=== PATIENT | female | born 1940 | race Caucasian/White ===

== ENCOUNTER 2017-04-16 17:30 | Inpatient (IN) | payer MEDICARE ==
--- NOTE | 2017-04-16 18:25 | ED Physician Chart ---
ED Chief Complaint/HPI - Patient Information Date Seen:: 04/16/17 Time Seen:: 17:40 Chief Complaint:: AMS History of Present Illness:: onset x 2 days of AMS, ALOC, depression with SIs; no report of trauma, H/As, S/T , neck pain, C/P, SOB, Abd. Pain, A/N/V/D/C, fever, chills, or urinary s/s Allergies:: Allergies Allergy/AdvReac Type Severity Reaction Status Date / Time No Known Allergies Allergy Verified 04/16/17 17:44 Vitals:: Vital Signs - 8 hr 04/16/17 17:44 Temp 98.3 F HR 95 RR 16 BP 159/52 O2 Sat % 98 Historian:: Patient, Family Member Review:: Nurse's Note Reviewed ED Review of Systems - Review of Systems General/Constitutional: No fever, No chills, No weight loss, No weakness, No diaphoresis, No edema, No loss of appetite Skin: No skin lesions, No rash, No bruising Head: No headache, No light-headedness Eyes: No loss of vision, No pain, No diplopia ENT: No earache, No nasal drainage, No sore throat, No tinnitus Neck: No neck pain, No swelling, No thyromegaly, No stiffness, No mass noted Cardio Vascular: No chest pain, No palpitations, No PND, No orthopnea, No edema Pulmonary: No SOB, No cough, No sputum, No wheezing GI: No nausea, No vomiting, No diarrhea, No pain, No melena, No hematochezia, No constipation, No hematemesis G/U: No dysuria, No frequency, No hematuria, No nacturia Test Clerk: No vaginal discharge, No abnormal vaginal bleed, No contraction Musculoskeletal: No bone or joint pain, No back pain, No muscle pain Endocrine: No polyuria, No polydipsia Psychiatric: Prior psych history, Depression, No anxiety, Suicidal ideation, No homicidal ideation, No auditory hallucination, No visual hallucination Hematopoietic: No bruising, No lymphadenopathy Allergic/Immuno: No urticaria, No angioedema Neurological: No syncope, No focal symptoms, No weakness, No paresthesia, No headache, No seizure, No dizziness, Confusion, No vertigo ED Past Medical History - Past Medical History Obtainable: Yes Past Medical History: HTN, Dyslipidemia, Dementia Family History: Diabetes Melitus, HTN Social History: Non Smoker, No Drug Use, Single, Care Facility Surgical History: None Psychiatricy History: Depression, Bipolar, Dementia Medication: Reviewed ED Physical Exam - Physical Examination General/Constitutional: Awake, Well-developed, well-nourished, Alert, No distress, GCS 15, Non-toxic appearing, Ambulatory Head: Atraumatic Eyes: Lids, conjuctiva normal, PERRL, EOMI Skin: Nl inspection, No rash, No skin lesions, No ecchymosis, Well hydrated, No lymphadenopathy ENMT: External ears, nose nl, TM canals nl, Nasal exam nl, Lips, teeth, gums nl , Oropharynx nl, Tonsils nl Neck: Nontender, Full ROM w/o pain, No JVD, No nuchal rigidity, No bruit, No mass, No stridor Respiratory: Nl effort/Exclusion, Clear to Auscultation, No Wheeze/Rhonchi/Rales Cardio Vascular: RRR, No murmur, gallop, rubs, NL S1 S2, Carotid/Femoral/Distal pulses equal bilaterally GI: No tenderness/rebounding/guarding, No organomegaly, No hernia, Normal BS's, Nondistended, No mass/bruits, No McBurney tenderness : No CVA tenderness Extremities: No tenderness or effusion, Full ROM, normal strength in all extremities, No edema, Normal digits & nails Neuro/Psych: DTR's symmetric, Normal sensory exam, Normal motor strength, Judgement/insight normal, Mood normal, Normal gait, No focal deficits Other Neuro/Psych comments:: Confused and Disoriented; + SIs Misc: Normal back, No paraspinal tenderness ED Labs/Radiology/EKG Results - Lab Results Comments:: H/H: + Anemia - EKG Interpretations EKG Time:: 18:31 Rate & Rhythm: 64; NSR Comments:: non-specific st-t changes ED Septic Shock - . Is Septic Shock (SBP<90, OR Lactate>4 mmol\L) present?: No - <6hrs of presentation: Vital Signs: Vital Signs - 8 hr 04/16/17 17:44 Temp 98.3 F HR 95 RR 16 BP 159/52 O2 Sat % 98 ED Reassessment (Disposition) - Reassessment Reassessment Condition:: Improved - Diagnosis Diagnosis:: Agitation; AMS; ALOC; Dementia; Anemia; Metabolic Encephalopathy - Aftercare/Follow up Instructions Aftercare/Follow-Up Instructions:: Counseled pt regarding lab results/diagnosis & need follow up, Counseled pt & family regarding lab results/diagnosis & need follow up - Patient Disposition Discharge/Transfer:: Acute Care w/in this hosp Accepting Physician:: Dr. Wen Time Called:: 1899 Time Responded:: 19:00 Admitted to:: Med/Surg Spoke to:: Dr. Wen Admitting Medical Physician:: Dr. Wen Condition at Disposition:: Stable, Improved
[2017-04-16 18:28] LABS: % EOSINOPHILS 2.4 % (0.0-5.0); % LYMPHOCYTES 15.6 % (20.0-50.0); EOSINOPHILE ABSOLUTE 0.3 Th/cmm (0.1-0.4); HEMATOCRIT 31.2 % (41.0-60); HEMOGLOBIN 10.3 gm/dL (12-16); LYMPHOCYTE ABSOLUTE 1.6 Th/cmm (1.5-3.0); MEAN CELL VOLUME 93.2 fl (81-100); MEAN CORPUSCULAR HEMOGLOBIN 30.9 pg (27.0-31.0); MEAN CORPUSCULAR HGB CONC 33.2 pg (28.0-36.0); MEAN PLATELET VOLUME 7.4 fl; MONOCYTE ABSOLUTE 0.7 Th/cmm (0.3-1.0); NEUTROPHILE ABSOLUTE 7.9 Th/cmm (1.8-8.0); PLATELET COUNT 529 Th/cmm (150-400); RED BLOOD COUNT 3.34 Mil/cmm (3.80-5.20); RED CELL DISTRIBUTION WIDTH 12.8 % (11.5-20.0); WHITE BLOOD COUNT 10.5 Th/cmm (4.8-10.8)
[2017-04-16 18:44] LABS: ACETAMINOPHEN < 10.0 ug/mL (10.0-30.0); ALB/GLOB RATIO 0.9 (1.0-1.8); ALBUMIN 3.4 gm/dL (3.7-5.3); ALKALINE PHOSPHATASE 106 U/L (34-104); ANION GAP 14.2 (7.0-16.0); BILIRUBIN,TOTAL 0.5 mg/dL (0.3-1.0); BUN - UREA NITROGEN 21 mg/dL (7-25); CALCIUM SERUM 10.3 mg/dL (8.6-10.3); CARBON DIOXIDE 23.3 mEq/L (21.0-31.0); CHLORIDE 102 mEq/L (98-107); CHOLESTEROL 150 mg/dL (<200); CREATININE - SERUM 1.1 mg/dL (0.6-1.2); GLUCOSE 129 mg/dL (70-105); HDL -HIGH DENSITY LIPOPROTEIN 40 mg/dL (23-92); POTASSIUM SERUM 3.5 mEq/L (3.5-5.1); SGOT 25 U/L (13-39); SGPT/ALT 32 U/L (7-52); SODIUM SERUM 136 mEq/L (136-145); TOTAL PROTEIN,SERUM 7.3 gm/dL (6.0-8.3); TRIGLYCERIDES 368 mg/dL (<150)
[2017-04-16 19:00] LABS: SALICYLATES (ASPIRIN) < 25.0 mg/L (30.0-100.0)
[2017-04-16] MEDS: Sodium Chloride 0.9% 1,000 ML IV SCH (22:59)
[2017-04-16 23:15] VITALS: BP 141/56
[2017-04-17 00:35] LABS: URINE MICROSCOPIC INDICATED? YES; URINE SOURCE CLEAN C
[2017-04-17 00:45] LABS: URINE BILIRUBIN NEGATIVE (NEGATIVE); URINE BLOOD NEGATIVE (NEGATIVE); URINE GLUCOSE (UA) >=1000 mg/dL (NEGATIVE); URINE KETONE NEGATIVE (NEGATIVE); URINE LEUKOCYTE ESTERASE SMALL (NEGATIVE); URINE NITRATE NEGATIVE (NEGATIVE); URINE PROTEIN NEGATIVE (NEGATIVE); URINE UROBILINOGEN 0.2 E.U./dL (0.2 - 1.0)
[2017-04-17 00:48] LABS: URINE CLARITY CLEAR (CLEAR); URINE COLOR YELLOW
[2017-04-17 00:49] LABS: URINE BACTERIA FEW /hpf (NONE SEEN); URINE EPITHELIAL CELLS FEW /lpf (FEW); URINE RBC 0-2 /hpf (0-5); URINE WBC 0-2 /hpf (0-5); URINE YEAST FEW /hpf (NONE SEEN)
[2017-04-17 01:04] LABS: AMPHETAMINE URINE NEGATIVE (NEGATIVE); BARBITURATES URINE NEGATIVE (NEGATIVE); BENZODIAZEPINES QUAL URINE NEGATIVE (NEGATIVE); CANNABINOID THC NEGATIVE (NEGATIVE); COCAINE METABOLITE QUAL URINE NEGATIVE (NEGATIVE); METHADONE URINE NEGATIVE (NEGATIVE); METHAMPHETAMINES QUAL URINE NEGATIVE (NEGATIVE); OPIATES (MORPHINE) QUAL. URINE NEGATIVE (NEGATIVE); PHENCYCLIDINE (PCP) URINE NEGATIVE (NEGATIVE); TRICYCLICS (TCA) QUAL. URINE NEGATIVE (NEGATIVE)
[2017-04-17] MEDS: cefTRIAXone 1 GM in Sodium Chloride 0.9% 50 ML IV SCH ×2 (01:43→23:17)
--- NOTE | 2017-04-17 12:14 | History & Physical ---
ADMIT DATE: 04/17/2017 CHIEF COMPLAINT: Altered level of consciousness. HISTORY OF PRESENT ILLNESS: A 76-year-old female who was brought into the emergency department by her daughter after experiencing metabolic encephalopathy. According to the patient's daughter, approximately 3 weeks ago, the patient was admitted to the local hospital after suffering a right lower extremity fracture. Since hospitalization, her mother has been very altered and not acting like herself. Her mother has significant psychiatric history and takes multiple psychiatric medications to control the symptoms; however, during last hospitalization, because her mother was having increased encephalopathy, they changed her medications at that time and since then she has remained very altered and will not follow any of her daughter's direction. Home medications were reviewed and reconciled. Vitals; temperature 98.4, pulse 101, respirations 22, blood pressure is 122/59. PAST MEDICAL HISTORY: Impulse control disorder, anxiety, depression, diabetes, hypertension, hyperlipidemia, coronary artery disease. PAST SURGICAL HISTORY: None. FAMILY HISTORY: Unremarkable. SOCIAL HISTORY: Denies tobacco, drugs, or alcohol. MEDICATIONS: Reviewed and reconciled. REVIEW OF SYSTEMS: Could not be obtained, because the patient is unable to understand to questioning at this time. PHYSICAL EXAMINATION: GENERAL: NAD. HEENT: PERRLA, EOMI. NECK: Supple. Trachea midline. CARDIOVASCULAR: Regular rate and rhythm. RESPIRATORY: CTA bilaterally. No wheezes, rales, or rhonchi. ABDOMEN: Soft, nontender, nondistended. Bowel sounds positive in all 4 quadrants. EXTREMITIES: Full range of motion. There is a blue cast on her right lower extremity that looks very worn and beaten up. SKIN: Warm and dry. NEUROPSYCHIATRY: A and O x 1 to self. Cranial nerves 2-12 are intact. ASSESSMENT AND PLAN: Metabolic encephalopathy, right lower extremity fracture, anxiety, depression, impulse control disorder, diabetes, hypertension. Admit to [facility]. The patient needs a sitter due to encephalopathy. Continue simvastatin, venlafaxine, Actos, Zyprexa, lisinopril, Lamictal, glyburide, and Plavix, and prophylactically ____ started. Urinary analysis was obtained at this time. Physical therapy evaluation, chest x-ray ordered due to cough. Dr. Santiago consultation has been placed at this time. JOB# [id number]
--- NOTE | 2017-04-17 12:23 | Diagnostic Imaging Report ---
CHEST X-RAY: AP view INDICATION: Cough COMPARISON: None FINDINGS: The patient is rotated. Slight increase left basal density is noted. Left basal atelectatic changes are noted. Borderline cardiomegaly is noted with atherosclerosis. Degenerative changes of the spine is noted. IMPRESSION: Limited exam due to positioning and rotation. A trace left effusion is suspected. Additional increased left basal lung markings favoring atelectatic changes. No focal consolidation is identified Borderline cardiomegaly with atherosclerosis.
[2017-04-17] MEDS: Sodium Chloride 0.9% 1,000 ML IV SCH (15:30)
--- NOTE | 2017-04-18 07:43 | Consultation ---
DATE OF CONSULTATION: 04/18/2017 AGE: 76. SEX: Female. PHYSICIAN: Dr. Wen. PRIMER CHARGING TOOL SETTER: Dr. Nunez. TYPE OF THE REPORT: Psychiatric consult. REASON FOR THE CONSULT: Agitation. HISTORY OF PRESENT ILLNESS: The patient is a 76-year-old female who was admitted to the hospital after she broke her right foot. The patient has been extremely agitated and in irritable mood and aggressive and was not able to follow any of staff directions and the patient did not sleep at night. Also, last night the patient kicked the staff with her cast, her right foot. She also did not sleep almost all night. She also has been easily agitated and easily irritable. PAST PSYCHIATRIC HISTORY: The patient seems to be having history of psychosis and might be bipolar versus schizoaffective disorder. She had altered level of consciousness when she was admitted to the hospital. SOCIAL HISTORY: The patient is a poor historian. I am not clear at this time if she is living with her daughter or by herself. No known alcohol or drug use. No known legal issues. ALLERGIES: No known allergies. MENTAL STATUS EXAM: The patient appears her stated age. Anxious. Irritable mood. Sad affect. Irritable and rambling. The patient did not answer questions regarding hallucinations, but she seems to be actively responding. The patient did not answer questions regarding suicide or homicide. The patient is alert and oriented to time, place, person and situation. Impaired immediate, recent and remote memories. Poor insight. Poor judgment. ASSESSMENT: Schizoaffective disorder, bipolar type, severe. MEDICAL DIAGNOSIS: Fracture of right foot. Altered level of consciousness. TREATMENT PLAN: We will start Zyprexa and we will start the patient on Seroquel and we will adjust the dose. Also, we will work on behavioral modification. Thanks, Dr. Wen and we will follow up with you. JOB# [id number]
[2017-04-18] MEDS ORDERED: VENLAFAXINE HCL 150 MG PO SCH (09:00)
[2017-04-18] MEDS ORDERED: Non-Formulary Item 1 EA (Lisinopril [Lisinopril] 40 MG) PO SCH (09:00)
[2017-04-18] MEDS ORDERED: PIOGLITAZONE HCL 45 MG PO SCH (09:00)
[2017-04-18] MEDS ORDERED: CHOLECALCIFEROL 1000 UNIT PO SCH (09:00)
[2017-04-18] MEDS: PIOGLITAZONE HCL PO SCH (09:13)
[2017-04-18 15:16] LABS: % BASOPHILS 0.2 % (0.0-2.0); % EOSINOPHILS 2.2 % (0.0-5.0); % LYMPHOCYTES 27.6 % (20.0-50.0); % MONOCYTES 9.3 % (2.0-10.0); % NEUTROPHILS 60.7 % (40.0-80.0); EOSINOPHILE ABSOLUTE 0.2 Th/cmm (0.1-0.4); HEMATOCRIT 30.8 % (41.0-60); HEMOGLOBIN 10.3 gm/dL (12-16); LYMPHOCYTE ABSOLUTE 2.6 Th/cmm (1.5-3.0); MEAN CELL VOLUME 92.6 fl (81-100); MEAN CORPUSCULAR HEMOGLOBIN 30.9 pg (27.0-31.0); MEAN CORPUSCULAR HGB CONC 33.4 pg (28.0-36.0); MONOCYTE ABSOLUTE 0.9 Th/cmm (0.3-1.0); NEUTROPHILE ABSOLUTE 5.6 Th/cmm (1.8-8.0); PLATELET COUNT 479 Th/cmm (150-400); RED BLOOD COUNT 3.32 Mil/cmm (3.80-5.20); RED CELL DISTRIBUTION WIDTH 12.4 % (11.5-20.0); WHITE BLOOD COUNT 9.3 Th/cmm (4.8-10.8)
[2017-04-18] MEDS: Sodium Chloride 0.9% 1,000 ML IV SCH (17:22)
[2017-04-18] MEDS: Fluconazole 100mg/50mL 100 MG/50 ML BOTTLE IV SCH (17:24)
--- NOTE | 2017-04-18 18:38 | Progress Notes ---
DATE: SUBJECTIVE: The patient is lying comfortably in bed, has no complaints at this time. She is still pending a psychiatric evaluation. The patient has required 1:1 sitter because she is restless and continues try to get out of bed. OBJECTIVE: VITAL SIGNS: Temperature 97.6, pulse 68, blood pressure 150/44 and respirations are 16. GENERAL: NAD. HEENT: PERRLA, EOMI. NECK: Supple. Trachea midline. CARDIOVASCULAR: Regular rate and rhythm. RESPIRATORY: Decreased breath sounds bilaterally. No rhonchi, rales or wheezing. ABDOMEN: Soft, nontender, nondistended. Bowel sounds positive in all 4 quadrants. SKIN: No breakdown or open wounds. EXTREMITIES: Full range of motion. ASSESSMENT AND PLAN: Metabolic encephalopathy secondary to urinary tract infection, right lower extremity fracture, anxiety, depression, impulse control disorder, diabetes, hypertension. The patient will be seen by Dr. Santiago due to the encephalopathy and history of multiple psych disorders. X-rays are pending. Due to the patient's history of the right lower extremity worn. Urinalysis revealed urinary tract infection as well as yeast. She was started on fluconazole as well as antibiotic, continue to monitor. JOB# [id number]
[2017-04-18 20:17] LABS: URINE MICROSCOPIC INDICATED? YES; URINE SOURCE CLEAN C
[2017-04-18 20:25] LABS: URINE BILIRUBIN NEGATIVE (NEGATIVE); URINE BLOOD NEGATIVE (NEGATIVE); URINE GLUCOSE (UA) 500 mg/dL (NEGATIVE); URINE KETONE NEGATIVE (NEGATIVE); URINE LEUKOCYTE ESTERASE SMALL (NEGATIVE); URINE NITRATE NEGATIVE (NEGATIVE); URINE PH 5.5 (4.6 - 8.0); URINE PROTEIN TRACE mg/dL (NEGATIVE); URINE UROBILINOGEN 0.2 E.U./dL (0.2 - 1.0)
[2017-04-18 20:26] LABS: URINE CLARITY HAZY (CLEAR); URINE COLOR YELLOW
[2017-04-18 20:46] LABS: URINE RBC 0-2 /hpf (0-5)
[2017-04-18 20:47] LABS: URINE BACTERIA FEW /hpf (NONE SEEN); URINE EPITHELIAL CELLS NONE SEEN /lpf (FEW); URINE WBC 25-50 /hpf (0-5)
[2017-04-18 20:48] LABS: URINE YEAST MANY /hpf (NONE SEEN)
[2017-04-18] MEDS: cefTRIAXone 1 GM in Sodium Chloride 0.9% 50 ML IV SCH (23:01)
[2017-04-19] MEDS: Sodium Chloride 0.9% 1,000 ML IV SCH ×2 (02:04→16:17)
[2017-04-19 07:00] LABS: BUN - UREA NITROGEN 13 mg/dL (7-25); CALCIUM SERUM 9.4 mg/dL (8.6-10.3); CARBON DIOXIDE 22.7 mEq/L (21.0-31.0); CREATININE - SERUM 0.9 mg/dL (0.6-1.2); GLUCOSE 147 mg/dL (70-105); POTASSIUM SERUM 3.6 mEq/L (3.5-5.1); SODIUM SERUM 136 mEq/L (136-145)
[2017-04-19 07:30] LABS: % EOSINOPHILS 2.9 % (0.0-5.0); % LYMPHOCYTES 30.9 % (20.0-50.0); % MONOCYTES 9.2 % (2.0-10.0); BASOPHILE ABSOLUTE 0.1 Th/cumm (0-0.2); EOSINOPHILE ABSOLUTE 0.3 Th/cmm (0.1-0.4); HEMATOCRIT 30.7 % (41.0-60); HEMOGLOBIN 10.7 gm/dL (12-16); LYMPHOCYTE ABSOLUTE 2.7 Th/cmm (1.5-3.0); MEAN CELL VOLUME 96.5 fl (81-100); MEAN CORPUSCULAR HEMOGLOBIN 33.6 pg (27.0-31.0); MEAN CORPUSCULAR HGB CONC 34.8 pg (28.0-36.0); MEAN PLATELET VOLUME 7.7 fl; MONOCYTE ABSOLUTE 0.8 Th/cmm (0.3-1.0); NEUTROPHILE ABSOLUTE 4.8 Th/cmm (1.8-8.0); PLATELET COUNT 523 Th/cmm (150-400); RED BLOOD COUNT 3.18 Mil/cmm (3.80-5.20); RED CELL DISTRIBUTION WIDTH 12.5 % (11.5-20.0); WHITE BLOOD COUNT 8.7 Th/cmm (4.8-10.8)
[2017-04-19] MEDS: PIOGLITAZONE HCL PO SCH (08:28)
[2017-04-19 09:55] LABS: ANION GAP 8.9 (7.0-16.0); CHLORIDE 108 mEq/L (98-107)
--- NOTE | 2017-04-19 10:48 | Diagnostic Imaging Report ---
Exam: Right tibia-fibula HISTORY: Right leg fracture. Findings: Portable examination right tibia-fibula at 0923 hours reviewed. No prior studies available comparison at The study demonstrates metallic plating of distal right fibula with 2 metallic screws transfix in the right medial malleolus. Plaster cast is noted. The anatomical alignment of the bony fragment is achieved. IMPRESSION: status post open reduction internal fixation of the right ankle Plaster cast in place, no evidence for acute fracture dislocation.
--- NOTE | 2017-04-19 10:54 | Diagnostic Imaging Report ---
Exam: Right foot HISTORY: Fracture. Portable examination right foot at 0923 hours reviewed. The study demonstrates degenerative osteophytic changes with superimposed osteopenia. There is evidence of spurring was calcaneus. Soft tissue swelling might be consistent with cellulitis. Extensive plaster cast appreciated status post open reduction internal fixation of the right ankle joint. IMPRESSION: Essentially unremarkable sedation right foot, cellulitis cannot be excluded. Spurring was calcaneus
[2017-04-19] MEDS: Fluconazole 100mg/50mL 100 MG/50 ML BOTTLE IV SCH (16:18)
[2017-04-19] MEDS: cefTRIAXone 1 GM in Sodium Chloride 0.9% 50 ML IV SCH (23:06)
[2017-04-20] MEDS: Sodium Chloride 0.9% 1,000 ML IV SCH ×2 (02:08→16:58)
[2017-04-20 06:30] LABS: % BASOPHILS 0.1 % (0.0-2.0); % EOSINOPHILS 2.9 % (0.0-5.0); % LYMPHOCYTES 27.3 % (20.0-50.0); % MONOCYTES 7.4 % (2.0-10.0); % NEUTROPHILS 62.3 % (40.0-80.0); EOSINOPHILE ABSOLUTE 0.3 Th/cmm (0.1-0.4); HEMATOCRIT 31.5 % (41.0-60); HEMOGLOBIN 10.9 gm/dL (12-16); LYMPHOCYTE ABSOLUTE 2.6 Th/cmm (1.5-3.0); MEAN CELL VOLUME 96.6 fl (81-100); MEAN CORPUSCULAR HEMOGLOBIN 33.5 pg (27.0-31.0); MEAN CORPUSCULAR HGB CONC 34.7 pg (28.0-36.0); MEAN PLATELET VOLUME 7.4 fl; MONOCYTE ABSOLUTE 0.7 Th/cmm (0.3-1.0); NEUTROPHILE ABSOLUTE 6.1 Th/cmm (1.8-8.0); PLATELET COUNT 535 Th/cmm (150-400); RED BLOOD COUNT 3.27 Mil/cmm (3.80-5.20); RED CELL DISTRIBUTION WIDTH 12.3 % (11.5-20.0); WHITE BLOOD COUNT 9.7 Th/cmm (4.8-10.8)
[2017-04-20 06:37] LABS: ANION GAP 12.5 (7.0-16.0); BUN - UREA NITROGEN 11 mg/dL (7-25); CALCIUM SERUM 9.6 mg/dL (8.6-10.3); CHLORIDE 108 mEq/L (98-107); CREATININE - SERUM 0.8 mg/dL (0.6-1.2); GLUCOSE 142 mg/dL (70-105); POTASSIUM SERUM 3.5 mEq/L (3.5-5.1); SODIUM SERUM 137 mEq/L (136-145)
[2017-04-20] MEDS: PIOGLITAZONE HCL PO SCH (09:08)
[2017-04-20] MEDS: Fluconazole 100mg/50mL 100 MG/50 ML BOTTLE IV SCH (17:03)
[2017-04-21 06:56] LABS: % BASOPHILS 1.9 % (0.0-2.0); % LYMPHOCYTES 25.2 % (20.0-50.0); % MONOCYTES 7.8 % (2.0-10.0); % NEUTROPHILS 63.1 % (40.0-80.0); BASOPHILE ABSOLUTE 0.2 Th/cumm (0-0.2); EOSINOPHILE ABSOLUTE 0.2 Th/cmm (0.1-0.4); HEMATOCRIT 31.1 % (41.0-60); HEMOGLOBIN 10.8 gm/dL (12-16); LYMPHOCYTE ABSOLUTE 2.4 Th/cmm (1.5-3.0); MEAN CELL VOLUME 95.6 fl (81-100); MEAN CORPUSCULAR HEMOGLOBIN 33.3 pg (27.0-31.0); MEAN CORPUSCULAR HGB CONC 34.8 pg (28.0-36.0); MEAN PLATELET VOLUME 7.2 fl; MONOCYTE ABSOLUTE 0.7 Th/cmm (0.3-1.0); NEUTROPHILE ABSOLUTE 5.9 Th/cmm (1.8-8.0); PLATELET COUNT 435 Th/cmm (150-400); RED BLOOD COUNT 3.25 Mil/cmm (3.80-5.20); WHITE BLOOD COUNT 9.4 Th/cmm (4.8-10.8)
[2017-04-21 07:13] LABS: ANION GAP 10.8 (7.0-16.0); BUN - UREA NITROGEN 9 mg/dL (7-25); CALCIUM SERUM 9.4 mg/dL (8.6-10.3); CARBON DIOXIDE 20.9 mEq/L (21.0-31.0); CHLORIDE 113 mEq/L (98-107); CREATININE - SERUM 0.8 mg/dL (0.6-1.2); GLUCOSE 148 mg/dL (70-105); POTASSIUM SERUM 3.7 mEq/L (3.5-5.1); SODIUM SERUM 141 mEq/L (136-145)
--- NOTE | 2017-04-21 08:10 | Progress Notes ---
DATE: 04/21/2017 PSYCHIATRIC PROGRESS NOTE SUBJECTIVE: Chart reviewed and the patient interviewed. Also discussed the patient's condition with the staff and reviewed records and labs. The patient is still agitated and restless. The patient also still has difficulty with her mood and she also has difficulty sleeping at night. She also is restless at times. Otherwise, the patient continued to comply with taking her medications with no side effects of medications. ASSESSMENT: The patient is still restless and is still agitated. TREATMENT PLAN: We will continue to monitor her behavior and her condition closely. Also, we will increase Seroquel to 75 mg 3 times a day. Also, continue adjusting psychotropic medications and work on behavioral modifications and we will continue to follow up. [facility]# [id number]
[2017-04-21] MEDS: PIOGLITAZONE HCL PO SCH (08:29)
--- NOTE | 2017-04-21 10:11 | Progress Notes ---
DATE: SUBJECTIVE: The patient is lying comfortably in bed, does not appear in any acute pain or distress at this time. The patient continues to remain altered and tries to get out of bed. There is a sitter in the room. Denies fevers and chills or nausea or vomiting. Dr. Nunez's psych consultation is currently pending at this time. The patient will likely require continued physical therapy for transfer training. She is currently nonweightbearing on the right lower extremity due to a fracture obtained approximately 6 weeks ago. OBJECTIVE: VITAL SIGNS: Temperature 97 degrees Fahrenheit, pulse 70, blood pressure is 168/62 and respirations are 19. GENERAL: NAD. HEENT: PERRLA, EOMI. NECK: Supple. Trachea midline. CARDIOVASCULAR: Regular rate and rhythm. RESPIRATORY: Decreased breath sounds bilaterally with rhonchi. No wheezing or rales. ABDOMEN: Soft, nontender, nondistended, bowel sounds positive, all 4 quadrants. SKIN: No breakdown. MUSCULOSKELETAL: Muscle strength testing, bilateral upper and lower extremities 4/5. LABORATORY DATA: Hemoglobin is 10.7 and creatinine of 0.9. ASSESSMENT: Metabolic encephalopathy secondary to urinary tract infection and candidiasis. Right lower extremity fracture, anxiety, depression, impulse control disorder, diabetes, hypertension. Dr. Nunez's consultation is currently pending. PLAN: Continue current home medications. Continue Rocephin and fluconazole. Discharge planning for possible SNF placement versus [facility]. JOB# [id number]
[2017-04-21] MEDS: Fluconazole 100mg/50mL 100 MG/50 ML BOTTLE IV SCH (15:52)
[2017-04-21] MEDS: Sodium Chloride 0.9% 1,000 ML IV SCH (17:45)
--- NOTE | 2017-04-21 23:55 | General Progress Note ---
Subjective - Review of Systems Service Date: 04/21/17 Events since last encounter: Needs continued psych treatment. Insurance will not allow for a prolonged stay in the [facility]. COntinue seroquel TID. right LE xrays were negative, needs ortho f/u for removal of the cast Subjective: The patient was seen, evaluated and responds to stimuli. No s.s of pain or distress. Denies fevers or chills Objective - Results Result Diagrams: 04/21/17 06:32 04/21/17 06:32 Recent Labs: Laboratory Last Values WBC 9.4 Th/cmm (4.8-10.8) 04/21/17 06:32 RBC 3.25 Mil/cmm (3.80-5.20) L 04/21/17 06:32 Hgb 10.8 gm/dL (12-16) L 04/21/17 06:32 Hct 31.1 % (41.0-60) L 04/21/17 06:32 MCV 95.6 fl (81-100) 04/21/17 06:32 MCH 33.3 pg (27.0-31.0) H 04/21/17 06:32 MCHC Differential 34.8 pg (28.0-36.0) 04/21/17 06:32 RDW 13.0 % (11.5-20.0) 04/21/17 06:32 Plt Count 435 Th/cmm (150-400) H 04/21/17 06:32 MPV 7.2 fl 04/21/17 06:32 Neutrophils % 63.1 % (40.0-80.0) 04/21/17 06:32 Lymphocytes % 25.2 % (20.0-50.0) 04/21/17 06:32 Monocytes % 7.8 % (2.0-10.0) 04/21/17 06:32 Eosinophils % 2.0 % (0.0-5.0) 04/21/17 06:32 Basophils % 1.9 % (0.0-2.0) 04/21/17 06:32 Sodium 141 mEq/L (136-145) 04/21/17 06:32 Potassium 3.7 mEq/L (3.5-5.1) 04/21/17 06:32 Chloride 113 mEq/L (98-107) H 04/21/17 06:32 Carbon Dioxide 20.9 mEq/L (21.0-31.0) L 04/21/17 06:32 Anion Gap 10.8 (7.0-16.0) 04/21/17 06:32 BUN 9 mg/dL (7-25) 04/21/17 06:32 Creatinine 0.8 mg/dL (0.6-1.2) 04/21/17 06:32 Est GFR ( Amer) TNP 04/21/17 06:32 Est GFR (Non-Af Amer) TNP 04/21/17 06:32 BUN/Creatinine Ratio 11.3 04/21/17 06:32 Glucose 148 mg/dL (70-105) H 04/21/17 06:32 Hemoglobin A1c % 8.0 % (4.0-6.0) H 04/16/17 18:20 Calcium 9.4 mg/dL (8.6-10.3) 04/21/17 06:32 Total Bilirubin 0.5 mg/dL (0.3-1.0) 04/16/17 18:20 AST 25 U/L (13-39) 04/16/17 18:20 ALT 32 U/L (7-52) 04/16/17 18:20 Alkaline Phosphatase 106 U/L (34-104) H 04/16/17 18:20 Total Protein 7.3 gm/dL (6.0-8.3) 04/16/17 18:20 Albumin 3.4 gm/dL (3.7-5.3) L 04/16/17 18:20 Globulin 3.9 gm/dL 04/16/17 18:20 Albumin/Globulin Ratio 0.9 (1.0-1.8) L 04/16/17 18:20 Triglycerides 368 mg/dL (<150) H 04/16/17 18:20 Cholesterol 150 mg/dL (<200) 04/16/17 18:20 LDL Cholesterol Direct 69 mg/dL (75-193) L 04/16/17 18:20 HDL Cholesterol 40 mg/dL (23-92) 04/16/17 18:20 TSH 4.00 uIU/ml (0.34-5.60) 04/16/17 18:20 Urine Source CLEAN C 04/18/17 19:20 Urine Color YELLOW 02/16/18 19:20 Urine Clarity HAZY (CLEAR) 04/18/17 19:20 Urine pH 5.5 (4.6 - 8.0) 04/18/17 19:20 Ur Specific Neche 1.025 (1.005-1.030) 04/18/17 19:20 Urine Protein TRACE mg/dL (NEGATIVE) 04/18/17 19:20 Urine Glucose (UA) 500 mg/dL (NEGATIVE) H 04/18/17 19:20 Urine Ketones NEGATIVE mg/dL (NEGATIVE) 04/18/17 19:20 Urine Blood NEGATIVE (NEGATIVE) 04/18/17 19:20 Urine Nitrate NEGATIVE (NEGATIVE) 04/18/17:20 Urine Bilirubin NEGATIVE (NEGATIVE) 04/18/17:20 Urine Urobilinogen 0.2 E.U./dL (0.2 - 1.0) 04/18/17 19:20 Ur Leukocyte Esterase SMALL (NEGATIVE) H 04/18/17 19:20 Urine RBC 0-2 /hpf (0-5) 04/18/17 19:20 Urine WBC 25-50 /hpf (0-5) H 04/18/17 19:20 Ur Epithelial Cells NONE SEEN /lpf (FEW) 04/18/17 19:20 Urine Bacteria FEW /hpf (NONE SEEN) 04/18/17 19:20 Urine Yeast MANY /hpf (NONE SEEN) H 04/18/17 19:20 Salicylates < 25.0 mg/L (30.0-100.0) L 04/16/17 18:20 Urine Opiates Screen NEGATIVE (NEGATIVE) 04/17/17 00:10 Urine Methadone Screen NEGATIVE (NEGATIVE) 04/17/17 00:10 Acetaminophen < 10.0 ug/mL (10.0-30.0) L 04/16/17 18:20 Ur Barbiturates Screen NEGATIVE (NEGATIVE) 04/17/17 00:10 Ur Tricyclics Screen NEGATIVE (NEGATIVE) 04/17/17 00:10 Ur Phencyclidine Scrn NEGATIVE (NEGATIVE) 04/17/17 00:10 Amphetamines Screen NEGATIVE (NEGATIVE) 04/17/17 00:10 U Methamphetamines Scrn NEGATIVE (NEGATIVE) 04/17/17 00:10 U Benzodiazepines Scrn NEGATIVE (NEGATIVE) 04/17/17 00:10 U Cocaine Metab Screen NEGATIVE (NEGATIVE) 04/17/17 00:10 U Cannabinoids Screen NEGATIVE (NEGATIVE) 04/17/17 00:10 Ethyl Alcohol < 10 mg/dL (0-10) 04/16/17 18:20 RPR NONREACTIVE (NONREACTIVE) 04/16/17 18:20 - Physical Exam Vitals and I&O: Vital Signs Temp 98.1 F 04/21/17 23:50 Pulse 88 04/21/17 23:50 Resp 18 04/21/17 23:50 BP 146/60 04/21/17 23:50 Pulse Ox 100 04/21/17 23:50 Intake & Output 04/21/17 04/21/17 04/22/17 06:59 18:59 06:59 Intake Total 1050 500 Balance 1050 500 Weight (lbs) 90.735 kg 90.718 kg Intake: Oral 1050 500 Other: # Voids 4 3 # Bowel Movements 0 Active Medications: Current Medications Acetaminophen (Tylenol) 650 mg PO Q6H PRN PRN Reason: HEADACHE/TEMP ABOVE 100F Stop: 06/16/17 09:43 Last Admin: 04/19/17 02:17 Dose: 650 mg Cholecalciferol (Vitamin D3) 1,000 iu PO DAILY [facility] Stop: 06/17/17 08:59 Last Admin: 04/21/17 08:27 Dose: 1,000 iu Clopidogrel Bisulfate (Plavix) 75 mg PO DAILY [facility] Stop: 06/17/17 08:59 Last Admin: 04/21/17 08:28 Dose: 75 mg Docusate Sodium (Colace) 100 mg PO BID PRN PRN Reason: Constipation Stop: 06/16/17 09:43 Last Admin: 04/17/17 15:24 Dose: 100 mg Glyburide (Diabeta) 5 mg PO BID [facility] Stop: 06/16/17 16:59 Last Admin: 04/21/17 18:54 Dose: 5 mg Hydralazine HCl (Apresoline 20 Mg/Ml) 10 mg IV Q6HR PRN PRN Reason: sbp>160 Stop: 06/18/17 08:50 Last Admin: 04/20/17 20:25 Dose: 10 mg Sodium Chloride (Nacl 0.9%) 1,000 mls @ 90 mls/hr IV .Q11H7M [facility] Stop: 06/15/17 22:20 Last Admin: 04/21/17 17:45 Dose: 90 mls/hr Fluconazole (Diflucan) 100 mg in 50 mls @ 50 mls/hr IV Q24HR [facility] Stop: 06/17/17 15:59 Last Admin: 04/21/17 15:52 Dose: 50 mls/hr Lamotrigine (Lamictal) 100 mg PO BID [facility] PRN Reason: Protocol Stop: 06/16/17 16:59 Last Admin: 04/21/17 18:54 Dose: 100 mg Lisinopril (Zestril) 40 mg PO DAILY [facility] Stop: 06/17/17 08:59 Last Admin: 04/21/17 08:28 Dose: 40 mg Lorazepam (Ativan) 1 mg IVP Q4HR PRN; Protocol PRN Reason: Agitation Stop: 06/15/17 21:54 Last Admin: 04/21/17 12:46 Dose: 1 mg Pioglitazone HCl 15 mg/ (Pioglitazone HCl 30 mg) 45 mg PO DAILY [facility] Stop: 06/17/17 08:59 Last Admin: 04/21/17 08:29 Dose: 45 mg Quetiapine Fumarate (Seroquel) 75 mg PO TID [facility] PRN Reason: Protocol Stop: 06/20/17 08:59 Last Admin: 04/21/17 20:59 Dose: Not Given Simvastatin (Zocor) 10 mg PO HS [facility] PRN Reason: Protocol Stop: 06/16/17 20:59 Last Admin: 04/21/17 20:59 Dose: Not Given Venlafaxine HCl (Effexor Xr) 150 mg PO DAILY [facility] Stop: 06/17/17 08:59 Last Admin: 04/21/17 08:28 Dose: 150 mg General: Alert, Cooperative, No acute distress HEENT: Atraumatic, PERRLA Neck: Supple Cardiovascular: Regular rate, Normal S1, Normal S2 Lungs: Clear to auscultation Abdomen: Bowel sounds, Soft Extremities: Other (right LE cast intact) Psych/Mental Status: Other (aao x 1 self) Assessment/Plan - Assessment Assessment: metabolic encephalopathy 2/2 uti and candidiasis right LE fracture UTI DEBBI MDD iimpulse control DO DM HTN - Plan Plan: Dr barry is following. Kishore ha. CM is working on placement for continued PT. one to one sitter Nutritional Asmnt/Malnutr-PDOC - Dietary Evaluation Malnutrition Findings (Please click <Entered> for more info): Nutritional Asmnt/Malnutrition Start: 04/17/17 07: 44 Text: Status: Complete Freq: Document 04/21/17 09:29 [email or web address] (Rec: 04/21/17 09:34 [email or web address] [id number]) Nutritional Asmnt/Malnutrition Patient General Information Nutritional Screening Moderate Risk Diagnosis metabolic encephalopathy Pertinent Medical Hx/Surgical Hx impulse control disorder, anxiety, depression, DM, HTN, HLD, CAD Subjective Information Pt A&A x 1, confused, with sitter, moving to [facility]. PO intake 50-100%, usually eats 100%. Current Diet Order/ Nutrition Support mechanical soft, chopped Patient / S.O Not Indicated Pertinent Medications vit d, plavix, colace, glyburide Pertinent Labs 04/21 glucose: 129-148, hgba1c: 8.0, T Nutritional Hx/Data Height 1.57 m Height (Calculated Centimeters) 157.5 Current Weight (lbs) 90.718 kg Weight (Calculated Kilograms) 90.7 Weight (Calculated Grams) 69342.5 [place] Body Weight 110 % [place] Body Weight 181 Body Mass Index (BMI) 36.6 Weight Status Obese GI Symptoms GI Symptoms None Last BM 04/19 Difficult in: Chewing Skin Integrity/Comment: intact, bruises, no edema noted Current %PO Good (75-100%) Estimated Nutritional Goals BEE in Kcals: Adj wt of IBW Calories/Kcals/Kg 25-30 Kcals Calculated 5768-5740 kcals Protein: Adj wt of IBW Protein g/k-1.2 Protein Calculated 60-72 Fluid: ml 1537-6894 mL (1 ml/kcal) Nutritional Problem 1. Problem Problem altered nutrition related lab values Etiology DM, lack of CCHO diet Signs/Symptoms: gluocse: 129-148, hgba1c: 8.0 Malnutrition Alert Is there a minimum of two criteria No selected? Query Text:Check all the applicable criteria. A minimum of two criteria are recommended for diagnosis of either severe or non-severe malnutrition. Malnutrition Related to Morbid Obesity Malnutrition related to morbid obesity No Intervention/Recommendation Comments 1. Change diet to mechanical soft, chopped, CCHO 60 gm to manage DM Expected Outcomes/Goals Expected Outcomes/Goals PO intake>50%, labs: WNL monitor wt, labs, skin, PO intake
[2017-04-22 06:32] LABS: % BASOPHILS 1.3 % (0.0-2.0); % EOSINOPHILS 2.2 % (0.0-5.0); % LYMPHOCYTES 18.7 % (20.0-50.0); % MONOCYTES 6.6 % (2.0-10.0); % NEUTROPHILS 71.2 % (40.0-80.0); BASOPHILE ABSOLUTE 0.1 Th/cumm (0-0.2); EOSINOPHILE ABSOLUTE 0.2 Th/cmm (0.1-0.4); HEMOGLOBIN 11.1 gm/dL (12-16); LYMPHOCYTE ABSOLUTE 2.1 Th/cmm (1.5-3.0); MEAN CELL VOLUME 94.9 fl (81-100); MEAN CORPUSCULAR HEMOGLOBIN 31.8 pg (27.0-31.0); MEAN CORPUSCULAR HGB CONC 33.6 pg (28.0-36.0); MEAN PLATELET VOLUME 7.3 fl; MONOCYTE ABSOLUTE 0.7 Th/cmm (0.3-1.0); NEUTROPHILE ABSOLUTE 7.9 Th/cmm (1.8-8.0); PLATELET COUNT 448 Th/cmm (150-400); RED BLOOD COUNT 3.48 Mil/cmm (3.80-5.20)
[2017-04-22] MEDS: Sodium Chloride 0.9% 1,000 ML IV SCH ×3 (06:35→16:11)
[2017-04-22 07:10] LABS: ANION GAP 11.1 (7.0-16.0); BUN - UREA NITROGEN 9 mg/dL (7-25); CALCIUM SERUM 9.5 mg/dL (8.6-10.3); CARBON DIOXIDE 22.5 mEq/L (21.0-31.0); CHLORIDE 112 mEq/L (98-107); CREATININE - SERUM 0.9 mg/dL (0.6-1.2); GLUCOSE 129 mg/dL (70-105); POTASSIUM SERUM 3.6 mEq/L (3.5-5.1); SODIUM SERUM 142 mEq/L (136-145)
[2017-04-22] MEDS: PIOGLITAZONE HCL PO SCH (08:13)
--- NOTE | 2017-04-22 09:04 | Progress Notes ---
DATE: 04/22/2017 SUBJECTIVE: Chart reviewed and the patient interviewed. Also discussed the patient's condition with the staff and reviewed records and labs. The patient is anxious and she still has episodes of irritability and confusion, but no major behavioral problems, easier to redirect her. The patient denies any intention to harm herself or others. She also complains taking her medications. RECOMMENDATIONS: Continue current psychotropic medications and to monitor her behavior and we will continue to follow up. [facility]# [id number]
--- NOTE | 2017-04-22 09:05 | General Progress Note ---
Subjective - Review of Systems Service Date: 04/22/17 Subjective: Pt is significantly more calm this am. Her Seroquel is now [address] Nunez. She's confused at baseline. No n,v,d or cp. PT seeing the pt. No n,v,d or cp. No sx. Objective - Results Result Diagrams: 04/22/17 06:00 04/22/17 06:00 Recent Labs: Laboratory Last Values WBC 11.0 Th/cmm (4.8-10.8) H 04/22/17 06:00 RBC 3.48 Mil/cmm (3.80-5.20) L 04/22/17 06:00 Hgb 11.1 gm/dL (12-16) L 04/22/17 06:00 Hct 33.0 % (41.0-60) L 04/22/17 06:00 MCV 94.9 fl (81-100) 04/22/17 06:00 MCH 31.8 pg (27.0-31.0) H 04/22/17 06:00 MCHC Differential 33.6 pg (28.0-36.0) 04/22/17 06:00 RDW 13.0 % (11.5-20.0) 04/22/17 06:00 Plt Count 448 Th/cmm (150-400) H 04/22/17 06:00 MPV 7.3 fl 04/22/17 06:00 Neutrophils % 71.2 % (40.0-80.0) 04/22/17 06:00 Lymphocytes % 18.7 % (20.0-50.0) L 04/22/17 06:00 Monocytes % 6.6 % (2.0-10.0) 04/22/17 06:00 Eosinophils % 2.2 % (0.0-5.0) 04/22/17 06:00 Basophils % 1.3 % (0.0-2.0) 04/22/17 06:00 Sodium 142 mEq/L (136-145) 04/22/17 06:00 Potassium 3.6 mEq/L (3.5-5.1) 04/22/17 06:00 Chloride 112 mEq/L (98-107) H 04/22/17 06:00 Carbon Dioxide 22.5 mEq/L (21.0-31.0) 04/22/17 06:00 Anion Gap 11.1 (7.0-16.0) 04/22/17 06:00 BUN 9 mg/dL (7-25) 04/22/17 06:00 Creatinine 0.9 mg/dL (0.6-1.2) 04/22/17 06:00 Est GFR ( Amer) TNP 04/22/17 06:00 Est GFR (Non-Af Amer) TNP 04/22/17 06:00 BUN/Creatinine Ratio 10.0 04/22/17 06:00 Glucose 129 mg/dL (70-105) H 04/22/17 06:00 Hemoglobin A1c % 8.0 % (4.0-6.0) H 04/16/17 18:20 Calcium 9.5 mg/dL (8.6-10.3) 04/22/17 06:00 Total Bilirubin 0.5 mg/dL (0.3-1.0) 04/16/17 18:20 AST 25 U/L (13-39) 04/16/17 18:20 ALT 32 U/L (7-52) 04/16/17 18:20 Alkaline Phosphatase 106 U/L (34-104) H 04/16/17 18:20 Total Protein 7.3 gm/dL (6.0-8.3) 04/16/17 18:20 Albumin 3.4 gm/dL (3.7-5.3) L 04/16/17 18:20 Globulin 3.9 gm/dL 04/16/17 18:20 Albumin/Globulin Ratio 0.9 (1.0-1.8) L 04/16/17 18:20 Triglycerides 368 mg/dL (<150) H 04/16/17 18:20 Cholesterol 150 mg/dL (<200) 04/16/17 18:20 LDL Cholesterol Direct 69 mg/dL (75-193) L 04/16/17 18:20 HDL Cholesterol 40 mg/dL (23-92) 04/16/17 18:20 TSH 4.00 uIU/ml (0.34-5.60) 04/16/17 18:20 Urine Source CLEAN C 04/18/17 19:20 Urine Color YELLOW 04/18/17 19:20 Urine Clarity HAZY (CLEAR) 04/18/17 19:20 Urine pH 5.5 (4.6 - 8.0) 04/18/17 19:20 Ur Specific [place] 1.025 (1.005-1.030) 04/18/17 19:20 Urine Protein TRACE mg/dL (NEGATIVE) 04/18/17 19:20 Urine Glucose (UA) 500 mg/dL (NEGATIVE) H 04/18/17 19:20 Urine Ketones NEGATIVE mg/dL (NEGATIVE) 04/18/17 19:20 Urine Blood NEGATIVE (NEGATIVE) 04/18/17 19:20 Urine Nitrate NEGATIVE (NEGATIVE) 04/18/17 19:20 Urine Bilirubin NEGATIVE (NEGATIVE) 04/18/17 19:20 Urine Urobilinogen 0.2 E.U./dL (0.2 - 1.0) 04/18/17 19:20 Ur Leukocyte Esterase SMALL (NEGATIVE) H 04/18/17 19:20 Urine RBC 0-2 /hpf (0-5) 04/18/17 19:20 Urine WBC 25-50 /hpf (0-5) H 04/18/17 19:20 Ur Epithelial Cells NONE SEEN /lpf (FEW) 04/18/17 19:20 Urine Bacteria FEW /hpf (NONE SEEN) 04/18/17 19:20 Urine Yeast MANY /hpf (NONE SEEN) H 04/18/17 19:20 Salicylates < 25.0 mg/L (30.0-100.0) L 04/16/17 18:20 Urine Opiates Screen NEGATIVE (NEGATIVE) 04/17/17 00:10 Urine Methadone Screen NEGATIVE (NEGATIVE) 04/17/17 00:10 Acetaminophen < 10.0 ug/mL (10.0-30.0) L 04/16/17 18:20 Ur Barbiturates Screen NEGATIVE (NEGATIVE) 04/17/17 00:10 Ur Tricyclics Screen NEGATIVE (NEGATIVE) 04/17/17 00:10 Ur Phencyclidine Scrn NEGATIVE (NEGATIVE) 04/17/17 00:10 Amphetamines Screen NEGATIVE (NEGATIVE) 04/17/17 00:10 U Methamphetamines Scrn NEGATIVE (NEGATIVE) 04/17/17 00:10 U Benzodiazepines Scrn NEGATIVE (NEGATIVE) 04/17/17 00:10 U Cocaine Metab Screen NEGATIVE (NEGATIVE) 04/17/17 00:10 U Cannabinoids Screen NEGATIVE (NEGATIVE) 04/17/17 00:10 Ethyl Alcohol < 10 mg/dL (0-10) 04/16/17 18:20 RPR NONREACTIVE (NONREACTIVE) 04/16/17 18:20 - Physical Exam Vitals and I&O: Vital Signs Temp 98.7 F 04/22/17 04:00 Pulse 69 04/22/17 08:13 Resp 17 04/22/17 04:00 BP 159/59 04/22/17 08:13 Pulse Ox 98 04/22/17 04:00 Intake & Output 04/21/17 04/22/17 04/22/17 18:59 06:59 18:59 Intake Total 500 1000 145.5 Output Total 0 Balance 500 1000 145.5 Weight (lbs) 90.718 kg 93.44 kg Intake: Intake, IV Amount 1000 145.5 Sodium Chloride 0.9% 1, 1000 145.5 000 ml @ 90 mls/hr IV . Q11H7M [facility] Rx#:[id number] Oral 500 Output: Stool 0 Other: # Voids 3 3 Active Medications: Current Medications Acetaminophen (Tylenol) 650 mg PO Q6H PRN PRN Reason: HEADACHE/TEMP ABOVE 100F Stop: 06/16/17 09:43 Last Admin: 04/19/17 02:17 Dose: 650 mg Cholecalciferol (Vitamin D3) 1,000 iu PO DAILY [facility] Stop: 06/17/17 08:59 Last Admin: 04/22/17 08:14 Dose: 1,000 iu Clopidogrel Bisulfate (Plavix) 75 mg PO DAILY [facility] Stop: 06/17/17 08:59 Last Admin: 04/22/17 08:14 Dose: 75 mg Docusate Sodium (Colace) 100 mg PO BID PRN PRN Reason: Constipation Stop: 06/16/17 09:43 Last Admin: 04/17/17 15:24 Dose: 100 mg Glyburide (Diabeta) 5 mg PO BID [facility] Stop: 06/16/17 16:59 Last Admin: 04/22/17 08:13 Dose: 5 mg Hydralazine HCl (Apresoline 20 Mg/Ml) 10 mg IV Q6HR PRN PRN Reason: sbp>160 Stop: 06/18/17 08:50 Last Admin: 04/22/17 04:06 Dose: 10 mg Sodium Chloride (Nacl 0.9%) 1,000 mls @ 90 mls/hr IV .Q11H7M [facility] Stop: 06/15/17 22:20 Last Admin: 04/22/17 08:12 Dose: 90 mls/hr Fluconazole (Diflucan) 100 mg in 50 mls @ 50 mls/hr IV Q24HR [facility] Stop: 06/17/17 15:59 Last Admin: 04/21/17 15:52 Dose: 50 mls/hr Lamotrigine (Lamictal) 100 mg PO BID [facility] PRN Reason: Protocol Stop: 06/16/17 16:59 Last Admin: 04/22/17 08:12 Dose: 100 mg Lisinopril (Zestril) 40 mg PO DAILY [facility] Stop: 06/17/17 08:59 Last Admin: 04/22/17 08:13 Dose: 40 mg Lorazepam (Ativan) 1 mg IVP Q4HR PRN; Protocol PRN Reason: Agitation Stop: 06/15/17 21:54 Last Admin: 04/21/17 12:46 Dose: 1 mg Quetiapine Fumarate (Seroquel) 75 mg PO TID [facility] PRN Reason: Protocol Stop: 06/20/17 08:59 Last Admin: 04/22/17 08:14 Dose: 75 mg Simvastatin (Zocor) 10 mg PO HS [facility] PRN Reason: Protocol Stop: 06/16/17 20:59 Last Admin: 04/21/17 20:59 Dose: Not Given Venlafaxine HCl (Effexor Xr) 150 mg PO DAILY [facility] Stop: 06/17/17 08:59 Last Admin: 04/22/17 08:14 Dose: 150 mg General: Cooperative, No acute distress HEENT: Atraumatic, PERRLA, EOMI Neck: Supple, no JVD, no Thyromegaly Cardiovascular: Regular rate, Normal S1, Normal S2 Lungs: Clear to auscultation Abdomen: Bowel sounds, Soft Extremities: Other (right LE cast intact) Psych/Mental Status: Other (aao x 1 self) Assessment/Plan - Assessment Assessment: R ankle fx, Status post ORIF Yeast UTI HTN DM Unsteady gait Psychosis - Plan Plan: Pt is seeing PT. Now walking with PT. On Seroquel 75 mg tid now per Dr. Nunez. She's calm and pleasant this am. On Diflucan for UTI. Nutritional Asmnt/Malnutr-PDOC - Dietary Evaluation Malnutrition Findings (Please click <Entered> for more info): Nutritional Asmnt/Malnutrition Start: 04/17/17 07: 44 Text: Status: Complete Freq: Document 04/21/17 09:29 [email or web address] (Rec: 04/21/17 09:34 [email or web address]) Nutritional Asmnt/Malnutrition Patient General Information Nutritional Screening Moderate Risk Diagnosis metabolic encephalopathy Pertinent Medical Hx/Surgical Hx impulse control disorder, anxiety, depression, DM, HTN, HLD, CAD Subjective Information Pt A&A x 1, confused, with sitter, moving to [facility]. PO intake 50-100%, usually eats 100%. Current Diet Order/ Nutrition Support mechanical soft, chopped Patient / S.O Not Indicated Pertinent Medications vit d, plavix, colace, glyburide Pertinent Labs 04/21 glucose: 129-148, hgba1c: 8.0, T Nutritional Hx/Data Height 1.57 m Height (Calculated Centimeters) 157.5 Current Weight (lbs) 90.718 kg Weight (Calculated Kilograms) 90.7 Weight (Calculated Grams) 88326.5 [place] Body Weight 110 % [place] Body Weight 181 Body Mass Index (BMI) 36.6 Weight Status Obese GI Symptoms GI Symptoms None Last BM 04/19 Difficult in: Chewing Skin Integrity/Comment: intact, bruises, no edema noted Current %PO Good (75-100%) Estimated Nutritional Goals BEE in Kcals: Adj wt of IBW Calories/Kcals/Kg 25-30 Kcals Calculated 3545-8378 kcals Protein: Adj wt of IBW Protein g/k-1.2 Protein Calculated 60-72 Fluid: ml 9989-8610 mL (1 ml/kcal) Nutritional Problem 1. Problem Problem altered nutrition related lab values Etiology DM, lack of CCHO diet Signs/Symptoms: gluocse: 129-148, hgba1c: 8.0 Malnutrition Alert Is there a minimum of two criteria No selected? Query Text:Check all the applicable criteria. A minimum of two criteria are recommended for diagnosis of either severe or non-severe malnutrition. Malnutrition Related to Morbid Obesity Malnutrition related to morbid obesity No Intervention/Recommendation Comments 1. Change diet to mechanical soft, chopped, CCHO 60 gm to manage DM Expected Outcomes/Goals Expected Outcomes/Goals PO intake>50%, labs: WNL monitor wt, labs, skin, PO intake
--- NOTE | 2017-04-22 09:09 | Progress Notes ---
DATE: 04/20/2017 SUBJECTIVE: The patient is lying comfortably in bed, has no complaints at this time. The patient was being evaluated by [facility] psych placement and case management is discussing it with insurance company about possible stay. Denies fevers and chills. OBJECTIVE: VITAL SIGNS: Temperature 98 degrees Fahrenheit, pulse 80, blood pressure is 150/90, respirations 19. GENERAL: NAD. HEENT: PERRLA, EOMI. NECK: Supple. Trachea midline. CARDIOVASCULAR: Regular rate and rhythm. RESPIRATORY: CTA bilaterally. No wheezing, rales or rhonchi. ABDOMEN: Soft, nontender, nondistended. Bowel sounds positive in all 4 quadrants. SKIN: No breakdown. MUSCULOSKELETAL: Right lower extremity cast is in place. It is partly emaciated from the patient walking on it. LABORATORY DATA: Hemoglobin 10.8, white blood cell count is 9.4. ASSESSMENT: Metabolic encephalopathy secondary to urinary tract infection and candidiasis, right lower extremity fracture, anxiety, depression, impulse control disorder, diabetes, hypertension. PLAN: Psych is following. We will follow up with case management about possible dural sac placement. She has been accepted per Psych at this time. Continue IV antibiotics, fluconazole and Rocephin. Pain control. JOB# [id number]
[2017-04-22] MEDS: Fluconazole 100mg/50mL 100 MG/50 ML BOTTLE IV SCH (16:05)
[2017-04-23 06:20] LABS: % BASOPHILS 0.4 % (0.0-2.0); % EOSINOPHILS 2.5 % (0.0-5.0); % LYMPHOCYTES 21.6 % (20.0-50.0); % MONOCYTES 6.5 % (2.0-10.0); EOSINOPHILE ABSOLUTE 0.2 Th/cmm (0.1-0.4); HEMOGLOBIN 9.9 gm/dL (12-16); LYMPHOCYTE ABSOLUTE 1.8 Th/cmm (1.5-3.0); MEAN CELL VOLUME 94.6 fl (81-100); MEAN CORPUSCULAR HEMOGLOBIN 32.3 pg (27.0-31.0); MEAN CORPUSCULAR HGB CONC 34.1 pg (28.0-36.0); MEAN PLATELET VOLUME 7.2 fl; MONOCYTE ABSOLUTE 0.6 Th/cmm (0.3-1.0); NEUTROPHILE ABSOLUTE 5.9 Th/cmm (1.8-8.0); PLATELET COUNT 389 Th/cmm (150-400); RED BLOOD COUNT 3.08 Mil/cmm (3.80-5.20); RED CELL DISTRIBUTION WIDTH 13.2 % (11.5-20.0)
[2017-04-23 06:22] LABS: HEMATOCRIT 29.1 % (41.0-60); WHITE BLOOD COUNT 8.5 Th/cmm (4.8-10.8)
[2017-04-23 07:03] LABS: ANION GAP 13.2 (7.0-16.0); BUN - UREA NITROGEN 10 mg/dL (7-25); CALCIUM SERUM 9.2 mg/dL (8.6-10.3); CARBON DIOXIDE 23.1 mEq/L (21.0-31.0); CHLORIDE 109 mEq/L (98-107); CREATININE - SERUM 0.9 mg/dL (0.6-1.2); GLUCOSE 127 mg/dL (70-105); POTASSIUM SERUM 3.3 mEq/L (3.5-5.1); SODIUM SERUM 142 mEq/L (136-145)
--- NOTE | 2017-04-23 07:36 | Progress Notes ---
DATE: 04/23/2017 SUBJECTIVE: Chart reviewed and the patient interviewed. Also, discussed the patient's condition with the staff and reviewed records and labs. The patient remains extremely agitated and in irritable mood. The patient pulled her IV yesterday and she was resisting care, but she did take her oral Seroquel yesterday. She also still has difficulty following any of staff directions. She also still seems to be confused and irritable. She also gets aggressive and agitated at times. ASSESSMENT: The patient is still aggressive and psychotic. TREATMENT PLAN: Continue monitoring her condition and her behavior and will use Ativan on a p.r.n. basis intramuscularly when she gets agitated and will try to continue to monitor her psychotropic medications and continue to follow up. [facility]# [id number]
--- NOTE | 2017-04-23 08:30 | General Progress Note ---
Subjective - Review of Systems Service Date: 04/23/17 Subjective: Pt is significantly more calm this am. Her Seroquel is now [address] Nunez. She's confused at baseline. Sitter has been dc'd. No n,v,d or cp. PT seeing the pt. No n,v,d or cp. No sx. Objective - Results Result Diagrams: 04/23/17 06:00 04/23/17 06:00 Recent Labs: Laboratory Last Values WBC 8.5 Th/cmm (4.8-10.8) D 04/23/17 06:00 RBC 3.08 Mil/cmm (3.80-5.20) L 04/23/17 06:00 Hgb 9.9 gm/dL (12-16) L 04/23/17 06:00 Hct 29.1 % (41.0-60) L D 04/23/17 06:00 MCV 94.6 fl (81-100) 04/23/17 06:00 MCH 32.3 pg (27.0-31.0) H 04/23/17 06:00 MCHC Differential 34.1 pg (28.0-36.0) 04/23/17 06:00 RDW 13.2 % (11.5-20.0) 04/23/17 06:00 Plt Count 389 Th/cmm (150-400) 04/23/17 06:00 MPV 7.2 fl 04/23/17 06:00 Neutrophils % 69.0 % (40.0-80.0) 04/23/17 06:00 Lymphocytes % 21.6 % (20.0-50.0) 04/23/17 06:00 Monocytes % 6.5 % (2.0-10.0) 04/23/17 06:00 Eosinophils % 2.5 % (0.0-5.0) 04/23/17 06:00 Basophils % 0.4 % (0.0-2.0) 04/23/17 06:00 Sodium 142 mEq/L (136-145) 04/23/17 06:00 Potassium 3.3 mEq/L (3.5-5.1) L 04/23/17 06:00 Chloride 109 mEq/L (98-107) H 04/23/17 06:00 Carbon Dioxide 23.1 mEq/L (21.0-31.0) 04/23/17 06:00 Anion Gap 13.2 (7.0-16.0) 04/23/17 06:00 BUN 10 mg/dL (7-25) 04/23/17 06:00 Creatinine 0.9 mg/dL (0.6-1.2) 04/23/17 06:00 Est GFR ( Amer) TNP 04/23/17 06:00 Est GFR (Non-Af Amer) TNP 04/23/17 06:00 BUN/Creatinine Ratio 11.1 04/23/17 06:00 Glucose 127 mg/dL (70-105) H 04/23/17 06:00 Hemoglobin A1c % 8.0 % (4.0-6.0) H 04/16/17 18:20 Calcium 9.2 mg/dL (8.6-10.3) 04/23/17 06:00 Total Bilirubin 0.5 mg/dL (0.3-1.0) 04/16/17 18:20 AST 25 U/L (13-39) 04/16/17 18:20 ALT 32 U/L (7-52) 04/16/17 18:20 Alkaline Phosphatase 106 U/L (34-104) H 04/16/17 18:20 Total Protein 7.3 gm/dL (6.0-8.3) 04/16/17 18:20 Albumin 3.4 gm/dL (3.7-5.3) L 04/16/17 18:20 Globulin 3.9 gm/dL 04/16/17 18:20 Albumin/Globulin Ratio 0.9 (1.0-1.8) L 04/16/17 18:20 Triglycerides 368 mg/dL (<150) H 04/16/17 18:20 Cholesterol 150 mg/dL (<200) 04/16/17 18:20 LDL Cholesterol Direct 69 mg/dL (75-193) L 04/16/17 18:20 HDL Cholesterol 40 mg/dL (23-92) 04/16/17 18:20 TSH 4.00 uIU/ml (0.34-5.60) 04/16/17 18:20 Urine Source CLEAN C 04/18/17 19:20 Urine Color YELLOW 04/18/17 19:20 Urine Clarity HAZY (CLEAR) 04/18/17 19:20 Urine pH 5.5 (4.6 - 8.0) 04/18/17 19:20 Ur Specific [place] 1.025 (1.005-1.030) 04/18/17 19:20 Urine Protein TRACE mg/dL (NEGATIVE) 04/18/17 19:20 Urine Glucose (UA) 500 mg/dL (NEGATIVE) H 04/18/17 19:20 Urine Ketones NEGATIVE mg/dL (NEGATIVE) 04/18/17 19:20 Urine Blood NEGATIVE (NEGATIVE) 04/18/17 19:20 Urine Nitrate NEGATIVE (NEGATIVE) 04/18/17 19:20 Urine Bilirubin NEGATIVE (NEGATIVE) 04/18/17 19:20 Urine Urobilinogen 0.2 E.U./dL (0.2 - 1.0) 04/18/17 19:20 Ur Leukocyte Esterase SMALL (NEGATIVE) H 04/18/17 19:20 Urine RBC 0-2 /hpf (0-5) 04/18/17 19:20 Urine WBC 25-50 /hpf (0-5) H 04/18/17 19:20 Ur Epithelial Cells NONE SEEN /lpf (FEW) 04/18/17 19:20 Urine Bacteria FEW /hpf (NONE SEEN) 04/18/17 19:20 Urine Yeast MANY /hpf (NONE SEEN) H 04/18/17 19:20 Salicylates < 25.0 mg/L (30.0-100.0) L 04/16/17 18:20 Urine Opiates Screen NEGATIVE (NEGATIVE) 04/17/17 00:10 Urine Methadone Screen NEGATIVE (NEGATIVE) 04/17/17 00:10 Acetaminophen < 10.0 ug/mL (10.0-30.0) L 04/16/17 18:20 Ur Barbiturates Screen NEGATIVE (NEGATIVE) 04/17/17 00:10 Ur Tricyclics Screen NEGATIVE (NEGATIVE) 04/17/17 00:10 Ur Phencyclidine Scrn NEGATIVE (NEGATIVE) 04/17/17 00:10 Amphetamines Screen NEGATIVE (NEGATIVE) 04/17/17 00:10 U Methamphetamines Scrn NEGATIVE (NEGATIVE) 04/17/17 00:10 U Benzodiazepines Scrn NEGATIVE (NEGATIVE) 04/17/17 00:10 U Cocaine Metab Screen NEGATIVE (NEGATIVE) 04/17/17 00:10 U Cannabinoids Screen NEGATIVE (NEGATIVE) 04/17/17 00:10 Ethyl Alcohol < 10 mg/dL (0-10) 04/16/17 18:20 RPR NONREACTIVE (NONREACTIVE) 04/16/17 18:20 - Physical Exam Vitals and I&O: Vital Signs Temp 97.7 F 04/23/17 04:00 Pulse 62 04/23/17 04:00 Resp 20 04/23/17 04:00 BP 156/62 04/23/17 04:00 Pulse Ox 97 04/23/17 04:00 Intake & Output 04/22/17 04/23/17 04/23/17 18:59 06:59 18:59 Intake Total 1364.0 500 Output Total 0 Balance 1364.0 500 Weight (lbs) 95.164 kg 92.397 kg Intake: Intake, IV Amount 864.0 Sodium Chloride 0.9% 1, 864.0 000 ml @ 90 mls/hr IV . Q11H7M [facility] Rx#:[id number] Oral 500 500 Tube Feeding 0 Output: Stool 0 Other: # Voids 3 4 # Bowel Movements 0 0 Active Medications: Current Medications Acetaminophen (Tylenol) 650 mg PO Q6H PRN PRN Reason: HEADACHE/TEMP ABOVE 100F Stop: 06/16/17 09:43 Last Admin: 04/19/17 02:17 Dose: 650 mg Cholecalciferol (Vitamin D3) 1,000 iu PO DAILY [facility] Stop: 06/17/17 08:59 Last Admin: 04/22/17 08:14 Dose: 1,000 iu Clopidogrel Bisulfate (Plavix) 75 mg PO DAILY [facility] Stop: 06/17/17 08:59 Last Admin: 04/22/17 08:14 Dose: 75 mg Docusate Sodium (Colace) 100 mg PO BID PRN PRN Reason: Constipation Stop: 06/16/17 09:43 Last Admin: 04/17/17 15:24 Dose: 100 mg Glyburide (Diabeta) 5 mg PO BID [facility] Stop: 06/16/17 16:59 Last Admin: 04/22/17 16:05 Dose: 5 mg Hydralazine HCl (Apresoline 20 Mg/Ml) 10 mg IV Q6HR PRN PRN Reason: sbp>160 Stop: 06/18/17 08:50 Last Admin: 04/22/17 04:06 Dose: 10 mg Sodium Chloride (Nacl 0.9%) 1,000 mls @ 90 mls/hr IV .Q11H7M [facility] Stop: 06/15/17 22:20 Last Admin: 04/22/17 16:11 Dose: 90 mls/hr Fluconazole (Diflucan) 100 mg in 50 mls @ 50 mls/hr IV Q24HR [facility] Stop: 06/17/17 15:59 Last Admin: 04/22/17 16:05 Dose: 50 mls/hr Lamotrigine (Lamictal) 100 mg PO BID [facility] PRN Reason: Protocol Stop: 06/16/17 16:59 Last Admin: 04/22/17 16:06 Dose: 100 mg Lisinopril (Zestril) 40 mg PO DAILY [facility] Stop: 06/17/17 08:59 Last Admin: 04/22/17 08:13 Dose: 40 mg Lorazepam (Ativan) 1 mg IVP Q4HR PRN; Protocol PRN Reason: Agitation Stop: 06/15/17 21:54 Last Admin: 04/21/17 12:46 Dose: 1 mg Quetiapine Fumarate (Seroquel) 100 mg PO TID [facility] PRN Reason: Protocol Stop: 06/22/17 08:59 Simvastatin (Zocor) 10 mg PO HS [facility] PRN Reason: Protocol Stop: 06/16/17 20:59 Last Admin: 04/22/17 20:07 Dose: 10 mg Venlafaxine HCl (Effexor Xr) 150 mg PO DAILY [facility] Stop: 06/17/17 08:59 Last Admin: 04/22/17 08:14 Dose: 150 mg General: Cooperative, No acute distress HEENT: Atraumatic, PERRLA, EOMI Neck: Supple, no JVD, no Thyromegaly Cardiovascular: Regular rate, Normal S1, Normal S2 Lungs: Clear to auscultation Abdomen: Bowel sounds, Soft Extremities: Other (right LE cast intact) Psych/Mental Status: Other (aao x 1 self) Assessment/Plan - Assessment Assessment: R ankle fx, Status post ORIF Yeast UTI HTN DM Unsteady gait Psychosis - Plan Plan: Pt is seeing PT. Now walking with PT. Pleasant. On Seroquel 75 mg tid now per Dr. Nunez. She's calm and pleasant this am. On Diflucan for UTI. Sitter has been DC'd as pt doesn't need one. Nutritional Asmnt/Malnutr-PDOC - Dietary Evaluation Malnutrition Findings (Please click <Entered> for more info): Nutritional Asmnt/Malnutrition Start: 04/17/17 07: 44 Text: Status: Complete Freq: Document 04/21/17 09:29 [email or web address] (Rec: 04/21/17 09:34 [email or web address] [email or web address]) Nutritional Asmnt/Malnutrition Patient General Information Nutritional Screening Moderate Risk Diagnosis metabolic encephalopathy Pertinent Medical Hx/Surgical Hx impulse control disorder, anxiety, depression, DM, HTN, HLD, CAD Subjective Information Pt A&A x 1, confused, with sitter, moving to [facility]. PO intake 50-100%, usually eats 100%. Current Diet Order/ Nutrition Support mechanical soft, chopped Patient / S.O Not Indicated Pertinent Medications vit d, plavix, colace, glyburide Pertinent Labs 04/21 glucose: 129-148, hgba1c: 8.0, T Nutritional Hx/Data Height 1.57 m Height (Calculated Centimeters) 157.5 Current Weight (lbs) 90.718 kg Weight (Calculated Kilograms) 90.7 Weight (Calculated Grams) 53556.5 [place] Body Weight 110 % [place] Body Weight 181 Body Mass Index (BMI) 36.6 Weight Status Obese GI Symptoms GI Symptoms None Last BM 04/19 Difficult in: Chewing Skin Integrity/Comment: intact, bruises, no edema noted Current %PO Good (75-100%) Estimated Nutritional Goals BEE in Kcals: Adj wt of IBW Calories/Kcals/Kg 25-30 Kcals Calculated 2166-3788 kcals Protein: Adj wt of IBW Protein g/k-1.2 Protein Calculated 60-72 Fluid: ml 3030-8205 mL (1 ml/kcal) Nutritional Problem 1. Problem Problem altered nutrition related lab values Etiology DM, lack of CCHO diet Signs/Symptoms: gluocse: 129-148, hgba1c: 8.0 Malnutrition Alert Is there a minimum of two criteria No selected? Query Text:Check all the applicable criteria. A minimum of two criteria are recommended for diagnosis of either severe or non-severe malnutrition. Malnutrition Related to Morbid Obesity Malnutrition related to morbid obesity No Intervention/Recommendation Comments 1. Change diet to mechanical soft, chopped, CCHO 60 gm to manage DM Expected Outcomes/Goals Expected Outcomes/Goals PO intake>50%, labs: WNL monitor wt, labs, skin, PO intake
--- NOTE | 2017-04-23 12:06 | Progress Notes ---
DATE: SUBJECTIVE: The patient was seen and evaluated. No acute distress. The patient is comfortable at this time. Pain is currently well controlled. Denies fevers and chills. The patient is not accepted to [facility] based on the O insurance is unwilling to pay for the stay. Case management is working on other options about nursing facility for continued psychiatric workup as well for antibiotics and physical therapy. OBJECTIVE: VITAL SIGNS: Temperature 98.2 degrees, pulse 77, blood pressure is 138/90, respirations 14. GENERAL: NAD. HEENT: PERRLA, EOMI. NECK: Supple. Trachea midline. CARDIOVASCULAR: Regular rate and rhythm. RESPIRATORY: Decreased breath sounds bilaterally with rhonchi. No wheezing or rales. ABDOMEN: Soft, nontender, nondistended. Bowel sounds positive in all 4 quadrants. SKIN: No breakdown. MUSCULOSKELETAL: Right lower extremity cast is partly emaciated from patient walking on it. LABORATORY DATA: White blood cell count 9.4, hemoglobin is 10.8. Potassium is 3.7. ASSESSMENT AND PLAN: Metabolic encephalopathy secondary to urinary tract infection and candidiasis, right lower extremity fracture, anxiety, depression, impulse control disorder, diabetes, hypertension. Dr. Santiago is currently following. Continue Rocephin, fluconazole. Case management is currently working on placement following her post-acute stay. The patient is unable to be admitted to [facility] secondary to insurance being unwilling to pay for it. Continue Seroquel 75 mg 3 times a day. JOB# [id number]
[2017-04-23] MEDS: Fluconazole 100mg/50mL 100 MG/50 ML BOTTLE IV SCH (17:30)
[2017-04-23] MEDS: Sodium Chloride 0.9% 1,000 ML IV SCH (23:25)
--- NOTE | 2017-04-24 06:17 | Progress Notes ---
DATE: 04/24/2017 SUBJECTIVE: Chart reviewed and the patient interviewed. Also discussed the patient's condition with the staff and reviewed records and labs. The patient seems to be calmer today and seems to be slightly less agitated. Also slightly easier to follow directions. The patient is still confused and is still paranoid, but not as agitated or as aggressive. She also has been compliant with taking her medications with no side effects. ASSESSMENT: The patient is slightly calmer than before. PLAN: Continue current medications. Also, continue to monitor her behavior and continue to follow up. JOB# [id number]
[2017-04-24] MEDS ORDERED: Potassium Chloride 20 mEq ER Tab PO ONE (08:01)
--- NOTE | 2017-04-24 09:20 | General Progress Note ---
Subjective - Review of Systems Service Date: 04/24/17 Subjective: Pt is significantly more calm this am. Her Seroquel is now [address] Nunez. She's confused at baseline. Sitter has been dc'd. No n,v,d or cp. PT seeing the pt. No n,v,d or cp. No sx. Objective - Results Result Diagrams: 04/23/17 06:00 04/23/17 06:00 Recent Labs: Laboratory Last Values WBC 8.5 Th/cmm (4.8-10.8) D 04/23/17 06:00 RBC 3.08 Mil/cmm (3.80-5.20) L 04/23/17 06:00 Hgb 9.9 gm/dL (12-16) L 04/23/17 06:00 Hct 29.1 % (41.0-60) L D 04/23/17 06:00 MCV 94.6 fl (81-100) 04/23/17 06:00 MCH 32.3 pg (27.0-31.0) H 04/23/17 06:00 MCHC Differential 34.1 pg (28.0-36.0) 04/23/17 06:00 RDW 13.2 % (11.5-20.0) 04/23/17 06:00 Plt Count 389 Th/cmm (150-400) 04/23/17 06:00 MPV 7.2 fl 04/23/17 06:00 Neutrophils % 69.0 % (40.0-80.0) 04/23/17 06:00 Lymphocytes % 21.6 % (20.0-50.0) 04/23/17 06:00 Monocytes % 6.5 % (2.0-10.0) 04/23/17 06:00 Eosinophils % 2.5 % (0.0-5.0) 04/23/17 06:00 Basophils % 0.4 % (0.0-2.0) 04/23/17 06:00 Sodium 142 mEq/L (136-145) 04/23/17 06:00 Potassium 3.3 mEq/L (3.5-5.1) L 04/23/17 06:00 Chloride 109 mEq/L (98-107) H 04/23/17 06:00 Carbon Dioxide 23.1 mEq/L (21.0-31.0) 04/23/17 06:00 Anion Gap 13.2 (7.0-16.0) 04/23/17 06:00 BUN 10 mg/dL (7-25) 04/23/17 06:00 Creatinine 0.9 mg/dL (0.6-1.2) 04/23/17 06:00 Est GFR ( Amer) TNP 04/23/17 06:00 Est GFR (Non-Af Amer) TNP 04/23/17 06:00 BUN/Creatinine Ratio 11.1 04/23/17 06:00 Glucose 127 mg/dL (70-105) H 04/23/17 06:00 Hemoglobin A1c % 8.0 % (4.0-6.0) H 04/16/17 18:20 Calcium 9.2 mg/dL (8.6-10.3) 04/23/17 06:00 Total Bilirubin 0.5 mg/dL (0.3-1.0) 04/16/17 18:20 AST 25 U/L (13-39) 04/16/17 18:20 ALT 32 U/L (7-52) 04/16/17 18:20 Alkaline Phosphatase 106 U/L (34-104) H 04/16/17 18:20 Total Protein 7.3 gm/dL (6.0-8.3) 04/16/17 18:20 Albumin 3.4 gm/dL (3.7-5.3) L 04/16/17 18:20 Globulin 3.9 gm/dL 04/16/17 18:20 Albumin/Globulin Ratio 0.9 (1.0-1.8) L 04/16/17 18:20 Triglycerides 368 mg/dL (<150) H 04/16/17 18:20 Cholesterol 150 mg/dL (<200) 04/16/17 18:20 LDL Cholesterol Direct 69 mg/dL (75-193) L 04/16/17 18:20 HDL Cholesterol 40 mg/dL (23-92) 04/16/17 18:20 TSH 4.00 uIU/ml (0.34-5.60) 04/16/17 18:20 Urine Source CLEAN C 04/18/17 19:20 Urine Color YELLOW 04/18/17 19:20 Urine Clarity HAZY (CLEAR) 04/18/17 19:20 Urine pH 5.5 (4.6 - 8.0) 04/18/17 19:20 Ur Specific [place] 1.025 (1.005-1.030) 04/18/17 19:20 Urine Protein TRACE mg/dL (NEGATIVE) 04/18/17 19:20 Urine Glucose (UA) 500 mg/dL (NEGATIVE) H 04/18/17 19:20 Urine Ketones NEGATIVE mg/dL (NEGATIVE) 04/18/17 19:20 Urine Blood NEGATIVE (NEGATIVE) 04/18/17 19:20 Urine Nitrate NEGATIVE (NEGATIVE) 04/18/17 19:20 Urine Bilirubin NEGATIVE (NEGATIVE) 04/18/17 19:20 Urine Urobilinogen 0.2 E.U./dL (0.2 - 1.0) 04/18/17 19:20 Ur Leukocyte Esterase SMALL (NEGATIVE) H 04/18/17 19:20 Urine RBC 0-2 /hpf (0-5) 04/18/17 19:20 Urine WBC 25-50 /hpf (0-5) H 04/18/17 19:20 Ur Epithelial Cells NONE SEEN /lpf (FEW) 04/18/17 19:20 Urine Bacteria FEW /hpf (NONE SEEN) 04/18/17 19:20 Urine Yeast MANY /hpf (NONE SEEN) H 04/18/17 19:20 Salicylates < 25.0 mg/L (30.0-100.0) L 04/16/17 18:20 Urine Opiates Screen NEGATIVE (NEGATIVE) 04/17/17 00:10 Urine Methadone Screen NEGATIVE (NEGATIVE) 04/17/17 00:10 Acetaminophen < 10.0 ug/mL (10.0-30.0) L 04/16/17 18:20 Ur Barbiturates Screen NEGATIVE (NEGATIVE) 04/17/17 00:10 Ur Tricyclics Screen NEGATIVE (NEGATIVE) 04/17/17 00:10 Ur Phencyclidine Scrn NEGATIVE (NEGATIVE) 04/17/17 00:10 Amphetamines Screen NEGATIVE (NEGATIVE) 04/17/17 00:10 U Methamphetamines Scrn NEGATIVE (NEGATIVE) 04/17/17 00:10 U Benzodiazepines Scrn NEGATIVE (NEGATIVE) 04/17/17 00:10 U Cocaine Metab Screen NEGATIVE (NEGATIVE) 04/17/17 00:10 U Cannabinoids Screen NEGATIVE (NEGATIVE) 04/17/17 00:10 Ethyl Alcohol < 10 mg/dL (0-10) 04/16/17 18:20 RPR NONREACTIVE (NONREACTIVE) 04/16/17 18:20 - Physical Exam Vitals and I&O: Vital Signs Temp 98.4 F 04/24/17 04:00 Pulse 72 04/24/17 08:42 Resp 19 04/24/17 04:00 BP 176/73 04/24/17 08:42 Pulse Ox 97 04/24/17 04:00 Intake & Output 04/23/17 04/24/17 04/24/17 18:59 06:59 18:59 Intake Total 825 150 Balance 825 150 Weight (lbs) 94.302 kg 93.894 kg Intake: Intake, IV Amount 50 Fluconazole 100mg/50mL 50 100 mg In 50 ml @ 50 mls/ hr IV Q24HR [facility] Rx#: [id number] Oral 775 150 Tube Feeding 0 Other: # Voids 3 4 # Bowel Movements 0 0 Active Medications: Current Medications Acetaminophen (Tylenol) 650 mg PO Q6H PRN PRN Reason: HEADACHE/TEMP ABOVE 100F Stop: 06/16/17 09:43 Last Admin: 04/19/17 02:17 Dose: 650 mg Cholecalciferol (Vitamin D3) 1,000 iu PO DAILY [facility] Stop: 06/17/17 08:59 Last Admin: 04/24/17 08:42 Dose: 1,000 iu Clopidogrel Bisulfate (Plavix) 75 mg PO DAILY [facility] Stop: 06/17/17 08:59 Last Admin: 04/24/17 08:43 Dose: 75 mg Docusate Sodium (Colace) 100 mg PO BID PRN PRN Reason: Constipation Stop: 06/16/17 09:43 Last Admin: 04/17/17 15:24 Dose: 100 mg Glyburide (Diabeta) 5 mg PO BID [facility] Stop: 06/16/17 16:59 Last Admin: 04/24/17 08:43 Dose: 5 mg Hydralazine HCl (Apresoline 20 Mg/Ml) 10 mg IV Q6HR PRN PRN Reason: sbp>160 Stop: 06/18/17 08:50 Last Admin: 04/22/17 04:06 Dose: 10 mg Sodium Chloride (Nacl 0.9%) 1,000 mls @ 90 mls/hr IV .Q11H7M [facility] Stop: 06/15/17 22:20 Last Admin: 04/23/17 23:25 Dose: 90 mls/hr Fluconazole (Diflucan) 100 mg in 50 mls @ 50 mls/hr IV Q24HR [facility] Stop: 06/17/17 15:59 Last Infusion: 04/23/17 18:00 Dose: Infused Lamotrigine (Lamictal) 100 mg PO BID [facility] PRN Reason: Protocol Stop: 06/16/17 16:59 Last Admin: 04/24/17 08:43 Dose: 100 mg Lisinopril (Zestril) 40 mg PO DAILY [facility] Stop: 06/17/17 08:59 Last Admin: 04/24/17 08:42 Dose: 40 mg Lorazepam (Ativan) 1 mg IVP Q4HR PRN; Protocol PRN Reason: Agitation Stop: 06/15/17 21:54 Last Admin: 04/23/17 23:25 Dose: 1 mg Quetiapine Fumarate (Seroquel) 100 mg PO TID [facility] PRN Reason: Protocol Stop: 06/22/17 08:59 Last Admin: 04/24/17 08:43 Dose: 100 mg Simvastatin (Zocor) 10 mg PO HS [facility] PRN Reason: Protocol Stop: 06/16/17 20:59 Last Admin: 04/23/17 21:15 Dose: 10 mg Venlafaxine HCl (Effexor Xr) 150 mg PO DAILY [facility] Stop: 06/17/17 08:59 Last Admin: 04/24/17 08:43 Dose: 150 mg General: Cooperative, No acute distress HEENT: Atraumatic, PERRLA, EOMI Neck: Supple, no JVD, no Thyromegaly Cardiovascular: Regular rate, Normal S1, Normal S2 Lungs: Clear to auscultation Abdomen: Bowel sounds, Soft Extremities: Other (right LE cast intact) Psych/Mental Status: Other (aao x 1 self) Assessment/Plan - Assessment Assessment: R ankle fx, Status post ORIF Yeast UTI HTN DM Unsteady gait Psychosis-stable - Plan Plan: Pt is seeing PT. Now walking with PT. Pleasant. On Seroquel 75 mg tid now per Dr. Nunez. She's calm and pleasant this am. On Diflucan for UTI. Sitter has been DC'd as pt doesn't need one. Will Dc diflucan. Nutritional Asmnt/Malnutr-PDOC - Dietary Evaluation Malnutrition Findings (Please click <Entered> for more info): Nutritional Asmnt/Malnutrition Start: 04/17/17 07: 44 Text: Status: Complete Freq: Document 04/21/17 09:29 [email or web address] (Rec: 04/21/17 09:34 [email or web address] [id number]) Nutritional Asmnt/Malnutrition Patient General Information Nutritional Screening Moderate Risk Diagnosis metabolic encephalopathy Pertinent Medical Hx/Surgical Hx impulse control disorder, anxiety, depression, DM, HTN, HLD, CAD Subjective Information Pt A&A x 1, confused, with sitter, moving to [place] [facility]. PO intake 50-100%, usually eats 100%. Current Diet Order/ Nutrition Support mechanical soft, chopped Patient / S.O Not Indicated Pertinent Medications vit d, plavix, colace, glyburide Pertinent Labs 04/21 glucose: 129-148, hgba1c: 8.0, T Nutritional Hx/Data Height 1.57 m Height (Calculated Centimeters) 157.5 Current Weight (lbs) 90.718 kg Weight (Calculated Kilograms) 90.7 Weight (Calculated Grams) 41660.5 [place] Body Weight 110 % [place] Body Weight 181 Body Mass Index (BMI) 36.6 Weight Status Obese GI Symptoms GI Symptoms None Last BM 04/19 Difficult in: Chewing Skin Integrity/Comment: intact, bruises, no edema noted Current %PO Good (75-100%) Estimated Nutritional Goals BEE in Kcals: Adj wt of IBW Calories/Kcals/Kg 25-30 Kcals Calculated 0996-6640 kcals Protein: Adj wt of IBW Protein g/k-1.2 Protein Calculated 60-72 Fluid: ml 3133-4493 mL (1 ml/kcal) Nutritional Problem 1. Problem Problem altered nutrition related lab values Etiology DM, lack of CCHO diet Signs/Symptoms: gluocse: 129-148, hgba1c: 8.0 Malnutrition Alert Is there a minimum of two criteria No selected? Query Text:Check all the applicable criteria. A minimum of two criteria are recommended for diagnosis of either severe or non-severe malnutrition. Malnutrition Related to Morbid Obesity Malnutrition related to morbid obesity No Intervention/Recommendation Comments 1. Change diet to mechanical soft, chopped, CCHO 60 gm to manage DM Expected Outcomes/Goals Expected Outcomes/Goals PO intake>50%, labs: WNL monitor wt, labs, skin, PO intake
[2017-04-24] MEDS ORDERED: Mag Sulfate 2gm/50mL Premix 2 GM/50 ML BAG IV PRN (09:21)
[2017-04-24] MEDS ORDERED: Potassium Chloride 20 mEq ER Tab PO PRN (09:21)
[2017-04-24] MEDS: Sodium Chloride 0.9% 1,000 ML IV SCH (15:53)
[2017-04-25 07:18] LABS: ANION GAP 10.9 (7.0-16.0); BUN - UREA NITROGEN 9 mg/dL (7-25); CALCIUM SERUM 9.4 mg/dL (8.6-10.3); CARBON DIOXIDE 19.9 mEq/L (21.0-31.0); CHLORIDE 113 mEq/L (98-107); CREATININE - SERUM 0.9 mg/dL (0.6-1.2); GLUCOSE 105 mg/dL (70-105); POTASSIUM SERUM 3.8 mEq/L (3.5-5.1); SODIUM SERUM 140 mEq/L (136-145)
--- NOTE | 2017-04-25 08:55 | General Progress Note ---
Subjective - Review of Systems Subjective: Pt is significantly more calm this am. Her Seroquel is now [address] Nunez. She's confused at baseline. Has labile mood. Sitter has been dc'd. No n,v,d or cp. PT seeing the pt. No n,v,d or cp. No sx. Objective - Results Result Diagrams: 04/23/17 06:00 02 06:38 Recent Labs: Laboratory Last Values WBC 8.5 Th/cmm (4.8-10.8) D 04/23/17 06:00 RBC 3.08 Mil/cmm (3.80-5.20) L 04/23/17 06:00 Hgb 9.9 gm/dL (12-16) L 04/23/17 06:00 Hct 29.1 % (41.0-60) L D 04/23/17 06:00 MCV 94.6 fl (81-100) 04/23/17 06:00 MCH 32.3 pg (27.0-31.0) H 04/23/17 06:00 MCHC Differential 34.1 pg (28.0-36.0) 04/23/17 06:00 RDW 13.2 % (11.5-20.0) 04/23/17 06:00 Plt Count 389 Th/cmm (150-400) 04/23/17 06:00 MPV 7.2 fl 04/23/17 06:00 Neutrophils % 69.0 % (40.0-80.0) 04/23/17 06:00 Lymphocytes % 21.6 % (20.0-50.0) 04/23/17 06:00 Monocytes % 6.5 % (2.0-10.0) 04/23/17 06:00 Eosinophils % 2.5 % (0.0-5.0) 04/23/17 06:00 Basophils % 0.4 % (0.0-2.0) 04/23/17 06:00 Sodium 140 mEq/L (136-145) 04/25/17 06:38 Potassium 3.8 mEq/L (3.5-5.1) 04/25/17 06:38 Chloride 113 mEq/L (98-107) H 04/25/17 06:38 Carbon Dioxide 19.9 mEq/L (21.0-31.0) L 04/25/17 06:38 Anion Gap 10.9 (7.0-16.0) 04/25/17 06:38 BUN 9 mg/dL (7-25) 04/25/17 06:38 Creatinine 0.9 mg/dL (0.6-1.2) 04/25/17 06:38 Est GFR ( Amer) TNP 04/25/17 06:38 Est GFR (Non-Af Amer) TNP 04/25/17 06:38 BUN/Creatinine Ratio 10.0 04/25/17 06:38 Glucose 105 mg/dL (70-105) 04/25/17 06:38 Hemoglobin A1c % 8.0 % (4.0-6.0) H 04/16/17 18:20 Calcium 9.4 mg/dL (8.6-10.3) 04/25/17 06:38 Total Bilirubin 0.5 mg/dL (0.3-1.0) 04/16/17 18:20 AST 25 U/L (13-39) 04/16/17 18:20 ALT 32 U/L (7-52) 04/16/17 18:20 Alkaline Phosphatase 106 U/L (34-104) H 04/16/17 18:20 Total Protein 7.3 gm/dL (6.0-8.3) 04/16/17 18:20 Albumin 3.4 gm/dL (3.7-5.3) L 04/16/17 18:20 Globulin 3.9 gm/dL 04/16/17 18:20 Albumin/Globulin Ratio 0.9 (1.0-1.8) L 04/16/17 18:20 Triglycerides 368 mg/dL (<150) H 04/16/17 18:20 Cholesterol 150 mg/dL (<200) 04/16/17 18:20 LDL Cholesterol Direct 69 mg/dL (75-193) L 04/16/17 18:20 HDL Cholesterol 40 mg/dL (23-92) 04/16/17 18:20 TSH 4.00 uIU/ml (0.34-5.60) 04/16/17 18:20 Urine Source CLEAN C 04/18/17 19:20 Urine Color YELLOW 04/18/17 19:20 Urine Clarity HAZY (CLEAR) 04/18/17 19:20 Urine pH 5.5 (4.6 - 8.0) 04/18/17 19:20 Ur Specific [place] 1.025 (1.005-1.030) 04/18/17 19:20 Urine Protein TRACE mg/dL (NEGATIVE) 04/18/17 19:20 Urine Glucose (UA) 500 mg/dL (NEGATIVE) H 04/18/17 19:20 Urine Ketones NEGATIVE mg/dL (NEGATIVE) 04/18/17 19:20 Urine Blood NEGATIVE (NEGATIVE) 04/18/17 19:20 Urine Nitrate NEGATIVE (NEGATIVE) 04/18/17 19:20 Urine Bilirubin NEGATIVE (NEGATIVE) 04/18/17 19:20 Urine Urobilinogen 0.2 E.U./dL (0.2 - 1.0) 04/18/17 19:20 Ur Leukocyte Esterase SMALL (NEGATIVE) H 04/18/17 19:20 Urine RBC 0-2 /hpf (0-5) 04/18/17 19:20 Urine WBC 25-50 /hpf (0-5) H 04/18/17 19:20 Ur Epithelial Cells NONE SEEN /lpf (FEW) 04/18/17 19:20 Urine Bacteria FEW /hpf (NONE SEEN) 04/18/17 19:20 Urine Yeast MANY /hpf (NONE SEEN) H 04/18/17 19:20 Salicylates < 25.0 mg/L (30.0-100.0) L 04/16/17 18:20 Urine Opiates Screen NEGATIVE (NEGATIVE) 04/17/17 00:10 Urine Methadone Screen NEGATIVE (NEGATIVE) 04/17/17 00:10 Acetaminophen < 10.0 ug/mL (10.0-30.0) L 04/16/17 18:20 Ur Barbiturates Screen NEGATIVE (NEGATIVE) 04/17/17 00:10 Ur Tricyclics Screen NEGATIVE (NEGATIVE) 04/17/17 00:10 Ur Phencyclidine Scrn NEGATIVE (NEGATIVE) 04/17/17 00:10 Amphetamines Screen NEGATIVE (NEGATIVE) 04/17/17 00:10 U Methamphetamines Scrn NEGATIVE (NEGATIVE) 04/17/17 00:10 U Benzodiazepines Scrn NEGATIVE (NEGATIVE) 04/17/17 00:10 U Cocaine Metab Screen NEGATIVE (NEGATIVE) 04/17/17 00:10 U Cannabinoids Screen NEGATIVE (NEGATIVE) 04/17/17 00:10 Ethyl Alcohol < 10 mg/dL (0-10) 04/16/17 18:20 RPR NONREACTIVE (NONREACTIVE) 04/16/17 18:20 - Physical Exam Vitals and I&O: Vital Signs Temp 96.4 F 04/25/17 07:49 Pulse 72 04/25/17 07:49 Resp 16 04/25/17 07:49 BP 186/62 04/25/17 07:49 Pulse Ox 98 04/25/17 07:49 Intake & Output 04/24/17 04/25/17 04/25/17 18:59 06:59 18:59 Intake Total 1150 Balance 1150 Weight (lbs) 93.894 kg 90.265 kg Intake: Intake, IV Amount 1000 Sodium Chloride 0.9% 1, 1000 000 ml @ 90 mls/hr IV . Q11H7M [facility] Rx#:[id number] Oral 150 Other: # Voids 2 # Bowel Movements 0 Active Medications: Current Medications Acetaminophen (Tylenol) 650 mg PO Q6H PRN PRN Reason: HEADACHE/TEMP ABOVE 100F Stop: 06/23/17 09:20 Cholecalciferol (Vitamin D3) 1,000 iu PO DAILY [facility] Stop: 06/17/17 08:59 Last Admin: 04/24/17 08:42 Dose: 1,000 iu Clopidogrel Bisulfate (Plavix) 75 mg PO DAILY [facility] Stop: 06/17/17 08:59 Last Admin: 04/24/17 08:43 Dose: 75 mg Docusate Sodium (Colace) 100 mg PO BID PRN PRN Reason: Constipation Stop: 06/16/17 09:43 Last Admin: 04/24/17 13:41 Dose: 100 mg Glyburide (Diabeta) 5 mg PO BID [facility] Stop: 06/16/17 16:59 Last Admin: 04/24/17 17:10 Dose: 5 mg Hydralazine HCl (Apresoline 20 Mg/Ml) 10 mg IV Q6HR PRN PRN Reason: sbp>160 Stop: 06/18/17 08:50 Last Admin: 04/25/17 00:35 Dose: 10 mg Sodium Chloride (Nacl 0.9%) 1,000 mls @ 90 mls/hr IV .Q11H7M [facility] Stop: 06/15/17 22:20 Last Admin: 04/24/17 15:53 Dose: 90 mls/hr Magnesium Sulfate (Magnesium Sulfate Premix) 2 gm in 50 mls @ 25 mls/hr IV DAILY PRN PRN Reason: Magnesium level below 1.6 Stop: 06/23/17 09:20 Lamotrigine (Lamictal) 100 mg PO BID [facility] PRN Reason: Protocol Stop: 06/16/17 16:59 Last Admin: 04/24/17 17:10 Dose: 100 mg Lisinopril (Zestril) 40 mg PO DAILY [facility] Stop: 06/17/17 08:59 Last Admin: 04/24/17 08:42 Dose: 40 mg Lorazepam (Ativan) 1 mg IVP Q4HR PRN; Protocol PRN Reason: Agitation Stop: 06/24/17 07:40 Potassium Chloride (Klor-Con) 40 meq PO DAILY PRN PRN Reason: k level below 3.5 Stop: 06/23/17 09:20 Quetiapine Fumarate (Seroquel) 100 mg PO TID [facility] PRN Reason: Protocol Stop: 06/22/17 08:59 Last Admin: 04/24/17 20:49 Dose: 100 mg Simvastatin (Zocor) 10 mg PO HS [facility] PRN Reason: Protocol Stop: 06/16/17 20:59 Last Admin: 04/24/17 20:49 Dose: 10 mg Venlafaxine HCl (Effexor Xr) 150 mg PO DAILY [facility] Stop: 06/17/17 08:59 Last Admin: 04/24/17 08:43 Dose: 150 mg General: Cooperative, No acute distress HEENT: Atraumatic, PERRLA, EOMI Neck: Supple, no JVD, no Thyromegaly Cardiovascular: Regular rate, Normal S1, Normal S2 Lungs: Clear to auscultation Abdomen: Bowel sounds, Soft Extremities: Other (right LE cast intact) Psych/Mental Status: Other (aao x 1 self) Assessment/Plan - Assessment Assessment: R ankle fx, Status post ORIF Yeast UTI HTN DM Unsteady gait Psychosis-stable - Plan Plan: Pt is seeing PT. Now walking with PT. Pleasant. On Seroquel 75 mg tid now per Dr. Nunez. She's calm and pleasant this am. On Diflucan for UTI. Sitter has been DC'd as pt doesn't need one. DC'd diflucan as pt is asymptomatic. Pt has labile mood. Nutritional Asmnt/Malnutr-PDOC - Dietary Evaluation Malnutrition Findings (Please click <Entered> for more info): Nutritional Asmnt/Malnutrition Start: 04/17/17 07: 44 Text: Status: Complete Freq: Document 04/21/17 09:29 [email or web address] (Rec: 04/21/17 09:34 [email or web address] [email or web address]) Nutritional Asmnt/Malnutrition Patient General Information Nutritional Screening Moderate Risk Diagnosis metabolic encephalopathy Pertinent Medical Hx/Surgical Hx impulse control disorder, anxiety, depression, DM, HTN, HLD, CAD Subjective Information Pt A&A x 1, confused, with sitter, moving to [facility]. PO intake 50-100%, usually eats 100%. Current Diet Order/ Nutrition Support mechanical soft, chopped Patient / S.O Not Indicated Pertinent Medications vit d, plavix, colace, glyburide Pertinent Labs 04/21 glucose: 129-148, hgba1c: 8.0, T Nutritional Hx/Data Height 1.57 m Height (Calculated Centimeters) 157.5 Current Weight (lbs) 90.718 kg Weight (Calculated Kilograms) 90.7 Weight (Calculated Grams) 69514.5 [place] Body Weight 110 % [place] Body Weight 181 Body Mass Index (BMI) 36.6 Weight Status Obese GI Symptoms GI Symptoms None Last BM 04/19 Difficult in: Chewing Skin Integrity/Comment: intact, bruises, no edema noted Current %PO Good (75-100%) Estimated Nutritional Goals BEE in Kcals: Adj wt of IBW Calories/Kcals/Kg 25-30 Kcals Calculated 0989-1330 kcals Protein: Adj wt of IBW Protein g/k-1.2 Protein Calculated 60-72 Fluid: ml 6332-4210 mL (1 ml/kcal) Nutritional Problem 1. Problem Problem altered nutrition related lab values Etiology DM, lack of CCHO diet Signs/Symptoms: gluocse: 129-148, hgba1c: 8.0 Malnutrition Alert Is there a minimum of two criteria No selected? Query Text:Check all the applicable criteria. A minimum of two criteria are recommended for diagnosis of either severe or non-severe malnutrition. Malnutrition Related to Morbid Obesity Malnutrition related to morbid obesity No Intervention/Recommendation Comments 1. Change diet to mechanical soft, chopped, CCHO 60 gm to manage DM Expected Outcomes/Goals Expected Outcomes/Goals PO intake>50%, labs: WNL monitor wt, labs, skin, PO intake
[2017-04-25] MEDS: Sodium Chloride 0.9% 1,000 ML IV SCH (21:21)
[2017-04-26 07:11] LABS: ANION GAP 11.1 (7.0-16.0); BUN - UREA NITROGEN 8 mg/dL (7-25); CALCIUM SERUM 9.9 mg/dL (8.6-10.3); CARBON DIOXIDE 23.3 mEq/L (21.0-31.0); CHLORIDE 109 mEq/L (98-107); GLUCOSE 115 mg/dL (70-105); POTASSIUM SERUM 3.4 mEq/L (3.5-5.1); SODIUM SERUM 140 mEq/L (136-145)
--- NOTE | 2017-04-26 08:39 | General Progress Note ---
Subjective - Review of Systems Service Date: 04/26/17 Subjective: Pt is significantly more calm this am. Her Seroquel is now [address] Nunez. She's confused at baseline. Has labile mood. Sitter has been dc'd. No n,v,d or cp. PT seeing the pt. No n,v,d or cp. No sx. Objective - Results Result Diagrams: 04/23/17 06:00 04/26/17 06:27 Recent Labs: Laboratory Last Values WBC 8.5 Th/cmm (4.8-10.8) D 04/23/17 06:00 RBC 3.08 Mil/cmm (3.80-5.20) L 04/23/17 06:00 Hgb 9.9 gm/dL (12-16) L 04/23/17 06:00 Hct 29.1 % (41.0-60) L D 04/23/17 06:00 MCV 94.6 fl (81-100) 04/23/17 06:00 MCH 32.3 pg (27.0-31.0) H 04/23/17 06:00 MCHC Differential 34.1 pg (28.0-36.0) 04/23/17 06:00 RDW 13.2 % (11.5-20.0) 04/23/17 06:00 Plt Count 389 Th/cmm (150-400) 04/23/17 06:00 MPV 7.2 fl 04/23/17 06:00 Neutrophils % 69.0 % (40.0-80.0) 04/23/17 06:00 Lymphocytes % 21.6 % (20.0-50.0) 04/23/17 06:00 Monocytes % 6.5 % (2.0-10.0) 04/23/17 06:00 Eosinophils % 2.5 % (0.0-5.0) 04/23/17 06:00 Basophils % 0.4 % (0.0-2.0) 04/23/17 06:00 Sodium 140 mEq/L (136-145) 04/26/17 06:27 Potassium 3.4 mEq/L (3.5-5.1) L 04/26/17 06:27 Chloride 109 mEq/L (98-107) H 04/26/17 06:27 Carbon Dioxide 23.3 mEq/L (21.0-31.0) 04/26/17 06:27 Anion Gap 11.1 (7.0-16.0) 04/26/17 06:27 BUN 8 mg/dL (7-25) 04/26/17 06:27 Creatinine 1.0 mg/dL (0.6-1.2) 04/26/17 06:27 Est GFR ( Amer) TNP 04/26/17 06:27 Est GFR (Non-Af Amer) TNP 04/26/17 06:27 BUN/Creatinine Ratio 8.0 04/26/17 06:27 Glucose 115 mg/dL (70-105) H 04/26/17 06:27 Hemoglobin A1c % 8.0 % (4.0-6.0) H 04/16/17 18:20 Calcium 9.9 mg/dL (8.6-10.3) 04/26/17 06:27 Total Bilirubin 0.5 mg/dL (0.3-1.0) 04/16/17 18:20 AST 25 U/L (13-39) 04/16/17 18:20 ALT 32 U/L (7-52) 04/16/17 18:20 Alkaline Phosphatase 106 U/L (34-104) H 04/16/17 18:20 Total Protein 7.3 gm/dL (6.0-8.3) 04/16/17 18:20 Albumin 3.4 gm/dL (3.7-5.3) L 04/16/17 18:20 Globulin 3.9 gm/dL 04/16/17 18:20 Albumin/Globulin Ratio 0.9 (1.0-1.8) L 04/16/17 18:20 Triglycerides 368 mg/dL (<150) H 04/16/17 18:20 Cholesterol 150 mg/dL (<200) 04/16/17 18:20 LDL Cholesterol Direct 69 mg/dL (75-193) L 04/16/17 18:20 HDL Cholesterol 40 mg/dL (23-92) 04/16/17 18:20 TSH 4.00 uIU/ml (0.34-5.60) 04/16/17 18:20 Urine Source CLEAN C 04/18/17 19:20 Urine Color YELLOW 04/18/17 19:20 Urine Clarity HAZY (CLEAR) 04/18/17 19:20 Urine pH 5.5 (4.6 - 8.0) 04/18/17 19:20 Ur Specific [place] 1.025 (1.005-1.030) 04/18/17 19:20 Urine Protein TRACE mg/dL (NEGATIVE) 04/18/17 19:20 Urine Glucose (UA) 500 mg/dL (NEGATIVE) H 04/18/17 19:20 Urine Ketones NEGATIVE mg/dL (NEGATIVE) 04/18/17 19:20 Urine Blood NEGATIVE (NEGATIVE) 04/18/17 19:20 Urine Nitrate NEGATIVE (NEGATIVE) 04/18/17:20 Urine Bilirubin NEGATIVE (NEGATIVE) 04/18/17:20 Urine Urobilinogen 0.2 E.U./dL (0.2 - 1.0) 04/18/17 19:20 Ur Leukocyte Esterase SMALL (NEGATIVE) H 04/18/17 19:20 Urine RBC 0-2 /hpf (0-5) 04/18/17:20 Urine WBC 25-50 /hpf (0-5) H 04/18/17 19:20 Ur Epithelial Cells NONE SEEN /lpf (FEW) 04/18/17 19:20 Urine Bacteria FEW /hpf (NONE SEEN) 04/18/17 19:20 Urine Yeast MANY /hpf (NONE SEEN) H 04/18/17 19:20 Salicylates < 25.0 mg/L (30.0-100.0) L 04/16/17 18:20 Urine Opiates Screen NEGATIVE (NEGATIVE) 04/17/17 00:10 Urine Methadone Screen NEGATIVE (NEGATIVE) 04/17/17 00:10 Acetaminophen < 10.0 ug/mL (10.0-30.0) L 04/16/17 18:20 Ur Barbiturates Screen NEGATIVE (NEGATIVE) 04/17/17 00:10 Ur Tricyclics Screen NEGATIVE (NEGATIVE) 04/17/17 00:10 Ur Phencyclidine Scrn NEGATIVE (NEGATIVE) 04/17/17 00:10 Amphetamines Screen NEGATIVE (NEGATIVE) 04/17/17 00:10 U Methamphetamines Scrn NEGATIVE (NEGATIVE) 04/17/17 00:10 U Benzodiazepines Scrn NEGATIVE (NEGATIVE) 04/17/17 00:10 U Cocaine Metab Screen NEGATIVE (NEGATIVE) 04/17/17 00:10 U Cannabinoids Screen NEGATIVE (NEGATIVE) 04/17/17 00:10 Ethyl Alcohol < 10 mg/dL (0-10) 04/16/17 18:20 RPR NONREACTIVE (NONREACTIVE) 04/16/17 18:20 - Physical Exam Vitals and I&O: Vital Signs Temp 98.2 F 04/26/17 04:00 Pulse 68 04/26/17 08:37 Resp 18 04/26/17 04:00 BP 180/72 04/26/17 08:37 Pulse Ox 99 04/26/17 04:00 Intake & Output 04/25/17 04/26/17 04/26/17 18:59 06:59 18:59 Intake Total 250 Balance 250 Weight (lbs) 90.265 kg 89.584 kg Intake: Oral 250 Other: # Voids 4 # Bowel Movements 0 Active Medications: Current Medications Acetaminophen (Tylenol) 650 mg PO Q6H PRN PRN Reason: HEADACHE/TEMP ABOVE 100F Stop: 06/23/17 09:20 Cholecalciferol (Vitamin D3) 1,000 iu PO DAILY [facility] Stop: 06/17/17 08:59 Last Admin: 04/26/17 08:37 Dose: 1,000 iu Clopidogrel Bisulfate (Plavix) 75 mg PO DAILY [facility] Stop: 06/17/17 08:59 Last Admin: 04/26/17 08:37 Dose: 75 mg Docusate Sodium (Colace) 100 mg PO BID PRN PRN Reason: Constipation Stop: 06/16/17 09:43 Last Admin: 04/25/17 08:59 Dose: 100 mg Glyburide (Diabeta) 5 mg PO BID [facility] Stop: 06/16/17 16:59 Last Admin: 04/26/17 08:37 Dose: 5 mg Hydralazine HCl (Apresoline 20 Mg/Ml) 10 mg IV Q6HR PRN PRN Reason: sbp>160 Stop: 06/18/17 08:50 Last Admin: 04/26/17 08:37 Dose: 10 mg Sodium Chloride (Nacl 0.9%) 1,000 mls @ 90 mls/hr IV .Q11H7M [facility] Stop: 06/15/17 22:20 Last Admin: 04/25/17 21:21 Dose: 90 mls/hr Magnesium Sulfate (Magnesium Sulfate Premix) 2 gm in 50 mls @ 25 mls/hr IV DAILY PRN PRN Reason: Magnesium level below 1.6 Stop: 06/23/17 09:20 Lamotrigine (Lamictal) 100 mg PO BID [facility] PRN Reason: Protocol Stop: 06/16/17 16:59 Last Admin: 04/26/17 08:37 Dose: 100 mg Lisinopril (Zestril) 40 mg PO DAILY [facility] Stop: 06/17/17 08:59 Last Admin: 04/26/17 08:37 Dose: 40 mg Lorazepam (Ativan) 1 mg IVP Q4HR PRN; Protocol PRN Reason: Agitation Stop: 06/24/17 07:40 Last Admin: 04/25/17 18:20 Dose: 1 mg Potassium Chloride (Klor-Con) 40 meq PO DAILY PRN PRN Reason: k level below 3.5 Stop: 06/23/17 09:20 Last Admin: 04/26/17 08:37 Dose: 40 meq Quetiapine Fumarate (Seroquel) 100 mg PO TID [facility] PRN Reason: Protocol Stop: 06/22/17 08:59 Last Admin: 04/26/17 08:36 Dose: 100 mg Simvastatin (Zocor) 10 mg PO HS [facility] PRN Reason: Protocol Stop: 06/16/17 20:59 Last Admin: 04/25/17 21:24 Dose: Not Given Venlafaxine HCl (Effexor Xr) 150 mg PO DAILY [facility] Stop: 06/17/17 08:59 Last Admin: 04/26/17 08:37 Dose: 150 mg General: Cooperative, No acute distress HEENT: Atraumatic, PERRLA, EOMI Neck: Supple, no JVD, no Thyromegaly Cardiovascular: Regular rate, Normal S1, Normal S2 Lungs: Clear to auscultation Abdomen: Bowel sounds, Soft Extremities: Other (right LE cast intact) Psych/Mental Status: Other (aao x 1 self) Assessment/Plan - Assessment Assessment: R ankle fx, Status post ORIF Yeast UTI HTN DM Unsteady gait Psychosis-stable - Plan Plan: Pt is seeing PT. Now walking with PT. Pleasant. On Seroquel 75 mg tid now per Dr. Nunez. She's calm and pleasant this am. On Diflucan for UTI. Sitter has been DC'd as pt doesn't need one. DC'd diflucan as pt is asymptomatic. Pt has labile mood. Nutritional Asmnt/Malnutr-PDOC - Dietary Evaluation Malnutrition Findings (Please click <Entered> for more info): Nutritional Asmnt/Malnutrition Start: 04/17/17 07: 44 Text: Status: Complete Freq: Document 04/21/17 09:29 [email or web address] (Rec: 04/21/17 09:34 [email or web address] [id number]) Nutritional Asmnt/Malnutrition Patient General Information Nutritional Screening Moderate Risk Diagnosis metabolic encephalopathy Pertinent Medical Hx/Surgical Hx impulse control disorder, anxiety, depression, DM, HTN, HLD, CAD Subjective Information Pt A&A x 1, confused, with sitter, moving to [facility]. PO intake 50-100%, usually eats 100%. Current Diet Order/ Nutrition Support mechanical soft, chopped Patient / S.O Not Indicated Pertinent Medications vit d, plavix, colace, glyburide Pertinent Labs 04/21 glucose: 129-148, hgba1c: 8.0, T Nutritional Hx/Data Height 1.57 m Height (Calculated Centimeters) 157.5 Current Weight (lbs) 90.718 kg Weight (Calculated Kilograms) 90.7 Weight (Calculated Grams) 08881.5 [place] Body Weight 110 % [place] Body Weight 181 Body Mass Index (BMI) 36.6 Weight Status Obese GI Symptoms GI Symptoms None Last BM 04/19 Difficult in: Chewing Skin Integrity/Comment: intact, bruises, no edema noted Current %PO Good (75-100%) Estimated Nutritional Goals BEE in Kcals: Adj wt of IBW Calories/Kcals/Kg 25-30 Kcals Calculated 5706-1863 kcals Protein: Adj wt of IBW Protein g/k-1.2 Protein Calculated 60-72 Fluid: ml 8263-2743 mL (1 ml/kcal) Nutritional Problem 1. Problem Problem altered nutrition related lab values Etiology DM, lack of CCHO diet Signs/Symptoms: gluocse: 129-148, hgba1c: 8.0 Malnutrition Alert Is there a minimum of two criteria No selected? Query Text:Check all the applicable criteria. A minimum of two criteria are recommended for diagnosis of either severe or non-severe malnutrition. Malnutrition Related to Morbid Obesity Malnutrition related to morbid obesity No Intervention/Recommendation Comments 1. Change diet to mechanical soft, chopped, CCHO 60 gm to manage DM Expected Outcomes/Goals Expected Outcomes/Goals PO intake>50%, labs: WNL monitor wt, labs, skin, PO intake
[2017-04-26] MEDS: Sodium Chloride 0.9% 1,000 ML IV SCH (17:35)
[2017-04-27 07:19] LABS: ANION GAP 11.9 (7.0-16.0); BUN - UREA NITROGEN 8 mg/dL (7-25); CALCIUM SERUM 9.8 mg/dL (8.6-10.3); CARBON DIOXIDE 22.8 mEq/L (21.0-31.0); CHLORIDE 110 mEq/L (98-107); GLUCOSE 116 mg/dL (70-105); POTASSIUM SERUM 3.7 mEq/L (3.5-5.1); SODIUM SERUM 141 mEq/L (136-145)
--- NOTE | 2017-04-27 09:34 | General Progress Note ---
Subjective - Review of Systems Subjective: Pt is significantly more calm this am. Her Seroquel is now [address] Nunez. She's confused at baseline. Has labile mood. Sitter has been dc'd. No n,v,d or cp. PT seeing the pt. No n,v,d or cp. No sx. Objective - Results Result Diagrams: 04/23/17 06:00 04/27/17 06:15 Recent Labs: Laboratory Last Values WBC 8.5 Th/cmm (4.8-10.8) D 04/23/17 06:00 RBC 3.08 Mil/cmm (3.80-5.20) L 04/23/17 06:00 Hgb 9.9 gm/dL (12-16) L 04/23/17 06:00 Hct 29.1 % (41.0-60) L D 04/23/17 06:00 MCV 94.6 fl (81-100) 04/23/17 06:00 MCH 32.3 pg (27.0-31.0) H 04/23/17 06:00 MCHC Differential 34.1 pg (28.0-36.0) 04/23/17 06:00 RDW 13.2 % (11.5-20.0) 04/23/17 06:00 Plt Count 389 Th/cmm (150-400) 04/23/17 06:00 MPV 7.2 fl 04/23/17 06:00 Neutrophils % 69.0 % (40.0-80.0) 04/23/17 06:00 Lymphocytes % 21.6 % (20.0-50.0) 04/23/17 06:00 Monocytes % 6.5 % (2.0-10.0) 04/23/17 06:00 Eosinophils % 2.5 % (0.0-5.0) 04/23/17 06:00 Basophils % 0.4 % (0.0-2.0) 04/23/17 06:00 Sodium 141 mEq/L (136-145) 04/27/17 06:15 Potassium 3.7 mEq/L (3.5-5.1) 04/27/17 06:15 Chloride 110 mEq/L (98-107) H 04/27/17 06:15 Carbon Dioxide 22.8 mEq/L (21.0-31.0) 04/27/17 06:15 Anion Gap 11.9 (7.0-16.0) 04/27/17 06:15 BUN 8 mg/dL (7-25) 04/27/17 06:15 Creatinine 1.0 mg/dL (0.6-1.2) 04/27/17 06:15 Est GFR ( Amer) TNP 04/27/17 06:15 Est GFR (Non-Af Amer) TNP 04/27/17 06:15 BUN/Creatinine Ratio 8.0 04/27/17 06:15 Glucose 116 mg/dL (70-105) H 04/27/17 06:15 Hemoglobin A1c % 8.0 % (4.0-6.0) H 04/16/17 18:20 Calcium 9.8 mg/dL (8.6-10.3) 04/27/17 06:15 Total Bilirubin 0.5 mg/dL (0.3-1.0) 04/16/17 18:20 AST 25 U/L (13-39) 04/16/17 18:20 ALT 32 U/L (7-52) 04/16/17 18:20 Alkaline Phosphatase 106 U/L (34-104) H 04/16/17 18:20 Total Protein 7.3 gm/dL (6.0-8.3) 04/16/17 18:20 Albumin 3.4 gm/dL (3.7-5.3) L 04/16/17 18:20 Globulin 3.9 gm/dL 04/16/17 18:20 Albumin/Globulin Ratio 0.9 (1.0-1.8) L 04/16/17 18:20 Triglycerides 368 mg/dL (<150) H 04/16/17 18:20 Cholesterol 150 mg/dL (<200) 04/16/17 18:20 LDL Cholesterol Direct 69 mg/dL (75-193) L 04/16/17 18:20 HDL Cholesterol 40 mg/dL (23-92) 04/16/17 18:20 TSH 4.00 uIU/ml (0.34-5.60) 04/16/17 18:20 Urine Source CLEAN C 04/18/17 19:20 Urine Color YELLOW 04/18/17 19:20 Urine Clarity HAZY (CLEAR) 04/18/17 19:20 Urine pH 5.5 (4.6 - 8.0) 04/18/17 19:20 Ur Specific [place] 1.025 (1.005-1.030) 04/18/17 19:20 Urine Protein TRACE mg/dL (NEGATIVE) 04/18/17 19:20 Urine Glucose (UA) 500 mg/dL (NEGATIVE) H 04/18/17 19:20 Urine Ketones NEGATIVE mg/dL (NEGATIVE) 04/18/17 19:20 Urine Blood NEGATIVE (NEGATIVE) 04/18/17 19:20 Urine Nitrate NEGATIVE (NEGATIVE) 04/18/17 19:20 Urine Bilirubin NEGATIVE (NEGATIVE) 04/18/17 19:20 Urine Urobilinogen 0.2 E.U./dL (0.2 - 1.0) 04/18/17 19:20 Ur Leukocyte Esterase SMALL (NEGATIVE) H 04/18/17 19:20 Urine RBC 0-2 /hpf (0-5) 04/18/17 19:20 Urine WBC 25-50 /hpf (0-5) H 04/18/17 19:20 Ur Epithelial Cells NONE SEEN /lpf (FEW) 04/18/17 19:20 Urine Bacteria FEW /hpf (NONE SEEN) 04/18/17 19:20 Urine Yeast MANY /hpf (NONE SEEN) H 04/18/17 19:20 Salicylates < 25.0 mg/L (30.0-100.0) L 04/16/17 18:20 Urine Opiates Screen NEGATIVE (NEGATIVE) 04/17/17 00:10 Urine Methadone Screen NEGATIVE (NEGATIVE) 04/17/17 00:10 Acetaminophen < 10.0 ug/mL (10.0-30.0) L 04/16/17 18:20 Ur Barbiturates Screen NEGATIVE (NEGATIVE) 04/17/17 00:10 Ur Tricyclics Screen NEGATIVE (NEGATIVE) 04/17/17 00:10 Ur Phencyclidine Scrn NEGATIVE (NEGATIVE) 04/17/17 00:10 Amphetamines Screen NEGATIVE (NEGATIVE) 04/17/17 00:10 U Methamphetamines Scrn NEGATIVE (NEGATIVE) 04/17/17 00:10 U Benzodiazepines Scrn NEGATIVE (NEGATIVE) 04/17/17 00:10 U Cocaine Metab Screen NEGATIVE (NEGATIVE) 04/17/17 00:10 U Cannabinoids Screen NEGATIVE (NEGATIVE) 04/17/17 00:10 Ethyl Alcohol < 10 mg/dL (0-10) 04/16/17 18:20 RPR NONREACTIVE (NONREACTIVE) 04/16/17 18:20 - Physical Exam Vitals and I&O: Vital Signs Temp 97.7 F 04/27/17 04:00 Pulse 72 04/27/17 08:38 Resp 18 04/27/17 04:00 BP 144/81 04/27/17 08:38 Pulse Ox 96 04/27/17 04:00 Intake & Output 04/26/17 04/27/17 04/27/17 18:59 06:59 18:59 Intake Total 1845 240 Balance 1845 240 Weight (lbs) 89.584 kg 89.811 kg Intake: Intake, IV Amount 1045 Sodium Chloride 0.9% 1, 1045 000 ml @ 90 mls/hr IV . Q11H7M [facility] Rx#:[id number] Oral 800 240 Other: # Voids 7 4 # Bowel Movements 1 Active Medications: Current Medications Acetaminophen (Tylenol) 650 mg PO Q6H PRN PRN Reason: HEADACHE/TEMP ABOVE 100F Stop: 06/23/17 09:20 Cholecalciferol (Vitamin D3) 1,000 iu PO DAILY [facility] Stop: 06/17/17 08:59 Last Admin: 04/27/17 08:38 Dose: 1,000 iu Clopidogrel Bisulfate (Plavix) 75 mg PO DAILY [facility] Stop: 06/17/17 08:59 Last Admin: 04/27/17 08:38 Dose: 75 mg Docusate Sodium (Colace) 100 mg PO BID PRN PRN Reason: Constipation Stop: 06/16/17 09:43 Last Admin: 04/25/17 08:59 Dose: 100 mg Glyburide (Diabeta) 5 mg PO BID [facility] Stop: 06/16/17 16:59 Last Admin: 04/27/17 08:38 Dose: 5 mg Hydralazine HCl (Apresoline 20 Mg/Ml) 10 mg IV Q6HR PRN PRN Reason: sbp>160 Stop: 06/18/17 08:50 Last Admin: 04/27/17 05:32 Dose: 10 mg Sodium Chloride (Nacl 0.9%) 1,000 mls @ 90 mls/hr IV .Q11H7M [facility] Stop: 06/15/17 22:20 Last Infusion: 04/26/17 18:05 Dose: 90 mls/hr Magnesium Sulfate (Magnesium Sulfate Premix) 2 gm in 50 mls @ 25 mls/hr IV DAILY PRN PRN Reason: Magnesium level below 1.6 Stop: 06/23/17 09:20 Lamotrigine (Lamictal) 100 mg PO BID [facility] PRN Reason: Protocol Stop: 06/16/17 16:59 Last Admin: 04/27/17 08:38 Dose: 100 mg Lisinopril (Zestril) 40 mg PO DAILY [facility] Stop: 06/17/17 08:59 Last Admin: 04/27/17 08:38 Dose: 40 mg Lorazepam (Ativan) 1 mg IVP Q4HR PRN; Protocol PRN Reason: Agitation Stop: 06/24/17 07:40 Last Admin: 04/27/17 06:09 Dose: 1 mg Potassium Chloride (Klor-Con) 40 meq PO DAILY PRN PRN Reason: k level below 3.5 Stop: 06/23/17 09:20 Last Admin: 04/26/17 08:37 Dose: 40 meq Quetiapine Fumarate (Seroquel) 100 mg PO TID [facility] PRN Reason: Protocol Stop: 06/22/17 08:59 Last Admin: 04/27/17 08:38 Dose: 100 mg Simvastatin (Zocor) 10 mg PO HS [facility] PRN Reason: Protocol Stop: 06/16/17 20:59 Last Admin: 04/26/17 21:00 Dose: 10 mg Venlafaxine HCl (Effexor Xr) 150 mg PO DAILY [facility] Stop: 06/17/17 08:59 Last Admin: 04/27/17 08:38 Dose: 150 mg General: Cooperative, No acute distress HEENT: Atraumatic, PERRLA, EOMI Neck: Supple, no JVD, no Thyromegaly Cardiovascular: Regular rate, Normal S1, Normal S2 Lungs: Clear to auscultation Abdomen: Bowel sounds, Soft Extremities: Other (right LE cast intact) Psych/Mental Status: Other (aao x 1 self) Assessment/Plan - Assessment Assessment: R ankle fx, Status post ORIF Yeast UTI HTN DM Unsteady gait Psychosis-stable - Plan Plan: Pt is seeing PT. Now walking with PT. Pleasant. On Seroquel 75 mg tid now per Dr. Nunez. She's calm and pleasant this am. On Diflucan for UTI. Sitter has been DC'd as pt doesn't need one. DC'd diflucan as pt is asymptomatic. Pt has labile mood. Nutritional Asmnt/Malnutr-PDOC - Dietary Evaluation Malnutrition Findings (Please click <Entered> for more info): Nutritional Asmnt/Malnutrition Start: 04/17/17 07: 44 Text: Status: Complete Freq: Document 04/21/17 09:29 [email or web address] (Rec: 04/21/17 09:34 [email or web address] [email or web address]) Nutritional Asmnt/Malnutrition Patient General Information Nutritional Screening Moderate Risk Diagnosis metabolic encephalopathy Pertinent Medical Hx/Surgical Hx impulse control disorder, anxiety, depression, DM, HTN, HLD, CAD Subjective Information Pt A&A x 1, confused, with sitter, moving to [facility]. PO intake 50-100%, usually eats 100%. Current Diet Order/ Nutrition Support mechanical soft, chopped Patient / S.O Not Indicated Pertinent Medications vit d, plavix, colace, glyburide Pertinent Labs 04/21 glucose: 129-148, hgba1c: 8.0, T Nutritional Hx/Data Height 1.57 m Height (Calculated Centimeters) 157.5 Current Weight (lbs) 90.718 kg Weight (Calculated Kilograms) 90.7 Weight (Calculated Grams) 20957.5 [place] Body Weight 110 % [place] Body Weight 181 Body Mass Index (BMI) 36.6 Weight Status Obese GI Symptoms GI Symptoms None Last BM 04/19 Difficult in: Chewing Skin Integrity/Comment: intact, bruises, no edema noted Current %PO Good (75-100%) Estimated Nutritional Goals BEE in Kcals: Adj wt of IBW Calories/Kcals/Kg 25-30 Kcals Calculated 8626-2487 kcals Protein: Adj wt of IBW Protein g/k-1.2 Protein Calculated 60-72 Fluid: ml [id number] mL (1 ml/kcal) Nutritional Problem 1. Problem Problem altered nutrition related lab values Etiology DM, lack of CCHO diet Signs/Symptoms: gluocse: 129-148, hgba1c: 8.0 Malnutrition Alert Is there a minimum of two criteria No selected? Query Text:Check all the applicable criteria. A minimum of two criteria are recommended for diagnosis of either severe or non-severe malnutrition. Malnutrition Related to Morbid Obesity Malnutrition related to morbid obesity No Intervention/Recommendation Comments 1. Change diet to mechanical soft, chopped, CCHO 60 gm to manage DM Expected Outcomes/Goals Expected Outcomes/Goals PO intake>50%, labs: WNL monitor wt, labs, skin, PO intake
[2017-04-27] MEDS: Sodium Chloride 0.9% 1,000 ML IV SCH (13:31)
[2017-04-28 06:47] LABS: ANION GAP 11.8 (7.0-16.0); BUN - UREA NITROGEN 10 mg/dL (7-25); CALCIUM SERUM 9.7 mg/dL (8.6-10.3); CARBON DIOXIDE 22.8 mEq/L (21.0-31.0); CHLORIDE 110 mEq/L (98-107); GLUCOSE 106 mg/dL (70-105); POTASSIUM SERUM 3.6 mEq/L (3.5-5.1); SODIUM SERUM 141 mEq/L (136-145)
--- NOTE | 2017-04-28 09:12 | General Progress Note ---
Subjective - Review of Systems Service Date: 04/28/17 Subjective: Pt apparently fell yesterday. she was found lying on the floor. She denies hitting her head. No headache. She's lethargic. BP has been elevated. No n,v,d or cp. No sz. Calm and cooperative this am. Objective - Results Result Diagrams: 04/23/17 06:00 04/28/17 06:00 Recent Labs: Laboratory Last Values WBC 8.5 Th/cmm (4.8-10.8) D 04/23/17 06:00 RBC 3.08 Mil/cmm (3.80-5.20) L 04/23/17 06:00 Hgb 9.9 gm/dL (12-16) L 04/23/17 06:00 Hct 29.1 % (41.0-60) L D 04/23/17 06:00 MCV 94.6 fl (81-100) 04/23/17 06:00 MCH 32.3 pg (27.0-31.0) H 04/23/17 06:00 MCHC Differential 34.1 pg (28.0-36.0) 04/23/17 06:00 RDW 13.2 % (11.5-20.0) 04/23/17 06:00 Plt Count 389 Th/cmm (150-400) 04/23/17 06:00 MPV 7.2 fl 04/23/17 06:00 Neutrophils % 69.0 % (40.0-80.0) 04/23/17 06:00 Lymphocytes % 21.6 % (20.0-50.0) 04/23/17 06:00 Monocytes % 6.5 % (2.0-10.0) 04/23/17 06:00 Eosinophils % 2.5 % (0.0-5.0) 04/23/17 06:00 Basophils % 0.4 % (0.0-2.0) 04/23/17 06:00 Sodium 141 mEq/L (136-145) 04/28/17 06:00 Potassium 3.6 mEq/L (3.5-5.1) 04/28/17 06:00 Chloride 110 mEq/L (98-107) H 04/28/17 06:00 Carbon Dioxide 22.8 mEq/L (21.0-31.0) 04/28/17 06:00 Anion Gap 11.8 (7.0-16.0) 04/28/17 06:00 BUN 10 mg/dL (7-25) 04/28/17 06:00 Creatinine 1.0 mg/dL (0.6-1.2) 04/28/17 06:00 Est GFR ( Amer) TNP 04/28/17 06:00 Est GFR (Non-Af Amer) TNP 04/28/17 06:00 BUN/Creatinine Ratio 10.0 04/28/17 06:00 Glucose 106 mg/dL (70-105) H 04/28/17 06:00 Hemoglobin A1c % 8.0 % (4.0-6.0) H 04/16/17 18:20 Calcium 9.7 mg/dL (8.6-10.3) 04/28/17 06:00 Total Bilirubin 0.5 mg/dL (0.3-1.0) 04/16/17 18:20 AST 25 U/L (13-39) 04/16/17 18:20 ALT 32 U/L (7-52) 04/16/17 18:20 Alkaline Phosphatase 106 U/L (34-104) H 04/16/17 18:20 Total Protein 7.3 gm/dL (6.0-8.3) 04/16/17 18:20 Albumin 3.4 gm/dL (3.7-5.3) L 04/16/17 18:20 Globulin 3.9 gm/dL 04/16/17 18:20 Albumin/Globulin Ratio 0.9 (1.0-1.8) L 04/16/17 18:20 Triglycerides 368 mg/dL (<150) H 04/16/17 18:20 Cholesterol 150 mg/dL (<200) 04/16/17 18:20 LDL Cholesterol Direct 69 mg/dL (75-193) L 04/16/17 18:20 HDL Cholesterol 40 mg/dL (23-92) 04/16/17 18:20 TSH 4.00 uIU/ml (0.34-5.60) 04/16/17 18:20 Urine Source CLEAN C 04/18/17 19:20 Urine Color YELLOW 04/18/17 19:20 Urine Clarity HAZY (CLEAR) 04/18/17 19:20 Urine pH 5.5 (4.6 - 8.0) 04/18/17 19:20 Ur Specific [place] 1.025 (1.005-1.030) 04/18/17 19:20 Urine Protein TRACE mg/dL (NEGATIVE) 04/18/17 19:20 Urine Glucose (UA) 500 mg/dL (NEGATIVE) H 04/18/17 19:20 Urine Ketones NEGATIVE mg/dL (NEGATIVE) 04/18/17 19:20 Urine Blood NEGATIVE (NEGATIVE) 04/18/17 19:20 Urine Nitrate NEGATIVE (NEGATIVE) 04/18/17 19:20 Urine Bilirubin NEGATIVE (NEGATIVE) 04/18/17 19:20 Urine Urobilinogen 0.2 E.U./dL (0.2 - 1.0) 04/18/17 19:20 Ur Leukocyte Esterase SMALL (NEGATIVE) H 04/18/17 19:20 Urine RBC 0-2 /hpf (0-5) 04/18/17 19:20 Urine WBC 25-50 /hpf (0-5) H 04/18/17 19:20 Ur Epithelial Cells NONE SEEN /lpf (FEW) 04/18/17 19:20 Urine Bacteria FEW /hpf (NONE SEEN) 04/18/17 19:20 Urine Yeast MANY /hpf (NONE SEEN) H 04/18/17 19:20 Salicylates < 25.0 mg/L (30.0-100.0) L 04/16/17 18:20 Urine Opiates Screen NEGATIVE (NEGATIVE) 04/17/17 00:10 Urine Methadone Screen NEGATIVE (NEGATIVE) 04/17/17 00:10 Acetaminophen < 10.0 ug/mL (10.0-30.0) L 04/16/17 18:20 Ur Barbiturates Screen NEGATIVE (NEGATIVE) 04/17/17 00:10 Ur Tricyclics Screen NEGATIVE (NEGATIVE) 04/17/17 00:10 Ur Phencyclidine Scrn NEGATIVE (NEGATIVE) 04/17/17 00:10 Amphetamines Screen NEGATIVE (NEGATIVE) 04/17/17 00:10 U Methamphetamines Scrn NEGATIVE (NEGATIVE) 04/17/17 00:10 U Benzodiazepines Scrn NEGATIVE (NEGATIVE) 04/17/17 00:10 U Cocaine Metab Screen NEGATIVE (NEGATIVE) 04/17/17 00:10 U Cannabinoids Screen NEGATIVE (NEGATIVE) 04/17/17 00:10 Ethyl Alcohol < 10 mg/dL (0-10) 04/16/17 18:20 RPR NONREACTIVE (NONREACTIVE) 04/16/17 18:20 - Physical Exam Vitals and I&O: Vital Signs Temp 97.6 F 04/28/17 04:00 Pulse 86 04/28/17 06:07 Resp 20 04/28/17 04:00 BP 174/67 04/28/17 04:00 Pulse Ox 96 04/28/17 04:00 Intake & Output 04/27/17 04/28/17 04/28/17 18:59 06:59 18:59 Intake Total 500 240 Balance 500 240 Weight (lbs) 89.811 kg 86.183 kg Intake: Oral 500 240 Other: # Voids 3 2 # Bowel Movements 0 0 Active Medications: Current Medications Acetaminophen (Tylenol) 650 mg PO Q6H PRN PRN Reason: HEADACHE/TEMP ABOVE 100F Stop: 06/23/17 09:20 Last Admin: 04/28/17 00:41 Dose: 650 mg Cholecalciferol (Vitamin D3) 1,000 iu PO DAILY [facility] Stop: 06/17/17 08:59 Last Admin: 04/27/17 08:38 Dose: 1,000 iu Clopidogrel Bisulfate (Plavix) 75 mg PO DAILY [facility] Stop: 06/17/17 08:59 Last Admin: 04/27/17 08:38 Dose: 75 mg Docusate Sodium (Colace) 100 mg PO BID PRN PRN Reason: Constipation Stop: 06/16/17 09:43 Last Admin: 04/25/17 08:59 Dose: 100 mg Glyburide (Diabeta) 5 mg PO BID [facility] Stop: 06/16/17 16:59 Last Admin: 04/27/17 17:01 Dose: 5 mg Hydralazine HCl (Apresoline 20 Mg/Ml) 10 mg IV Q6HR PRN PRN Reason: sbp>160 Stop: 06/18/17 08:50 Last Admin: 04/27/17 14:34 Dose: 10 mg Sodium Chloride (Nacl 0.9%) 1,000 mls @ 90 mls/hr IV .Q11H7M [facility] Stop: 06/15/17 22:20 Last Admin: 04/27/17 13:31 Dose: 90 mls/hr Magnesium Sulfate (Magnesium Sulfate Premix) 2 gm in 50 mls @ 25 mls/hr IV DAILY PRN PRN Reason: Magnesium level below 1.6 Stop: 06/23/17 09:20 Lamotrigine (Lamictal) 100 mg PO BID [facility] PRN Reason: Protocol Stop: 06/16/17 16:59 Last Admin: 04/27/17 17:00 Dose: 100 mg Lisinopril (Zestril) 40 mg PO DAILY [facility] Stop: 06/17/17 08:59 Last Admin: 04/27/17 08:38 Dose: 40 mg Lorazepam (Ativan) 1 mg IVP Q4HR PRN; Protocol PRN Reason: Agitation Stop: 06/24/17 07:40 Last Admin: 04/27/17 06:09 Dose: 1 mg Potassium Chloride (Klor-Con) 40 meq PO DAILY PRN PRN Reason: k level below 3.5 Stop: 06/23/17 09:20 Last Admin: 04/26/17 08:37 Dose: 40 meq Quetiapine Fumarate (Seroquel) 100 mg PO TID [facility] PRN Reason: Protocol Stop: 06/22/17 08:59 Last Admin: 04/27/17 20:10 Dose: 100 mg Simvastatin (Zocor) 10 mg PO HS [facility] PRN Reason: Protocol Stop: 06/16/17 20:59 Last Admin: 04/27/17 20:10 Dose: 10 mg Venlafaxine HCl (Effexor Xr) 150 mg PO DAILY [facility] Stop: 06/17/17 08:59 Last Admin: 04/27/17 08:38 Dose: 150 mg General: Cooperative, No acute distress HEENT: Atraumatic, PERRLA, EOMI Neck: Supple, no JVD, no Thyromegaly Cardiovascular: Regular rate, Normal S1, Normal S2 Lungs: Clear to auscultation Abdomen: Bowel sounds, Soft Extremities: Other (right LE cast intact) Psych/Mental Status: Other (aao x 1 self) Assessment/Plan - Assessment Assessment: R ankle fx, Status post ORIF Yeast UTI HTN-ooc DM Unsteady gait Psychosis-stable Status post fall - Plan Plan: Pt is seeing PT. Now walking with PT. Pleasant. On Seroquel 75 mg tid now per Dr. Nunez. She's calm and pleasant this am. On Diflucan for UTI. FU on ct head. Start Lopressor 25 mg. Nutritional Asmnt/Malnutr-PDOC - Dietary Evaluation Malnutrition Findings (Please click <Entered> for more info): Nutritional Asmnt/Malnutrition Start: 04/17/17 07: 44 Text: Status: Complete Freq: Document 04/21/17 09:29 [email or web address] (Rec: 04/21/17 09:34 [email or web address] [id number]) Nutritional Asmnt/Malnutrition Patient General Information Nutritional Screening Moderate Risk Diagnosis metabolic encephalopathy Pertinent Medical Hx/Surgical Hx impulse control disorder, anxiety, depression, DM, HTN, HLD, CAD Subjective Information Pt A&A x 1, confused, with sitter, moving to [facility]. PO intake 50-100%, usually eats 100%. Current Diet Order/ Nutrition Support mechanical soft, chopped Patient / S.O Not Indicated Pertinent Medications vit d, plavix, colace, glyburide Pertinent Labs 04/21 glucose: 129-148, hgba1c: 8.0, T Nutritional Hx/Data Height 1.57 m Height (Calculated Centimeters) 157.5 Current Weight (lbs) 90.718 kg Weight (Calculated Kilograms) 90.7 Weight (Calculated Grams) 80130.5 [place] Body Weight 110 % [place] Body Weight 181 Body Mass Index (BMI) 36.6 Weight Status Obese GI Symptoms GI Symptoms None Last BM 04/19 Difficult in: Chewing Skin Integrity/Comment: intact, bruises, no edema noted Current %PO Good (75-100%) Estimated Nutritional Goals BEE in Kcals: Adj wt of IBW Calories/Kcals/Kg 25-30 Kcals Calculated 0770-1412 kcals Protein: Adj wt of IBW Protein g/k-1.2 Protein Calculated 60-72 Fluid: ml 4979-4670 mL (1 ml/kcal) Nutritional Problem 1. Problem Problem altered nutrition related lab values Etiology DM, lack of CCHO diet Signs/Symptoms: gluocse: 129-148, hgba1c: 8.0 Malnutrition Alert Is there a minimum of two criteria No selected? Query Text:Check all the applicable criteria. A minimum of two criteria are recommended for diagnosis of either severe or non-severe malnutrition. Malnutrition Related to Morbid Obesity Malnutrition related to morbid obesity No Intervention/Recommendation Comments 1. Change diet to mechanical soft, chopped, CCHO 60 gm to manage DM Expected Outcomes/Goals Expected Outcomes/Goals PO intake>50%, labs: WNL monitor wt, labs, skin, PO intake
--- NOTE | 2017-04-29 00:05 | Progress Notes ---
DATE: 04/28/[address] Nunez. SUBJECTIVE: Case was discussed with staff of the patient, reviewed records. This is a 76-year-old female who was admitted on 04/16/2017. The patient is on the medical floor. She apparently broke her right foot. She was very agitated, irritable and aggressive, was not able to follow staff direction. The patient with a history of psychosis on multiple admissions because of schizoaffective disorder. The patient when I tried to talk she was naked. The staff reports she did not eat her breakfast. She continues to be easily agitated, irritable. She has been on Effexor 150 mg daily and Seroquel 100 mg 3 times a day with no side effects, no sedation, no nausea, no extrapyramidal symptoms. The patient may need to be transferred to [facility] when medically cleared if she still agitated. Thank you very much for allowing me to participate in the care of this most interesting lady. [facility]# [id number]
[2017-04-29 06:04] LABS: ANION GAP 10.8 (7.0-16.0); BUN - UREA NITROGEN 13 mg/dL (7-25); CALCIUM SERUM 9.6 mg/dL (8.6-10.3); CARBON DIOXIDE 20.8 mEq/L (21.0-31.0); CHLORIDE 111 mEq/L (98-107); GLUCOSE 110 mg/dL (70-105); POTASSIUM SERUM 3.6 mEq/L (3.5-5.1); SODIUM SERUM 139 mEq/L (136-145)
[2017-04-29] MEDS: Sodium Chloride 0.9% 1,000 ML IV SCH ×2 (06:06→23:17)
--- NOTE | 2017-04-29 09:15 | General Progress Note ---
Subjective - Review of Systems Service Date: 04/29/17 Subjective: Pt apparently fell on 04/27/17. she was found lying on the floor. She denies hitting her head. No headache. She's pleasant, and has been feeling well. BP has been elevated. No n,v,d or cp. No sz. Calm and cooperative this am. Objective - Results Result Diagrams: 04/23/17 06:00 04/29/17 05:12 Recent Labs: Laboratory Last Values WBC 8.5 Th/cmm (4.8-10.8) D 04/23/17 06:00 RBC 3.08 Mil/cmm (3.80-5.20) L 04/23/17 06:00 Hgb 9.9 gm/dL (12-16) L 04/23/17 06:00 Hct 29.1 % (41.0-60) L D 04/23/17 06:00 MCV 94.6 fl (81-100) 04/23/17 06:00 MCH 32.3 pg (27.0-31.0) H 04/23/17 06:00 MCHC Differential 34.1 pg (28.0-36.0) 04/23/17 06:00 RDW 13.2 % (11.5-20.0) 04/23/17 06:00 Plt Count 389 Th/cmm (150-400) 04/23/17 06:00 MPV 7.2 fl 04/23/17 06:00 Neutrophils % 69.0 % (40.0-80.0) 04/23/17 06:00 Lymphocytes % 21.6 % (20.0-50.0) 04/23/17 06:00 Monocytes % 6.5 % (2.0-10.0) 04/23/17 06:00 Eosinophils % 2.5 % (0.0-5.0) 04/23/17 06:00 Basophils % 0.4 % (0.0-2.0) 04/23/17 06:00 Sodium 139 mEq/L (136-145) 04/29/17 05:12 Potassium 3.6 mEq/L (3.5-5.1) 04/29/17 05:12 Chloride 111 mEq/L (98-107) H 04/29/17 05:12 Carbon Dioxide 20.8 mEq/L (21.0-31.0) L 04/29/17 05:12 Anion Gap 10.8 (7.0-16.0) 04/29/17 05:12 BUN 13 mg/dL (7-25) 04/29/17 05:12 Creatinine 1.0 mg/dL (0.6-1.2) 04/29/17 05:12 Est GFR ( Amer) TNP 04/29/17 05:12 Est GFR (Non-Af Amer) TNP 04/29/17 05:12 BUN/Creatinine Ratio 13.0 04/29/17 05:12 Glucose 110 mg/dL (70-105) H 04/29/17 05:12 Hemoglobin A1c % 8.0 % (4.0-6.0) H 04/16/17 18:20 Calcium 9.6 mg/dL (8.6-10.3) 04/29/17 05:12 Total Bilirubin 0.5 mg/dL (0.3-1.0) 04/16/17 18:20 AST 25 U/L (13-39) 04/16/17 18:20 ALT 32 U/L (7-52) 04/16/17 18:20 Alkaline Phosphatase 106 U/L (34-104) H 04/16/17 18:20 Total Protein 7.3 gm/dL (6.0-8.3) 04/16/17 18:20 Albumin 3.4 gm/dL (3.7-5.3) L 04/16/17 18:20 Globulin 3.9 gm/dL 04/16/17 18:20 Albumin/Globulin Ratio 0.9 (1.0-1.8) L 04/16/17 18:20 Triglycerides 368 mg/dL (<150) H 04/16/17 18:20 Cholesterol 150 mg/dL (<200) 04/16/17 18:20 LDL Cholesterol Direct 69 mg/dL (75-193) L 04/16/17 18:20 HDL Cholesterol 40 mg/dL (23-92) 04/16/17 18:20 TSH 4.00 uIU/ml (0.34-5.60) 04/16/17 18:20 Urine Source CLEAN C 04/18/17 19:20 Urine Color YELLOW 04/18/17 19:20 Urine Clarity HAZY (CLEAR) 04/18/17 19:20 Urine pH 5.5 (4.6 - 8.0) 04/18/17 19:20 Ur Specific [place] 1.025 (1.005-1.030) 04/18/17 19:20 Urine Protein TRACE mg/dL (NEGATIVE) 04/18/17 19:20 Urine Glucose (UA) 500 mg/dL (NEGATIVE) H 04/18/17 19:20 Urine Ketones NEGATIVE mg/dL (NEGATIVE) 04/18/17 19:20 Urine Blood NEGATIVE (NEGATIVE) 04/18/17 19:20 Urine Nitrate NEGATIVE (NEGATIVE) 04/18/17 19:20 Urine Bilirubin NEGATIVE (NEGATIVE) 04/18/17 19:20 Urine Urobilinogen 0.2 E.U./dL (0.2 - 1.0) 04/18/17 19:20 Ur Leukocyte Esterase SMALL (NEGATIVE) H 04/18/17 19:20 Urine RBC 0-2 /hpf (0-5) 04/18/17 19:20 Urine WBC 25-50 /hpf (0-5) H 04/18/17 19:20 Ur Epithelial Cells NONE SEEN /lpf (FEW) 04/18/17 19:20 Urine Bacteria FEW /hpf (NONE SEEN) 04/18/17 19:20 Urine Yeast MANY /hpf (NONE SEEN) H 04/18/17 19:20 Salicylates < 25.0 mg/L (30.0-100.0) L 04/16/17 18:20 Urine Opiates Screen NEGATIVE (NEGATIVE) 04/17/17 00:10 Urine Methadone Screen NEGATIVE (NEGATIVE) 04/17/17 00:10 Acetaminophen < 10.0 ug/mL (10.0-30.0) L 04/16/17 18:20 Ur Barbiturates Screen NEGATIVE (NEGATIVE) 04/17/17 00:10 Ur Tricyclics Screen NEGATIVE (NEGATIVE) 04/17/17 00:10 Ur Phencyclidine Scrn NEGATIVE (NEGATIVE) 04/17/17 00:10 Amphetamines Screen NEGATIVE (NEGATIVE) 04/17/17 00:10 U Methamphetamines Scrn NEGATIVE (NEGATIVE) 04/17/17 00:10 U Benzodiazepines Scrn NEGATIVE (NEGATIVE) 04/17/17 00:10 U Cocaine Metab Screen NEGATIVE (NEGATIVE) 04/17/17 00:10 U Cannabinoids Screen NEGATIVE (NEGATIVE) 04/17/17 00:10 Ethyl Alcohol < 10 mg/dL (0-10) 04/16/17 18:20 RPR NONREACTIVE (NONREACTIVE) 04/16/17 18:20 - Physical Exam Vitals and I&O: Vital Signs Temp 98.2 F 04/29/17 04:00 Pulse 71 04/29/17 04:00 Resp 18 04/29/17 04:00 BP 157/70 04/29/17 04:00 Pulse Ox 96 04/29/17 04:00 Intake & Output 04/28/17 04/29/17 04/29/17 18:59 06:59 18:59 Intake Total 250 50 Balance 250 50 Weight (lbs) 86.183 kg 86.183 kg Intake: Oral 250 50 Other: # Voids 3 3 # Bowel Movements 0 0 Active Medications: Current Medications Acetaminophen (Tylenol) 650 mg PO Q6H PRN PRN Reason: HEADACHE/TEMP ABOVE 100F Stop: 06/23/17 09:20 Last Admin: 04/28/17 00:41 Dose: 650 mg Cholecalciferol (Vitamin D3) 1,000 iu PO DAILY [facility] Stop: 06/17/17 08:59 Last Admin: 04/29/17 09:13 Dose: 1,000 iu Clopidogrel Bisulfate (Plavix) 75 mg PO DAILY [facility] Stop: 06/17/17 08:59 Last Admin: 04/29/17 09:13 Dose: 75 mg Docusate Sodium (Colace) 100 mg PO BID PRN PRN Reason: Constipation Stop: 06/16/17 09:43 Last Admin: 04/25/17 08:59 Dose: 100 mg Glyburide (Diabeta) 5 mg PO BID [facility] Stop: 06/16/17 16:59 Last Admin: 04/29/17 09:12 Dose: 5 mg Hydralazine HCl (Apresoline 20 Mg/Ml) 10 mg IV Q6HR PRN PRN Reason: [id number]>160 Stop: 06/18/17 08:50 Last Admin: 04/27/17 14:34 Dose: 10 mg Sodium Chloride (Nacl 0.9%) 1,000 mls @ 90 mls/hr IV .Q11H7M [facility] Stop: 06/15/17 22:20 Last Admin: 04/29/17 06:06 Dose: 90 mls/hr Magnesium Sulfate (Magnesium Sulfate Premix) 2 gm in 50 mls @ 25 mls/hr IV DAILY PRN PRN Reason: Magnesium level below 1.6 Stop: 06/23/17 09:20 Lamotrigine (Lamictal) 100 mg PO BID [facility] PRN Reason: Protocol Stop: 06/16/17 16:59 Last Admin: 04/29/17 09:13 Dose: 100 mg Lisinopril (Zestril) 40 mg PO DAILY [facility] Stop: 06/17/17 08:59 Last Admin: 04/29/17 09:12 Dose: 40 mg Lorazepam (Ativan) 1 mg IVP Q4HR PRN; Protocol PRN Reason: Agitation Stop: 06/24/17 07:40 Last Admin: 04/29/17 09:09 Dose: 1 mg Metoprolol Tartrate (Lopressor) 25 mg PO BID [facility] Stop: 06/27/17 09:14 Last Admin: 04/29/17 09:13 Dose: 25 mg Potassium Chloride (Klor-Con) 40 meq PO DAILY PRN PRN Reason: k level below 3.5 Stop: 06/23/17 09:20 Last Admin: 04/26/17 08:37 Dose: 40 meq Quetiapine Fumarate (Seroquel) 100 mg PO TID [facility] PRN Reason: Protocol Stop: 06/22/17 08:59 Last Admin: 04/29/17 09:13 Dose: 100 mg Simvastatin (Zocor) 10 mg PO HS [facility] PRN Reason: Protocol Stop: 06/16/17 20:59 Last Admin: 04/28/17 21:15 Dose: 10 mg Venlafaxine HCl (Effexor Xr) 150 mg PO DAILY [facility] Stop: 06/17/17 08:59 Last Admin: 04/29/17 09:12 Dose: 150 mg General: Cooperative, No acute distress HEENT: Atraumatic, PERRLA, EOMI Neck: Supple, no JVD, no Thyromegaly Cardiovascular: Regular rate, Normal S1, Normal S2 Lungs: Clear to auscultation Abdomen: Bowel sounds, Soft Extremities: Other (right LE cast intact) Psych/Mental Status: Other (aao x 1 self) Assessment/Plan - Assessment Assessment: R ankle fx, Status post ORIF Yeast UTI HTN-ooc DM Unsteady gait Psychosis-stable Status post fall - Plan Plan: Pt is seeing PT. Now walking with PT. Pleasant. On Seroquel 75 mg tid now per Dr. Nunez. She's calm and pleasant this am. On Diflucan for UTI. Ct head was cancelled after her fall as was completely asymptomatic and denied any head trauma. She's been pleasant, headache free, and without any vision changes. No neurological changes at all. Start Lopressor 25 mg. Nutritional Asmnt/Malnutr-PDOC - Dietary Evaluation Malnutrition Findings (Please click <Entered> for more info): Nutritional Asmnt/Malnutrition Start: 04/17/17 07: 44 Text: Status: Complete Freq: Document 04/21/17 09:29 [email or web address] (Rec: 04/21/17 09:34 [email or web address] [email or web address]) Nutritional Asmnt/Malnutrition Patient General Information Nutritional Screening Moderate Risk Diagnosis metabolic encephalopathy Pertinent Medical Hx/Surgical Hx impulse control disorder, anxiety, depression, DM, HTN, HLD, CAD Subjective Information Pt A&A x 1, confused, with sitter, moving to [facility]. PO intake 50-100%, usually eats 100%. Current Diet Order/ Nutrition Support mechanical soft, chopped Patient / S.O Not Indicated Pertinent Medications vit d, plavix, colace, glyburide Pertinent Labs 04/21 glucose: 129-148, hgba1c: 8.0, T Nutritional Hx/Data Height 1.57 m Height (Calculated Centimeters) 157.5 Current Weight (lbs) 90.718 kg Weight (Calculated Kilograms) 90.7 Weight (Calculated Grams) 86844.5 [place] Body Weight 110 % [place] Body Weight 181 Body Mass Index (BMI) 36.6 Weight Status Obese GI Symptoms GI Symptoms None Last BM 04/19 Difficult in: Chewing Skin Integrity/Comment: intact, bruises, no edema noted Current %PO Good (75-100%) Estimated Nutritional Goals BEE in Kcals: Adj wt of IBW Calories/Kcals/Kg 25-30 Kcals Calculated 0662-8934 kcals Protein: Adj wt of IBW Protein g/k-1.2 Protein Calculated 60-72 Fluid: ml 3933-9241 mL (1 ml/kcal) Nutritional Problem 1. Problem Problem altered nutrition related lab values Etiology DM, lack of CCHO diet Signs/Symptoms: gluocse: 129-148, hgba1c: 8.0 Malnutrition Alert Is there a minimum of two criteria No selected? Query Text:Check all the applicable criteria. A minimum of two criteria are recommended for diagnosis of either severe or non-severe malnutrition. Malnutrition Related to Morbid Obesity Malnutrition related to morbid obesity No Intervention/Recommendation Comments 1. Change diet to mechanical soft, chopped, CCHO 60 gm to manage DM Expected Outcomes/Goals Expected Outcomes/Goals PO intake>50%, labs: WNL monitor wt, labs, skin, PO intake
--- NOTE | 2017-04-29 21:35 | Progress Notes ---
DATE: 04/29/2017 SUBJECTIVE: Case was discussed with staff of the patient and reviewed records. The patient has been still very agitated. Ativan alone is not working. She continues to be unpredictable, impulsive, unable to participate in a meaningful conversation. She is on Seroquel 100 mg 3 times a day, so I will increase it to 125 mg twice a day and keep on 100 mg daily and so far she is still unable to participate in meaningful conversation, confused, demented. Thank you very much for allowing me to participate in the care of this most interesting lady. JOB# [id number]
--- NOTE | 2017-04-30 08:46 | General Progress Note ---
Subjective - Review of Systems Service Date: 04/30/17 Subjective: Pt apparently fell on 04/27/17. she was found lying on the floor. She denies hitting her head. No headache. She's pleasant, and has been feeling well. BP has been elevated. No n,v,d or cp. No sz. Calm and cooperative this am. Objective - Results Result Diagrams: 04/23/17 06:00 04/29/17 05:12 Recent Labs: Laboratory Last Values WBC 8.5 Th/cmm (4.8-10.8) D 04/23/17 06:00 RBC 3.08 Mil/cmm (3.80-5.20) L 04/23/17 06:00 Hgb 9.9 gm/dL (12-16) L 04/23/17 06:00 Hct 29.1 % (41.0-60) L D 04/23/17 06:00 MCV 94.6 fl (81-100) 04/23/17 06:00 MCH 32.3 pg (27.0-31.0) H 04/23/17 06:00 MCHC Differential 34.1 pg (28.0-36.0) 04/23/17 06:00 RDW 13.2 % (11.5-20.0) 04/23/17 06:00 Plt Count 389 Th/cmm (150-400) 04/23/17 06:00 MPV 7.2 fl 04/23/17 06:00 Neutrophils % 69.0 % (40.0-80.0) 04/23/17 06:00 Lymphocytes % 21.6 % (20.0-50.0) 04/23/17 06:00 Monocytes % 6.5 % (2.0-10.0) 04/23/17 06:00 Eosinophils % 2.5 % (0.0-5.0) 04/23/17 06:00 Basophils % 0.4 % (0.0-2.0) 04/23/17 06:00 Sodium 139 mEq/L (136-145) 04/29/17 05:12 Potassium 3.6 mEq/L (3.5-5.1) 04/29/17 05:12 Chloride 111 mEq/L (98-107) H 04/29/17 05:12 Carbon Dioxide 20.8 mEq/L (21.0-31.0) L 04/29/17 05:12 Anion Gap 10.8 (7.0-16.0) 04/29/17 05:12 BUN 13 mg/dL (7-25) 04/29/17 05:12 Creatinine 1.0 mg/dL (0.6-1.2) 04/29/17 05:12 Est GFR ( Amer) TNP 04/29/17 05:12 Est GFR (Non-Af Amer) TNP 04/29/17 05:12 BUN/Creatinine Ratio 13.0 04/29/17 05:12 Glucose 110 mg/dL (70-105) H 04/29/17 05:12 Hemoglobin A1c % 8.0 % (4.0-6.0) H 04/16/17 18:20 Calcium 9.6 mg/dL (8.6-10.3) 04/29/17 05:12 Total Bilirubin 0.5 mg/dL (0.3-1.0) 04/16/17 18:20 AST 25 U/L (13-39) 04/16/17 18:20 ALT 32 U/L (7-52) 04/16/17 18:20 Alkaline Phosphatase 106 U/L (34-104) H 04/16/17 18:20 Total Protein 7.3 gm/dL (6.0-8.3) 04/16/17 18:20 Albumin 3.4 gm/dL (3.7-5.3) L 04/16/17 18:20 Globulin 3.9 gm/dL 04/16/17 18:20 Albumin/Globulin Ratio 0.9 (1.0-1.8) L 04/16/17 18:20 Triglycerides 368 mg/dL (<150) H 04/16/17 18:20 Cholesterol 150 mg/dL (<200) 04/16/17 18:20 LDL Cholesterol Direct 69 mg/dL (75-193) L 04/16/17 18:20 HDL Cholesterol 40 mg/dL (23-92) 04/16/17 18:20 TSH 4.00 uIU/ml (0.34-5.60) 04/16/17 18:20 Urine Source CLEAN C 04/18/17 19:20 Urine Color YELLOW 04/18/17 19:20 Urine Clarity HAZY (CLEAR) 04/18/17 19:20 Urine pH 5.5 (4.6 - 8.0) 04/18/17 19:20 Ur Specific [place] 1.025 (1.005-1.030) 04/18/17 19:20 Urine Protein TRACE mg/dL (NEGATIVE) 04/18/17 19:20 Urine Glucose (UA) 500 mg/dL (NEGATIVE) H 04/18/17 19:20 Urine Ketones NEGATIVE mg/dL (NEGATIVE) 04/18/17 19:20 Urine Blood NEGATIVE (NEGATIVE) 04/18/17 19:20 Urine Nitrate NEGATIVE (NEGATIVE) 04/18/17 19:20 Urine Bilirubin NEGATIVE (NEGATIVE) 04/18/17 19:20 Urine Urobilinogen 0.2 E.U./dL (0.2 - 1.0) 04/18/17 19:20 Ur Leukocyte Esterase SMALL (NEGATIVE) H 04/18/17 19:20 Urine RBC 0-2 /hpf (0-5) 04/18/17 19:20 Urine WBC 25-50 /hpf (0-5) H 04/18/17 19:20 Ur Epithelial Cells NONE SEEN /lpf (FEW) 04/18/17 19:20 Urine Bacteria FEW /hpf (NONE SEEN) 04/18/17 19:20 Urine Yeast MANY /hpf (NONE SEEN) H 04/18/17 19:20 Salicylates < 25.0 mg/L (30.0-100.0) L 04/16/17 18:20 Urine Opiates Screen NEGATIVE (NEGATIVE) 04/17/17 00:10 Urine Methadone Screen NEGATIVE (NEGATIVE) 04/17/17 00:10 Acetaminophen < 10.0 ug/mL (10.0-30.0) L 04/16/17 18:20 Ur Barbiturates Screen NEGATIVE (NEGATIVE) 04/17/17 00:10 Ur Tricyclics Screen NEGATIVE (NEGATIVE) 04/17/17 00:10 Ur Phencyclidine Scrn NEGATIVE (NEGATIVE) 04/17/17 00:10 Amphetamines Screen NEGATIVE (NEGATIVE) 04/17/17 00:10 U Methamphetamines Scrn NEGATIVE (NEGATIVE) 04/17/17 00:10 U Benzodiazepines Scrn NEGATIVE (NEGATIVE) 04/17/17 00:10 U Cocaine Metab Screen NEGATIVE (NEGATIVE) 04/17/17 00:10 U Cannabinoids Screen NEGATIVE (NEGATIVE) 04/17/17 00:10 Ethyl Alcohol < 10 mg/dL (0-10) 04/16/17 18:20 RPR NONREACTIVE (NONREACTIVE) 04/16/17 18:20 - Physical Exam Vitals and I&O: Vital Signs Temp 98.1 F 04/30/17 04:00 Pulse 91 04/30/17 04:00 Resp 21 04/30/17 04:00 BP 159/100 04/30/17 04:00 Pulse Ox 100 04/30/17 04:00 Intake & Output 04/29/17 04/30/17 04/30/17 18:59 06:59 18:59 Intake Total 1500 834 Balance 1500 834 Weight (lbs) 86.183 kg 84.051 kg Intake: Intake, IV Amount 1000 684 Sodium Chloride 0.9% 1, 1000 684 000 ml @ 90 mls/hr IV . Q11H7M [facility] Rx#:[id number] Oral 500 150 Other: # Voids 2 2 # Bowel Movements 1 0 Active Medications: Current Medications Acetaminophen (Tylenol) 650 mg PO Q6H PRN PRN Reason: HEADACHE/TEMP ABOVE 100F Stop: 06/23/17 09:20 Last Admin: 04/28/17 00:41 Dose: 650 mg Cholecalciferol (Vitamin D3) 1,000 iu PO DAILY [facility] Stop: 06/17/17 08:59 Last Admin: 04/29/17 09:13 Dose: 1,000 iu Clopidogrel Bisulfate (Plavix) 75 mg PO DAILY [facility] Stop: 06/17/17 08:59 Last Admin: 04/29/17 09:13 Dose: 75 mg Docusate Sodium (Colace) 100 mg PO BID PRN PRN Reason: Constipation Stop: 06/16/17 09:43 Last Admin: 04/25/17 08:59 Dose: 100 mg Glyburide (Diabeta) 5 mg PO BID [facility] Stop: 06/16/17 16:59 Last Admin: 04/29/17 16:04 Dose: 5 mg Hydralazine HCl (Apresoline 20 Mg/Ml) 10 mg IV Q6HR PRN PRN Reason: sbp>160 Stop: 06/18/17 08:50 Last Admin: 04/27/17 14:34 Dose: 10 mg Sodium Chloride (Nacl 0.9%) 1,000 mls @ 90 mls/hr IV .Q11H7M [facility] Stop: 06/15/17 22:20 Last Infusion: 04/30/17 06:53 Dose: 90 mls/hr Magnesium Sulfate (Magnesium Sulfate Premix) 2 gm in 50 mls @ 25 mls/hr IV DAILY PRN PRN Reason: Magnesium level below 1.6 Stop: 06/23/17 09:20 Lamotrigine (Lamictal) 100 mg PO BID [place] PRN Reason: Protocol Stop: 06/16/17 16:59 Last Admin: 04/29/17 16:04 Dose: 100 mg Lisinopril (Zestril) 40 mg PO DAILY [facility] Stop: 06/17/17 08:59 Last Admin: 04/29/17 09:12 Dose: 40 mg Lorazepam (Ativan) 1 mg IVP Q4HR PRN; Protocol PRN Reason: Agitation Stop: 06/24/17 07:40 Last Admin: 04/30/17 04:40 Dose: 1 mg Metoprolol Tartrate (Lopressor) 25 mg PO BID [facility] Stop: 06/27/17 09:14 Last Admin: 04/29/17 16:04 Dose: 25 mg Potassium Chloride (Klor-Con) 40 meq PO DAILY PRN PRN Reason: k level below 3.5 Stop: 06/23/17 09:20 Last Admin: 04/26/17 08:37 Dose: 40 meq Quetiapine Fumarate (Seroquel) 100 mg PO HS [facility] PRN Reason: Protocol Stop: 06/28/17 20:59 Last Admin: 04/29/17 21:34 Dose: 100 mg Quetiapine Fumarate 100 mg/ (Quetiapine Fumarate 25 mg) 125 mg PO BID [facility] Stop: 06/28/17 16:59 Last Admin: 04/29/17 16:04 Dose: 125 mg Simvastatin (Zocor) 10 mg PO HS [facility] PRN Reason: Protocol Stop: 06/16/17 20:59 Last Admin: 04/29/17 21:35 Dose: 10 mg Venlafaxine HCl (Effexor Xr) 150 mg PO DAILY [facility] Stop: 06/17/17 08:59 Last Admin: 04/29/17 09:12 Dose: 150 mg General: Cooperative, No acute distress HEENT: Atraumatic, PERRLA, EOMI Neck: Supple, no JVD, no Thyromegaly Cardiovascular: Regular rate, Normal S1, Normal S2 Lungs: Clear to auscultation Abdomen: Bowel sounds, Soft Extremities: Other (right LE cast intact) Psych/Mental Status: Other (aao x 1 self) Assessment/Plan - Assessment Assessment: R ankle fx, Status post ORIF Yeast UTI HTN-ooc DM Unsteady gait Psychosis-stable Status post fall - Plan Plan: Pt is seeing PT. Now walking with PT. Pleasant. On Seroquel 75 mg tid now per Dr. Nunez. She's calm and pleasant this am. On Diflucan for UTI. Ct head was cancelled after her fall as was completely asymptomatic and denied any head trauma. She's been pleasant, headache free, and without any vision changes. No neurological changes at all. Start Lopressor 25 mg. Nutritional Asmnt/Malnutr-PDOC - Dietary Evaluation Malnutrition Findings (Please click <Entered> for more info): Nutritional Asmnt/Malnutrition Start: 04/17/17 07: 44 Text: Status: Complete Freq: Document 04/21/17 09:29 [email or web address] (Rec: 04/21/17 09:34 [email or web address] [id number]) Nutritional Asmnt/Malnutrition Patient General Information Nutritional Screening Moderate Risk Diagnosis metabolic encephalopathy Pertinent Medical Hx/Surgical Hx impulse control disorder, anxiety, depression, DM, HTN, HLD, CAD Subjective Information Pt A&A x 1, confused, with sitter, moving to [facility]. PO intake 50-100%, usually eats 100%. Current Diet Order/ Nutrition Support mechanical soft, chopped Patient / S.O Not Indicated Pertinent Medications vit d, plavix, colace, glyburide Pertinent Labs 04/21 glucose: 129-148, hgba1c: 8.0, T Nutritional Hx/Data Height 1.57 m Height (Calculated Centimeters) 157.5 Current Weight (lbs) 90.718 kg Weight (Calculated Kilograms) 90.7 Weight (Calculated Grams) 34985.5 [place] Body Weight 110 % [place] Body Weight 181 Body Mass Index (BMI) 36.6 Weight Status Obese GI Symptoms GI Symptoms None Last BM 04/19 Difficult in: Chewing Skin Integrity/Comment: intact, bruises, no edema noted Current %PO Good (75-100%) Estimated Nutritional Goals BEE in Kcals: Adj wt of IBW Calories/Kcals/Kg 25-30 Kcals Calculated 8724-7387 kcals Protein: Adj wt of IBW Protein g/k-1.2 Protein Calculated 60-72 Fluid: ml 7682-4833 mL (1 ml/kcal) Nutritional Problem 1. Problem Problem altered nutrition related lab values Etiology DM, lack of CCHO diet Signs/Symptoms: gluocse: 129-148, hgba1c: 8.0 Malnutrition Alert Is there a minimum of two criteria No selected? Query Text:Check all the applicable criteria. A minimum of two criteria are recommended for diagnosis of either severe or non-severe malnutrition. Malnutrition Related to Morbid Obesity Malnutrition related to morbid obesity No Intervention/Recommendation Comments 1. Change diet to mechanical soft, chopped, CCHO 60 gm to manage DM Expected Outcomes/Goals Expected Outcomes/Goals PO intake>50%, labs: WNL monitor wt, labs, skin, PO intake
[2017-04-30] MEDS: Sodium Chloride 0.9% 1,000 ML IV SCH (13:45)
--- NOTE | 2017-04-30 19:19 | Progress Notes ---
DATE: 04/30/2017 SUBJECTIVE: Chart reviewed and the patient interviewed. Also discussed the patient's condition with the staff and reviewed records and labs. The patient is abnormal, and she is less agitated. She also is still confused and she still does not answer much of the questions. She also still needs redirections. On the other hand, no side effects of medications and the patient continued to comply with taking Lamictal and Effexor with no side effects. Also, she continued to take Seroquel with no side effects. ASSESSMENT: The patient is less agitated. TREATMENT PLAN: Continue current medications and continue to monitor her behavior closely. JOB# [id number]
[2017-05-01] MEDS: Sodium Chloride 0.9% 1,000 ML IV SCH ×2 (01:08→12:48)
--- NOTE | 2017-05-01 08:55 | General Progress Note ---
Subjective - Review of Systems Service Date: 05/01/17 Subjective: Pt apparently fell on 04/27/17. she was found lying on the floor. She denies hitting her head. No headache. She's been pleasant, and has been feeling well until this am. This am, she's more confused than usual. Very agitated and restless. BP has been fluctuating. No n,v,d or cp. No sz. Delirious today. Objective - Results Result Diagrams: 04/23/17 06:00 04/29/17 05:12 Recent Labs: Laboratory Last Values WBC 8.5 Th/cmm (4.8-10.8) D 04/23/17 06:00 RBC 3.08 Mil/cmm (3.80-5.20) L 04/23/17 06:00 Hgb 9.9 gm/dL (12-16) L 04/23/17 06:00 Hct 29.1 % (41.0-60) L D 04/23/17 06:00 MCV 94.6 fl (81-100) 04/23/17 06:00 MCH 32.3 pg (27.0-31.0) H 04/23/17 06:00 MCHC Differential 34.1 pg (28.0-36.0) 04/23/17 06:00 RDW 13.2 % (11.5-20.0) 04/23/17 06:00 Plt Count 389 Th/cmm (150-400) 04/23/17 06:00 MPV 7.2 fl 04/23/17 06:00 Neutrophils % 69.0 % (40.0-80.0) 04/23/17 06:00 Lymphocytes % 21.6 % (20.0-50.0) 04/23/17 06:00 Monocytes % 6.5 % (2.0-10.0) 04/23/17 06:00 Eosinophils % 2.5 % (0.0-5.0) 04/23/17 06:00 Basophils % 0.4 % (0.0-2.0) 04/23/17 06:00 Sodium 139 mEq/L (136-145) 04/29/17 05:12 Potassium 3.6 mEq/L (3.5-5.1) 04/29/17 05:12 Chloride 111 mEq/L (98-107) H 04/29/17 05:12 Carbon Dioxide 20.8 mEq/L (21.0-31.0) L 04/29/17 05:12 Anion Gap 10.8 (7.0-16.0) 04/29/17 05:12 BUN 13 mg/dL (7-25) 04/29/17 05:12 Creatinine 1.0 mg/dL (0.6-1.2) 04/29/17 05:12 Est GFR ( Amer) TNP 04/29/17 05:12 Est GFR (Non-Af Amer) TNP 04/29/17 05:12 BUN/Creatinine Ratio 13.0 04/29/17 05:12 Glucose 110 mg/dL (70-105) H 04/29/17 05:12 Hemoglobin A1c % 8.0 % (4.0-6.0) H 04/16/17 18:20 Calcium 9.6 mg/dL (8.6-10.3) 04/29/17 05:12 Total Bilirubin 0.5 mg/dL (0.3-1.0) 04/16/17 18:20 AST 25 U/L (13-39) 04/16/17 18:20 ALT 32 U/L (7-52) 04/16/17 18:20 Alkaline Phosphatase 106 U/L (34-104) H 04/16/17 18:20 Total Protein 7.3 gm/dL (6.0-8.3) 04/16/17 18:20 Albumin 3.4 gm/dL (3.7-5.3) L 04/16/17 18:20 Globulin 3.9 gm/dL 04/16/17 18:20 Albumin/Globulin Ratio 0.9 (1.0-1.8) L 04/16/17 18:20 Triglycerides 368 mg/dL (<150) H 04/16/17 18:20 Cholesterol 150 mg/dL (<200) 04/16/17 18:20 LDL Cholesterol Direct 69 mg/dL (75-193) L 04/16/17 18:20 HDL Cholesterol 40 mg/dL (23-92) 04/16/17 18:20 TSH 4.00 uIU/ml (0.34-5.60) 04/16/17 18:20 Urine Source CLEAN C 04/18/17 19:20 Urine Color YELLOW 04/18/17 19:20 Urine Clarity HAZY (CLEAR) 04/18/17 19:20 Urine pH 5.5 (4.6 - 8.0) 04/18/17 19:20 Ur Specific [place] 1.025 (1.005-1.030) 04/18/17 19:20 Urine Protein TRACE mg/dL (NEGATIVE) 04/18/17 19:20 Urine Glucose (UA) 500 mg/dL (NEGATIVE) H 04/18/17 19:20 Urine Ketones NEGATIVE mg/dL (NEGATIVE) 04/18/17 19:20 Urine Blood NEGATIVE (NEGATIVE) 04/18/17 19:20 Urine Nitrate NEGATIVE (NEGATIVE) 04/18/17:20 Urine Bilirubin NEGATIVE (NEGATIVE) 04/18/17:20 Urine Urobilinogen 0.2 E.U./dL (0.2 - 1.0) 04/18/17 19:20 Ur Leukocyte Esterase SMALL (NEGATIVE) H 04/18/17 19:20 Urine RBC 0-2 /hpf (0-5) 04/18/17 19:20 Urine WBC 25-50 /hpf (0-5) H 04/18/17 19:20 Ur Epithelial Cells NONE SEEN /lpf (FEW) 04/18/17 19:20 Urine Bacteria FEW /hpf (NONE SEEN) 04/18/17 19:20 Urine Yeast MANY /hpf (NONE SEEN) H 04/18/17 19:20 Salicylates < 25.0 mg/L (30.0-100.0) L 04/16/17 18:20 Urine Opiates Screen NEGATIVE (NEGATIVE) 04/17/17 00:10 Urine Methadone Screen NEGATIVE (NEGATIVE) 04/17/17 00:10 Acetaminophen < 10.0 ug/mL (10.0-30.0) L 04/16/17 18:20 Ur Barbiturates Screen NEGATIVE (NEGATIVE) 04/17/17 00:10 Ur Tricyclics Screen NEGATIVE (NEGATIVE) 04/17/17 00:10 Ur Phencyclidine Scrn NEGATIVE (NEGATIVE) 04/17/17 00:10 Amphetamines Screen NEGATIVE (NEGATIVE) 04/17/17 00:10 U Methamphetamines Scrn NEGATIVE (NEGATIVE) 04/17/17 00:10 U Benzodiazepines Scrn NEGATIVE (NEGATIVE) 04/17/17 00:10 U Cocaine Metab Screen NEGATIVE (NEGATIVE) 04/17/17 00:10 U Cannabinoids Screen NEGATIVE (NEGATIVE) 04/17/17 00:10 Ethyl Alcohol < 10 mg/dL (0-10) 04/16/17 18:20 RPR NONREACTIVE (NONREACTIVE) 04/16/17 18:20 - Physical Exam Vitals and I&O: Vital Signs Temp 97.6 F 05/01/17 04:00 Pulse 96 05/01/17 04:00 Resp 19 05/01/17 04:00 BP 155/76 05/01/17 04:00 Pulse Ox 99 05/01/17 04:00 Intake & Output 04/30/17 05/01/17 05/01/17 18:59 06:59 18:59 Intake Total 1116 1595.5 Balance 1116 1595.5 Weight (lbs) 83.915 kg 84.459 kg Intake: Intake, IV Amount 316 1445.5 Sodium Chloride 0.9% 1, 316 1445.5 000 ml @ 90 mls/hr IV . Q11H7M [facility] Rx#:[id number] Oral 800 150 Other: # Voids 4 2 # Bowel Movements 0 Active Medications: Current Medications Acetaminophen (Tylenol) 650 mg PO Q6H PRN PRN Reason: HEADACHE/TEMP ABOVE 100F Stop: 06/23/17 09:20 Last Admin: 04/28/17 00:41 Dose: 650 mg Cholecalciferol (Vitamin D3) 1,000 iu PO DAILY [facility] Stop: 06/17/17 08:59 Last Admin: 04/30/17 09:51 Dose: 1,000 iu Clopidogrel Bisulfate (Plavix) 75 mg PO DAILY [facility] Stop: 06/17/17 08:59 Last Admin: 04/30/17 09:50 Dose: 75 mg Docusate Sodium (Colace) 100 mg PO BID PRN PRN Reason: Constipation Stop: 06/16/17 09:43 Last Admin: 04/25/17 08:59 Dose: 100 mg Glyburide (Diabeta) 5 mg PO BID [facility] Stop: 06/16/17 16:59 Last Admin: 04/30/17 17:53 Dose: 5 mg Hydralazine HCl (Apresoline 20 Mg/Ml) 10 mg IV Q6HR PRN PRN Reason: sbp>160 Stop: 04/18/18 08:50 Last Admin: 04/27/17 14:34 Dose: 10 mg Sodium Chloride (Nacl 0.9%) 1,000 mls @ 90 mls/hr IV .Q11H7M [facility] Stop: 06/15/17 22:20 Last Infusion: 05/01/17 06:05 Dose: 90 mls/hr Magnesium Sulfate (Magnesium Sulfate Premix) 2 gm in 50 mls @ 25 mls/hr IV DAILY PRN PRN Reason: Magnesium level below 1.6 Stop: 06/23/17 09:20 Lamotrigine (Lamictal) 100 mg PO BID [facility] PRN Reason: Protocol Stop: 06/16/17 16:59 Last Admin: 04/30/17 17:54 Dose: 100 mg Lisinopril (Zestril) 40 mg PO DAILY [facility] Stop: 06/17/17 08:59 Last Admin: 04/30/17 09:49 Dose: 40 mg Lorazepam (Ativan) 1 mg IVP Q4HR PRN; Protocol PRN Reason: Agitation Stop: 06/24/17 07:40 Last Admin: 05/01/17 05:54 Dose: 1 mg Metoprolol Tartrate (Lopressor) 25 mg PO BID [facility] Stop: 06/27/17 09:14 Last Admin: 04/30/17 17:53 Dose: 25 mg Potassium Chloride (Klor-Con) 40 meq PO DAILY PRN PRN Reason: k level below 3.5 Stop: 06/23/17 09:20 Last Admin: 04/26/17 08:37 Dose: 40 meq Quetiapine Fumarate (Seroquel) 150 mg PO HS [facility] PRN Reason: Protocol Stop: 06/30/17 06:48 Quetiapine Fumarate (Seroquel) 150 mg PO BID [facility] Stop: 06/30/17 06:49 Simvastatin (Zocor) 10 mg PO HS [facility] PRN Reason: Protocol Stop: 06/16/17 20:59 Last Admin: 04/30/17 21:31 Dose: 10 mg Venlafaxine HCl (Effexor Xr) 150 mg PO DAILY [facility] Stop: 06/17/17 08:59 Last Admin: 04/30/17 09:50 Dose: 150 mg General: Mild distress, Other (agitated, restless) HEENT: Atraumatic, PERRLA, EOMI Neck: Supple, no JVD, no Thyromegaly Cardiovascular: Regular rate, Normal S1, Normal S2 Lungs: Clear to auscultation Abdomen: Bowel sounds, Soft Extremities: Other (right LE cast intact) Psych/Mental Status: Other (aao x 1 self) Assessment/Plan - Assessment Assessment: R ankle fx, Status post ORIF Yeast UTI HTN-ooc DM Unsteady gait Psychosis-stable Status post fall - Plan Plan: Pt is seeing PT. Ortho has been consulted as she may need her RLE cast removed. On Seroquel 75 mg tid now per Dr. Nunez. Completed Diflucan for UTI. Ct head was cancelled after her fall as was completely asymptomatic and denied any head trauma. She's been pleasant, headache free, and without any vision changes. there were no neurological changes at all. However, today she's more altered and delerious. No overnight events per staff. I'll order a CT. She's been on Lopressor 25 mg bid. Nutritional Asmnt/Malnutr-PDOC - Dietary Evaluation Malnutrition Findings (Please click <Entered> for more info): Nutritional Asmnt/Malnutrition Start: 04/17/17 07: 44 Text: Status: Complete Freq: Document 04/21/17 09:29 [email or web address] (Rec: 04/21/17 09:34 [email or web address] [email or web address]) Nutritional Asmnt/Malnutrition Patient General Information Nutritional Screening Moderate Risk Diagnosis metabolic encephalopathy Pertinent Medical Hx/Surgical Hx impulse control disorder, anxiety, depression, DM, HTN, HLD, CAD Subjective Information Pt A&A x 1, confused, with sitter, moving to [facility]. PO intake 50-100%, usually eats 100%. Current Diet Order/ Nutrition Support mechanical soft, chopped Patient / S.O Not Indicated Pertinent Medications vit d, plavix, colace, glyburide Pertinent Labs 04/21 glucose: 129-148, hgba1c: 8.0, T Nutritional Hx/Data Height 1.57 m Height (Calculated Centimeters) 157.5 Current Weight (lbs) 90.718 kg Weight (Calculated Kilograms) 90.7 Weight (Calculated Grams) 35253.5 [place] Body Weight 110 % [place] Body Weight 181 Body Mass Index (BMI) 36.6 Weight Status Obese GI Symptoms GI Symptoms None Last BM 04/19 Difficult in: Chewing Skin Integrity/Comment: intact, bruises, no edema noted Current %PO Good (75-100%) Estimated Nutritional Goals BEE in Kcals: Adj wt of IBW Calories/Kcals/Kg 25-30 Kcals Calculated 6433-2879 kcals Protein: Adj wt of IBW Protein g/k-1.2 Protein Calculated 60-72 Fluid: ml 5444-2106 mL (1 ml/kcal) Nutritional Problem 1. Problem Problem altered nutrition related lab values Etiology DM, lack of CCHO diet Signs/Symptoms: gluocse: 129-148, hgba1c: 8.0 Malnutrition Alert Is there a minimum of two criteria No selected? Query Text:Check all the applicable criteria. A minimum of two criteria are recommended for diagnosis of either severe or non-severe malnutrition. Malnutrition Related to Morbid Obesity Malnutrition related to morbid obesity No Intervention/Recommendation Comments 1. Change diet to mechanical soft, chopped, CCHO 60 gm to manage DM Expected Outcomes/Goals Expected Outcomes/Goals PO intake>50%, labs: WNL monitor wt, labs, skin, PO intake
[2017-05-01] MEDS: OLANZapine 5 mg Oral Disintegrating Tab PO SCH ×2 (12:16→16:00)
[2017-05-01 13:51] LABS: pH 7.34 (7.35-7.45)
[2017-05-01 14:09] LABS: % BASOPHILS 2.1 % (0.0-2.0); % EOSINOPHILS 1.1 % (0.0-5.0); % LYMPHOCYTES 9.7 % (20.0-50.0); % MONOCYTES 4.1 % (2.0-10.0); BASOPHILE ABSOLUTE 0.4 Th/cumm (0-0.2); EOSINOPHILE ABSOLUTE 0.2 Th/cmm (0.1-0.4); HEMOGLOBIN 11.1 gm/dL (12-16); LYMPHOCYTE ABSOLUTE 1.7 Th/cmm (1.5-3.0); MEAN CELL VOLUME 96.3 fl (81-100); MEAN CORPUSCULAR HEMOGLOBIN 32.8 pg (27.0-31.0); MEAN PLATELET VOLUME 8.1 fl; MONOCYTE ABSOLUTE 0.7 Th/cmm (0.3-1.0); RED BLOOD COUNT 3.37 Mil/cmm (3.80-5.20); RED CELL DISTRIBUTION WIDTH 13.1 % (11.5-20.0)
[2017-05-01 14:13] LABS: HEMATOCRIT 32.5 % (41.0-60); PLATELET COUNT 547 Th/cmm (150-400)
[2017-05-01 14:20] LABS: ALB/GLOB RATIO 1.2 (1.0-1.8); ALBUMIN 3.8 gm/dL (3.7-5.3); ALKALINE PHOSPHATASE 81 U/L (34-104); ANION GAP 16.2 (7.0-16.0); BILIRUBIN,TOTAL 0.5 mg/dL (0.3-1.0); BUN - UREA NITROGEN 13 mg/dL (7-25); CALCIUM SERUM 9.8 mg/dL (8.6-10.3); CARBON DIOXIDE 18.9 mEq/L (21.0-31.0); CHLORIDE 108 mEq/L (98-107); GLUCOSE 179 mg/dL (70-105); POTASSIUM SERUM 4.1 mEq/L (3.5-5.1); SGOT 31 U/L (13-39); SGPT/ALT 21 U/L (7-52); SODIUM SERUM 139 mEq/L (136-145)
--- NOTE | 2017-05-01 15:01 | Diagnostic Imaging Report ---
CHEST X-RAY: AP view INDICATION: Shortness of breath COMPARISON: 04/17/2017 FINDINGS: Exam is limited as patient is rotated. Congestive changes are noted with increased interstitial lung markings. Left basal atelectasis is noted. Cardiomegaly is noted. Degenerative changes of the spine are noted. IMPRESSION: Congestive changes. Developing infiltrate of the perihilar regions cannot be excluded. Cardiomegaly.
[2017-05-01] MEDS ORDERED: Haloperidol Lactate 5 mg/mL 1mL Vial IM ONE (17:20)
[2017-05-01] MEDS ORDERED: Metoprolol tartrate 1 mg/ml 5mL Amp IV ONE (17:30)
--- NOTE | 2017-05-01 17:44 | Consultation ---
Consult Note - Consult Note Service Date: 05/01/17 Referring Physician: Jim Harden Consult Note: PHYSICIAN Consultation Note: Date of Admission: 04/16/17 Purpose of Consultation: sepsis. Chief Complaint: Patient MARGARET MARS was admitted to location Intensive Care Unit with METABOLIC ENCEPHANLOPATHY. History of Present Illness: The patient is a 76-year-old female with a past medical history of hypertension, dyslipidemia, dementia, psychosis, depression, and bipolar disorder was brought to the ER for altered mental status. The patient is unable to give any history. On initial evaluation, the patient's temperature was 98.3 degrees Fahrenheit and WBC count was 10,500. The patient was evaluated with a psych risk assessment consultant. Ultimately, the patient was cleared [facility] back [facility]. Unfortunately, she developed tonic-clonic seizures, so she was kept in the hospital and discharge was cancelled. Further workup revealed WBC count is 18,000. ID consult was called for further antibiotic management. Meanwhile, it was noted that the patient had candiduria in the past. Past Medical History: As mentioned above, hypertension, hyperlipidemia, bipolar disorder, depression, and dementia. Diagnoses ANEMIA, UNSPECIFIED (04/16/17) TYPE 2 DIABETES MELLITUS WITHOUT COMPLICATIONS (04/16/17) UNSPECIFIED DEMENTIA WITHOUT BEHAVIORAL DISTURBANCE (04/16/17) SCHIZOAFFECTIVE DISORDER, BIPOLAR TYPE (04/16/17) MAJOR DEPRESSIVE DISORDER, SINGLE EPISODE, UNSPECIFIED (04/16/17) ANXIETY DISORDER, UNSPECIFIED (04/16/17) IMPULSE DISORDER, UNSPECIFIED (04/16/17) METABOLIC ENCEPHALOPATHY (04/16/17) ESSENTIAL (PRIMARY) HYPERTENSION (04/16/17) ATHSCL HEART DISEASE OF [place] CORONARY ARTERY W/O ANG PCTRS (04/16/17) URINARY TRACT INFECTION, SITE NOT SPECIFIED (04/16/17) UNSP FRACTURE OF RIGHT LOWER LEG, INIT FOR CLOS FX (04/16/17) DO NOT RESUSCITATE (04/16/17) Allergies Allergy/AdvReac Type Severity Reaction Status Date / Time No Known Allergies Allergy Verified 04/16/17 17:44 Vital Signs Temp 97.6 F 05/01/17 04:00 Pulse 87 05/01/17 09:57 Resp 19 05/01/17 04:00 BP 159/84 05/01/17 09:57 Pulse Ox 99 05/01/17 04:00 Intake & Output 04/30/17 05/01/17 05/01/17 18:59 06:59 18:59 Intake Total 1116 1595.5 664.5 Balance 1116 1595.5 664.5 Weight (lbs) 83.915 kg 84.459 kg Intake: Intake, IV Amount 316 1445.5 664.5 Levetiracetam 1,000 mg In 110 Sodium Chloride 0.9% 100 ml @ 400 mls/hr IV Q12H [facility] Rx#:[id number] Sodium Chloride 0.9% 1, 316 1445.5 554.5 000 ml @ 90 mls/hr IV . Q11H7M [facility] Rx#:[id number] Oral 800 150 Other: # Voids 4 2 # Bowel Movements 0 Laboratory Results - last 24 hr 05/01/17 05/01/17 05/01/17 13:37 13:45 13:45 WBC 18.0 H D RBC 3.37 L Hgb 11.1 L Hct 32.5 L D MCV 96.3 MCH 32.8 H MCHC Differential 34.0 RDW 13.1 Plt Count 547 H D MPV 8.1 Neutrophils % 83.0 H Lymphocytes % 9.7 L Monocytes % 4.1 Eosinophils % 1.1 Basophils % 2.1 H Specimen Source Arterial Sample Site RB pH 7.34 L pCO2 36.0 pO2 90.0 HCO3 20.5 Base Excess -5.7 L O2 Saturation 96.0 Jet Test NA Vent Rate NA Inspired O2 40 Tidal Volume NA PEEP NA Pressure (ins/psv/peep) NA Critical Value LZHANG Sodium 139 Potassium 4.1 Chloride 108 H Carbon Dioxide 18.9 L Anion Gap 16.2 H BUN 13 Creatinine 1.0 Est GFR ( Amer) TNP Est GFR (Non-Af Amer) TNP BUN/Creatinine Ratio 13.0 Glucose 179 H Calcium 9.8 Total Bilirubin 0.5 AST 31 ALT 21 Alkaline Phosphatase 81 Total Protein 7.0 Albumin 3.8 Globulin 3.2 Albumin/Globulin Ratio 1.2 Home Medication Medication Instructions Recorded Type Cholecalciferol (Vitamin D3) 1,000 units PO DAILY 04/16/17 History [Vitamin D3] Clopidogrel Bisulfate [Plavix] 75 mg PO DAILY 04/16/17 History Lisinopril 40 mg PO DAILY 04/16/17 History OLANZapine [ZyPREXA] 20 mg PO DAILY 04/16/17 History Pioglitazone HCl [Actos] 45 mg PO DAILY 04/16/17 History Simvastatin [Zocor] 10 mg PO HS 04/16/17 History Venlafaxine HCl [Effexor Xr] 150 mg PO DAILY 04/16/17 History glyBURIDE [Diabeta] 5 mg PO BID 04/16/17 History lamoTRIgine [laMICtal] 100 mg PO BID 04/16/17 History Current Medications Generic Name Dose Route Start Last Admin Trade Name Freq PRN Reason Stop Dose Admin Acetaminophen 650 mg 04/24/17 09:21 04/28/17 00:41 Tylenol PO 06/23/17 09:20 650 mg Q6H PRN Administration HEADACHE/TEMP ABOVE 100F Cholecalciferol 1,000 iu 04/18/17 09:00 05/01/17 10:02 Vitamin D3 PO 06/17/17 08:59 Not Given DAILY [facility] Clopidogrel Bisulfate 75 mg 04/18/17 09:00 05/01/17 09:55 Plavix PO 06/17/17 08:59 75 mg DAILY [facility] Administration Docusate Sodium 100 mg 04/17/17 09:44 04/25/17 08:59 Colace PO 06/16/17 09:43 100 mg BID PRN Administration Constipation Glyburide 5 mg 04/17/17 17:00 05/01/17 10:15 Diabeta PO 06/16/17 16:59 Not Given BID [facility] Sodium Chloride 1,000 mls @ 90 mls/hr 04/16/17 22:21 05/01/17 12:48 Nacl 0.9% IV 06/15/17 22:20 90 mls/hr .Q11H7M [facility] Administration Magnesium Sulfate 2 gm in 50 mls @ 25 mls/hr 04/24/17 09:21 Magnesium Sulfate Premix IV 06/23/17 09:20 DAILY PRN Magnesium level below 1.6 Levetiracetam 1,000 mg/ Sodium 110 mls @ 400 mls/hr 05/01/17 12:30 05/01/17 13:28 Chloride IV 06/30/17 12:29 Infused Q12H [facility] Infusion Piperacillin Sod/Tazobactam 100 mls @ 100 mls/hr 05/01/17 15:45 Sod 4.5 gm/ Sodium Chloride IV 06/30/17 15:44 Q8H [facility] Lamotrigine 100 mg 04/17/17 17:00 05/01/17 09:55 Lamictal PO 06/16/17 16:59 100 mg BID [facility] Administration Protocol Lisinopril 20 mg 05/01/17 09:00 05/01/17 09:57 Zestril PO 06/30/17 08:59 20 mg BID [facility] Administration Metoprolol Tartrate 25 mg 04/28/17 09:15 05/01/17 09:55 Lopressor PO 06/27/17 09:14 25 mg BID [facility] Administration Olanzapine 5 mg 05/01/17 10:45 05/01/17 16:00 Zyprexa Zydis PO 06/30/17 10:44 5 mg BID [facility] Administration Protocol Potassium Chloride 40 meq 04/24/17 09:21 04/26/17 08:37 Klor-Con PO 06/23/17 09:20 40 meq DAILY PRN Administration k level below 3.5 Simvastatin 10 mg 04/17/17 21:00 04/30/17 21:31 Zocor PO 06/16/17 20:59 10 mg HS [facility] Administration Protocol Venlafaxine HCl 150 mg 04/18/17 09:00 05/01/17 10:02 Effexor Xr PO 06/17/17 08:59 Not Given DAILY [facility] Review of Systems: A 12 point ROS was reviewed with the pertinent positive and negatives noted in the HPI. The patient is a poor historian. No fever, no chills. The patient is having seizure episodes today. Social History Smoking Status Never smoker Drug Use No Alcohol Use No Family Medical History Family Medical History Start: 04/16/17 22: 20 Freq: ONCE Status: Active Document 04/16/17 22:20 [facility] (Rec: 04/17/17 06:02 [id number]) Family Medical History Mother History Unknown Yes Ethnicity Non- Living Status Unknown Hx Family Cancer No Hx Family Coronary Artery Disease No Hx Family Congestive Heart Failure No Hx Family Hypertension Yes Hx Family Stroke No Hx Family Diabetes Yes Hx Family Seizures No Hx Family Dementia No Hx Family AIDS No Hx Family HIV No Hx Family COPD No Hx Family Hepatitis No Hx Family Psychiatric Problems No Hx Family Tuberculosis No PHYSICAL EXAMINATION: VITAL SIGNS: Current vital signs shows temperature is 97.6, pulse 87, respirations 19, blood pressure 159/84. GENERAL: The patient is comfortable, lying in the bed, not in acute distress. HEENT: Head is normocephalic, atraumatic. Oral cavity moist, pink tongue. Eyes, no pallor, no icterus. Pupils PERRLA, EOMI. NECK: Supple, no JVD, no carotid bruit. Trachea in midline. CHEST: Bilateral breath sounds. No crackles, no wheezing. HEART: S1, S2 within normal limits. Regular rhythm. No murmur, no gallop. ABDOMEN: Soft, nontender, nondistended. Bowel sounds present. EXTREMITIES: No cyanosis, no clubbing, no edema. The patient had involuntary movement all over the body, mainly on the right side. CENTRAL NERVOUS SYSTEM: Very confused, not opening her eyes, not answering to the questions. The patient had involuntary movement of whole body, particularly on the right side. DIAGNOSTIC DATA: Chest x-ray showed development of faint infiltrate. LABORATORY DATA: WBC count 81064, hemoglobin 11.1, hematocrit 32.5, platelets are 147,000, neutrophils 83%. Sodium is 139, potassium 4.1, chloride 108, bicarbonate is 19, BUN is 13, creatinine 1, and glucose is 179. Urinalysis shows small leukoesterase, WBC 25-50, many yeast, and few bacteria. IMPRESSION: 1. Leukocytosis, likely reactive versus aspiration pneumonia. 2. Pneumonia. 3. Urinary tract infection, candiduria. 4. Hypertension. 5. Seizure disorder. 6. Altered mental status. 7. Diabetes mellitus. 8. Psychosis. 9. Hypertension. 10. Hyperlipidemia. RECOMMENDATION: Start Zosyn. Sepsis workup was performed. Repeat urinalysis, urine culture. Thank you, Dr. Harden, for involving me in taking care of this patient. Signed, Galo Mathis M.D. [id number]
--- NOTE | 2017-05-01 20:24 | Progress Notes ---
DATE: 05/01/2017 SUBJECTIVE: Chart reviewed and the patient interviewed. Also, discussed the patient's condition with the staff and reviewed records and labs. The patient is still agitated and is still restless. The patient also have difficulty following any of staff directions. The patient almost did not sleep at all last night according to the staff. She also is still confused and is agitated. Tried to interview the patient. The patient is confused and restless and was not able to answer any of my questions coherently. ASSESSMENT: The patient is still agitated and psychotic and also considered to be gravely disabled with her inability to care for self. TREATMENT PLAN: We will continue to monitor her behavior and her condition closely. Also, it seems that current psychotropic medication is not helping her enough. We will increase Seroquel to 150 mg at bedtime and 150 mg twice a day and we will continue to monitor her behavior and her condition closely. Also, working on discharge plans and possible placement issue. JOB# [id number]
--- NOTE | 2017-05-01 21:33 | Consultation ---
DATE OF CONSULTATION: 05/01/2017 INFECTIOUS DISEASE CONSULTATION REFERRING PHYSICIAN: Dr. Jim Harden. REASON FOR CONSULTATION: Leukocytosis. HISTORY OF PRESENT ILLNESS: The patient is a 76-year-old female with a past medical history of hypertension, dyslipidemia, dementia, psychosis, depression, and bipolar disorder was brought to the ER for altered mental status. The patient is unable to give any history. On initial evaluation, the patient's temperature was 98.3 degrees Fahrenheit and WBC count was 10,500. The patient was evaluated with a psych risk assessment consultant. Ultimately, [facility] Unfortunately, she developed tonic-clonic seizures, so she was kept in the hospital and discharge was cancelled. Further workup revealed WBC count is 18,000. ID consult was called for further antibiotic management. Meanwhile, it was noted that the patient had candiduria in the past. PAST MEDICAL HISTORY: As mentioned above, hypertension, hyperlipidemia, bipolar disorder, depression, and dementia. FAMILY HISTORY: Diabetes mellitus and hypertension. SOCIAL HISTORY: The patient lives at a care facility. No history of smoking, alcohol or drug use. The patient is single. PSYCHIATRIC HISTORY: As mentioned above, depression, bipolar disorder, and dementia. PAST SURGICAL HISTORY: Not available. ALLERGIES: NKDA. MEDICATIONS: Per medication reconciliation sheet. REVIEW OF SYSTEMS: The patient is a poor historian. No fever, no chills. The patient is having seizure episodes today. PHYSICAL EXAMINATION: VITAL SIGNS: Current vital signs shows temperature is 97.6, pulse 87, respirations 19, blood pressure 159/84. GENERAL: The patient is comfortable, lying in the bed, not in acute distress. HEENT: Head is normocephalic, atraumatic. Oral cavity moist, pink tongue. Eyes, no pallor, no icterus. Pupils PERRLA, EOMI. NECK: Supple, no JVD, no carotid bruit. Trachea in midline. CHEST: Bilateral breath sounds. No crackles, no wheezing. HEART: S1, S2 within normal limits. Regular rhythm. No murmur, no gallop. ABDOMEN: Soft, nontender, nondistended. Bowel sounds present. EXTREMITIES: No cyanosis, no clubbing, no edema. The patient had involuntary movement all over the body, mainly on the right side. CENTRAL NERVOUS SYSTEM: Very confused, not opening her eyes, not answering to the questions. The patient had involuntary movement of whole body, particularly on the right side. DIAGNOSTIC DATA: Chest x-ray showed development of faint infiltrate. LABORATORY DATA: WBC count 48909, hemoglobin 11.1, hematocrit 32.5, platelets are 147,000, neutrophils 83%. Sodium is 139, potassium 4.1, chloride 108, bicarbonate is 19, BUN is 13, creatinine 1, and glucose is 179. Urinalysis shows small leukoesterase, WBC 25-50, many yeast, and few bacteria. IMPRESSION: 1. Leukocytosis, likely reactive versus aspiration pneumonia. 2. Pneumonia. 3. Urinary tract infection, candiduria. 4. Hypertension. 5. Seizure disorder. 6. Altered mental status. 7. Diabetes mellitus. 8. Psychosis. 9. Hypertension. 10. Hyperlipidemia. RECOMMENDATION: We will start Zosyn. Sepsis workup was performed. Repeat urinalysis, urine culture. Thank you, Dr. Harden, for involving me in taking care of this patient. [facility]# [id number]
[2017-05-01] MEDS: D5-0.9%NS 1,000 ML IV SCH (22:00)
[2017-05-01] MEDS: Morphine Sulfate 2 mg/mL 1mL Syr IVP PRN (22:00)
--- NOTE | 2017-05-01 23:25 | Consultation ---
DATE OF CONSULTATION: 05/01/2017 REFERRING PHYSICIAN: Dr. Harden. Thank you for this consultation. HISTORY OF PRESENT ILLNESS: This is a 76-year-old female who apparently was admitted for possible UTI, altered level of consciousness, history of dementia, and metabolic encephalopathy. The patient apparently was getting agitated, received Ativan, get altered, and has some hypoxemia, placed on oxygen, improved now, still thrashing around and able to do CT of the head secondary to the above. We were called on consultation to evaluate her lung status. The patient appears to be breathing okay, but thrashing around. No other history is available. The patient had a history of recent fall status post fracture. She also has history of psychiatric problems and multiple psychiatric medications in the past. REVIEW OF SYSTEMS: Unable to obtain because of the patient's condition. PHYSICAL EXAMINATION: GENERAL: The patient is agitated, thrashing around, and moving all extremities. Does not open eyes. I see some see some nystagmus. VITAL SIGNS: Temperature is 97.6, pulse 90, respiration is 18, blood pressure 115/84, and saturation 99%. HEENT: Atraumatic and normocephalic. Pupils react to light and accommodation. Ears, nose, and throat normal. NECK: Supple. No JVD. CHEST: There are good breath sounds, few rhonchi. HEART: Regular rate and rhythm. ABDOMEN: Soft. EXTREMITIES: No edema. LABORATORY DATA: WBC is 8.5, hemoglobin 9.9, hematocrit 29.1, and platelets is 389. ABG shows pH 7.34, pCO2 of 36, pO2 of 90, bicarbonate 20, and saturation is 96%. Sodium is 139, potassium 3.6, BUN 13, and creatinine 1.0. IMPRESSION: 1. Respiratory failure and some hypoxemia, possibly secondary to hypoventilation. 2. Altered level of consciousness causing the above, possible CVA or seizures or other abnormalities. PLAN: The patient will need to be observed in ICU closely for any closer monitoring. Continue oxygen supplementation and Neurology close followup. Avoid Ativan. At this point, the patient might be having some reaction to it. We will follow the patient with you. JOB# [id number]
--- NOTE | 2017-05-02 02:41 | Consultation ---
DATE OF CONSULTATION: 05/01/2017 NEUROLOGY CONSULTATION HISTORY OF PRESENT ILLNESS: The patient is 76 years old. The patient admitted on 04/16/2017. Apparently, she had been altered for few weeks prior to that, more confused. Here, the patient continued to be agitated, confused. The patient had been seen by Psychiatry also. She was very agitated and aggressive. Would not follow any instructions. The patient then apparently had question of seizure. She was given Ativan and they felt she may have had a seizure after that. The patient at the moment continues to be agitated. Eyes closed. She does not respond much to verbal at all. Occasionally open her eyes. The patient, when I stimulate her, will open eyes. She will move both upper extremities and lower extremities and withdraw them, but no verbal interaction. PAST MEDICAL HISTORY: 1. The patient with diabetes. 2. Schizoaffective disorder. 3. Dementia. 4. Anxiety disorder. 5. The patient with hypertension. 6. Coronary artery disease. 7. Urinary tract infection. 8. Fracture, right leg. MEDICATIONS: Here, the patient is currently on Keppra 1000 q. 12 hours, olanzapine 5 mg. The patient is also on antibiotics. Simvastatin. The patient also had been given Effexor 150 mg daily. She had been on Seroquel which has been discontinued for the time being. REVIEW OF SYSTEMS: Not obtainable. PHYSICAL EXAMINATION: VITAL SIGNS: Temperature 97.6, blood pressure 150/70, pulse is 90. NECK: Supple. No bruits. HEART: Sounds S1, S2. LUNGS: Clear. NEUROLOGIC: The patient is lying in bed. She is agitated. Moves upper and lower extremities and head. To stimulation, opens eyes. Will withdraw upper and lower extremities. Pupils react to light, about 3 mm. Corneal reflex present. Reflexes about 1+. No increased tone, no spasticity, no rigidity. INVESTIGATIONS: CT scan not done yet. LABORATORY DATA: WBC 18.1, hemoglobin 11.1, platelets 547. Sodium, potassium okay. Glucose okay. UA on admission showed WBCs 25-50. ASSESSMENT: 1. Encephalopathy. Multifactorial. 2. Underlying history of psychosis with schizoaffective disorder. 3. Sepsis with urinary tract infection. 4. The patient with diabetes. 5. Urinary tract infection. 6. Right leg fracture. PLAN: At this time, we will go ahead and give low-dose sedation. She is on Haldol p.r.n. Try to hold that out. The patient is off Seroquel. We will go ahead and get a CT scan. The patient had a fall. Rule out head injury. The patient, if continues to persists in this, we will need LP. Continue cover of seizures with Keppra for the time being. Lab studies. JOB# [id number]
[2017-05-02 05:00] LABS: % BASOPHILS 0.1 % (0.0-2.0); EOSINOPHILE ABSOLUTE 0.1 Th/cmm (0.1-0.4); LYMPHOCYTE ABSOLUTE 1.7 Th/cmm (1.5-3.0); MONOCYTE ABSOLUTE 1.1 Th/cmm (0.3-1.0)
[2017-05-02 05:04] LABS: % EOSINOPHILS 1.4 % (0.0-5.0); % LYMPHOCYTES 16.4 % (20.0-50.0); % NEUTROPHILS 71.1 % (40.0-80.0); HEMATOCRIT 29.8 % (41.0-60); HEMOGLOBIN 10.3 gm/dL (12-16); MEAN CORPUSCULAR HGB CONC 34.4 pg (28.0-36.0); MEAN PLATELET VOLUME 8.5 fl; NEUTROPHILE ABSOLUTE 7.3 Th/cmm (1.8-8.0); PLATELET COUNT 471 Th/cmm (150-400); RED BLOOD COUNT 3.11 Mil/cmm (3.80-5.20); RED CELL DISTRIBUTION WIDTH 13.1 % (11.5-20.0)
[2017-05-02 05:07] LABS: WHITE BLOOD COUNT 10.2 Th/cmm (4.8-10.8)
[2017-05-02 05:21] LABS: ALB/GLOB RATIO 1.2 (1.0-1.8); ALBUMIN 3.5 gm/dL (3.7-5.3); ALKALINE PHOSPHATASE 70 U/L (34-104); BILIRUBIN,TOTAL 0.6 mg/dL (0.3-1.0); BUN - UREA NITROGEN 15 mg/dL (7-25); CALCIUM SERUM 9.7 mg/dL (8.6-10.3); CARBON DIOXIDE 16.8 mEq/L (21.0-31.0); CHLORIDE 113 mEq/L (98-107); CREATININE - SERUM 0.9 mg/dL (0.6-1.2); GLUCOSE 182 mg/dL (70-105); POTASSIUM SERUM 3.8 mEq/L (3.5-5.1); SGOT 38 U/L (13-39); SGPT/ALT 22 U/L (7-52); SODIUM SERUM 142 mEq/L (136-145); TOTAL PROTEIN,SERUM 6.5 gm/dL (6.0-8.3)
[2017-05-02 05:24] LABS: URINE MICROSCOPIC INDICATED? YES; URINE SOURCE FOLEY PORT
[2017-05-02 05:55] LABS: URINE BILIRUBIN SMALL (NEGATIVE); URINE BLOOD LARGE (NEGATIVE); URINE GLUCOSE (UA) NEGATIVE (NEGATIVE); URINE KETONE >=80 mg/dL (NEGATIVE); URINE LEUKOCYTE ESTERASE NEGATIVE (NEGATIVE); URINE NITRATE NEGATIVE (NEGATIVE); URINE PH 5.5 (4.6 - 8.0); URINE PROTEIN 100 mg/dL (NEGATIVE); URINE UROBILINOGEN 0.2 E.U./dL (0.2 - 1.0)
[2017-05-02] MEDS: Morphine Sulfate 2 mg/mL 1mL Syr IVP PRN (05:55)
[2017-05-02 06:05] LABS: URINE CLARITY HAZY (CLEAR); URINE COLOR YELLOW
[2017-05-02 06:14] LABS: URINE BACTERIA 2+ /hpf (NONE SEEN); URINE EPITHELIAL CELLS MODERATE /lpf (FEW)
[2017-05-02 06:16] LABS: ESR SEDIMENTATION SED RATE 59 mm/hr (0-30)
--- NOTE | 2017-05-02 08:36 | Diagnostic Imaging Report ---
Portable chest x-ray HISTORY: Shortness of breath. The heart is enlarged. No focal pulmonary processes. No hilar or mediastinal abnormalities. IMPRESSION: 1. Cardiomegaly 2. No focal pulmonary processes
[2017-05-02] MEDS: OLANZapine 5 mg Oral Disintegrating Tab PO SCH ×2 (10:32→16:35)
--- NOTE | 2017-05-02 11:02 | General Progress Note ---
Subjective - Review of Systems Service Date: 05/02/17 Events since last encounter: The patient became more altered and suffered a sezisure. She was transferred to the ICU for further evaluation. Neuro and critical care were consulted. Subjective: The patient was seen, evaluated and responds to stimuli. No s.s of pain or distress. Denies fevers or chills Objective - Results Result Diagrams: 05/02/17 04:15 05/02/17 04:15 Recent Labs: Laboratory Last Values WBC 10.2 Th/cmm (4.8-10.8) D 05/02/17 04:15 RBC 3.11 Mil/cmm (3.80-5.20) L 05/02/17 04:15 Hgb 10.3 gm/dL (12-16) L 05/02/17 04:15 Hct 29.8 % (41.0-60) L 05/02/17 04:15 MCV 96.0 fl (81-100) 05/02/17 04:15 MCH 33.0 pg (27.0-31.0) H 05/02/17 04:15 MCHC Differential 34.4 pg (28.0-36.0) 05/02/17 04:15 RDW 13.1 % (11.5-20.0) 05/02/17 04:15 Plt Count 471 Th/cmm (150-400) H 05/02/17 04:15 MPV 8.5 fl 05/02/17 04:15 Neutrophils % 71.1 % (40.0-80.0) 05/02/17 04:15 Lymphocytes % 16.4 % (20.0-50.0) L 05/02/17 04:15 Monocytes % 11.0 % (2.0-10.0) H 05/02/17 04:15 Eosinophils % 1.4 % (0.0-5.0) 05/02/17 04:15 Basophils % 0.1 % (0.0-2.0) 05/02/17 04:15 ESR 59 mm/hr (0-30) H 05/02/17 04:15 Specimen Source Arterial 05/01/17 13:37 Sample Site RB 05/01/17 13:37 pH 7.34 (7.35-7.45) L 05/01/17 13:37 pCO2 36.0 mmHg (35.0-45.0) 05/01/17 13:37 pO2 90.0 mmHg (80.0-100.0) 05/01/17 13:37 HCO3 20.5 mEq/L (20.0-26.0) 05/01/17 13:37 Base Excess -5.7 mEq/L (-3.0-3.0) L 05/01/17 13:37 O2 Saturation 96.0 % (92.0-100.0) 05/01/17 13:37 Jet Test NA 05/01/17 13:37 Vent Rate NA 05/01/17 13:37 Inspired O2 40 05/01/17 13:37 Tidal Volume NA 05/01/17 13:37 PEEP NA 05/01/17 13:37 Pressure (ins/psv/peep) NA 05/01/17 13:37 Critical Value LZHANG 05/01/17 13:37 Sodium 142 mEq/L (136-145) 05/02/17 04:15 Potassium 3.8 mEq/L (3.5-5.1) 05/02/17 04:15 Chloride 113 mEq/L (98-107) H 05/02/17 04:15 Carbon Dioxide 16.8 mEq/L (21.0-31.0) L 05/02/17 04:15 Anion Gap 16.0 (7.0-16.0) 05/02/17 04:15 BUN 15 mg/dL (7-25) 05/02/17 04:15 Creatinine 0.9 mg/dL (0.6-1.2) 05/02/17 04:15 Est GFR ( Amer) TNP 05/02/17 04:15 Est GFR (Non-Af Amer) TNP 05/02/17 04:15 BUN/Creatinine Ratio 16.7 05/02/17 04:15 Glucose 182 mg/dL (70-105) H 05/02/17 04:15 POC Glucose 170 MG/DL (70 - 105) H 05/02/17 06:06 Hemoglobin A1c % 8.0 % (4.0-6.0) H 04/16/17 18:20 Calcium 9.7 mg/dL (8.6-10.3) 05/02/17 04:15 Total Bilirubin 0.6 mg/dL (0.3-1.0) 05/02/17 04:15 AST 38 U/L (13-39) 05/02/17 04:15 ALT 22 U/L (7-52) 05/02/17 04:15 Alkaline Phosphatase 70 U/L (34-104) 05/02/17 04:15 Ammonia 19 umol/L (16-53) 05/01/17 20:25 Total Protein 6.5 gm/dL (6.0-8.3) 05/02/17 04:15 Albumin 3.5 gm/dL (3.7-5.3) L 05/02/17 04:15 Globulin 3.0 gm/dL 05/02/17 04:15 Albumin/Globulin Ratio 1.2 (1.0-1.8) 05/02/17 04:15 Triglycerides 368 mg/dL (<150) H 04/16/17 18:20 Cholesterol 150 mg/dL (<200) 04/16/17 18:20 LDL Cholesterol Direct 69 mg/dL (75-193) L 04/16/17 18:20 HDL Cholesterol 40 mg/dL (23-92) 04/16/17 18:20 TSH 3.72 uIU/ml (0.34-5.60) 05/02/17 04:15 Urine Source [place] 05/02/17 04:30 Urine Color YELLOW 05/02/17 04:30 Urine Clarity HAZY (CLEAR) 05/02/17 04:30 Urine pH 5.5 (4.6 - 8.0) 05/02/17 04:30 Ur Specific [place] >= 1.030 (1.005-1.030) 05/02/17 04:30 Urine Protein 100 mg/dL (NEGATIVE) H 05/02/17 04:30 Urine Glucose (UA) NEGATIVE mg/dL (NEGATIVE) 05/02/17 04:30 Urine Ketones >=80 mg/dL (NEGATIVE) H 05/02/17 04:30 Urine Blood LARGE (NEGATIVE) H 05/02/17 04:30 Urine Nitrate NEGATIVE (NEGATIVE) 05/02/17 04:30 Urine Bilirubin SMALL (NEGATIVE) H 05/02/17 04:30 Urine Urobilinogen 0.2 E.U./dL (0.2 - 1.0) 05/02/17 04:30 Ur Leukocyte Esterase NEGATIVE (NEGATIVE) 05/02/17 04:30 Urine RBC 5-10 /hpf (0-5) H 05/02/17 04:30 Urine WBC 6-10 /hpf (0-5) H 05/02/17 04:30 Ur Epithelial Cells MODERATE /lpf (FEW) 05/02/17 04:30 Urine Bacteria 2+ /hpf (NONE SEEN) H 05/02/17 04:30 Urine Yeast MANY /hpf (NONE SEEN) H 04/18/17 19:20 Salicylates < 25.0 mg/L (30.0-100.0) L 04/16/17 18:20 Urine Opiates Screen NEGATIVE (NEGATIVE) 04/17/17 00:10 Urine Methadone Screen NEGATIVE (NEGATIVE) 04/17/17 00:10 Acetaminophen < 10.0 ug/mL (10.0-30.0) L 04/16/17 18:20 Ur Barbiturates Screen NEGATIVE (NEGATIVE) 04/17/17 00:10 Ur Tricyclics Screen NEGATIVE (NEGATIVE) 04/17/17 00:10 Ur Phencyclidine Scrn NEGATIVE (NEGATIVE) 04/17/17 00:10 Amphetamines Screen NEGATIVE (NEGATIVE) 04/17/17 00:10 U Methamphetamines Scrn NEGATIVE (NEGATIVE) 04/17/17 00:10 U Benzodiazepines Scrn NEGATIVE (NEGATIVE) 04/17/17 00:10 U Cocaine Metab Screen NEGATIVE (NEGATIVE) 04/17/17 00:10 U Cannabinoids Screen NEGATIVE (NEGATIVE) 04/17/17 00:10 Ethyl Alcohol < 10 mg/dL (0-10) 04/16/17 18:20 RPR NONREACTIVE (NONREACTIVE) 04/16/17 18:20 - Physical Exam Vitals and I&O: Vital Signs Temp 98.2 F 05/02/17 06:00 Pulse 105 05/02/17 10:29 Resp 24 05/02/17 07:00 BP 228/93 05/02/17 10:29 Pulse Ox 99 05/02/17 08:00 Intake & Output 05/01/17 05/02/17 05/02/17 18:59 06:59 18:59 Intake Total 664.5 210 549 Output Total 500 Balance 664.5 210 49 Weight (lbs) 87.997 kg 87.997 kg Intake: Intake, IV Amount 664.5 210 549 D5-0.9%Ns 1,000 ml @ 60 549 mls/hr IV .[id number] [facility] Rx #:[id number] Levetiracetam 1,000 mg In 110 110 Sodium Chloride 0.9% 100 ml @ 400 mls/hr IV Q12H [facility] Rx#:[id number] Piperacillin Sodium/ 100 Tazobact 4.5 gm In Sodium Chloride 0.9% 100 ml @ 100 mls/hr IV Q8H [facility] Rx# :[id number] Sodium Chloride 0.9% 1, 554.5 000 ml @ 90 mls/hr IV . Q11H7M [facility] Rx#:[id number] Oral 0 Output: Urine 500 Other: # Voids 1 Stool Characteristics Soft Brown Active Medications: Current Medications Acetaminophen (Tylenol) 650 mg PO Q6H PRN PRN Reason: HEADACHE/TEMP ABOVE 100F Stop: 06/23/17 09:20 Last Admin: 04/28/17 00:41 Dose: 650 mg Cholecalciferol (Vitamin D3) 1,000 iu PO DAILY [facility] Stop: 06/17/17 08:59 Last Admin: 05/02/17 10:30 Dose: Not Given Clopidogrel Bisulfate (Plavix) 75 mg PO DAILY [facility] Stop: 06/17/17 08:59 Last Admin: 05/02/17 10:31 Dose: Not Given Docusate Sodium (Colace) 100 mg PO BID PRN PRN Reason: Constipation Stop: 06/16/17 09:43 Last Admin: 04/25/17 08:59 Dose: 100 mg Enalaprilat (Vasotec) 1.25 mg IVP Q6HR PRN PRN Reason: [id number] Stop: 07/01/17 00:00 Last Admin: 05/02/17 01:23 Dose: 1.25 mg Glyburide (Diabeta) 5 mg PO BID [facility] Stop: 06/16/17 16:59 Last Admin: 05/02/17 10:28 Dose: Not Given Haloperidol Lactate (Haldol) 5 mg IM Q6HR PRN PRN Reason: Agitation Stop: 06/30/17 21:25 Magnesium Sulfate (Magnesium Sulfate Premix) 2 gm in 50 mls @ 25 mls/hr IV DAILY PRN PRN Reason: Magnesium level below 1.6 Stop: 06/23/17 09:20 Levetiracetam 1,000 mg/ Sodium (Chloride) 110 mls @ 400 mls/hr IV Q12H [facility] Stop: 06/30/17 12:29 Last Infusion: 05/02/17 01:25 Dose: Infused Piperacillin Sod/Tazobactam (Sod 4.5 gm/ Sodium Chloride) 100 mls @ 100 mls/hr IV Q8H [facility] Stop: 06/30/17 15:44 Last Infusion: 05/02/17 01:24 Dose: Infused Dextrose/Sodium Chloride (D5-0.9%Ns) 1,000 mls @ 60 mls/hr IV .[id number] [facility] Stop: 06/30/17 21:44 Last Infusion: 05/02/17 07:09 Dose: 60 mls/hr Lamotrigine (Lamictal) 100 mg PO BID [facility] PRN Reason: Protocol Stop: 06/16/17 16:59 Last Admin: 05/02/17 10:28 Dose: Not Given Lisinopril (Zestril) 20 mg PO BID [facility] Stop: 06/30/17 08:59 Last Admin: 05/02/17 10:29 Dose: Not Given Metoprolol Tartrate (Lopressor) 25 mg PO BID [facility] Stop: 06/27/17 09:14 Last Admin: 05/02/17 10:29 Dose: Not Given Morphine Sulfate (Morphine) 1 mg IVP Q4HR PRN PRN Reason: Pain (Moderate) Stop: 06/30/17 21:23 Last Admin: 05/02/17 05:55 Dose: 1 mg Olanzapine (Zyprexa Zydis) 5 mg PO BID [facility] PRN Reason: Protocol Stop: 06/30/17 10:44 Last Admin: 05/02/17 10:32 Dose: Not Given Potassium Chloride (Klor-Con) 40 meq PO DAILY PRN PRN Reason: k level below 3.5 Stop: 06/23/17 09:20 Last Admin: 04/26/17 08:37 Dose: 40 meq Simvastatin (Zocor) 10 mg PO HS [facility] PRN Reason: Protocol Stop: 06/16/17 20:59 Last Admin: 05/01/17 23:59 Dose: Not Given Venlafaxine HCl (Effexor Xr) 150 mg PO DAILY [facility] Stop: 06/17/17 08:59 Last Admin: 05/02/17 10:32 Dose: Not Given General: Mild distress, Other (agitated, restless) HEENT: Atraumatic, PERRLA, EOMI Neck: Supple, no JVD, no Thyromegaly Cardiovascular: Regular rate, Normal S1, Normal S2 Lungs: Clear to auscultation Abdomen: Bowel sounds, Soft Extremities: Other (right LE cast intact) Psych/Mental Status: Other (aao x 1 self) Assessment/Plan - Assessment Assessment: metabolic encephalopathy 2/2 uti and candidiasis right LE fracture s/p orif UTI DEBBI MDD iimpulse control DO DM HTN Unsteady gait Psychosis-stable Status post fall - Plan Plan: Psych is following. She became acutely altered and very lethargic. Suffered a seizure and was transferred to the ICU. critical care and neurology have been consulted.Pt is seeing PT. Ortho has been consulted as she may need her RLE cast removed. On Seroquel 75 mg tid now per Dr[address] Nunez. Completed Diflucan for UTI. Ct head was cancelled after her fall as was completely asymptomatic and denied any head trauma. She's been pleasant, headache free, and without any vision changes. there were no neurological changes at all. However, today she's more altered and delerious. She's been on Lopressor 25 mg bid. Nutritional Asmnt/Malnutr-PDOC - Dietary Evaluation Malnutrition Findings (Please click <Entered> for more info): Nutritional Asmnt/Malnutrition Start: 04/17/17 07: 44 Text: Status: Complete Freq: Document 04/21/17 09:29 [email or web address] (Rec: 04/21/17 09:34 [email or web address] Nutritional Asmnt/Malnutrition Patient General Information Nutritional Screening Moderate Risk Diagnosis metabolic encephalopathy Pertinent Medical Hx/Surgical Hx impulse control disorder, anxiety, depression, DM, HTN, HLD, CAD Subjective Information Pt A&A x 1, confused, with sitter, moving to geropsych. PO intake 50-100%, usually eats 100%. Current Diet Order/ Nutrition Support mechanical soft, chopped Patient / S.O Not Indicated Pertinent Medications vit d, plavix, colace, glyburide Pertinent Labs 04/21 glucose: 129-148, hgba1c: 8.0, T Nutritional Hx/Data Height 1.57 m Height (Calculated Centimeters) 157.5 Current Weight (lbs) 90.718 kg Weight (Calculated Kilograms) 90.7 Weight (Calculated Grams) 75166.5 [place] Body Weight 110 % [place] Body Weight 181 Body Mass Index (BMI) 36.6 Weight Status Obese GI Symptoms GI Symptoms None Last BM 04/19 Difficult in: Chewing Skin Integrity/Comment: intact, bruises, no edema noted Current %PO Good (75-100%) Estimated Nutritional Goals BEE in Kcals: Adj wt of IBW Calories/Kcals/Kg 25-30 Kcals Calculated 8430-9814 kcals Protein: Adj wt of IBW Protein g/k-1.2 Protein Calculated 60-72 Fluid: ml 0101-5848 mL (1 ml/kcal) Nutritional Problem 1. Problem Problem altered nutrition related lab values Etiology DM, lack of CCHO diet Signs/Symptoms: gluocse: 129-148, hgba1c: 8.0 Malnutrition Alert Is there a minimum of two criteria No selected? Query Text:Check all the applicable criteria. A minimum of two criteria are recommended for diagnosis of either severe or non-severe malnutrition. Malnutrition Related to Morbid Obesity Malnutrition related to morbid obesity No Intervention/Recommendation Comments 1. Change diet to mechanical soft, chopped, CCHO 60 gm to manage DM Expected Outcomes/Goals Expected Outcomes/Goals PO intake>50%, labs: WNL monitor wt, labs, skin, PO intake
[2017-05-02] MEDS: Haloperidol Lactate 5 mg/mL 1mL Vial IM PRN (13:43)
[2017-05-02] MEDS: D5-0.9%NS 1,000 ML IV SCH (13:59)
[2017-05-02] MEDS: Albuterol/Ipratropium Neb 3 ML AERS HHN SCH ×3 (15:59→22:52)
[2017-05-02 16:16] LABS: pH 7.29 (7.35-7.45)
[2017-05-02] MEDS ORDERED: Sodium Bicarbonate 8.4% 50mEq PFS IVP ONE ×2 (16:26→16:30)
[2017-05-02] MEDS ORDERED: Probiotic Screen MC PRN (17:03)
--- NOTE | 2017-05-02 22:38 | Progress Notes ---
DATE: 05/02/2017 She is currently in ICU. The patient apparently became unresponsive, they believe is because of the Ativan. Continues to be very restless, agitated. The patient however is not able to participate in a meaningful conversation. They say that she got the Ativan and this happened. However, I am not sure if she had a CVA. I do recommend that patient get a consult with neurologist to clear this. She is on Seroquel 150 mg 3 times a day and I was asked by the staff to recommend anything besides Ativan. She is seen by Dr. Valentin currently and I recommended they check with him what she would like to be ordered just to make sure that he is aware of her neurological condition, can order something that is more appropriate than I would do at this point since she is already on too many psychotropic medication. Thank you very much for allowing me to participate in care of this most interesting lady. JOB# [id number]
[2017-05-03] MEDS: Albuterol/Ipratropium Neb 3 ML AERS HHN SCH ×6 (03:35→23:11)
[2017-05-03 05:21] LABS: HEMATOCRIT 30.5 % (41.0-60); HEMOGLOBIN 10.6 gm/dL (12-16); MEAN CORPUSCULAR HEMOGLOBIN 33.4 pg (27.0-31.0); MEAN CORPUSCULAR HGB CONC 34.8 pg (28.0-36.0); MEAN PLATELET VOLUME 8.6 fl; PLATELET COUNT 483 Th/cmm (150-400); RED BLOOD COUNT 3.18 Mil/cmm (3.80-5.20); RED CELL DISTRIBUTION WIDTH 13.5 % (11.5-20.0)
[2017-05-03 05:28] LABS: ANION GAP 12.8 (7.0-16.0); BUN - UREA NITROGEN 14 mg/dL (7-25); CALCIUM SERUM 9.7 mg/dL (8.6-10.3); CARBON DIOXIDE 20.8 mEq/L (21.0-31.0); CHLORIDE 114 mEq/L (98-107); CREATININE - SERUM 1.1 mg/dL (0.6-1.2); GLUCOSE 281 mg/dL (70-105); POTASSIUM SERUM 4.6 mEq/L (3.5-5.1); SODIUM SERUM 143 mEq/L (136-145)
[2017-05-03 05:56] LABS: WHITE BLOOD COUNT 18.8 Th/cmm (4.8-10.8)
[2017-05-03 06:55] LABS: BAND NEUTROPHILE 8 % (0-10); LYMPHOCYTE 9 % (20-50); MANUAL DIFF REQUIRED? YES; MONOCYTE 2 % (2-10); NEUTROPHILS 81 % (40-80); TOTAL CELLS COUNTED 100
[2017-05-03 06:56] LABS: PLATELET ESTIMATE INCREASED PLATELETS (NORMAL)
--- NOTE | 2017-05-03 07:43 | Progress Notes ---
DATE: 05/02/2017 SUBJECTIVE: The patient in ICU, BiPAP. The patient quite, not agitated. To stimulation will open her eyes. She will withdraw upper extremity, but does not talk to me. MEDICATIONS: 1. Plavix. 2. Vasotec. 3. Haldol 5 mg IM q. 6 hours p.r.n. 4. Lamictal p.o. I do not know whether she is taking. 5. Keppra 1000 q. 12 hours IV. 6. Morphine p.r.n. 7. Olanzapine. 8. Simvastatin. 9. Venlafaxine. OBJECTIVE: VITAL SIGNS: Temperature 98.2, blood pressure 130/70, pulse is 90. NECK: Supple. No bruits. HEART: Heart sounds S1, S2. LUNGS: Clear. NEUROLOGIC: The patient is lying in bed. BiPAP. She is not responding much to name, but she will open her eyes to mild stimulation. HEENT: Pupils react to light. EXTREMITIES: The patient will withdraw upper and lower extremity. ASSESSMENT: 1. Encephalopathy. 2. Question of seizure. 3. Psychosis. 4. Sepsis. 5. Urinary tract infection. 6. Diabetes. 7. Hypertension. 8. Hyperlipidemia. PLAN: CT scan of the head. Try to hold off sedation. JOB# [id number]
--- NOTE | 2017-05-03 08:27 | Diagnostic Imaging Report ---
Portable chest x-ray HISTORY: Shortness of breath The heart is enlarged. Atherosclerotic outstation seen in the aortic arch. There is generalized increased density over the chest that may be related to overlying soft tissues. There is blunting of the left costophrenic angle. A small effusion cannot be excluded. IMPRESSION: 1. Cardiomegaly with catheter is carotid vascular changes 2. Slight blunting of the left costophrenic angle. A small effusion cannot be excluded.
--- NOTE | 2017-05-03 08:38 | Diagnostic Imaging Report ---
Right tibia/fibula (2 views, seen through cast) HISTORY: Fracture The exam demonstrates surgical hardware traversing the distal fibula and medial malleolus. Fracture line associated with a nondisplaced fracture of the medial malleolus visible. No focal abnormality seen within the shafts of the tibia or fibula. IMPRESSION: 1. Orthopedic fixation associated with fractures as noted above.
[2017-05-03] MEDS: Haloperidol Lactate 5 mg/mL 1mL Vial IM PRN ×2 (10:04→20:40)
--- NOTE | 2017-05-03 10:10 | General Progress Note ---
Subjective - Review of Systems Service Date: 05/03/17 Events since last encounter: A repeat UA was performed and revealed a UTI. Zosyn was started for the underlying UTI. Cultures are pending. The patients daughter believes the ativan is causing the encephalopathy and she does not want any benzos to be given at this time. Daughter also requested an acute transfer to [facility] Subjective: The patient was seen, evaluated and responds to stimuli. No s.s of pain or distress. Denies fevers or chills Objective - Results Result Diagrams: 05/03/17 04:32 05/03/17 04:32 Recent Labs: Laboratory Last Values WBC 18.8 Th/cmm (4.8-10.8) H D 05/03/17 04:32 RBC 3.18 Mil/cmm (3.80-5.20) L 05/03/17 04:32 Hgb 10.6 gm/dL (12-16) L 05/03/17 04:32 Hct 30.5 % (41.0-60) L 05/03/17 04:32 MCV 96.0 fl (81-100) 05/03/17 04:32 MCH 33.4 pg (27.0-31.0) H 05/03/17 04:32 MCHC Differential 34.8 pg (28.0-36.0) 05/03/17 04:32 RDW 13.5 % (11.5-20.0) 05/03/17 04:32 Plt Count 483 Th/cmm (150-400) H 05/03/17 04:32 MPV 8.6 fl 05/03/17 04:32 Neutrophils % [employer] 05/03/17 04:32 Band Neutrophils % 8 % (0-10) 05/03/17 04:32 Lymphocytes % [employer] 05/03/17 04:32 Monocytes % [employer] 05/03/17 04:32 Eosinophils % [employer] 05/03/17 04:32 Basophils % [employer] 05/03/17 04:32 Neutrophils (Manual) 81 % (40-80) H 05/03/17 04:32 Lymphocytes 9 % (20-50) L 05/03/17 04:32 Monocytes 2 % (2-10) 05/03/17 04:32 Platelet Estimate INCREASED PLATELETS (NORMAL) 05/03/17 04:32 ESR 59 mm/hr (0-30) H 05/02/17 04:15 Specimen Source Arterial 05/02/17 16:08 Sample Site RB 05/02/17 16:08 pH 7.29 (7.35-7.45) L 05/02/17 16:08 pCO2 39.0 mmHg (35.0-45.0) 05/02/17 16:08 pO2 85.0 mmHg (80.0-100.0) 05/02/17 16:08 HCO3 19.2 mEq/L (20.0-26.0) L 05/02/17 16:08 Base Excess -7.3 mEq/L (-3.0-3.0) L 05/02/17 16:08 O2 Saturation 95.0 % (92.0-100.0) 05/02/17 16:08 Jet Test NA 05/02/17 16:08 Vent Rate NA 05/02/17 16:08 Inspired O2 50 05/02/17 16:08 Tidal Volume NA 05/02/17 16:08 PEEP NA 05/02/17 16:08 Pressure (ins/psv/peep) NA 05/02/17 16:08 Critical Value E.GIBSON 05/02/17 16:08 Sodium 143 mEq/L (136-145) 05/03/17 04:32 Potassium 4.6 mEq/L (3.5-5.1) 05/03/17 04:32 Chloride 114 mEq/L (98-107) H 05/03/17 04:32 Carbon Dioxide 20.8 mEq/L (21.0-31.0) L 05/03/17 04:32 Anion Gap 12.8 (7.0-16.0) 05/03/17 04:32 BUN 14 mg/dL (7-25) 05/03/17 04:32 Creatinine 1.1 mg/dL (0.6-1.2) 05/03/17 04:32 Est GFR ( Amer) TNP 05/03/17 04:32 Est GFR (Non-Af Amer) TNP 05/03/17 04:32 BUN/Creatinine Ratio 12.7 05/03/17 04:32 Glucose 281 mg/dL (70-105) H 05/03/17 04:32 POC Glucose 284 MG/DL (70 - 105) H 05/02/17 21:06 Hemoglobin A1c % 8.0 % (4.0-6.0) H 04/16/17 18:20 Calcium 9.7 mg/dL (8.6-10.3) 05/03/17 04:32 Total Bilirubin 0.6 mg/dL (0.3-1.0) 05/02/17 04:15 AST 38 U/L (13-39) 05/02/17 04:15 ALT 22 U/L (7-52) 05/02/17 04:15 Alkaline Phosphatase 70 U/L (34-104) 05/02/17 04:15 Ammonia 19 umol/L (16-53) 05/01/17 20:25 Total Protein 6.5 gm/dL (6.0-8.3) 05/02/17 04:15 Albumin 3.5 gm/dL (3.7-5.3) L 05/02/17 04:15 Globulin 3.0 gm/dL 05/02/17 04:15 Albumin/Globulin Ratio 1.2 (1.0-1.8) 05/02/17 04:15 Triglycerides 368 mg/dL (<150) H 04/16/17 18:20 Cholesterol 150 mg/dL (<200) 04/16/17 18:20 LDL Cholesterol Direct 69 mg/dL (75-193) L 04/16/17 18:20 HDL Cholesterol 40 mg/dL (23-92) 04/16/17 18:20 Free T4 1.04 ng/dL (0.82-1.77) 05/02/17 04:15 TSH 3.72 uIU/ml (0.34-5.60) 05/02/17 04:15 Urine Source [place] 05/02/17 04:30 Urine Color YELLOW 05/02/17 04:30 Urine Clarity HAZY (CLEAR) 05/02/17 04:30 Urine pH 5.5 (4.6 - 8.0) 05/02/17 04:30 Ur Specific [place] >= 1.030 (1.005-1.030) 05/02/17 04:30 Urine Protein 100 mg/dL (NEGATIVE) H 05/02/17 04:30 Urine Glucose (UA) NEGATIVE mg/dL (NEGATIVE) 05/02/17 04:30 Urine Ketones >=80 mg/dL (NEGATIVE) H 05/02/17 04:30 Urine Blood LARGE (NEGATIVE) H 05/02/17 04:30 Urine Nitrate NEGATIVE (NEGATIVE) 05/02/17 04:30 Urine Bilirubin SMALL (NEGATIVE) H 05/02/17 04:30 Urine Urobilinogen 0.2 E.U./dL (0.2 - 1.0) 05/02/17 04:30 Ur Leukocyte Esterase NEGATIVE (NEGATIVE) 05/02/17 04:30 Urine RBC 5-10 /hpf (0-5) H 05/02/17 04:30 Urine WBC 6-10 /hpf (0-5) H 05/02/17 04:30 Ur Epithelial Cells MODERATE /lpf (FEW) 05/02/17 04:30 Urine Bacteria 2+ /hpf (NONE SEEN) H 05/02/17 04:30 Urine Yeast MANY /hpf (NONE SEEN) H 04/18/17 19:20 Salicylates < 25.0 mg/L (30.0-100.0) L 04/16/17 18:20 Urine Opiates Screen NEGATIVE (NEGATIVE) 04/17/17 00:10 Urine Methadone Screen NEGATIVE (NEGATIVE) 04/17/17 00:10 Acetaminophen < 10.0 ug/mL (10.0-30.0) L 04/16/17 18:20 Ur Barbiturates Screen NEGATIVE (NEGATIVE) 04/17/17 00:10 Ur Tricyclics Screen NEGATIVE (NEGATIVE) 04/17/17 00:10 Ur Phencyclidine Scrn NEGATIVE (NEGATIVE) 04/17/17 00:10 Amphetamines Screen NEGATIVE (NEGATIVE) 04/17/17 00:10 U Methamphetamines Scrn NEGATIVE (NEGATIVE) 04/17/17 00:10 U Benzodiazepines Scrn NEGATIVE (NEGATIVE) 04/17/17 00:10 U Cocaine Metab Screen NEGATIVE (NEGATIVE) 04/17/17 00:10 U Cannabinoids Screen NEGATIVE (NEGATIVE) 04/17/17 00:10 Ethyl Alcohol < 10 mg/dL (0-10) 04/16/17 18:20 RPR NONREACTIVE (NONREACTIVE) 04/16/17 18:20 - Physical Exam Vitals and I&O: Vital Signs Temp 99.6 F 05/03/17 04:00 Pulse 91 05/03/17 06:00 Resp 17 05/03/17 07:46 BP 128/41 05/03/17 06:00 Pulse Ox 100 05/03/17 07:46 Intake & Output 05/02/17 05/03/17 05/03/17 18:59 06:59 18:59 Intake Total 3173.031 2329 Output Total 500 1500 Balance 687.333 -308 Weight (lbs) 87.997 kg 86.664 kg Intake: Intake, IV Amount 2400.907 5305 D5-0.9%Ns 1,000 ml @ 60 959 982 mls/hr IV .[id number] COUNT INCLUDES THE [facility] Rx #:[id number] Levetiracetam 1,000 mg In 110 110 Sodium Chloride 0.9% 100 ml @ 400 mls/hr IV Q12H COUNT INCLUDES THE [facility] Rx#:[id number] Piperacillin Sodium/ 118.333 100 Tazobact 4.5 gm In Sodium Chloride 0.9% 100 ml @ 100 mls/hr IV Q8H COUNT INCLUDES THE [facility] Rx# :[id number] Output: Urine 500 1500 Stool 0 Other: # Bowel Movements 1 Stool Characteristics Soft Brown Active Medications: Current Medications Acetaminophen (Tylenol) 650 mg PO Q6H PRN PRN Reason: HEADACHE/TEMP ABOVE 100F Stop: 06/23/17 09:20 Last Admin: 04/28/17 00:41 Dose: 650 mg Acetaminophen (Tylenol 650mg Supp) 650 mg RC Q4H PRN PRN Reason: fever >100.4 Stop: 07/01/17 20:50 Last Admin: 05/02/17 21:30 Dose: 650 mg Albuterol/Ipratropium (Duoneb Neb) 3 ml HHN Q4HRT COUNT INCLUDES THE [facility] Stop: 07/01/17 14:59 Last Admin: 05/03/17 07:46 Dose: 3 ml Cholecalciferol (Vitamin D3) 1,000 iu PO DAILY COUNT INCLUDES THE [facility] Stop: 06/17/17 08:59 Last Admin: 05/02/17 10:30 Dose: Not Given Clopidogrel Bisulfate (Plavix) 75 mg PO DAILY COUNT INCLUDES THE [facility] Stop: 06/17/17 08:59 Last Admin: 05/02/17 10:31 Dose: Not Given Docusate Sodium (Colace) 100 mg PO BID PRN PRN Reason: Constipation Stop: 06/16/17 09:43 Last Admin: 04/25/17 08:59 Dose: 100 mg Enalaprilat (Vasotec) 1.25 mg IVP Q6HR PRN PRN Reason: sbp>160 Stop: 07/01/17 00:00 Last Admin: 05/02/17 01:23 Dose: 1.25 mg Glyburide (Diabeta) 5 mg PO BID COUNT INCLUDES THE [facility] Stop: 06/16/17 16:59 Last Admin: 05/02/17 16:33 Dose: Not Given Haloperidol Lactate (Haldol) 5 mg IM Q6HR PRN PRN Reason: Agitation Stop: 06/30/17 21:25 Last Admin: 05/02/17 13:43 Dose: 5 mg Magnesium Sulfate (Magnesium Sulfate Premix) 2 gm in 50 mls @ 25 mls/hr IV DAILY PRN PRN Reason: Magnesium level below 1.6 Stop: 06/23/17 09:20 Levetiracetam 1,000 mg/ Sodium (Chloride) 110 mls @ 400 mls/hr IV Q12H COUNT INCLUDES THE [facility] Stop: 06/30/17 12:29 Last Infusion: 05/03/17 03:11 Dose: Infused Piperacillin Sod/Tazobactam (Sod 4.5 gm/ Sodium Chloride) 100 mls @ 100 mls/hr IV Q8H COUNT INCLUDES THE [facility] Stop: 06/30/17 15:44 Last Infusion: 05/03/17 03:10 Dose: Infused Dextrose/Sodium Chloride (D5-0.9%Ns) 1,000 mls @ 60 mls/hr IV .[id number] COUNT INCLUDES THE [facility] Stop: 06/30/17 21:44 Last Infusion: 05/03/17 06:21 Dose: 60 mls/hr Lactobacillus Rhamnosus (Culturelle 15b) 1 each PO DAILY COUNT INCLUDES THE [facility] Stop: 07/02/17 08:59 Lamotrigine (Lamictal) 100 mg PO BID RANCHO PRN Reason: Protocol Stop: 06/16/17 16:59 Last Admin: 05/02/17 16:33 Dose: Not Given Lisinopril (Zestril) 20 mg PO BID COUNT INCLUDES THE [facility] Stop: 06/30/17 08:59 Last Admin: 05/02/17 16:33 Dose: Not Given Metoprolol Tartrate (Lopressor) 25 mg PO BID COUNT INCLUDES THE [facility] Stop: 06/27/17 09:14 Last Admin: 05/02/17 16:34 Dose: Not Given Miscellaneous (Probiotic Screen) 1 ea MC PRN PRN PRN Reason: PROTOCOL Stop: 07/01/17 17:02 Morphine Sulfate (Morphine) 1 mg IVP Q4HR PRN PRN Reason: Pain (Moderate) Stop: 06/30/17 21:23 Last Admin: 05/02/17 05:55 Dose: 1 mg Olanzapine (Zyprexa Zydis) 5 mg PO BID RANCHO PRN Reason: Protocol Stop: 06/30/17 10:44 Last Admin: 05/02/17 16:35 Dose: Not Given Potassium Chloride (Klor-Con) 40 meq PO DAILY PRN PRN Reason: k level below 3.5 Stop: 06/23/17 09:20 Last Admin: 04/26/17 08:37 Dose: 40 meq Simvastatin (Zocor) 10 mg PO HS RANCHO PRN Reason: Protocol Stop: 06/16/17 20:59 Last Admin: 05/03/17 00:13 Dose: Not Given Venlafaxine HCl (Effexor Xr) 150 mg PO DAILY RANCHO Stop: 06/17/17 08:59 Last Admin: 05/02/17 10:32 Dose: Not Given General: Moderate distress, Other (agitated, restless) HEENT: Atraumatic, PERRLA, EOMI Neck: Supple, no JVD, no Thyromegaly Cardiovascular: Regular rate, Normal S1, Normal S2 Lungs: Clear to auscultation Abdomen: Bowel sounds, Soft Extremities: Other (right LE cast intact) Psych/Mental Status: Other (psychosis) Assessment/Plan - Assessment Assessment: metabolic encephalopathy 2/2 uti and candidiasis right LE fracture s/p orif UTI DEBBI MDD iimpulse control DO DM HTN Unsteady gait Psychosis-stable Status post fall - Plan Plan: Psych is following. She became acutely altered and very lethargic. Suffered a possible seizure and was transferred to the ICU. critical care and neurology have been consulted. Ortho will eval the patient today. On Seroquel 75 mg tid now per Dr[address] Nunez. Completed Diflucan for UTI. Ct head was cancelled after her fall as was completely asymptomatic and denied any head trauma. Patient remains very altered and is unable to communicate with the medical staff. A CT head cannot be performed because she remains restless at this time. A UA was repeated and it revealed a UTI. Zosyn was started. She's been on Lopressor 25 mg bid. Nutritional Asmnt/Malnutr-PDOC - Dietary Evaluation Malnutrition Findings (Please click <Entered> for more info): Nutritional Asmnt/Malnutrition Start: 04/17/17 07: 44 Text: Status: Complete Freq: Document 04/21/17 09:29 [email or web address] (Rec: 04/21/17 09:34 [email or web address] [id number]) Nutritional Asmnt/Malnutrition Patient General Information Nutritional Screening Moderate Risk Diagnosis metabolic encephalopathy Pertinent Medical Hx/Surgical Hx impulse control disorder, anxiety, depression, DM, HTN, HLD, CAD Subjective Information Pt A&A x 1, confused, with sitter, moving [facility]. PO intake 50-100%, usually eats 100%. Current Diet Order/ Nutrition Support mechanical soft, chopped Patient / S.O Not Indicated Pertinent Medications vit d, plavix, colace, glyburide Pertinent Labs 04/21 glucose: 129-148, hgba1c: 8.0, T Nutritional Hx/Data Height 1.57 m Height (Calculated Centimeters) 157.5 Current Weight (lbs) 90.718 kg Weight (Calculated Kilograms) 90.7 Weight (Calculated Grams) 04057.5 [place] Body Weight 110 % [place] Body Weight 181 Body Mass Index (BMI) 36.6 Weight Status Obese GI Symptoms GI Symptoms None Last BM 04/19 Difficult in: Chewing Skin Integrity/Comment: intact, bruises, no edema noted Current %PO Good (75-100%) Estimated Nutritional Goals BEE in Kcals: Adj wt of IBW Calories/Kcals/Kg 25-30 Kcals Calculated 9676-3111 kcals Protein: Adj wt of IBW Protein g/k-1.2 Protein Calculated 60-72 Fluid: ml 8961-3639 mL (1 ml/kcal) Nutritional Problem 1. Problem Problem altered nutrition related lab values Etiology DM, lack of CCHO diet Signs/Symptoms: gluocse: 129-148, hgba1c: 8.0 Malnutrition Alert Is there a minimum of two criteria No selected? Query Text:Check all the applicable criteria. A minimum of two criteria are recommended for diagnosis of either severe or non-severe malnutrition. Malnutrition Related to Morbid Obesity Malnutrition related to morbid obesity No Intervention/Recommendation Comments 1. Change diet to mechanical soft, chopped, CCHO 60 gm to manage DM Expected Outcomes/Goals Expected Outcomes/Goals PO intake>50%, labs: WNL monitor wt, labs, skin, PO intake
[2017-05-03] MEDS: Lactobacillus Rhamnosus GG 15 Billion CFU CAP.SPRINK PO SCH (10:13)
[2017-05-03] MEDS: OLANZapine 5 mg Oral Disintegrating Tab PO SCH ×2 (10:13→19:01)
--- NOTE | 2017-05-03 17:10 | Progress Notes ---
DATE: 05/03/[address] Nunez. Case was discussed with staff of patient, reviewed records. The patient continues to be on ____. She is nonresponsive the staff, refused to talk before; however, Dr. Valentin is taking care of her and they said that when she took the Ativan, she became that way; however, I thought that and I asked the staff that Dr. Valentin would be the one to examine her receiving focal signs and symptoms and decide whether she has CVA and she would not be able to take her to do the MRI because of his inability to stay still. So at this point, I will leave it up to Dr. Valentin the neurologist to make decision, will be an appropriate medication for her. The patient does have seizure disorder and she is on Keppra. I am not sure if she is having many seizures. She is also on Zyprexa 5 mg twice a day and so at this point, we will see what was the outcome of the medical evaluation. Thank you very much for allowing me to participate in the care of this most interesting lady. JOB# [id number]
[2017-05-03] MEDS: cloNIDine 0.2 mg/24 hr Tdm TD SCH (19:03)
--- NOTE | 2017-05-03 23:59 | Infectious Disease Prog Note ---
Infectious Disease Subjective - Review of Systems Service Date: 05/03/17 Subjective: Leukocytosis again. No fever. Infectious Disease Objective - Results Result Diagrams: 05/04/17 04:15 05/04/17 04:15 Recent Labs: Laboratory Last Values WBC 18.8 Th/cmm (4.8-10.8) H D 05/03/17 04:32 RBC 3.18 Mil/cmm (3.80-5.20) L 05/03/17 04:32 Hgb 10.6 gm/dL (12-16) L 05/03/17 04:32 Hct 30.5 % (41.0-60) L 05/03/17 04:32 MCV 96.0 fl (81-100) 05/03/17 04:32 MCH 33.4 pg (27.0-31.0) H 05/03/17 04:32 MCHC Differential 34.8 pg (28.0-36.0) 05/03/17 04:32 RDW 13.5 % (11.5-20.0) 05/03/17 04:32 Plt Count 483 Th/cmm (150-400) H 05/03/17 04:32 MPV 8.6 fl 05/03/17 04:32 Neutrophils % HOUSING DEVELOPMENT SPECIALIST 05/03/17 04:32 Band Neutrophils % 8 % (0-10) 05/03/17 04:32 Lymphocytes % HOUSING DEVELOPMENT SPECIALIST 05/03/17 04:32 Monocytes % HOUSING DEVELOPMENT SPECIALIST 05/03/17 04:32 Eosinophils % HOUSING DEVELOPMENT SPECIALIST 05/03/17 04:32 Basophils % HOUSING DEVELOPMENT SPECIALIST 05/03/17 04:32 Neutrophils (Manual) 81 % (40-80) H 05/03/17 04:32 Lymphocytes 9 % (20-50) L 05/03/17 04:32 Monocytes 2 % (2-10) 05/03/17 04:32 Platelet Estimate INCREASED PLATELETS (NORMAL) 05/03/17 04:32 ESR 59 mm/hr (0-30) H 05/02/17 04:15 Specimen Source Arterial 05/02/17 16:08 Sample Site RB 05/02/17 16:08 pH 7.29 (7.35-7.45) L 05/02/17 16:08 pCO2 39.0 mmHg (35.0-45.0) 05/02/17 16:08 pO2 85.0 mmHg (80.0-100.0) 05/02/17 16:08 HCO3 19.2 mEq/L (20.0-26.0) L 05/02/17 16:08 Base Excess -7.3 mEq/L (-3.0-3.0) L 05/02/17 16:08 O2 Saturation 95.0 % (92.0-100.0) 05/02/17 16:08 Jet Test NA 05/02/17 16:08 Vent Rate NA 05/02/17 16:08 Inspired O2 50 05/02/17 16:08 Tidal Volume NA 05/02/17 16:08 PEEP NA 05/02/17 16:08 Pressure (ins/psv/peep) NA 05/02/17 16:08 Critical Value E.GIBSON 05/02/17 16:08 Sodium 143 mEq/L (136-145) 05/03/17 04:32 Potassium 4.6 mEq/L (3.5-5.1) 05/03/17 04:32 Chloride 114 mEq/L (98-107) H 05/03/17 04:32 Carbon Dioxide 20.8 mEq/L (21.0-31.0) L 05/03/17 04:32 Anion Gap 12.8 (7.0-16.0) 05/03/17 04:32 BUN 14 mg/dL (7-25) 05/03/17 04:32 Creatinine 1.1 mg/dL (0.6-1.2) 05/03/17 04:32 Est GFR ( Amer) TNP 05/03/17 04:32 Est GFR (Non-Af Amer) TNP 05/03/17 04:32 BUN/Creatinine Ratio 12.7 05/03/17 04:32 Glucose 281 mg/dL (70-105) H 05/03/17 04:32 POC Glucose 298 MG/DL (70 - 105) H 05/03/17 13:06 Hemoglobin A1c % 8.0 % (4.0-6.0) H 04/16/17 18:20 Calcium 9.7 mg/dL (8.6-10.3) 05/03/17 04:32 Total Bilirubin 0.6 mg/dL (0.3-1.0) 05/02/17 04:15 AST 38 U/L (13-39) 05/02/17 04:15 ALT 22 U/L (7-52) 05/02/17 04:15 Alkaline Phosphatase 70 U/L (34-104) 05/02/17 04:15 Ammonia 19 umol/L (16-53) 05/01/17 20:25 Total Protein 6.5 gm/dL (6.0-8.3) 05/02/17 04:15 Albumin 3.5 gm/dL (3.7-5.3) L 05/02/17 04:15 Globulin 3.0 gm/dL 05/02/17 04:15 Albumin/Globulin Ratio 1.2 (1.0-1.8) 05/02/17 04:15 Triglycerides 368 mg/dL (<150) H 04/16/17 18:20 Cholesterol 150 mg/dL (<200) 04/16/17 18:20 LDL Cholesterol Direct 69 mg/dL (75-193) L 04/16/17 18:20 HDL Cholesterol 40 mg/dL (23-92) 04/16/17 18:20 Free T4 1.04 ng/dL (0.82-1.77) 05/02/17 04:15 TSH 3.72 uIU/ml (0.34-5.60) 05/02/17 04:15 Urine Source [place] 05/02/17 04:30 Urine Color YELLOW 05/02/17 04:30 Urine Clarity HAZY (CLEAR) 05/02/17 04:30 Urine pH 5.5 (4.6 - 8.0) 05/02/17 04:30 Ur Specific [place] >= 1.030 (1.005-1.030) 05/02/17 04:30 Urine Protein 100 mg/dL (NEGATIVE) H 05/02/17 04:30 Urine Glucose (UA) NEGATIVE mg/dL (NEGATIVE) 05/02/17 04:30 Urine Ketones >=80 mg/dL (NEGATIVE) H 05/02/17 04:30 Urine Blood LARGE (NEGATIVE) H 05/02/17 04:30 Urine Nitrate NEGATIVE (NEGATIVE) 05/02/17 04:30 Urine Bilirubin SMALL (NEGATIVE) H 05/02/17 04:30 Urine Urobilinogen 0.2 E.U./dL (0.2 - 1.0) 05/02/17 04:30 Ur Leukocyte Esterase NEGATIVE (NEGATIVE) 05/02/17 04:30 Urine RBC 5-10 /hpf (0-5) H 05/02/17 04:30 Urine WBC 6-10 /hpf (0-5) H 05/02/17 04:30 Ur Epithelial Cells MODERATE /lpf (FEW) 05/02/17 04:30 Urine Bacteria 2+ /hpf (NONE SEEN) H 05/02/17 04:30 Urine Yeast MANY /hpf (NONE SEEN) H 04/18/17 19:20 Salicylates < 25.0 mg/L (30.0-100.0) L 04/16/17 18:20 Urine Opiates Screen NEGATIVE (NEGATIVE) 04/17/17 00:10 Urine Methadone Screen NEGATIVE (NEGATIVE) 04/17/17 00:10 Acetaminophen < 10.0 ug/mL (10.0-30.0) L 04/16/17 18:20 Ur Barbiturates Screen NEGATIVE (NEGATIVE) 04/17/17 00:10 Ur Tricyclics Screen NEGATIVE (NEGATIVE) 04/17/17 00:10 Ur Phencyclidine Scrn NEGATIVE (NEGATIVE) 04/17/17 00:10 Amphetamines Screen NEGATIVE (NEGATIVE) 04/17/17 00:10 U Methamphetamines Scrn NEGATIVE (NEGATIVE) 04/17/17 00:10 U Benzodiazepines Scrn NEGATIVE (NEGATIVE) 04/17/17 00:10 U Cocaine Metab Screen NEGATIVE (NEGATIVE) 04/17/17 00:10 U Cannabinoids Screen NEGATIVE (NEGATIVE) 04/17/17 00:10 Ethyl Alcohol < 10 mg/dL (0-10) 04/16/17 18:20 RPR NONREACTIVE (NONREACTIVE) 04/16/17 18:20 - Physical Exam Vitals and I&O: Vital Signs Temp 100.0 F 05/03/17 20:00 Pulse 116 05/03/17 23:33 Resp 22 05/03/17 22:00 BP 205/97 05/03/17 23:33 Pulse Ox 96 05/03/17 22:00 Intake & Output 05/03/17 05/03/17 05/04/17 06:59 18:59 06:59 Intake Total 1192 210 Output Total 1500 470 Balance -308 -260 Weight (lbs) 86.664 kg 86.636 kg Intake: Intake, IV Amount 1192 210 D5-0.9%Ns 1,000 ml @ 60 982 mls/hr IV .[id number] [facility] Rx #:[id number] Levetiracetam 1,000 mg In 110 110 Sodium Chloride 0.9% 100 ml @ 400 mls/hr IV Q12H [facility] Rx#:[id number] Piperacillin Sodium/ 100 Tazobact 3.375 gm In Sodium Chloride 0.9% 50 ml @ 100 mls/hr IV Q6HR [facility] Rx#:[id number] Piperacillin Sodium/ 100 Tazobact 4.5 gm In Sodium Chloride 0.9% 100 ml @ 100 mls/hr IV Q8H [facility] Rx# :[id number] Output: Urine 1500 470 Stool 0 Other: # Bowel Movements 1 Active Medications: Current Medications Acetaminophen (Tylenol) 650 mg PO Q6H PRN PRN Reason: HEADACHE/TEMP ABOVE 100F Stop: 06/23/17 09:20 Last Admin: 04/28/17 00:41 Dose: 650 mg Acetaminophen (Tylenol 650mg Supp) 650 mg RC Q4H PRN PRN Reason: fever >100.4 Stop: 07/01/17 20:50 Last Admin: 05/02/17 21:30 Dose: 650 mg Albuterol/Ipratropium (Duoneb Neb) 3 ml HHN Q4HRT [facility] Stop: 07/01/17 14:59 Last Admin: 05/03/17 18:36 Dose: 3 ml Cholecalciferol (Vitamin D3) 1,000 iu PO DAILY [facility] Stop: 06/17/17 08:59 Last Admin: 05/03/17 10:12 Dose: Not Given Clonidine HCl (Booqxexn-Jet-7) 1 patch TD Sa [facility] Stop: 07/02/17 12:14 Last Admin: 05/03/17 19:03 Dose: 1 patch Clopidogrel Bisulfate (Plavix) 75 mg PO DAILY [facility] Stop: 06/17/17 08:59 Last Admin: 05/03/17 10:13 Dose: Not Given Docusate Sodium (Colace) 100 mg PO BID PRN PRN Reason: Constipation Stop: 06/16/17 09:43 Last Admin: 04/25/17 08:59 Dose: 100 mg Enalaprilat (Vasotec) 2.25 mg IVP Q4HR PRN PRN Reason: [id number]>160 Stop: 06/30/17 22:00 Last Admin: 05/03/17 23:33 Dose: 2.25 mg Glyburide (Diabeta) 5 mg PO BID [facility] Stop: 06/16/17 16:59 Last Admin: 05/03/17 18:52 Dose: Not Given Haloperidol Lactate (Haldol) 5 mg IM Q6HR PRN PRN Reason: Agitation Stop: 06/30/17 21:25 Last Admin: 05/03/17 20:40 Dose: 5 mg Magnesium Sulfate (Magnesium Sulfate Premix) 2 gm in 50 mls @ 25 mls/hr IV DAILY PRN PRN Reason: Magnesium level below 1.6 Stop: 06/23/17 09:20 Levetiracetam 1,000 mg/ Sodium (Chloride) 110 mls @ 400 mls/hr IV Q12H [facility] Stop: 06/30/17 12:29 Last Infusion: 05/03/17 20:31 Dose: Infused Dextrose/Sodium Chloride (D5-0.9%Ns) 1,000 mls @ 60 mls/hr IV .[id number] [facility] Stop: 06/30/17 21:44 Last Infusion: 05/03/17 06:21 Dose: 60 mls/hr Piperacillin Sod/Tazobactam (Sod 3.375 gm/ Sodium Chloride) 50 mls @ 100 mls/ hr IV Q6HR [facility] Stop: 07/02/17 11:59 Last Infusion: 05/03/17 21:07 Dose: Infused Lactobacillus Rhamnosus (Culturelle 15b) 1 each PO DAILY [facility] Stop: 07/02/17 08:59 Last Admin: 05/03/17 10:13 Dose: Not Given Lamotrigine (Lamictal) 100 mg PO BID [facility] PRN Reason: Protocol Stop: 06/16/17 16:59 Last Admin: 05/03/17 18:52 Dose: Not Given Lisinopril (Zestril) 20 mg PO BID [facility] Stop: 06/30/17 08:59 Last Admin: 05/03/17 18:52 Dose: Not Given Metoprolol Tartrate (Lopressor) 25 mg PO BID [facility] Stop: 06/27/17 09:14 Last Admin: 05/03/17 18:53 Dose: Not Given Miscellaneous (Probiotic Screen) 1 ea MC PRN PRN PRN Reason: PROTOCOL Stop: 07/01/17 17:02 Miscellaneous (Tpn Per Pharmacy) 1 ea PRN PRN PRN Reason: PROTOCOL Stop: 07/02/17 16:12 Morphine Sulfate (Morphine) 1 mg IVP Q4HR PRN PRN Reason: Pain (Moderate) Stop: 06/30/17 21:23 Last Admin: 05/02/17 05:55 Dose: 1 mg Olanzapine (Zyprexa Zydis) 5 mg PO BID [facility] PRN Reason: Protocol Stop: 06/30/17 10:44 Last Admin: 05/03/17 19:01 Dose: Not Given Potassium Chloride (Klor-Con) 40 meq PO DAILY PRN PRN Reason: k level below 3.5 Stop: 06/23/17 09:20 Last Admin: 04/26/17 08:37 Dose: 40 meq Simvastatin (Zocor) 10 mg PO HS [facility] PRN Reason: Protocol Stop: 06/16/17 20:59 Last Admin: 05/03/17 20:40 Dose: Not Given Venlafaxine HCl (Effexor Xr) 150 mg PO DAILY [facility] Stop: 06/17/17 08:59 Last Admin: 05/03/17 10:14 Dose: Not Given General: no acute distress, well developed, well nourished HEENT: atraumatic, normocephalic, PERRLA Neck: supple, tracheostomy, no thyromegaly Cardiovascular: S1S2, regular Lungs: clear to auscultation bilaterally, clear to percussion Abdomen: soft, no tender, no distended, no mass Extremities: no cyanosis, no clubbing Neurological: alert Skin: intact Infectious Disease Assmt/Plan - Assessment Assessment: Impression: 1. Leukocytosis, likely reactive or aspiration pneumonia. 2. Aspiration pneumonia. 3. Siezure disorder. - Plan Plan: Continue the same plan. check CBC in am. Nutritional Asmnt/Malnutr-PDOC - Dietary Evaluation Malnutrition Findings (Please click <Entered> for more info): Nutritional Asmnt/Malnutrition Start: 04/17/17 07: 44 Text: Status: Complete Freq: Document 04/21/17 09:29 [email or web address] (Rec: 04/21/17 09:34 [email or web address] [id number]) Nutritional Asmnt/Malnutrition Patient General Information Nutritional Screening Moderate Risk Diagnosis metabolic encephalopathy Pertinent Medical Hx/Surgical Hx impulse control disorder, anxiety, depression, DM, HTN, HLD, CAD Subjective Information Pt A&A x 1, confused, with sitter, moving to [facility]. PO intake 50-100%, usually eats 100%. Current Diet Order/ Nutrition Support mechanical soft, chopped Patient / S.O Not Indicated Pertinent Medications vit d, plavix, colace, glyburide Pertinent Labs 04/21 glucose: 129-148, hgba1c: 8.0, T Nutritional Hx/Data Height 1.57 m Height (Calculated Centimeters) 157.5 Current Weight (lbs) 90.718 kg Weight (Calculated Kilograms) 90.7 Weight (Calculated Grams) 89152.5 [place] Body Weight 110 % [place] Body Weight 181 Body Mass Index (BMI) 36.6 Weight Status Obese GI Symptoms GI Symptoms None Last BM 04/19 Difficult in: Chewing Skin Integrity/Comment: intact, bruises, no edema noted Current %PO Good (75-100%) Estimated Nutritional Goals BEE in Kcals: Adj wt of IBW Calories/Kcals/Kg 25-30 Kcals Calculated 0429-9716 kcals Protein: Adj wt of IBW Protein g/k-1.2 Protein Calculated 60-72 Fluid: ml 7771-2201 mL (1 ml/kcal) Nutritional Problem 1. Problem Problem altered nutrition related lab values Etiology DM, lack of CCHO diet Signs/Symptoms: gluocse: 129-148, hgba1c: 8.0 Malnutrition Alert Is there a minimum of two criteria No selected? Query Text:Check all the applicable criteria. A minimum of two criteria are recommended for diagnosis of either severe or non-severe malnutrition. Malnutrition Related to Morbid Obesity Malnutrition related to morbid obesity No Intervention/Recommendation Comments 1. Change diet to mechanical soft, chopped, CCHO 60 gm to manage DM Expected Outcomes/Goals Expected Outcomes/Goals PO intake>50%, labs: WNL monitor wt, labs, skin, PO intake
--- NOTE | 2017-05-04 00:36 | Consultation ---
DATE OF CONSULTATION: 05/03/2017 ORTHOPEDIC SURGERY CONSULTATION HISTORY OF PRESENT ILLNESS: The patient is a 76-year-old lady admitted to [facility] on 04/16/2017 via the Emergency Room where she was brought by her daughter because of altered mental status. She was noted to have a cast on her right leg and the daughter said she had surgery. I was called in orthopedic consultation regarding her right leg situation. A note on the chart, presumably from the patient's daughter, indicated that she had surgery in [facility] by Dr. Barnes on 03/10/2017 -- fixation of her right ankle fractures. She apparently had fallen the previous day. PAST HISTORY: I am not able to get any information from the patient. Her daughter, and no other relatives are present to provide details. Review of the chart indicates multiple diagnoses including diabetes, dementia, schizoaffective disorder, hypertension, coronary artery disease, urinary tract infection, possible seizures, "metabolic encephalopathy" and anxiety disorder. ADDITIONAL PAST HISTORY: Not available. FAMILY HISTORY: Not available. REVIEW OF SYSTEMS: Not able. PHYSICAL EXAMINATION: The patient was examined in her hospital bed in the ICU. She keeps her eyes closed most of the time and is thrashing about on the bed, moving all extremities well and rocking her head from side to side. She does respond to stimuli; that is, when I examined her legs she withdraws and moves more. I am not able to make any further determination about her sensory perception. There is a tattered short-leg fiberglass cast in place on the right, which has been on for quite some time -- her calf muscles are atrophied and the cast is quite loose. IMAGING STUDIES: I reviewed images of her right ankle in the PACS dated 05/02/2017. There is hardware in place for the fixation of a bimalleolar fracture with a plate and screws on the lateral malleolus and cannulated screws medially; all remains with good position. ORTHOPEDIC DIAGNOSIS: S/P ORIF bimalleolar fracture, right ankle. PLAN AND RECOMMENDATIONS: I removed the cast and inspected her ankle. The wounds are well healed. There is no sign of infection. There is no breakdown of the skin. Skin color and temperature are normal. I asked the nurse to order a Cam walker, removable type cast. Meanwhile, I made a posterior splint from the back half of her fiberglass cast and she can wear that until the Cam walker is available. She should have protected weightbearing on her right side-- not over 20 pounds, for another 6 weeks. By that time, the fracture should be better healed and she can increase her weightbearing to 50 pounds and use a cane or walker for another 3 months until the fracture fully healed. Periodic X-rays should be taken each month. Thank you for this interesting referral. Adal Carrillo M.D. JOB# [id number] MTDD
[2017-05-04] MEDS: Haloperidol Lactate 5 mg/mL 1mL Vial IM PRN (02:50)
[2017-05-04] MEDS: Albuterol/Ipratropium Neb 3 ML AERS HHN SCH ×6 (03:11→23:00)
[2017-05-04 05:05] LABS: % LYMPHOCYTES 8.9 % (20.0-50.0); NEUTROPHILE ABSOLUTE 11.5 Th/cmm (1.8-8.0); RED CELL DISTRIBUTION WIDTH 13.6 % (11.5-20.0)
[2017-05-04 05:12] LABS: % BASOPHILS 1.6 % (0.0-2.0); % MONOCYTES 6.7 % (2.0-10.0); % NEUTROPHILS 82.8 % (40.0-80.0); BASOPHILE ABSOLUTE 0.2 Th/cumm (0-0.2); HEMATOCRIT 32.6 % (41.0-60); HEMOGLOBIN 11.1 gm/dL (12-16); LYMPHOCYTE ABSOLUTE 1.2 Th/cmm (1.5-3.0); MEAN PLATELET VOLUME 8.9 fl; MONOCYTE ABSOLUTE 0.9 Th/cmm (0.3-1.0); PLATELET COUNT 472 Th/cmm (150-400); RED BLOOD COUNT 3.36 Mil/cmm (3.80-5.20)
[2017-05-04 05:42] LABS: ALB/GLOB RATIO 0.9 (1.0-1.8); ALBUMIN 3.3 gm/dL (3.7-5.3); ALKALINE PHOSPHATASE 70 U/L (34-104); ANION GAP 10.5 (7.0-16.0); BILIRUBIN,TOTAL 0.6 mg/dL (0.3-1.0); BUN - UREA NITROGEN 22 mg/dL (7-25); CALCIUM SERUM 9.9 mg/dL (8.6-10.3); CARBON DIOXIDE 20.4 mEq/L (21.0-31.0); CHLORIDE 120 mEq/L (98-107); CREATININE - SERUM 1.2 mg/dL (0.6-1.2); GLUCOSE 323 mg/dL (70-105); MAGNESIUM 1.9 mg/dL (1.9-2.7); PHOSPHOROUS 1.3 mg/dL (2.5-5.0); SGOT 41 U/L (13-39); SGPT/ALT 28 U/L (7-52); SODIUM SERUM 148 mEq/L (136-145); TOTAL PROTEIN,SERUM 7.1 gm/dL (6.0-8.3)
[2017-05-04 06:40] LABS: WHITE BLOOD COUNT 13.8 Th/cmm (4.8-10.8)
[2017-05-04 08:01] LABS: POTASSIUM SERUM 2.9 mEq/L (3.5-5.1)
[2017-05-04] MEDS: OLANZapine 5 mg Oral Disintegrating Tab PO SCH ×2 (09:00→18:50)
[2017-05-04] MEDS: Lactobacillus Rhamnosus GG 15 Billion CFU CAP.SPRINK PO SCH (09:00)
[2017-05-04] MEDS: KCL 20mEq/100mL Premix 20 MEQ/100 ML PIGGYBACK IV SCH ×2 (10:05→12:31)
[2017-05-04] MEDS ORDERED: Potassium Phosphate 20 MMOLE in Dextrose 5% 250 ML IV ONE (11:00)
--- NOTE | 2017-05-04 11:13 | Diagnostic Imaging Report ---
CT scan of the brain without intravenous contrast HISTORY: Encephalopathy Total DLP equals 624 CTDI equals 37.9 Axial sections were obtained from the base of the skull to the vertex. Craniotomy defects noted within the right frontal parietal region of the skull. There is prominence/enlargement of the ventricular system size. Associated enlargement of cerebral sulci and subarachnoid cisterns. Findings are consistent with changes of generalized cerebral atrophy. No acute parenchymal abnormalities. No acute cerebral hemorrhage. Hypodensity is seen within the supratentorial white matter regions without mass effect. The findings may be associated with chronic small vessel ischemic disease. No extra-axial masses or abnormal fluid collections. IMPRESSION: 1. No acute abnormalities 2. Cerebral atrophy 3. Supratentorial white matter changes that may reflect chronic small vessel ischemic disease 4. Surgical changes
--- NOTE | 2017-05-04 16:12 | General Progress Note ---
Subjective - Review of Systems Service Date: 05/04/17 Events since last encounter: UA was positive and the patient started on zosyn. CT head revealed no masses or hemorrhages. Patient is not as agitated, continue restraints so she does not pull her lines out. Subjective: The patient was seen, evaluated and responds to stimuli. She is agitated but it has improved since yesterday. No s/s of seizure since being moved to the ICU. Objective - Results Result Diagrams: 05/04/17 04:15 05/04/17 04:15 Recent Labs: Laboratory Last Values WBC 13.8 Th/cmm (4.8-10.8) H D 05/04/17 04:15 RBC 3.36 Mil/cmm (3.80-5.20) L 05/04/17 04:15 Hgb 11.1 gm/dL (12-16) L 05/04/17 04:15 Hct 32.6 % (41.0-60) L 05/04/17 04:15 MCV 97.0 fl (81-100) 05/04/17 04:15 MCH 33.0 pg (27.0-31.0) H 05/04/17 04:15 MCHC Differential 34.0 pg (28.0-36.0) 05/04/17 04:15 RDW 13.6 % (11.5-20.0) 05/04/17 04:15 Plt Count 472 Th/cmm (150-400) H 05/04/17 04:15 MPV 8.9 fl 05/04/17 04:15 Neutrophils % 82.8 % (40.0-80.0) H 05/04/17 04:15 Band Neutrophils % 8 % (0-10) 05/03/17 04:32 Lymphocytes % 8.9 % (20.0-50.0) L 05/04/17 04:15 Monocytes % 6.7 % (2.0-10.0) 05/04/17 04:15 Eosinophils % 0.0 % (0.0-5.0) 05/04/17 04:15 Basophils % 1.6 % (0.0-2.0) 05/04/17 04:15 Neutrophils (Manual) 81 % (40-80) H 05/03/17 04:32 Lymphocytes 9 % (20-50) L 05/03/17 04:32 Monocytes 2 % (2-10) 05/03/17 04:32 Platelet Estimate INCREASED PLATELETS (NORMAL) 05/03/17 04:32 ESR 59 mm/hr (0-30) H 05/02/17 04:15 Specimen Source Arterial 05/02/17 16:08 Sample Site RB 05/02/17 16:08 pH 7.29 (7.35-7.45) L 05/02/17 16:08 pCO2 39.0 mmHg (35.0-45.0) 05/02/17 16:08 pO2 85.0 mmHg (80.0-100.0) 05/02/17 16:08 HCO3 19.2 mEq/L (20.0-26.0) L 05/02/17 16:08 Base Excess -7.3 mEq/L (-3.0-3.0) L 05/02/17 16:08 O2 Saturation 95.0 % (92.0-100.0) 05/02/17 16:08 Jet Test NA 05/02/17 16:08 Vent Rate NA 05/02/17 16:08 Inspired O2 50 05/02/17 16:08 Tidal Volume NA 05/02/17 16:08 PEEP NA 05/02/17 16:08 Pressure (ins/psv/peep) NA 05/02/17 16:08 Critical Value E.GIBSON 05/02/17 16:08 Sodium 148 mEq/L (136-145) H 05/04/17 04:15 Potassium 2.9 mEq/L (3.5-5.1) L* D 05/04/17 04:15 Chloride 120 mEq/L (98-107) H 05/04/17 04:15 Carbon Dioxide 20.4 mEq/L (21.0-31.0) L 05/04/17 04:15 Anion Gap 10.5 (7.0-16.0) 05/04/17 04:15 BUN 22 mg/dL (7-25) 05/04/17 04:15 Creatinine 1.2 mg/dL (0.6-1.2) 05/04/17 04:15 Est GFR ( Amer) TNP 05/04/17 04:15 Est GFR (Non-Af Amer) TNP 05/04/17 04:15 BUN/Creatinine Ratio 18.3 05/04/17 04:15 Glucose 323 mg/dL (70-105) H 05/04/17 04:15 POC Glucose 298 MG/DL (70 - 105) H 05/03/17 13:06 Hemoglobin A1c % 8.0 % (4.0-6.0) H 04/16/17 18:20 Calcium 9.9 mg/dL (8.6-10.3) 05/04/17 04:15 Phosphorus 1.3 mg/dL (2.5-5.0) L 05/04/17 04:15 Magnesium 1.9 mg/dL (1.9-2.7) 05/04/17 04:15 Total Bilirubin 0.6 mg/dL (0.3-1.0) 05/04/17 04:15 AST 41 U/L (13-39) H 05/04/17 04:15 ALT 28 U/L (7-52) 05/04/17 04:15 Alkaline Phosphatase 70 U/L (34-104) 05/04/17 04:15 Ammonia 19 umol/L (16-53) 05/01/17 20:25 Total Protein 7.1 gm/dL (6.0-8.3) 05/04/17 04:15 Albumin 3.3 gm/dL (3.7-5.3) L 05/04/17 04:15 Globulin 3.8 gm/dL 05/04/17 04:15 Albumin/Globulin Ratio 0.9 (1.0-1.8) L 05/04/17 04:15 Triglycerides 368 mg/dL (<150) H 04/16/17 18:20 Cholesterol 150 mg/dL (<200) 04/16/17 18:20 LDL Cholesterol Direct 69 mg/dL (75-193) L 04/16/17 18:20 HDL Cholesterol 40 mg/dL (23-92) 04/16/17 18:20 Free T4 1.04 ng/dL (0.82-1.77) 05/02/17 04:15 TSH 3.72 uIU/ml (0.34-5.60) 05/02/17 04:15 Urine Source [place] 05/02/17 04:30 Urine Color YELLOW 05/02/17 04:30 Urine Clarity HAZY (CLEAR) 05/02/17 04:30 Urine pH 5.5 (4.6 - 8.0) 05/02/17 04:30 Ur Specific [place] >= 1.030 (1.005-1.030) 05/02/17 04:30 Urine Protein 100 mg/dL (NEGATIVE) H 05/02/17 04:30 Urine Glucose (UA) NEGATIVE mg/dL (NEGATIVE) 05/02/17 04:30 Urine Ketones >=80 mg/dL (NEGATIVE) H 05/02/17 04:30 Urine Blood LARGE (NEGATIVE) H 05/02/17 04:30 Urine Nitrate NEGATIVE (NEGATIVE) 05/02/17 04:30 Urine Bilirubin SMALL (NEGATIVE) H 05/02/17 04:30 Urine Urobilinogen 0.2 E.U./dL (0.2 - 1.0) 05/02/17 04:30 Ur Leukocyte Esterase NEGATIVE (NEGATIVE) 05/02/17 04:30 Urine RBC 5-10 /hpf (0-5) H 05/02/17 04:30 Urine WBC 6-10 /hpf (0-5) H 05/02/17 04:30 Ur Epithelial Cells MODERATE /lpf (FEW) 05/02/17 04:30 Urine Bacteria 2+ /hpf (NONE SEEN) H 05/02/17 04:30 Urine Yeast MANY /hpf (NONE SEEN) H 04/18/17 19:20 Salicylates < 25.0 mg/L (30.0-100.0) L 04/16/17 18:20 Urine Opiates Screen NEGATIVE (NEGATIVE) 04/17/17 00:10 Urine Methadone Screen NEGATIVE (NEGATIVE) 04/17/17 00:10 Acetaminophen < 10.0 ug/mL (10.0-30.0) L 04/16/17 18:20 Ur Barbiturates Screen NEGATIVE (NEGATIVE) 04/17/17 00:10 Ur Tricyclics Screen NEGATIVE (NEGATIVE) 04/17/17 00:10 Ur Phencyclidine Scrn NEGATIVE (NEGATIVE) 04/17/17 00:10 Amphetamines Screen NEGATIVE (NEGATIVE) 04/17/17 00:10 U Methamphetamines Scrn NEGATIVE (NEGATIVE) 04/17/17 00:10 U Benzodiazepines Scrn NEGATIVE (NEGATIVE) 04/17/17 00:10 U Cocaine Metab Screen NEGATIVE (NEGATIVE) 04/17/17 00:10 U Cannabinoids Screen NEGATIVE (NEGATIVE) 04/17/17 00:10 Ethyl Alcohol < 10 mg/dL (0-10) 04/16/17 18:20 RPR NONREACTIVE (NONREACTIVE) 04/16/17 18:20 - Physical Exam Vitals and I&O: Vital Signs Temp 100.1 F 05/04/17 08:00 Pulse 120 05/04/17 14:30 Resp 30 05/04/17 14:30 BP 192/81 05/04/17 13:30 Pulse Ox 97 05/04/17 14:30 Intake & Output 05/03/17 05/04/17 05/04/17 18:59 06:59 18:59 Intake Total 420 100 Output Total 470 400 Balance -50 -300 Weight (lbs) 86.636 kg 86.636 kg Intake: Intake, IV Amount 420 100 KCL 20mEq/100mL Premix 20 100 meq In 100 ml @ 50 mls/ hr IV Q2H [facility] Rx#: [id number] Levetiracetam 1,000 mg In 220 Sodium Chloride 0.9% 100 ml @ 400 mls/hr IV Q12H [facility] Rx#:[id number] Piperacillin Sodium/ 200 Tazobact 3.375 gm In Sodium Chloride 0.9% 50 ml @ 100 mls/hr IV Q6HR [facility] Rx#:[id number] Output: Urine 470 400 Other: # Voids 1 Active Medications: Current Medications Acetaminophen (Tylenol) 650 mg PO Q6H PRN PRN Reason: HEADACHE/TEMP ABOVE 100F Stop: 06/23/17 09:20 Last Admin: 04/28/17 00:41 Dose: 650 mg Acetaminophen (Tylenol 650mg Supp) 650 mg RC Q4H PRN PRN Reason: fever >100.4 Stop: 07/01/17 20:50 Last Admin: 05/02/17 21:30 Dose: 650 mg Albuterol/Ipratropium (Duoneb Neb) 3 ml HHN Q4HRT [facility] Stop: 07/01/17 14:59 Last Admin: 05/04/17 14:29 Dose: 3 ml Cholecalciferol (Vitamin D3) 1,000 iu PO DAILY [facility] Stop: 06/17/17 08:59 Last Admin: 05/03/17 10:12 Dose: Not Given Clonidine HCl (Jidnwgub-Ubz-9) 1 patch TD Sa [facility] Stop: 07/02/17 12:14 Last Admin: 05/03/17 19:03 Dose: 1 patch Clopidogrel Bisulfate (Plavix) 75 mg PO DAILY [facility] Stop: 06/17/17 08:59 Last Admin: 05/03/17 10:13 Dose: Not Given Docusate Sodium (Colace) 100 mg PO BID PRN PRN Reason: Constipation Stop: 06/16/17 09:43 Last Admin: 04/25/17 08:59 Dose: 100 mg Enalaprilat (Vasotec) 2.25 mg IVP Q4HR PRN PRN Reason: [id number]>160 Stop: 06/30/17 22:00 Last Admin: 05/04/17 13:30 Dose: 2.25 mg Glyburide (Diabeta) 5 mg PO BID [facility] Stop: 06/16/17 16:59 Last Admin: 05/04/17 09:35 Dose: Not Given Haloperidol Lactate (Haldol) 5 mg IM Q6HR PRN PRN Reason: Agitation Stop: 06/30/17 21:25 Last Admin: 05/04/17 02:50 Dose: 5 mg Magnesium Sulfate (Magnesium Sulfate Premix) 2 gm in 50 mls @ 25 mls/hr IV DAILY PRN PRN Reason: Magnesium level below 1.6 Stop: 06/23/17 09:20 Levetiracetam 1,000 mg/ Sodium (Chloride) 110 mls @ 400 mls/hr IV Q12H [facility] Stop: 06/30/17 12:29 Last Infusion: 05/04/17 01:35 Dose: Infused Dextrose/Sodium Chloride (D5-0.9%Ns) 1,000 mls @ 60 mls/hr IV .[id number] [facility] Stop: 06/30/17 21:44 Last Infusion: 05/03/17 06:21 Dose: 60 mls/hr Piperacillin Sod/Tazobactam (Sod 3.375 gm/ Sodium Chloride) 50 mls @ 100 mls/ hr IV Q6HR [facility] Stop: 07/02/17 11:59 Last Infusion: 05/04/17 06:30 Dose: Infused Parenteral Electrolytes 20 ml/Multivitamins/Minerals 5 ml/Potassium Phosphate 9 mmole/Dextrose/ Amino Acids/Electrolytes 1,028 mls @ 40 mls/hr IV .Q24H [facility] Stop: 06/02/17 17:59 Lactobacillus Rhamnosus (Culturelle 15b) 1 each PO DAILY [facility] Stop: 07/02/17 08:59 Last Admin: 05/03/17 10:13 Dose: Not Given Lamotrigine (Lamictal) 100 mg PO BID [facility] PRN Reason: Protocol Stop: 06/16/17 16:59 Last Admin: 05/04/17 09:35 Dose: Not Given Lisinopril (Zestril) 20 mg PO BID [facility] Stop: 06/30/17 08:59 Last Admin: 05/04/17 09:35 Dose: Not Given Metoprolol Tartrate (Lopressor) 25 mg PO BID [facility] Stop: 06/27/17 09:14 Last Admin: 05/03/17 18:53 Dose: Not Given Miscellaneous (Probiotic Screen) 1 [facility] PRN PRN PRN Reason: PROTOCOL Stop: 07/01/17 17:02 Miscellaneous (Tpn Per Pharmacy) 1 [facility] PRN PRN PRN Reason: PROTOCOL Stop: 07/02/17 16:12 Morphine Sulfate (Morphine) 1 mg IVP Q4HR PRN PRN Reason: Pain (Moderate) Stop: 06/30/17 21:23 Last Admin: 05/02/17 05:55 Dose: 1 mg Olanzapine (Zyprexa Zydis) 5 mg PO BID [facility] PRN Reason: Protocol Stop: 06/30/17 10:44 Last Admin: 05/03/17 19:01 Dose: Not Given Potassium Chloride (Klor-Con) 40 meq PO DAILY PRN PRN Reason: k level below 3.5 Stop: 06/23/17 09:20 Last Admin: 04/26/17 08:37 Dose: 40 meq Simvastatin (Zocor) 10 mg PO [facility] PRN Reason: Protocol Stop: 06/16/17 20:59 Last Admin: 05/03/17 20:40 Dose: Not Given Venlafaxine HCl (Effexor Xr) 150 mg PO DAILY [facility] Stop: 06/17/17 08:59 Last Admin: 05/03/17 10:14 Dose: Not Given General: Moderate distress, Other (agitated, restless) HEENT: Atraumatic, PERRLA, EOMI Neck: Supple, no JVD, no Thyromegaly Cardiovascular: Regular rate, Normal S1, Normal S2 Lungs: Clear to auscultation Abdomen: Bowel sounds, Soft Extremities: Other Psych/Mental Status: Other (psychosis and agitated) Assessment/Plan - Assessment Assessment: metabolic encephalopathy 2/2 uti and candidiasis right LE fracture s/p orif DEBBI MDD iimpulse control DO DM HTN Unsteady gait Psychosis Status post fall - Plan Plan: Psych is following. She became acutely altered and very lethargic. Suffered a possible seizure and was transferred to the ICU. critical care and neurology are following. Ortho removed the anterior portion of the cast, but would like the posterior part remain intact and to wrap it into place with an paco bandage. On Seroquel 75 mg tid now per Dr[address] Nunez. Completed Diflucan for UTI. Ct head revealed no masses or hemorrhages. UA was repeated and it revealed a UTI. Zosyn was started. She's been on Lopressor 25 mg bid. Nutritional Asmnt/Malnutr-PDOC - Dietary Evaluation Malnutrition Findings (Please click <Entered> for more info): Nutritional Asmnt/Malnutrition Start: 04/17/17 07: 44 Text: Status: Complete Freq: Document 04/21/17 09:29 [email or web address] (Rec: 04/21/17 09:34 [email or web address] Nutritional Asmnt/Malnutrition Patient General Information Nutritional Screening Moderate Risk Diagnosis metabolic encephalopathy Pertinent Medical Hx/Surgical Hx impulse control disorder, anxiety, depression, DM, HTN, HLD, CAD Subjective Information Pt A&A x 1, confused, with sitter, moving to [facility]. PO intake 50-100%, usually eats 100%. Current Diet Order/ Nutrition Support mechanical soft, chopped Patient / S.O Not Indicated Pertinent Medications vit d, plavix, colace, glyburide Pertinent Labs 04/21 glucose: 129-148, hgba1c: 8.0, T Nutritional Hx/Data Height 1.57 m Height (Calculated Centimeters) 157.5 Current Weight (lbs) 90.718 kg Weight (Calculated Kilograms) 90.7 Weight (Calculated Grams) 46661.5 [place] Body Weight 110 % [place] Body Weight 181 Body Mass Index (BMI) 36.6 Weight Status Obese GI Symptoms GI Symptoms None Last BM 04/19 Difficult in: Chewing Skin Integrity/Comment: intact, bruises, no edema noted Current %PO Good (75-100%) Estimated Nutritional Goals BEE in Kcals: Adj wt of IBW Calories/Kcals/Kg 25-30 Kcals Calculated 3938-0512 kcals Protein: Adj wt of IBW Protein g/k-1.2 Protein Calculated 60-72 Fluid: ml 4169-9212 mL (1 ml/kcal) Nutritional Problem 1. Problem Problem altered nutrition related lab values Etiology DM, lack of CCHO diet Signs/Symptoms: gluocse: 129-148, hgba1c: 8.0 Malnutrition Alert Is there a minimum of two criteria No selected? Query Text:Check all the applicable criteria. A minimum of two criteria are recommended for diagnosis of either severe or non-severe malnutrition. Malnutrition Related to Morbid Obesity Malnutrition related to morbid obesity No Intervention/Recommendation Comments 1. Change diet to mechanical soft, chopped, CCHO 60 gm to manage DM Expected Outcomes/Goals Expected Outcomes/Goals PO intake>50%, labs: WNL monitor wt, labs, skin, PO intake
[2017-05-04] MEDS: D5-0.9%NS 1,000 ML IV SCH (16:15)
--- NOTE | 2017-05-04 17:14 | Infectious Disease Prog Note ---
Infectious Disease Subjective - Review of Systems Service Date: 05/04/17 Subjective: Leukocytosis improved. No fever. T max 100.1 degree F. Infectious Disease Objective - Results Result Diagrams: 05/04/17 04:15 05/04/17 04:15 Recent Labs: Laboratory Last Values WBC 13.8 Th/cmm (4.8-10.8) H D 05/04/17 04:15 RBC 3.36 Mil/cmm (3.80-5.20) L 05/04/17 04:15 Hgb 11.1 gm/dL (12-16) L 05/04/17 04:15 Hct 32.6 % (41.0-60) L 05/04/17 04:15 MCV 97.0 fl (81-100) 05/04/17 04:15 MCH 33.0 pg (27.0-31.0) H 05/04/17 04:15 MCHC Differential 34.0 pg (28.0-36.0) 05/04/17 04:15 RDW 13.6 % (11.5-20.0) 05/04/17 04:15 Plt Count 472 Th/cmm (150-400) H 05/04/17 04:15 MPV 8.9 fl 05/04/17 04:15 Neutrophils % 82.8 % (40.0-80.0) H 05/04/17 04:15 Band Neutrophils % 8 % (0-10) 05/03/17 04:32 Lymphocytes % 8.9 % (20.0-50.0) L 05/04/17 04:15 Monocytes % 6.7 % (2.0-10.0) 05/04/17 04:15 Eosinophils % 0.0 % (0.0-5.0) 05/04/17 04:15 Basophils % 1.6 % (0.0-2.0) 05/04/17 04:15 Neutrophils (Manual) 81 % (40-80) H 05/03/17 04:32 Lymphocytes 9 % (20-50) L 05/03/17 04:32 Monocytes 2 % (2-10) 05/03/17 04:32 Platelet Estimate INCREASED PLATELETS (NORMAL) 05/03/17 04:32 ESR 59 mm/hr (0-30) H 05/02/17 04:15 Specimen Source Arterial 05/02/17 16:08 Sample Site RB 05/02/17 16:08 pH 7.29 (7.35-7.45) L 05/02/17 16:08 pCO2 39.0 mmHg (35.0-45.0) 05/02/17 16:08 pO2 85.0 mmHg (80.0-100.0) 05/02/17 16:08 HCO3 19.2 mEq/L (20.0-26.0) L 05/02/17 16:08 Base Excess -7.3 mEq/L (-3.0-3.0) L 05/02/17 16:08 O2 Saturation 95.0 % (92.0-100.0) 05/02/17 16:08 Jet Test NA 05/02/17 16:08 Vent Rate NA 05/02/17 16:08 Inspired O2 50 05/02/17 16:08 Tidal Volume NA 05/02/17 16:08 PEEP NA 05/02/17 16:08 Pressure (ins/psv/peep) NA 05/02/17 16:08 Critical Value E.GIBSON 05/02/17 16:08 Sodium 148 mEq/L (136-145) H 05/04/17 04:15 Potassium 2.9 mEq/L (3.5-5.1) L* D 05/04/17 04:15 Chloride 120 mEq/L (98-107) H 05/04/17 04:15 Carbon Dioxide 20.4 mEq/L (21.0-31.0) L 05/04/17 04:15 Anion Gap 10.5 (7.0-16.0) 05/04/17 04:15 BUN 22 mg/dL (7-25) 05/04/17 04:15 Creatinine 1.2 mg/dL (0.6-1.2) 05/04/17 04:15 Est GFR ( Amer) TNP 05/04/17 04:15 Est GFR (Non-Af Amer) TNP 05/04/17 04:15 BUN/Creatinine Ratio 18.3 05/04/17 04:15 Glucose 323 mg/dL (70-105) H 05/04/17 04:15 POC Glucose 298 MG/DL (70 - 105) H 05/03/17 13:06 Hemoglobin A1c % 8.0 % (4.0-6.0) H 04/16/17 18:20 Calcium 9.9 mg/dL (8.6-10.3) 05/04/17 04:15 Phosphorus 1.3 mg/dL (2.5-5.0) L 05/04/17 04:15 Magnesium 1.9 mg/dL (1.9-2.7) 05/04/17 04:15 Total Bilirubin 0.6 mg/dL (0.3-1.0) 05/04/17 04:15 AST 41 U/L (13-39) H 05/04/17 04:15 ALT 28 U/L (7-52) 05/04/17 04:15 Alkaline Phosphatase 70 U/L (34-104) 05/04/17 04:15 Ammonia 19 umol/L (16-53) 05/01/17 20:25 Total Protein 7.1 gm/dL (6.0-8.3) 05/04/17 04:15 Albumin 3.3 gm/dL (3.7-5.3) L 05/04/17 04:15 Globulin 3.8 gm/dL 05/04/17 04:15 Albumin/Globulin Ratio 0.9 (1.0-1.8) L 05/04/17 04:15 Triglycerides 368 mg/dL (<150) H 04/16/17 18:20 Cholesterol 150 mg/dL (<200) 04/16/17 18:20 LDL Cholesterol Direct 69 mg/dL (75-193) L 04/16/17 18:20 HDL Cholesterol 40 mg/dL (23-92) 04/16/17 18:20 Free T4 1.04 ng/dL (0.82-1.77) 05/02/17 04:15 TSH 3.72 uIU/ml (0.34-5.60) 05/02/17 04:15 Urine Source [place] 05/02/17 04:30 Urine Color YELLOW 05/02/17 04:30 Urine Clarity HAZY (CLEAR) 05/02/17 04:30 Urine pH 5.5 (4.6 - 8.0) 05/02/17 04:30 Ur Specific [place] >= 1.030 (1.005-1.030) 05/02/17 04:30 Urine Protein 100 mg/dL (NEGATIVE) H 05/02/17 04:30 Urine Glucose (UA) NEGATIVE mg/dL (NEGATIVE) 05/02/17 04:30 Urine Ketones >=80 mg/dL (NEGATIVE) H 05/02/17 04:30 Urine Blood LARGE (NEGATIVE) H 05/02/17 04:30 Urine Nitrate NEGATIVE (NEGATIVE) 05/02/17 04:30 Urine Bilirubin SMALL (NEGATIVE) H 05/02/17 04:30 Urine Urobilinogen 0.2 E.U./dL (0.2 - 1.0) 05/02/17 04:30 Ur Leukocyte Esterase NEGATIVE (NEGATIVE) 05/02/17 04:30 Urine RBC 5-10 /hpf (0-5) H 05/02/17 04:30 Urine WBC 6-10 /hpf (0-5) H 05/02/17 04:30 Ur Epithelial Cells MODERATE /lpf (FEW) 05/02/17 04:30 Urine Bacteria 2+ /hpf (NONE SEEN) H 05/02/17 04:30 Urine Yeast MANY /hpf (NONE SEEN) H 04/18/17 19:20 Salicylates < 25.0 mg/L (30.0-100.0) L 04/16/17 18:20 Urine Opiates Screen NEGATIVE (NEGATIVE) 04/17/17 00:10 Urine Methadone Screen NEGATIVE (NEGATIVE) 04/17/17 00:10 Acetaminophen < 10.0 ug/mL (10.0-30.0) L 04/16/17 18:20 Ur Barbiturates Screen NEGATIVE (NEGATIVE) 04/17/17 00:10 Ur Tricyclics Screen NEGATIVE (NEGATIVE) 04/17/17 00:10 Ur Phencyclidine Scrn NEGATIVE (NEGATIVE) 04/17/17 00:10 Amphetamines Screen NEGATIVE (NEGATIVE) 04/17/17 00:10 U Methamphetamines Scrn NEGATIVE (NEGATIVE) 04/17/17 00:10 U Benzodiazepines Scrn NEGATIVE (NEGATIVE) 04/17/17 00:10 U Cocaine Metab Screen NEGATIVE (NEGATIVE) 04/17/17 00:10 U Cannabinoids Screen NEGATIVE (NEGATIVE) 04/17/17 00:10 Ethyl Alcohol < 10 mg/dL (0-10) 04/16/17 18:20 RPR NONREACTIVE (NONREACTIVE) 04/16/17 18:20 - Physical Exam Vitals and I&O: Vital Signs Temp 99.8 F 05/04/17 16:00 Pulse 116 05/04/17 17:00 Resp 29 05/04/17 17:00 BP 171/77 05/04/17 17:00 Pulse Ox 94 05/04/17 17:00 Intake & Output 05/03/17 05/04/17 05/04/17 18:59 06:59 18:59 Intake Total 420 100 Output Total 470 400 Balance -50 -300 Weight (lbs) 86.636 kg 86.636 kg Intake: Intake, IV Amount 420 100 KCL 20mEq/100mL Premix 20 100 meq In 100 ml @ 50 mls/ hr IV Q2H [facility] Rx#: [id number] Levetiracetam 1,000 mg In 220 Sodium Chloride 0.9% 100 ml @ 400 mls/hr IV Q12H [facility] Rx#:[id number] Piperacillin Sodium/ 200 Tazobact 3.375 gm In Sodium Chloride 0.9% 50 ml @ 100 mls/hr IV Q6HR [facility] Rx#:[id number] Output: Urine 470 400 Other: # Voids 1 Active Medications: Current Medications Acetaminophen (Tylenol) 650 mg PO Q6H PRN PRN Reason: HEADACHE/TEMP ABOVE 100F Stop: 06/23/17 09:20 Last Admin: 04/28/17 00:41 Dose: 650 mg Acetaminophen (Tylenol 650mg Supp) 650 mg RC Q4H PRN PRN Reason: fever >100.4 Stop: 07/01/17 20:50 Last Admin: 05/02/17 21:30 Dose: 650 mg Albuterol/Ipratropium (Duoneb Neb) 3 ml HHN Q4HRT [facility] Stop: 07/01/17 14:59 Last Admin: 05/04/17 14:29 Dose: 3 ml Cholecalciferol (Vitamin D3) 1,000 iu PO DAILY [facility] Stop: 06/17/17 08:59 Last Admin: 05/03/17 10:12 Dose: Not Given Clonidine HCl ([id number]) 1 patch TD Sa [facility] Stop: 07/02/17 12:14 Last Admin: 05/03/17 19:03 Dose: 1 patch Clopidogrel Bisulfate (Plavix) 75 mg PO DAILY [facility] Stop: 06/17/17 08:59 Last Admin: 05/03/17 10:13 Dose: Not Given Docusate Sodium (Colace) 100 mg PO BID PRN PRN Reason: Constipation Stop: 06/16/17 09:43 Last Admin: 04/25/17 08:59 Dose: 100 mg Enalaprilat (Vasotec) 2.25 mg IVP Q4HR PRN PRN Reason: sbp>160 Stop: 06/30/17 22:00 Last Admin: 05/04/17 13:30 Dose: 2.25 mg Glyburide (Diabeta) 5 mg PO BID [facility] Stop: 06/16/17 16:59 Last Admin: 05/04/17 09:35 Dose: Not Given Haloperidol Lactate (Haldol) 5 mg IM Q6HR PRN PRN Reason: Agitation Stop: 06/30/17 21:25 Last Admin: 05/04/17 02:50 Dose: 5 mg Magnesium Sulfate (Magnesium Sulfate Premix) 2 gm in 50 mls @ 25 mls/hr IV DAILY PRN PRN Reason: Magnesium level below 1.6 Stop: 06/23/17 09:20 Levetiracetam 1,000 mg/ Sodium (Chloride) 110 mls @ 400 mls/hr IV Q12H [facility] Stop: 06/30/17 12:29 Last Infusion: 05/04/17 01:35 Dose: Infused Dextrose/Sodium Chloride (D5-0.9%Ns) 1,000 mls @ 60 mls/hr IV .[id number] [facility] Stop: 06/30/17 21:44 Last Admin: 05/04/17 16:15 Dose: 60 mls/hr Piperacillin Sod/Tazobactam (Sod 3.375 gm/ Sodium Chloride) 50 mls @ 100 mls/ hr IV Q6HR [facility] Stop: 07/02/17 11:59 Last Infusion: 05/04/17 06:30 Dose: Infused Parenteral Electrolytes 20 ml/Multivitamins/Minerals 5 ml/Potassium Phosphate 9 mmole/Dextrose/ Amino Acids/Electrolytes 1,028 mls @ 40 mls/hr IV .Q24H [facility] Stop: 06/02/17 17:59 Lactobacillus Rhamnosus (Culturelle 15b) 1 each PO DAILY [facility] Stop: 07/02/17 08:59 Last Admin: 05/03/17 10:13 Dose: Not Given Lamotrigine (Lamictal) 100 mg PO BID [place] PRN Reason: Protocol Stop: 06/16/17 16:59 Last Admin: 05/04/17 09:35 Dose: Not Given Lisinopril (Zestril) 20 mg PO BID [facility] Stop: 06/30/17 08:59 Last Admin: 05/04/17 09:35 Dose: Not Given Metoprolol Tartrate (Lopressor) 25 mg PO BID [facility] Stop: 06/27/17 09:14 Last Admin: 05/03/17 18:53 Dose: Not Given Miscellaneous (Probiotic Screen) 1 ea PRN PRN PRN Reason: PROTOCOL Stop: 07/01/17 17:02 Miscellaneous (Tpn Per Pharmacy) 1 [facility] PRN PRN PRN Reason: PROTOCOL Stop: 07/02/17 16:12 Morphine Sulfate (Morphine) 1 mg IVP Q4HR PRN PRN Reason: Pain (Moderate) Stop: 06/30/17 21:23 Last Admin: 05/02/17 05:55 Dose: 1 mg Olanzapine (Zyprexa Zydis) 5 mg PO BID [place] PRN Reason: Protocol Stop: 06/30/17 10:44 Last Admin: 05/03/17 19:01 Dose: Not Given Potassium Chloride (Klor-Con) 40 meq PO DAILY PRN PRN Reason: k level below 3.5 Stop: 06/23/17 09:20 Last Admin: 04/26/17 08:37 Dose: 40 meq Simvastatin (Zocor) 10 mg PO HS [facility] PRN Reason: Protocol Stop: 06/16/17 20:59 Last Admin: 05/03/17 20:40 Dose: Not Given Venlafaxine HCl (Effexor Xr) 150 mg PO DAILY [facility] Stop: 06/17/17 08:59 Last Admin: 05/03/17 10:14 Dose: Not Given General: no acute distress, well developed, well nourished HEENT: atraumatic, normocephalic, PERRLA Neck: supple, no thyromegaly, no lymphadenopathy Cardiovascular: S1S2, regular Lungs: clear to auscultation bilaterally, clear to percussion Abdomen: soft, bowel sounds, no tender, no distended, no mass, no rebound, no hepatomegaly Extremities: no cyanosis, no clubbing, no edema Neurological: other (confused.) Skin: intact Infectious Disease Assmt/Plan - Assessment Assessment: Impression: 1. Leukocytosis, likely reactive or aspiration pneumonia. 2. Aspiration pneumonia. 3. Siezure disorder. - Plan Plan: Continue the same plan. check CBC in am. Nutritional Asmnt/Malnutr-PDOC - Dietary Evaluation Malnutrition Findings (Please click <Entered> for more info): Nutritional Asmnt/Malnutrition Start: 04/17/17 07: 44 Text: Status: Complete Freq: Document 04/21/17 09:29 [email or web address] (Rec: 04/21/17 09:34 [email or web address] [id number]) Nutritional Asmnt/Malnutrition Patient General Information Nutritional Screening Moderate Risk Diagnosis metabolic encephalopathy Pertinent Medical Hx/Surgical Hx impulse control disorder, anxiety, depression, DM, HTN, HLD, CAD Subjective Information Pt A&A x 1, confused, with sitter, moving to [facility]. PO intake 50-100%, usually eats 100%. Current Diet Order/ Nutrition Support mechanical soft, chopped Patient / S.O Not Indicated Pertinent Medications vit d, plavix, colace, glyburide Pertinent Labs 04/21 glucose: 129-148, hgba1c: 8.0, T Nutritional Hx/Data Height 1.57 m Height (Calculated Centimeters) 157.5 Current Weight (lbs) 90.718 kg Weight (Calculated Kilograms) 90.7 Weight (Calculated Grams) 88037.5 [place] Body Weight 110 % [place] Body Weight 181 Body Mass Index (BMI) 36.6 Weight Status Obese GI Symptoms GI Symptoms None Last BM 04/19 Difficult in: Chewing Skin Integrity/Comment: intact, bruises, no edema noted Current %PO Good (75-100%) Estimated Nutritional Goals BEE in Kcals: Adj wt of IBW Calories/Kcals/Kg 25-30 Kcals Calculated 4333-4681 kcals Protein: Adj wt of IBW Protein g/k-1.2 Protein Calculated 60-72 Fluid: ml 1793-8886 mL (1 ml/kcal) Nutritional Problem 1. Problem Problem altered nutrition related lab values Etiology DM, lack of CCHO diet Signs/Symptoms: gluocse: 129-148, hgba1c: 8.0 Malnutrition Alert Is there a minimum of two criteria No selected? Query Text:Check all the applicable criteria. A minimum of two criteria are recommended for diagnosis of either severe or non-severe malnutrition. Malnutrition Related to Morbid Obesity Malnutrition related to morbid obesity No Intervention/Recommendation Comments 1. Change diet to mechanical soft, chopped, CCHO 60 gm to manage DM Expected Outcomes/Goals Expected Outcomes/Goals PO intake>50%, labs: WNL monitor wt, labs, skin, PO intake
[2017-05-04] MEDS ORDERED: TPN 8.5%-70% CUSTOM IV SCH (18:00)
--- NOTE | 2017-05-04 22:40 | Progress Notes ---
DATE: 05/04/2017 Case discussed with staff of the patient. She is consistently not be able to be responsive, but yet she is being worked up to rule out CVA. She is in the ICU now, unable to participate in meaningful conversation or make safe plan for self-care. I would not recommend Ativan for her, because there is a concern about having side effects and Dr. Nunez will follow up with her. Dr. Valentin is taking care of her neurological condition, as I think her condition is more neurological. Thank you very much for allowing me to participate in the care of this most interesting lady. JOB# [id number]
[2017-05-04] MEDS: INSULIN ASPART SLIDING SCALE 100 UNITS/ML UNIT SUBQ SCH (23:50)
[2017-05-05] MEDS: INSULIN ASPART SLIDING SCALE 100 UNITS/ML UNIT SUBQ SCH ×5 (00:14→23:16)
[2017-05-05] MEDS: Albuterol/Ipratropium Neb 3 ML AERS HHN SCH ×6 (02:10→23:47)
[2017-05-05 05:16] LABS: HEMATOCRIT 32.8 % (41.0-60); HEMOGLOBIN 11.1 gm/dL (12-16); MEAN CELL VOLUME 96.2 fl (81-100); MEAN CORPUSCULAR HEMOGLOBIN 32.5 pg (27.0-31.0); MEAN CORPUSCULAR HGB CONC 33.8 pg (28.0-36.0); MEAN PLATELET VOLUME 9.2 fl; PLATELET COUNT 475 Th/cmm (150-400); RED BLOOD COUNT 3.41 Mil/cmm (3.80-5.20); RED CELL DISTRIBUTION WIDTH 14.1 % (11.5-20.0)
[2017-05-05 05:21] LABS: WHITE BLOOD COUNT 15.5 Th/cmm (4.8-10.8)
[2017-05-05 05:22] LABS: MANUAL DIFF REQUIRED? YES
[2017-05-05 05:24] LABS: ALB/GLOB RATIO 0.9 (1.0-1.8); ALBUMIN 3.3 gm/dL (3.7-5.3); ALKALINE PHOSPHATASE 65 U/L (34-104); ANION GAP 11.1 (7.0-16.0); BILIRUBIN,TOTAL 0.5 mg/dL (0.3-1.0); CALCIUM SERUM 9.8 mg/dL (8.6-10.3); CARBON DIOXIDE 23.5 mEq/L (21.0-31.0); CHLORIDE 121 mEq/L (98-107); CREATININE - SERUM 1.3 mg/dL (0.6-1.2); GLUCOSE 307 mg/dL (70-105); MAGNESIUM 1.8 mg/dL (1.9-2.7); PHOSPHOROUS 1.6 mg/dL (2.5-5.0); SGOT 24 U/L (13-39); SGPT/ALT 23 U/L (7-52); SODIUM SERUM 153 mEq/L (136-145); TOTAL PROTEIN,SERUM 6.9 gm/dL (6.0-8.3)
[2017-05-05 05:52] LABS: BUN - UREA NITROGEN 22 mg/dL (7-25)
[2017-05-05 05:54] LABS: POTASSIUM SERUM 2.6 mEq/L (3.5-5.1)
[2017-05-05] MEDS ORDERED: Potassium Chloride 40 MEQ, Lidocaine 1% 20mL Vial 25 MG in Sodium Chloride 0.9% 250 ML IV ONE (08:00)
--- NOTE | 2017-05-05 08:20 | Diagnostic Imaging Report ---
CHEST X-RAY: AP view INDICATION: PICC line placement COMPARISON: 05/02/2017 FINDINGS: Right upper extremity PICC line is seen curled abnormally positioned along the right axillary region. Recommend readjustment. Diffuse bilateral infiltrates and CHF are seen increased since prior exam. There may be small effusions. Cardiomegaly is noted. IMPRESSION: Malpositioned right upper extremity PICC line curled abnormally along the right axillary region. Removal or readjustment is recommended. Worsening bilateral infiltrates and CHF Cardiomegaly.
[2017-05-05 08:39] LABS: BAND NEUTROPHILE 2 % (0-10); LYMPHOCYTE 9 % (20-50); MONOCYTE 9 % (2-10); NEUTROPHILS 80 % (40-80); PLATELET ESTIMATE INCREASED PLATELETS (NORMAL); TOTAL CELLS COUNTED 100
--- NOTE | 2017-05-05 09:12 | Diagnostic Imaging Report ---
CHEST X-RAY: AP view INDICATION: Shortness of breath COMPARISON: Chest x-ray 05/04/2017 FINDINGS: Right PICC line has been readjusted with tip now along the right axillary region. Mild improvement in CHF and bilateral infiltrates are noted. There may be trace effusions. Cardiomegaly is noted. IMPRESSION: Improving CHF and bilateral pulmonary infiltrates. Repositioned right PICC line with tip now along the right axillary region.
[2017-05-05] MEDS: Haloperidol Lactate 5 mg/mL 1mL Vial IM PRN (09:42)
[2017-05-05] MEDS: OLANZapine 5 mg Oral Disintegrating Tab PO SCH ×2 (09:59→18:34)
[2017-05-05] MEDS: Lactobacillus Rhamnosus GG 15 Billion CFU CAP.SPRINK PO SCH (09:59)
--- NOTE | 2017-05-05 13:28 | Infectious Disease Prog Note ---
Infectious Disease Subjective - Review of Systems Service Date: 05/05/17 Subjective: Leukocytosis waxing and waning.. No fever. Infectious Disease Objective - Results Result Diagrams: 05/05/17 04:40 05/05/17 04:40 Recent Labs: Laboratory Last Values WBC 15.5 Th/cmm (4.8-10.8) H 05/05/17 04:40 RBC 3.41 Mil/cmm (3.80-5.20) L 05/05/17 04:40 Hgb 11.1 gm/dL (12-16) L 05/05/17 04:40 Hct 32.8 % (41.0-60) L 05/05/17 04:40 MCV 96.2 fl (81-100) 05/05/17 04:40 MCH 32.5 pg (27.0-31.0) H 05/05/17 04:40 MCHC Differential 33.8 pg (28.0-36.0) 05/05/17 04:40 RDW 14.1 % (11.5-20.0) 05/05/17 04:40 Plt Count 475 Th/cmm (150-400) H 05/05/17 04:40 MPV 9.2 fl 05/05/17 04:40 Neutrophils % 82.8 % (40.0-80.0) H 05/04/17 04:15 Band Neutrophils % 2 % (0-10) 05/05/17 04:40 Lymphocytes % 8.9 % (20.0-50.0) L 05/04/17 04:15 Monocytes % 6.7 % (2.0-10.0) 05/04/17 04:15 Eosinophils % 0.0 % (0.0-5.0) 05/04/17 04:15 Basophils % 1.6 % (0.0-2.0) 05/04/17 04:15 Neutrophils (Manual) 80 % (40-80) 05/05/17 04:40 Lymphocytes 9 % (20-50) L 05/05/17 04:40 Monocytes 9 % (2-10) 05/05/17 04:40 Platelet Estimate INCREASED PLATELETS (NORMAL) 05/05/17 04:40 ESR 59 mm/hr (0-30) H 05/02/17 04:15 Specimen Source Arterial 05/02/17 16:08 Sample Site RB 05/02/17 16:08 pH 7.29 (7.35-7.45) L 05/02/17 16:08 pCO2 39.0 mmHg (35.0-45.0) 05/02/17 16:08 pO2 85.0 mmHg (80.0-100.0) 05/02/17 16:08 HCO3 19.2 mEq/L (20.0-26.0) L 05/02/17 16:08 Base Excess -7.3 mEq/L (-3.0-3.0) L 05/02/17 16:08 O2 Saturation 95.0 % (92.0-100.0) 05/02/17 16:08 Jet Test NA 05/02/17 16:08 Vent Rate NA 05/02/17 16:08 Inspired O2 50 05/02/17 16:08 Tidal Volume NA 05/02/17 16:08 PEEP NA 05/02/17 16:08 Pressure (ins/psv/peep) NA 05/02/17 16:08 Critical Value E.GIBSON 05/02/17 16:08 Sodium 153 mEq/L (136-145) H 05/05/17 04:40 Potassium 2.6 mEq/L (3.5-5.1) L* 05/05/17 04:40 Chloride 121 mEq/L (98-107) H 05/05/17 04:40 Carbon Dioxide 23.5 mEq/L (21.0-31.0) 05/05/17 04:40 Anion Gap 11.1 (7.0-16.0) 05/05/17 04:40 BUN 22 mg/dL (7-25) 05/05/17 04:40 Creatinine 1.3 mg/dL (0.6-1.2) H 05/05/17 04:40 Est GFR ( Amer) TNP 05/05/17 04:40 Est GFR (Non-Af Amer) TNP 05/05/17 04:40 BUN/Creatinine Ratio 16.9 05/05/17 04:40 Glucose 307 mg/dL (70-105) H 05/05/17 04:40 POC Glucose 302 MG/DL (70 - 105) H 05/05/17 05:29 Hemoglobin A1c % 8.0 % (4.0-6.0) H 04/16/17 18:20 Calcium 9.8 mg/dL (8.6-10.3) 05/05/17 04:40 Phosphorus 1.6 mg/dL (2.5-5.0) L 05/05/17 04:40 Magnesium 1.8 mg/dL (1.9-2.7) L 05/05/17 04:40 Total Bilirubin 0.5 mg/dL (0.3-1.0) 05/05/17 04:40 AST 24 U/L (13-39) 05/05/17 04:40 ALT 23 U/L (7-52) 05/05/17 04:40 Alkaline Phosphatase 65 U/L (34-104) 05/05/17 04:40 Ammonia 19 umol/L (16-53) 05/01/17 20:25 Total Protein 6.9 gm/dL (6.0-8.3) 05/05/17 04:40 Albumin 3.3 gm/dL (3.7-5.3) L 05/05/17 04:40 Globulin 3.6 gm/dL 05/05/17 04:40 Albumin/Globulin Ratio 0.9 (1.0-1.8) L 05/05/17 04:40 Triglycerides 213 mg/dL (<150) H 05/05/17 04:40 Cholesterol 140 mg/dL (<200) 05/05/17 04:40 LDL Cholesterol Direct 69 mg/dL (75-193) L 04/16/17 18:20 HDL Cholesterol 40 mg/dL (23-92) 04/16/17 18:20 Free T4 1.04 ng/dL (0.82-1.77) 05/02/17 04:15 TSH 3.72 uIU/ml (0.34-5.60) 05/02/17 04:15 Urine Source [place] 05/02/17 04:30 Urine Color YELLOW 05/02/17 04:30 Urine Clarity HAZY (CLEAR) 05/02/17 04:30 Urine pH 5.5 (4.6 - 8.0) 05/02/17 04:30 Ur Specific [place] >= 1.030 (1.005-1.030) 05/02/17 04:30 Urine Protein 100 mg/dL (NEGATIVE) H 05/02/17 04:30 Urine Glucose (UA) NEGATIVE mg/dL (NEGATIVE) 05/02/17 04:30 Urine Ketones >=80 mg/dL (NEGATIVE) H 05/02/17 04:30 Urine Blood LARGE (NEGATIVE) H 05/02/17 04:30 Urine Nitrate NEGATIVE (NEGATIVE) 05/02/17 04:30 Urine Bilirubin SMALL (NEGATIVE) H 05/02/17 04:30 Urine Urobilinogen 0.2 E.U./dL (0.2 - 1.0) 05/02/17 04:30 Ur Leukocyte Esterase NEGATIVE (NEGATIVE) 05/02/17 04:30 Urine RBC 5-10 /hpf (0-5) H 05/02/17 04:30 Urine WBC 6-10 /hpf (0-5) H 05/02/17 04:30 Ur Epithelial Cells MODERATE /lpf (FEW) 05/02/17 04:30 Urine Bacteria 2+ /hpf (NONE SEEN) H 05/02/17 04:30 Urine Yeast MANY /hpf (NONE SEEN) H 04/18/17 19:20 Salicylates < 25.0 mg/L (30.0-100.0) L 04/16/17 18:20 Urine Opiates Screen NEGATIVE (NEGATIVE) 04/17/17 00:10 Urine Methadone Screen NEGATIVE (NEGATIVE) 04/17/17 00:10 Acetaminophen < 10.0 ug/mL (10.0-30.0) L 04/16/17 18:20 Ur Barbiturates Screen NEGATIVE (NEGATIVE) 04/17/17 00:10 Ur Tricyclics Screen NEGATIVE (NEGATIVE) 04/17/17 00:10 Ur Phencyclidine Scrn NEGATIVE (NEGATIVE) 04/17/17 00:10 Amphetamines Screen NEGATIVE (NEGATIVE) 04/17/17 00:10 U Methamphetamines Scrn NEGATIVE (NEGATIVE) 04/17/17 00:10 U Benzodiazepines Scrn NEGATIVE (NEGATIVE) 04/17/17 00:10 U Cocaine Metab Screen NEGATIVE (NEGATIVE) 04/17/17 00:10 U Cannabinoids Screen NEGATIVE (NEGATIVE) 04/17/17 00:10 Ethyl Alcohol < 10 mg/dL (0-10) 04/16/17 18:20 RPR NONREACTIVE (NONREACTIVE) 04/16/17 18:20 - Physical Exam Vitals and I&O: Vital Signs Temp 96.7 F 03/05/18 07:00 Pulse 107 05/05/17 11:58 Resp 25 05/05/17 12:07 BP 181/77 05/05/17 10:01 Pulse Ox 100 05/05/17 11:58 Intake & Output 05/04/17 05/05/17 05/05/17 18:59 06:59 18:59 Intake Total 431 091.6044 50 Output Total 400 2850 Balance -140 -2087.3333 50 Weight (lbs) 86.636 kg 85.275 kg Intake: Intake, IV Amount 230 289.2140 50 KCL 20mEq/100mL Premix 20 100 100 meq In 100 ml @ 50 mls/ hr IV Q2H [facility] Rx#: [id number] Levetiracetam 1,000 mg In 110 110 Sodium Chloride 0.9% 100 ml @ 400 mls/hr IV Q12H [facility] Rx#:[id number] Nutrilyte II 20 ml 196 Multivitamin Inj 5 ml Potassium Phosphate 9 mmole In Dextrose 70% 500 ml In Amino Acids 8.5% 500 ml @ 40 mls/hr IV . Q24H [facility] Rx#:[id number] Piperacillin Sodium/ 50 100 50 Tazobact 3.375 gm In Sodium Chloride 0.9% 50 ml @ 100 mls/hr IV Q6HR [facility] Rx#:[id number] Output: Urine 400 2850 Other: # Voids 1 Stool Characteristics Formed Active Medications: Current Medications Acetaminophen (Tylenol) 650 mg PO Q6H PRN PRN Reason: HEADACHE/TEMP ABOVE 100F Stop: 06/23/17 09:20 Last Admin: 04/28/17 00:41 Dose: 650 mg Acetaminophen (Tylenol 650mg Supp) 650 mg RC Q4H PRN PRN Reason: fever >100.4 Stop: 07/01/17 20:50 Last Admin: 05/02/17 21:30 Dose: 650 mg Albuterol/Ipratropium (Duoneb Neb) 3 ml HHN Q4HRT [facility] Stop: 07/01/17 14:59 Last Admin: 05/05/17 11:54 Dose: 3 ml Cholecalciferol (Vitamin D3) 1,000 iu PO DAILY [facility] Stop: 06/17/17 08:59 Last Admin: 05/05/17 09:58 Dose: Not Given Clonidine HCl (Pzibncwp-Evt-3) 1 patch TD Sa [facility] Stop: 07/02/17 12:14 Last Admin: 05/03/17 19:03 Dose: 1 patch Clopidogrel Bisulfate (Plavix) 75 mg PO DAILY [facility] Stop: 06/17/17 08:59 Last Admin: 05/05/17 09:59 Dose: Not Given Docusate Sodium (Colace) 100 mg PO BID PRN PRN Reason: Constipation Stop: 06/16/17 09:43 Last Admin: 04/25/17 08:59 Dose: 100 mg Enalaprilat (Vasotec) 2.25 mg IVP Q4HR PRN PRN Reason: sbp>160 Stop: 06/30/17 22:00 Last Admin: 05/05/17 09:38 Dose: 2.25 mg Furosemide (Lasix) 40 mg IVP DAILY [facility] Stop: 07/04/17 08:59 Last Admin: 05/05/17 10:01 Dose: 40 mg Glyburide (Diabeta) 5 mg PO BID [facility] Stop: 06/16/17 16:59 Last Admin: 05/05/17 09:58 Dose: Not Given Haloperidol Lactate (Haldol) 5 mg IM Q6HR PRN PRN Reason: Agitation Stop: 06/30/17 21:25 Last Admin: 05/05/17 09:42 Dose: 5 mg Magnesium Sulfate (Magnesium Sulfate Premix) 2 gm in 50 mls @ 25 mls/hr IV DAILY PRN PRN Reason: Magnesium level below 1.6 Stop: 06/23/17 09:20 Levetiracetam 1,000 mg/ Sodium (Chloride) 110 mls @ 400 mls/hr IV Q12H [facility] Stop: 06/30/17 12:29 Last Infusion: 05/05/17 03:49 Dose: Infused Piperacillin Sod/Tazobactam (Sod 3.375 gm/ Sodium Chloride) 50 mls @ 100 mls/ hr IV Q6HR [facility] Stop: 07/02/17 11:59 Last Admin: 05/05/17 13:11 Dose: 100 mls/hr Potassium Phosphate 20 mmole/ (Sodium Chloride) 256.6667 mls @ 42 mls/hr IV ONCE ONE Stop: 05/05/17 20:06 Multivitamins/Minerals 10 ml/Amino Acids/Electrolytes/Dextrose/ Fat Emulsion Intravenous 960 mls @ 40 mls/hr IV .Q24H [facility] Stop: 07/04/17 16:59 Insulin Aspart (Novolog Insulin Sliding Scale) 0 units SUBQ Q6HR [facility] PRN Reason: Protocol Stop: 07/03/17 19:44 Last Admin: 05/05/17 05:39 Dose: 8 units Lactobacillus Rhamnosus (Culturelle 15b) 1 each PO DAILY [facility] Stop: 07/02/17 08:59 Last Admin: 05/05/17 09:59 Dose: Not Given Lamotrigine (Lamictal) 100 mg PO BID [facility] PRN Reason: Protocol Stop: 06/16/17 16:59 Last Admin: 05/05/17 09:58 Dose: Not Given Lisinopril (Zestril) 20 mg PO BID [facility] Stop: 06/30/17 08:59 Last Admin: 05/05/17 09:58 Dose: Not Given Metoprolol Tartrate (Lopressor) 25 mg PO BID [facility] Stop: 06/27/17 09:14 Last Admin: 05/05/17 09:58 Dose: Not Given Miscellaneous (Probiotic Screen) 1 ea PRN PRN PRN Reason: PROTOCOL Stop: 07/01/17 17:02 Miscellaneous (Ppn Per Pharmacy) 1 ea PRN PRN PRN Reason: PROTOCOL Stop: 07/04/17 00:49 Morphine Sulfate (Morphine) 1 mg IVP Q4HR PRN PRN Reason: Pain (Moderate) Stop: 06/30/17 21:23 Last Admin: 05/02/17 05:55 Dose: 1 mg Olanzapine (Zyprexa Zydis) 5 mg PO BID [facility] PRN Reason: Protocol Stop: 06/30/17 10:44 Last Admin: 05/05/17 09:59 Dose: Not Given Potassium Chloride (Klor-Con) 40 meq PO DAILY PRN PRN Reason: k level below 3.5 Stop: 06/23/17 09:20 Last Admin: 04/26/17 08:37 Dose: 40 meq Simvastatin (Zocor) 10 mg PO HS [facility] PRN Reason: Protocol Stop: 06/16/17 20:59 Last Admin: 05/04/17 23:21 Dose: Not Given Venlafaxine HCl (Effexor Xr) 150 mg PO DAILY [facility] Stop: 06/17/17 08:59 Last Admin: 05/05/17 09:59 Dose: Not Given General: no acute distress, well developed, well nourished HEENT: atraumatic, normocephalic, PERRLA Neck: supple, no thyromegaly Cardiovascular: S1S2, regular Lungs: clear to auscultation bilaterally, clear to percussion Abdomen: soft, no tender, no distended, no rebound Extremities: no cyanosis, no clubbing Neurological: awake, alert, oriented Skin: intact Infectious Disease Assmt/Plan - Assessment Assessment: Impression: 1. Leukocytosis, likely reactive or aspiration pneumonia. 2. Aspiration pneumonia. 3. Siezure disorder. - Plan Plan: Continue the same plan. check CBC in am. Nutritional Asmnt/Malnutr-PDOC - Dietary Evaluation Malnutrition Findings (Please click <Entered> for more info): Nutritional Asmnt/Malnutrition Start: 04/17/17 07: 44 Text: Status: Complete Freq: Document 04/21/17 09:29 [email or web address] (Rec: 04/21/17 09:34 [email or web address] [id number]) Nutritional Asmnt/Malnutrition Patient General Information Nutritional Screening Moderate Risk Diagnosis metabolic encephalopathy Pertinent Medical Hx/Surgical Hx impulse control disorder, anxiety, depression, DM, HTN, HLD, CAD Subjective Information Pt A&A x 1, confused, with sitter, moving to [place]. PO intake 50-100%, usually eats 100%. Current Diet Order/ Nutrition Support mechanical soft, chopped Patient / S.O Not Indicated Pertinent Medications vit d, plavix, colace, glyburide Pertinent Labs 04/21 glucose: 129-148, hgba1c: 8.0, T Nutritional Hx/Data Height 1.57 m Height (Calculated Centimeters) 157.5 Current Weight (lbs) 90.718 kg Weight (Calculated Kilograms) 90.7 Weight (Calculated Grams) 43491.5 [place] Body Weight 110 % [place] Body Weight 181 Body Mass Index (BMI) 36.6 Weight Status Obese GI Symptoms GI Symptoms None Last BM 04/19 Difficult in: Chewing Skin Integrity/Comment: intact, bruises, no edema noted Current %PO Good (75-100%) Estimated Nutritional Goals BEE in Kcals: Adj wt of IBW Calories/Kcals/Kg 25-30 Kcals Calculated 2302-3036 kcals Protein: Adj wt of IBW Protein g/k-1.2 Protein Calculated 60-72 Fluid: ml 1069-6463 mL (1 ml/kcal) Nutritional Problem 1. Problem Problem altered nutrition related lab values Etiology DM, lack of CCHO diet Signs/Symptoms: gluocse: 129-148, hgba1c: 8.0 Malnutrition Alert Is there a minimum of two criteria No selected? Query Text:Check all the applicable criteria. A minimum of two criteria are recommended for diagnosis of either severe or non-severe malnutrition. Malnutrition Related to Morbid Obesity Malnutrition related to morbid obesity No Intervention/Recommendation Comments 1. Change diet to mechanical soft, chopped, CCHO 60 gm to manage DM Expected Outcomes/Goals Expected Outcomes/Goals PO intake>50%, labs: WNL monitor wt, labs, skin, PO intake
[2017-05-05] MEDS ORDERED: Potassium Phosphate 20 MMOLE in Sodium Chloride 0.9% 250 ML IV ONE (14:00)
[2017-05-05] MEDS ORDERED: Morphine Sulfate 4 mg/mL 1mL Syr IVP PRN (16:17)
[2017-05-05] MEDS: AMINO ACIDS IV SCH (18:52)
[2017-05-05] MEDS: [UNRECOGNIZED DRUG - OTHER] IV SCH (18:52)
[2017-05-05] MEDS: DEXTROSE IV SCH (18:52)
[2017-05-05] MEDS: MULTIVITAMIN IV SCH (18:52)
--- NOTE | 2017-05-05 22:57 | General Progress Note ---
Subjective - Review of Systems Service Date: 05/05/17 Events since last encounter: Continue abx for UTI. Patient remains altered but is more awake than the previous days. Will have psych reeval Subjective: The patient was seen, evaluated and responds to stimuli. She is agitated but it has improved since yesterday. No s/s of seizure since being moved to the ICU. Objective - Results Result Diagrams: 05/05/17 04:40 05/05/17 04:40 Recent Labs: Laboratory Last Values WBC 15.5 Th/cmm (4.8-10.8) H 05/05/17 04:40 RBC 3.41 Mil/cmm (3.80-5.20) L 05/05/17 04:40 Hgb 11.1 gm/dL (12-16) L 05/05/17 04:40 Hct 32.8 % (41.0-60) L 05/05/17 04:40 MCV 96.2 fl (81-100) 05/05/17 04:40 MCH 32.5 pg (27.0-31.0) H 05/05/17 04:40 MCHC Differential 33.8 pg (28.0-36.0) 05/05/17 04:40 RDW 14.1 % (11.5-20.0) 05/05/17 04:40 Plt Count 475 Th/cmm (150-400) H 05/05/17 04:40 MPV 9.2 fl 05/05/17 04:40 Neutrophils % 82.8 % (40.0-80.0) H 05/04/17 04:15 Band Neutrophils % 2 % (0-10) 05/05/17 04:40 Lymphocytes % 8.9 % (20.0-50.0) L 05/04/17 04:15 Monocytes % 6.7 % (2.0-10.0) 05/04/17 04:15 Eosinophils % 0.0 % (0.0-5.0) 05/04/17 04:15 Basophils % 1.6 % (0.0-2.0) 05/04/17 04:15 Neutrophils (Manual) 80 % (40-80) 05/05/17 04:40 Lymphocytes 9 % (20-50) L 05/05/17 04:40 Monocytes 9 % (2-10) 05/05/17 04:40 Platelet Estimate INCREASED PLATELETS (NORMAL) 05/05/17 04:40 ESR 59 mm/hr (0-30) H 05/02/17 04:15 Specimen Source Arterial 05/02/17 16:08 Sample Site RB 05/02/17 16:08 pH 7.29 (7.35-7.45) L 05/02/17 16:08 pCO2 39.0 mmHg (35.0-45.0) 05/02/17 16:08 pO2 85.0 mmHg (80.0-100.0) 05/02/17 16:08 HCO3 19.2 mEq/L (20.0-26.0) L 05/02/17 16:08 Base Excess -7.3 mEq/L (-3.0-3.0) L 05/02/17 16:08 O2 Saturation 95.0 % (92.0-100.0) 05/02/17 16:08 Jet Test NA 05/02/17 16:08 Vent Rate NA 05/02/17 16:08 Inspired O2 50 05/02/17 16:08 Tidal Volume NA 05/02/17 16:08 PEEP NA 05/02/17 16:08 Pressure (ins/psv/peep) NA 05/02/17 16:08 Critical Value E.GIBSON 05/02/17 16:08 Sodium 153 mEq/L (136-145) H 05/05/17 04:40 Potassium 2.6 mEq/L (3.5-5.1) L* 05/05/17 04:40 Chloride 121 mEq/L (98-107) H 05/05/17 04:40 Carbon Dioxide 23.5 mEq/L (21.0-31.0) 05/05/17 04:40 Anion Gap 11.1 (7.0-16.0) 05/05/17 04:40 BUN 22 mg/dL (7-25) 05/05/17 04:40 Creatinine 1.3 mg/dL (0.6-1.2) H 05/05/17 04:40 Est GFR ( Amer) TNP 05/05/17 04:40 Est GFR (Non-Af Amer) TNP 05/05/17 04:40 BUN/Creatinine Ratio 16.9 05/05/17 04:40 Glucose 307 mg/dL (70-105) H 05/05/17 04:40 POC Glucose 223 MG/DL (70 - 105) H 05/05/17 18:42 Hemoglobin A1c % 8.0 % (4.0-6.0) H 04/16/17 18:20 Calcium 9.8 mg/dL (8.6-10.3) 05/05/17 04:40 Phosphorus 1.6 mg/dL (2.5-5.0) L 05/05/17 04:40 Magnesium 1.8 mg/dL (1.9-2.7) L 05/05/17 04:40 Total Bilirubin 0.5 mg/dL (0.3-1.0) 05/05/17 04:40 AST 24 U/L (13-39) 05/05/17 04:40 ALT 23 U/L (7-52) 05/05/17 04:40 Alkaline Phosphatase 65 U/L (34-104) 05/05/17 04:40 Ammonia 19 umol/L (16-53) 05/01/17 20:25 Total Protein 6.9 gm/dL (6.0-8.3) 05/05/17 04:40 Albumin 3.3 gm/dL (3.7-5.3) L 05/05/17 04:40 Globulin 3.6 gm/dL 05/05/17 04:40 Albumin/Globulin Ratio 0.9 (1.0-1.8) L 05/05/17 04:40 Triglycerides 213 mg/dL (<150) H 05/05/17 04:40 Cholesterol 140 mg/dL (<200) 05/05/17 04:40 LDL Cholesterol Direct 69 mg/dL (75-193) L 04/16/17 18:20 HDL Cholesterol 40 mg/dL (23-92) 04/16/17 18:20 Free T4 1.04 ng/dL (0.82-1.77) 05/02/17 04:15 TSH 3.72 uIU/ml (0.34-5.60) 05/02/17 04:15 Urine Source [place] 05/02/17 04:30 Urine Color YELLOW 05/02/17 04:30 Urine Clarity HAZY (CLEAR) 05/02/17 04:30 Urine pH 5.5 (4.6 - 8.0) 05/02/17 04:30 Ur Specific [place] >= 1.030 (1.005-1.030) 05/02/17 04:30 Urine Protein 100 mg/dL (NEGATIVE) H 05/02/17 04:30 Urine Glucose (UA) NEGATIVE mg/dL (NEGATIVE) 05/02/17 04:30 Urine Ketones >=80 mg/dL (NEGATIVE) H 05/02/17 04:30 Urine Blood LARGE (NEGATIVE) H 05/02/17 04:30 Urine Nitrate NEGATIVE (NEGATIVE) 05/02/17 04:30 Urine Bilirubin SMALL (NEGATIVE) H 05/02/17 04:30 Urine Urobilinogen 0.2 E.U./dL (0.2 - 1.0) 05/02/17 04:30 Ur Leukocyte Esterase NEGATIVE (NEGATIVE) 05/02/17 04:30 Urine RBC 5-10 /hpf (0-5) H 05/02/17 04:30 Urine WBC 6-10 /hpf (0-5) H 05/02/17 04:30 Ur Epithelial Cells MODERATE /lpf (FEW) 05/02/17 04:30 Urine Bacteria 2+ /hpf (NONE SEEN) H 05/02/17 04:30 Urine Yeast MANY /hpf (NONE SEEN) H 04/18/17 19:20 Salicylates < 25.0 mg/L (30.0-100.0) L 04/16/17 18:20 Urine Opiates Screen NEGATIVE (NEGATIVE) 04/17/17 00:10 Urine Methadone Screen NEGATIVE (NEGATIVE) 04/17/17 00:10 Acetaminophen < 10.0 ug/mL (10.0-30.0) L 04/16/17 18:20 Ur Barbiturates Screen NEGATIVE (NEGATIVE) 04/17/17 00:10 Ur Tricyclics Screen NEGATIVE (NEGATIVE) 04/17/17 00:10 Ur Phencyclidine Scrn NEGATIVE (NEGATIVE) 04/17/17 00:10 Amphetamines Screen NEGATIVE (NEGATIVE) 04/17/17 00:10 U Methamphetamines Scrn NEGATIVE (NEGATIVE) 04/17/17 00:10 U Benzodiazepines Scrn NEGATIVE (NEGATIVE) 04/17/17 00:10 U Cocaine Metab Screen NEGATIVE (NEGATIVE) 04/17/17 00:10 U Cannabinoids Screen NEGATIVE (NEGATIVE) 02/15/18 00:10 Ethyl Alcohol < 10 mg/dL (0-10) 04/16/17 18:20 RPR NONREACTIVE (NONREACTIVE) 04/16/17 18:20 - Physical Exam Vitals and I&O: Vital Signs Temp 97.4 F 05/05/17 19:00 Pulse 98 05/05/17 20:10 Resp 24 05/05/17 20:10 BP 142/46 05/05/17 20:00 Pulse Ox 97 05/05/17 20:10 Intake & Output 05/05/17 05/05/17 05/06/17 06:59 18:59 06:59 Intake Total 762.6667 100 Output Total 2850 1750 Balance -2087.3333 -1650 Weight (lbs) 85.275 kg 84.459 kg Intake: Intake, IV Amount 762.6667 100 KCL 20mEq/100mL Premix 20 100 meq In 100 ml @ 50 mls/ hr IV Q2H [facility] Rx#: [id number] Levetiracetam 1,000 mg In 110 Sodium Chloride 0.9% 100 ml @ 400 mls/hr IV Q12H [facility] Rx#:[id number] Nutrilyte II 20 ml 196 Multivitamin Inj 5 ml Potassium Phosphate 9 mmole In Dextrose 70% 500 ml In Amino Acids 8.5% 500 ml @ 40 mls/hr IV . Q24H [facility] Rx#:[id number] Piperacillin Sodium/ 100 100 Tazobact 3.375 gm In Sodium Chloride 0.9% 50 ml @ 100 mls/hr IV Q6HR [facility] Rx#:[id number] Oral 0 Tube Feeding 0 Output: Urine 2850 1750 Other: # Bowel Movements 0 Stool Characteristics Formed Active Medications: Current Medications Acetaminophen (Tylenol) 650 mg PO Q6H PRN PRN Reason: HEADACHE/TEMP ABOVE 100F Stop: 06/23/17 09:20 Last Admin: 04/28/17 00:41 Dose: 650 mg Acetaminophen (Tylenol 650mg Supp) 650 mg RC Q4H PRN PRN Reason: fever >100.4 Stop: 07/01/17 20:50 Last Admin: 05/02/17 21:30 Dose: 650 mg Albuterol/Ipratropium (Duoneb Neb) 3 ml HHN Q4HRT [facility] Stop: 07/01/17 14:59 Last Admin: 05/05/17 20:09 Dose: 3 ml Cholecalciferol (Vitamin D3) 1,000 iu PO DAILY [facility] Stop: 06/17/17 08:59 Last Admin: 05/05/17 09:58 Dose: Not Given Clonidine HCl (Wxtzsrsh-Eaw-1) 1 patch TD Sa [facility] Stop: 07/02/17 12:14 Last Admin: 05/03/17 19:03 Dose: 1 patch Clopidogrel Bisulfate (Plavix) 75 mg PO DAILY [facility] Stop: 06/17/17 08:59 Last Admin: 05/05/17 09:59 Dose: Not Given Docusate Sodium (Colace) 100 mg PO BID PRN PRN Reason: Constipation Stop: 06/16/17 09:43 Last Admin: 04/25/17 08:59 Dose: 100 mg Enalaprilat (Vasotec) 2.25 mg IVP Q4HR PRN PRN Reason: sbp>160 Stop: 06/30/17 22:00 Last Admin: 05/05/17 09:38 Dose: 2.25 mg Glyburide (Diabeta) 5 mg PO BID [facility] [place] Stop: 06/16/17 16:59 Last Admin: 05/05/17 18:33 Dose: Not Given Haloperidol Lactate (Haldol) 5 mg IM Q6HR PRN PRN Reason: Agitation Stop: 06/30/17 21:25 Last Admin: 05/05/17 09:42 Dose: 5 mg Magnesium Sulfate (Magnesium Sulfate Premix) 2 gm in 50 mls @ 25 mls/hr IV DAILY PRN PRN Reason: Magnesium level below 1.6 Stop: 06/23/17 09:20 Levetiracetam 1,000 mg/ Sodium (Chloride) 110 mls @ 400 mls/hr IV Q12H [facility] Stop: 06/30/17 12:29 Last Admin: 05/05/17 13:48 Dose: 400 mls/hr Piperacillin Sod/Tazobactam (Sod 3.375 gm/ Sodium Chloride) 50 mls @ 100 mls/ hr IV Q6HR [facility] Stop: 07/02/17 11:59 Last Admin: 05/05/17 18:38 Dose: 100 mls/hr Multivitamins/Minerals 10 ml/Amino Acids/Electrolytes/Dextrose/ Fat Emulsion Intravenous 960 mls @ 40 mls/hr IV .Q24H [facility] Stop: 07/04/17 16:59 Last Admin: 05/05/17 18:52 Dose: 40 mls/hr Insulin Aspart (Novolog Insulin Sliding Scale) 0 units SUBQ Q6HR [facility] PRN Reason: Protocol Stop: 07/03/17 19:44 Last Admin: 05/05/17 18:44 Dose: 4 units Lactobacillus Rhamnosus (Culturelle 15b) 1 each PO DAILY [facility] Stop: 07/02/17 08:59 Last Admin: 05/05/17 09:59 Dose: Not Given Lamotrigine (Lamictal) 100 mg PO BID [facility] PRN Reason: Protocol Stop: 06/16/17 16:59 Last Admin: 05/05/17 18:33 Dose: Not Given Lisinopril (Zestril) 20 mg PO BID [facility] Stop: 06/30/17 08:59 Last Admin: 05/05/17 18:33 Dose: Not Given Metoprolol Tartrate (Lopressor) 25 mg PO BID [facility] Stop: 06/27/17 09:14 Last Admin: 05/05/17 18:34 Dose: Not Given Miscellaneous (Probiotic Screen) 1 ea PRN PRN PRN Reason: PROTOCOL Stop: 07/01/17 17:02 Miscellaneous (Ppn Per Pharmacy) 1 ea PRN PRN PRN Reason: PROTOCOL Stop: 07/04/17 00:49 Morphine Sulfate (Morphine) 1 mg IVP Q4H PRN PRN Reason: MODERATE PAIN Stop: 07/04/17 16:16 Olanzapine (Zyprexa Zydis) 5 mg PO BID [facility] PRN Reason: Protocol Stop: 06/30/17 10:44 Last Admin: 05/05/17 18:34 Dose: Not Given Potassium Chloride (Klor-Con) 40 meq PO DAILY PRN PRN Reason: k level below 3.5 Stop: 06/23/17 09:20 Last Admin: 04/26/17 08:37 Dose: 40 meq Simvastatin (Zocor) 10 mg PO HS [facility] PRN Reason: Protocol Stop: 06/16/17 20:59 Last Admin: 05/05/17 20:22 Dose: Not Given Venlafaxine HCl (Effexor Xr) 150 mg PO DAILY [facility] Stop: 06/17/17 08:59 Last Admin: 05/05/17 09:59 Dose: Not Given General: Moderate distress, Other (agitated, restless) HEENT: Atraumatic, PERRLA, EOMI Neck: Supple, no JVD, no Thyromegaly Cardiovascular: Regular rate, Normal S1, Normal S2 Lungs: Clear to auscultation Abdomen: Bowel sounds, Soft Extremities: Other Psych/Mental Status: Other (psychosis and agitated) Assessment/Plan - Assessment Assessment: metabolic encephalopathy 2/2 uti and candidiasis right LE fracture s/p orif DEBBI MDD iimpulse control DO DM HTN Unsteady gait Psychosis Status post fall - Plan Plan: Psych is following. She became acutely altered and very lethargic. Suffered a possible seizure and was transferred to the ICU. critical care and neurology are following. Ortho removed the anterior portion of the cast, but would like the posterior part remain intact and to wrap it into place with an paco bandage. On Seroquel 75 mg tid now per Dr[address] Nunez. Completed Diflucan for UTI. Ct head revealed no masses or hemorrhages. UA was repeated and it revealed a UTI. Zosyn was started. She's been on Lopressor 25 mg bid. Nutritional Asmnt/Malnutr-PDOC - Dietary Evaluation Malnutrition Findings (Please click <Entered> for more info): Nutritional Asmnt/Malnutrition Start: 04/17/17 07: 44 Text: Status: Complete Freq: Document 04/21/17 09:29 [email or web address] (Rec: 04/21/17 09:34 [email or web address] [id number]) Nutritional Asmnt/Malnutrition Patient General Information Nutritional Screening Moderate Risk Diagnosis metabolic encephalopathy Pertinent Medical Hx/Surgical Hx impulse control disorder, anxiety, depression, DM, HTN, HLD, CAD Subjective Information Pt A&A x 1, confused, with sitter, moving to psychiatric. PO intake 50-100%, usually eats 100%. Current Diet Order/ Nutrition Support mechanical soft, chopped Patient / S.O Not Indicated Pertinent Medications vit d, plavix, colace, glyburide Pertinent Labs 04/21 glucose: 129-148, hgba1c: 8.0, T Nutritional Hx/Data Height 1.57 m Height (Calculated Centimeters) 157.5 Current Weight (lbs) 90.718 kg Weight (Calculated Kilograms) 90.7 Weight (Calculated Grams) 90108.5 [place] Body Weight 110 % [place] Body Weight 181 Body Mass Index (BMI) 36.6 Weight Status Obese GI Symptoms GI Symptoms None Last BM 04/19 Difficult in: Chewing Skin Integrity/Comment: intact, bruises, no edema noted Current %PO Good (75-100%) Estimated Nutritional Goals BEE in Kcals: Adj wt of IBW Calories/Kcals/Kg 25-30 Kcals Calculated 7194-4892 kcals Protein: Adj wt of IBW Protein g/k-1.2 Protein Calculated 60-72 Fluid: ml 1981-8593 mL (1 ml/kcal) Nutritional Problem 1. Problem Problem altered nutrition related lab values Etiology DM, lack of CCHO diet Signs/Symptoms: gluocse: 129-148, hgba1c: 8.0 Malnutrition Alert Is there a minimum of two criteria No selected? Query Text:Check all the applicable criteria. A minimum of two criteria are recommended for diagnosis of either severe or non-severe malnutrition. Malnutrition Related to Morbid Obesity Malnutrition related to morbid obesity No Intervention/Recommendation Comments 1. Change diet to mechanical soft, chopped, CCHO 60 gm to manage DM Expected Outcomes/Goals Expected Outcomes/Goals PO intake>50%, labs: WNL monitor wt, labs, skin, PO intake
[2017-05-06] MEDS: Albuterol/Ipratropium Neb 3 ML AERS HHN SCH ×6 (03:25→23:25)
[2017-05-06 05:31] LABS: % LYMPHOCYTES 12.9 % (20.0-50.0); % MONOCYTES 5.7 % (2.0-10.0); % NEUTROPHILS 78.4 % (40.0-80.0); EOSINOPHILE ABSOLUTE 0.4 Th/cmm (0.1-0.4); HEMATOCRIT 35.6 % (41.0-60); HEMOGLOBIN 11.9 gm/dL (12-16); LYMPHOCYTE ABSOLUTE 1.7 Th/cmm (1.5-3.0); MEAN CELL VOLUME 95.6 fl (81-100); MEAN CORPUSCULAR HEMOGLOBIN 31.8 pg (27.0-31.0); MEAN CORPUSCULAR HGB CONC 33.3 pg (28.0-36.0); MEAN PLATELET VOLUME 9.1 fl; MONOCYTE ABSOLUTE 0.7 Th/cmm (0.3-1.0); NEUTROPHILE ABSOLUTE 10.2 Th/cmm (1.8-8.0); PLATELET COUNT 446 Th/cmm (150-400); RED BLOOD COUNT 3.72 Mil/cmm (3.80-5.20); RED CELL DISTRIBUTION WIDTH 14.4 % (11.5-20.0)
[2017-05-06 05:48] LABS: ALB/GLOB RATIO 0.9 (1.0-1.8); ALBUMIN 3.4 gm/dL (3.7-5.3); ALKALINE PHOSPHATASE 67 U/L (34-104); ANION GAP 11.7 (7.0-16.0); BILIRUBIN,TOTAL 0.5 mg/dL (0.3-1.0); BUN - UREA NITROGEN 28 mg/dL (7-25); CALCIUM SERUM 9.9 mg/dL (8.6-10.3); CARBON DIOXIDE 24.6 mEq/L (21.0-31.0); CHLORIDE 123 mEq/L (98-107); CREATININE - SERUM 1.3 mg/dL (0.6-1.2); GLUCOSE 375 mg/dL (70-105); PHOSPHOROUS 3.2 mg/dL (2.5-5.0); POTASSIUM SERUM 3.3 mEq/L (3.5-5.1); SGOT 26 U/L (13-39); SGPT/ALT 20 U/L (7-52); SODIUM SERUM 156 mEq/L (136-145); TOTAL PROTEIN,SERUM 7.2 gm/dL (6.0-8.3)
[2017-05-06] MEDS: INSULIN ASPART SLIDING SCALE 100 UNITS/ML UNIT SUBQ SCH ×4 (06:53→23:34)
--- NOTE | 2017-05-06 08:40 | Diagnostic Imaging Report ---
Portable chest x-ray HISTORY: Shortness of breath The heart appears enlarged. There is a poor inspiration. Accentuation and slight haziness of the interstitial lung markings. A mild degree of congestive heart failure cannot be definitely excluded. No focal processes. IMPRESSION: 1. Cardiomegaly along with the mild changes as noted above. A degree of congestive heart failure cannot be excluded. Clinical correlation is needed.
[2017-05-06] MEDS: Lactobacillus Rhamnosus GG 15 Billion CFU CAP.SPRINK PO SCH (10:00)
[2017-05-06] MEDS: OLANZapine 5 mg Oral Disintegrating Tab PO SCH ×2 (10:00→19:23)
[2017-05-06] MEDS: AMINO ACIDS IV SCH (16:04)
[2017-05-06] MEDS: MULTIVITAMIN IV SCH (16:04)
[2017-05-06] MEDS: [UNRECOGNIZED DRUG - OTHER] IV SCH (16:04)
[2017-05-06] MEDS: DEXTROSE IV SCH (16:04)
--- NOTE | 2017-05-06 22:45 | General Progress Note ---
Subjective - Review of Systems Service Date: 05/06/17 Events since last encounter: The patient remains altered and is unable to understand commands. Continue antibiotics. psych to reeval. Subjective: The patient was seen, evaluated and responds to stimuli. She is agitated but it has improved since yesterday. No s/s of seizure since being moved to the ICU. Objective - Results Result Diagrams: 05/06/17 04:55 05/06/17 04:55 Recent Labs: Laboratory Last Values WBC 13.0 Th/cmm (4.8-10.8) H 05/06/17 04:55 RBC 3.72 Mil/cmm (3.80-5.20) L 05/06/17 04:55 Hgb 11.9 gm/dL (12-16) L 05/06/17 04:55 Hct 35.6 % (41.0-60) L 05/06/17 04:55 MCV 95.6 fl (81-100) 05/06/17 04:55 MCH 31.8 pg (27.0-31.0) H 05/06/17 04:55 MCHC Differential 33.3 pg (28.0-36.0) 05/06/17 04:55 RDW 14.4 % (11.5-20.0) 05/06/17 04:55 Plt Count 446 Th/cmm (150-400) H 05/06/17 04:55 MPV 9.1 fl 05/06/17 04:55 Neutrophils % 78.4 % (40.0-80.0) 05/06/17 04:55 Band Neutrophils % 2 % (0-10) 05/05/17 04:40 Lymphocytes % 12.9 % (20.0-50.0) L 05/06/17 04:55 Monocytes % 5.7 % (2.0-10.0) 05/06/17 04:55 Eosinophils % 3.0 % (0.0-5.0) 05/06/17 04:55 Basophils % 0.0 % (0.0-2.0) 05/06/17 04:55 Neutrophils (Manual) 80 % (40-80) 05/05/17 04:40 Lymphocytes 9 % (20-50) L 05/05/17 04:40 Monocytes 9 % (2-10) 05/05/17 04:40 Platelet Estimate INCREASED PLATELETS (NORMAL) 05/05/17 04:40 ESR 59 mm/hr (0-30) H 05/02/17 04:15 Specimen Source Arterial 05/02/17 16:08 Sample Site RB 05/02/17 16:08 pH 7.29 (7.35-7.45) L 05/02/17 16:08 pCO2 39.0 mmHg (35.0-45.0) 05/02/17 16:08 pO2 85.0 mmHg (80.0-100.0) 05/02/17 16:08 HCO3 19.2 mEq/L (20.0-26.0) L 05/02/17 16:08 Base Excess -7.3 mEq/L (-3.0-3.0) L 05/02/17 16:08 O2 Saturation 95.0 % (92.0-100.0) 05/02/17 16:08 Jet Test NA 05/02/17 16:08 Vent Rate NA 05/02/17 16:08 Inspired O2 50 05/02/17 16:08 Tidal Volume NA 05/02/17 16:08 PEEP NA 05/02/17 16:08 Pressure (ins/psv/peep) NA 05/02/17 16:08 Critical Value E.GIBSON 05/02/17 16:08 Sodium 156 mEq/L (136-145) H 05/06/17 04:55 Potassium 3.3 mEq/L (3.5-5.1) L 05/06/17 04:55 Chloride 123 mEq/L (98-107) H 05/06/17 04:55 Carbon Dioxide 24.6 mEq/L (21.0-31.0) 05/06/17 04:55 Anion Gap 11.7 (7.0-16.0) 05/06/17 04:55 BUN 28 mg/dL (7-25) H 05/06/17 04:55 Creatinine 1.3 mg/dL (0.6-1.2) H 05/06/17 04:55 Est GFR ( Amer) TNP 05/06/17 04:55 Est GFR (Non-Af Amer) TNP 05/06/17 04:55 BUN/Creatinine Ratio 21.5 05/06/17 04:55 Glucose 375 mg/dL (70-105) H 05/06/17 04:55 POC Glucose 333 MG/DL (70 - 105) H 05/06/17 18:27 Hemoglobin A1c % 8.0 % (4.0-6.0) H 04/16/17 18:20 Calcium 9.9 mg/dL (8.6-10.3) 05/06/17 04:55 Phosphorus 3.2 mg/dL (2.5-5.0) 05/06/17 04:55 Magnesium 2.0 mg/dL (1.9-2.7) 05/06/17 04:55 Total Bilirubin 0.5 mg/dL (0.3-1.0) 05/06/17 04:55 AST 26 U/L (13-39) 05/06/17 04:55 ALT 20 U/L (7-52) 05/06/17 04:55 Alkaline Phosphatase 67 U/L (34-104) 05/06/17 04:55 Ammonia 19 umol/L (16-53) 05/01/17 20:25 Total Protein 7.2 gm/dL (6.0-8.3) 05/06/17 04:55 Albumin 3.4 gm/dL (3.7-5.3) L 05/06/17 04:55 Globulin 3.8 gm/dL 05/06/17 04:55 Albumin/Globulin Ratio 0.9 (1.0-1.8) L 05/06/17 04:55 Prealbumin 12 mg/dL (9-32) 05/05/17 04:40 Triglycerides 213 mg/dL (<150) H 05/05/17 04:40 Cholesterol 140 mg/dL (<200) 05/05/17 04:40 LDL Cholesterol Direct 69 mg/dL (75-193) L 04/16/17 18:20 HDL Cholesterol 40 mg/dL (23-92) 04/16/17 18:20 Whole Bld Vitamin B1 113.7 nmol/L (66.5-200.0) 05/01/17 20:25 Free T4 1.04 ng/dL (0.82-1.77) 05/02/17 04:15 TSH 3.72 uIU/ml (0.34-5.60) 05/02/17 04:15 Urine Source [place] 05/02/17 04:30 Urine Color YELLOW 05/02/17 04:30 Urine Clarity HAZY (CLEAR) 05/02/17 04:30 Urine pH 5.5 (4.6 - 8.0) 05/02/17 04:30 Ur Specific [place] >= 1.030 (1.005-1.030) 05/02/17 04:30 Urine Protein 100 mg/dL (NEGATIVE) H 05/02/17 04:30 Urine Glucose (UA) NEGATIVE mg/dL (NEGATIVE) 05/02/17 04:30 Urine Ketones >=80 mg/dL (NEGATIVE) H 05/02/17 04:30 Urine Blood LARGE (NEGATIVE) H 05/02/17 04:30 Urine Nitrate NEGATIVE (NEGATIVE) 05/02/17 04:30 Urine Bilirubin SMALL (NEGATIVE) H 05/02/17 04:30 Urine Urobilinogen 0.2 E.U./dL (0.2 - 1.0) 05/02/17 04:30 Ur Leukocyte Esterase NEGATIVE (NEGATIVE) 05/02/17 04:30 Urine RBC 5-10 /hpf (0-5) H 05/02/17 04:30 Urine WBC 6-10 /hpf (0-5) H 05/02/17 04:30 Ur Epithelial Cells MODERATE /lpf (FEW) 05/02/17 04:30 Urine Bacteria 2+ /hpf (NONE SEEN) H 05/02/17 04:30 Urine Yeast MANY /hpf (NONE SEEN) H 04/18/17 19:20 Salicylates < 25.0 mg/L (30.0-100.0) L 04/16/17 18:20 Urine Opiates Screen NEGATIVE (NEGATIVE) 04/17/17 00:10 Urine Methadone Screen NEGATIVE (NEGATIVE) 04/17/17 00:10 Acetaminophen < 10.0 ug/mL (10.0-30.0) L 04/16/17 18:20 Ur Barbiturates Screen NEGATIVE (NEGATIVE) 04/17/17 00:10 Ur Tricyclics Screen NEGATIVE (NEGATIVE) 04/17/17 00:10 Ur Phencyclidine Scrn NEGATIVE (NEGATIVE) 04/17/17 00:10 Amphetamines Screen NEGATIVE (NEGATIVE) 04/17/17 00:10 U Methamphetamines Scrn NEGATIVE (NEGATIVE) 04/17/17 00:10 U Benzodiazepines Scrn NEGATIVE (NEGATIVE) 04/17/17 00:10 U Cocaine Metab Screen NEGATIVE (NEGATIVE) 04/17/17 00:10 U Cannabinoids Screen NEGATIVE (NEGATIVE) 04/17/17 00:10 Ethyl Alcohol < 10 mg/dL (0-10) 04/16/17 18:20 RPR NONREACTIVE (NONREACTIVE) 04/16/17 18:20 - Physical Exam Vitals and I&O: Vital Signs Temp 99.0 F 05/06/17 20:00 Pulse 80 05/06/17 22:02 Resp 21 05/06/17 21:00 BP 154/53 05/06/17 22:02 Pulse Ox 97 05/06/17 21:00 Intake & Output 05/06/17 05/06/17 05/07/17 06:59 18:59 06:59 Intake Total 260 1008 50 Balance 260 1008 50 Intake: Intake, IV Amount 260 1008 50 Levetiracetam 1,000 mg In 110 110 Sodium Chloride 0.9% 100 ml @ 400 mls/hr IV Q12H [facility] Rx#:[id number] Multivitamin Inj 10 ml In 848 Amino Acids 10% 250 ml In Dextrose 10% 500 ml In Intralipids 20% 200 ml @ 40 mls/hr IV .Q24H [facility] Rx#:[id number] Piperacillin Sodium/ 150 50 50 Tazobact 3.375 gm In Sodium Chloride 0.9% 50 ml @ 100 mls/hr IV Q6HR [facility] Rx#:[id number] Active Medications: Current Medications Acetaminophen (Tylenol) 650 mg PO Q6H PRN PRN Reason: HEADACHE/TEMP ABOVE 100F Stop: 06/23/17 09:20 Last Admin: 04/28/17 00:41 Dose: 650 mg Acetaminophen (Tylenol 650mg Supp) 650 mg RC Q4H PRN PRN Reason: fever >100.4 Stop: 07/01/17 20:50 Last Admin: 05/02/17 21:30 Dose: 650 mg Albuterol/Ipratropium (Duoneb Neb) 3 ml HHN Q4HRT [facility] Stop: 07/01/17 14:59 Last Admin: 05/06/17 19:41 Dose: 3 ml Cholecalciferol (Vitamin D3) 1,000 iu PO DAILY [facility] Stop: 06/17/17 08:59 Last Admin: 05/06/17 09:59 Dose: Not Given Clonidine HCl (Adyeesax-Dlo-7) 1 patch TD Sa [facility] Stop: 07/02/17 12:14 Last Admin: 05/03/17 19:03 Dose: 1 patch Clopidogrel Bisulfate (Plavix) 75 mg PO DAILY [facility] Stop: 06/17/17 08:59 Last Admin: 05/06/17 10:00 Dose: Not Given Docusate Sodium (Colace) 100 mg PO BID PRN PRN Reason: Constipation Stop: 06/16/17 09:43 Last Admin: 04/25/17 08:59 Dose: 100 mg Enalaprilat (Vasotec) 2.25 mg IVP Q4HR PRN PRN Reason: [id number] Stop: 06/30/17 22:00 Last Admin: 05/06/17 21:02 Dose: 2.25 mg Glyburide (Diabeta) 5 mg PO BID [facility] Stop: 06/16/17 16:59 Last Admin: 05/06/17 19:20 Dose: Not Given Haloperidol Lactate (Haldol) 5 mg IM Q6HR PRN PRN Reason: Agitation Stop: 06/30/17 21:25 Last Admin: 05/05/17 09:42 Dose: 5 mg Magnesium Sulfate (Magnesium Sulfate Premix) 2 gm in 50 mls @ 25 mls/hr IV DAILY PRN PRN Reason: Magnesium level below 1.6 Stop: 06/23/17 09:20 Levetiracetam 1,000 mg/ Sodium (Chloride) 110 mls @ 400 mls/hr IV Q12H [facility] Stop: 06/30/17 12:29 Last Infusion: 05/06/17 13:19 Dose: Infused Piperacillin Sod/Tazobactam (Sod 3.375 gm/ Sodium Chloride) 50 mls @ 100 mls/ hr IV Q6HR [facility] Stop: 07/02/17 11:59 Last Infusion: 05/06/17 19:00 Dose: Infused Multivitamins/Minerals 10 ml/Amino Acids/Electrolytes/Dextrose/ Fat Emulsion Intravenous 960 mls @ 40 mls/hr IV .Q24H [facility] Stop: 07/04/17 16:59 Last Admin: 05/06/17 16:04 Dose: 40 mls/hr Insulin Aspart (Novolog Insulin Sliding Scale) 0 units SUBQ Q6HR [facility] PRN Reason: Protocol Stop: 07/03/17 19:44 Last Admin: 05/06/17 18:29 Dose: 8 units Lactobacillus Rhamnosus (Culturelle 15b) 1 each PO DAILY [facility] Stop: 07/02/17 08:59 Last Admin: 05/06/17 10:00 Dose: Not Given Lamotrigine (Lamictal) 100 mg PO BID [facility] PRN Reason: Protocol Stop: 06/16/17 16:59 Last Admin: 05/06/17 19:20 Dose: Not Given Lisinopril (Zestril) 20 mg PO BID [facility] Stop: 06/30/17 08:59 Last Admin: 05/06/17 19:20 Dose: Not Given Metoprolol Tartrate (Lopressor) 25 mg PO BID [facility] Stop: 06/27/17 09:14 Last Admin: 05/06/17 19:23 Dose: Not Given Miscellaneous (Probiotic Screen) 1 [facility] PRN PRN PRN Reason: PROTOCOL Stop: 07/01/17 17:02 Miscellaneous (Ppn Per Pharmacy) 1 [facility] PRN PRN PRN Reason: PROTOCOL Stop: 07/04/17 00:49 Morphine Sulfate (Morphine) 1 mg IVP Q4H PRN PRN Reason: MODERATE PAIN Stop: 07/04/17 16:16 Olanzapine (Zyprexa Zydis) 5 mg PO BID [facility] PRN Reason: Protocol Stop: 06/30/17 10:44 Last Admin: 05/06/17 19:23 Dose: Not Given Potassium Chloride (Klor-Con) 40 meq PO DAILY PRN PRN Reason: k level below 3.5 Stop: 06/23/17 09:20 Last Admin: 04/26/17 08:37 Dose: 40 meq Simvastatin (Zocor) 10 mg PO HS [facility] PRN Reason: Protocol Stop: 06/16/17 20:59 Last Admin: 05/06/17 21:01 Dose: Not Given Venlafaxine HCl (Effexor Xr) 150 mg PO DAILY [facility] Stop: 06/17/17 08:59 Last Admin: 05/06/17 10:00 Dose: Not Given General: Moderate distress, Other (agitated, restless) HEENT: Atraumatic, PERRLA, EOMI Neck: Supple, no JVD, no Thyromegaly Cardiovascular: Regular rate, Normal S1, Normal S2 Lungs: Clear to auscultation Abdomen: Bowel sounds, Soft Extremities: Other (posterior cast wrapped in an paco bandage) Psych/Mental Status: Other (psychosis and agitated) Assessment/Plan - Assessment Assessment: metabolic encephalopathy 2/2 uti and candidiasis right LE fracture s/p orif DEBBI MDD iimpulse control DO DM HTN Unsteady gait Psychosis Status post fall - Plan Plan: Psych is following. She became acutely altered and very lethargic. Suffered a possible seizure and was transferred to the ICU. critical care and neurology are following. Ortho removed the anterior portion of the cast, but would like the posterior part remain intact and to wrap it into place with an paco bandage. On Seroquel 75 mg tid now per Dr[address] Nunez. Completed Diflucan for UTI. Ct head revealed no masses or hemorrhages. UA was repeated and it revealed a UTI. Zosyn was started. She's been on Lopressor 25 mg bid. Nutritional Asmnt/Malnutr-PDOC - Dietary Evaluation Malnutrition Findings (Please click <Entered> for more info): Nutritional Asmnt/Malnutrition Start: 04/17/17 07: 44 Text: Status: Complete Freq: Document 04/21/17 09:29 [email or web address] (Rec: 04/21/17 09:34 [email or web address] [id number]) Nutritional Asmnt/Malnutrition Patient General Information Nutritional Screening Moderate Risk Diagnosis metabolic encephalopathy Pertinent Medical Hx/Surgical Hx impulse control disorder, anxiety, depression, DM, HTN, HLD, CAD Subjective Information Pt A&A x 1, confused, with sitter, moving to [facility]. PO intake 50-100%, usually eats 100%. Current Diet Order/ Nutrition Support mechanical soft, chopped Patient / S.O Not Indicated Pertinent Medications vit d, plavix, colace, glyburide Pertinent Labs 04/21 glucose: 129-148, hgba1c: 8.0, T Nutritional Hx/Data Height 1.57 m Height (Calculated Centimeters) 157.5 Current Weight (lbs) 90.718 kg Weight (Calculated Kilograms) 90.7 Weight (Calculated Grams) 35752.5 [place] Body Weight 110 % [place] Body Weight 181 Body Mass Index (BMI) 36.6 Weight Status Obese GI Symptoms GI Symptoms None Last BM 04/19 Difficult in: Chewing Skin Integrity/Comment: intact, bruises, no edema noted Current %PO Good (75-100%) Estimated Nutritional Goals BEE in Kcals: Adj wt of IBW Calories/Kcals/Kg 25-30 Kcals Calculated 1814-5398 kcals Protein: Adj wt of IBW Protein g/k-1.2 Protein Calculated 60-72 Fluid: ml 8898-4813 mL (1 ml/kcal) Nutritional Problem 1. Problem Problem altered nutrition related lab values Etiology DM, lack of CCHO diet Signs/Symptoms: gluocse: 129-148, hgba1c: 8.0 Malnutrition Alert Is there a minimum of two criteria No selected? Query Text:Check all the applicable criteria. A minimum of two criteria are recommended for diagnosis of either severe or non-severe malnutrition. Malnutrition Related to Morbid Obesity Malnutrition related to morbid obesity No Intervention/Recommendation Comments 1. Change diet to mechanical soft, chopped, CCHO 60 gm to manage DM Expected Outcomes/Goals Expected Outcomes/Goals PO intake>50%, labs: WNL monitor wt, labs, skin, PO intake
[2017-05-06] MEDS: Sodium Chloride 0.45% 1,000 ML IV SCH (22:55)
[2017-05-07] MEDS: Albuterol/Ipratropium Neb 3 ML AERS HHN SCH ×6 (03:29→22:07)
[2017-05-07 05:19] LABS: HEMATOCRIT 34.2 % (41.0-60); HEMOGLOBIN 11.5 gm/dL (12-16); MEAN CORPUSCULAR HEMOGLOBIN 33.2 pg (27.0-31.0); MEAN CORPUSCULAR HGB CONC 33.5 pg (28.0-36.0); MEAN PLATELET VOLUME 9.1 fl; PLATELET COUNT 411 Th/cmm (150-400); RED BLOOD COUNT 3.45 Mil/cmm (3.80-5.20); RED CELL DISTRIBUTION WIDTH 14.3 % (11.5-20.0)
[2017-05-07 05:23] LABS: MANUAL DIFF REQUIRED? YES; WHITE BLOOD COUNT 15.7 Th/cmm (4.8-10.8)
[2017-05-07 05:37] LABS: ALB/GLOB RATIO 0.9 (1.0-1.8); ALBUMIN 3.2 gm/dL (3.7-5.3); ALKALINE PHOSPHATASE 61 U/L (34-104); ANION GAP 11.4 (7.0-16.0); BILIRUBIN,TOTAL 0.5 mg/dL (0.3-1.0); BUN - UREA NITROGEN 38 mg/dL (7-25); CALCIUM SERUM 9.7 mg/dL (8.6-10.3); CARBON DIOXIDE 21.8 mEq/L (21.0-31.0); CHLORIDE 126 mEq/L (98-107); CREATININE - SERUM 1.2 mg/dL (0.6-1.2); GLUCOSE 290 mg/dL (70-105); MAGNESIUM 2.3 mg/dL (1.9-2.7); PHOSPHOROUS 2.9 mg/dL (2.5-5.0); POTASSIUM SERUM 3.2 mEq/L (3.5-5.1); SGOT 21 U/L (13-39); SGPT/ALT 15 U/L (7-52); SODIUM SERUM 156 mEq/L (136-145); TOTAL PROTEIN,SERUM 6.7 gm/dL (6.0-8.3)
[2017-05-07 06:16] LABS: BAND NEUTROPHILE 4 % (0-10); EOSINOPHIL 2 % (0-5); LYMPHOCYTE 19 % (20-50); MONOCYTE 4 % (2-10); NEUTROPHILS 71 % (40-80); TOTAL CELLS COUNTED 100
[2017-05-07] MEDS: INSULIN ASPART SLIDING SCALE 100 UNITS/ML UNIT SUBQ SCH ×3 (06:21→20:05)
[2017-05-07] MEDS: Lactobacillus Rhamnosus GG 15 Billion CFU CAP.SPRINK PO SCH (10:00)
[2017-05-07] MEDS ORDERED: Potassium Phosphate 15 MMOLE in Sodium Chloride 0.9% 250 ML IV ONE (10:00)
[2017-05-07] MEDS: OLANZapine 5 mg Oral Disintegrating Tab PO SCH ×2 (10:00→17:20)
--- NOTE | 2017-05-07 11:22 | General Progress Note ---
Subjective - Review of Systems Service Date: 05/07/17 Subjective: Pt seen and eval. NAD. In bed. Weak, but awake. Has been on ppn. Her R UE IV seems to be infiltrating. No cough or congestion. No agitation this am. Too weak to swallow. BP and sugars have been fluctuating. Objective - Results Result Diagrams: 05/07/17 04:50 05/07/17 04:50 Recent Labs: Laboratory Last Values WBC 15.7 Th/cmm (4.8-10.8) H D 05/07/17 04:50 RBC 3.45 Mil/cmm (3.80-5.20) L 05/07/17 04:50 Hgb 11.5 gm/dL (12-16) L 05/07/17 04:50 Hct 34.2 % (41.0-60) L 05/07/17 04:50 MCV 99.0 fl (81-100) 05/07/17 04:50 MCH 33.2 pg (27.0-31.0) H 05/07/17 04:50 MCHC Differential 33.5 pg (28.0-36.0) 05/07/17 04:50 RDW 14.3 % (11.5-20.0) 05/07/17 04:50 Plt Count 411 Th/cmm (150-400) H 05/07/17 04:50 MPV 9.1 fl 05/07/17 04:50 Neutrophils % 78.4 % (40.0-80.0) 05/06/17 04:55 Band Neutrophils % 4 % (0-10) 05/07/17 04:50 Lymphocytes % 12.9 % (20.0-50.0) L 05/06/17 04:55 Monocytes % 5.7 % (2.0-10.0) 05/06/17 04:55 Eosinophils % 3.0 % (0.0-5.0) 05/06/17 04:55 Basophils % 0.0 % (0.0-2.0) 05/06/17 04:55 Neutrophils (Manual) 71 % (40-80) 05/07/17 04:50 Lymphocytes 19 % (20-50) L 05/07/17 04:50 Monocytes 4 % (2-10) 05/07/17 04:50 Eosinophils 2 % (0-5) 05/07/17 04:50 Platelet Estimate INCREASED PLATELETS (NORMAL) 05/05/17 04:40 ESR 59 mm/hr (0-30) H 05/02/17 04:15 Specimen Source Arterial 05/02/17 16:08 Sample Site RB 05/02/17 16:08 pH 7.29 (7.35-7.45) L 05/02/17 16:08 pCO2 39.0 mmHg (35.0-45.0) 05/02/17 16:08 pO2 85.0 mmHg (80.0-100.0) 05/02/17 16:08 HCO3 19.2 mEq/L (20.0-26.0) L 05/02/17 16:08 Base Excess -7.3 mEq/L (-3.0-3.0) L 05/02/17 16:08 O2 Saturation 95.0 % (92.0-100.0) 05/02/17 16:08 Jet Test NA 05/02/17 16:08 Vent Rate NA 05/02/17 16:08 Inspired O2 50 05/02/17 16:08 Tidal Volume NA 05/02/17 16:08 PEEP NA 05/02/17 16:08 Pressure (ins/psv/peep) NA 05/02/17 16:08 Critical Value E.GIBSON 05/02/17 16:08 Sodium 156 mEq/L (136-145) H 05/07/17 04:50 Potassium 3.2 mEq/L (3.5-5.1) L 05/07/17 04:50 Chloride 126 mEq/L (98-107) H 05/07/17 04:50 Carbon Dioxide 21.8 mEq/L (21.0-31.0) 05/07/17 04:50 Anion Gap 11.4 (7.0-16.0) 05/07/17 04:50 BUN 38 mg/dL (7-25) H 05/07/17 04:50 Creatinine 1.2 mg/dL (0.6-1.2) 05/07/17 04:50 Est GFR ( Amer) TNP 05/07/17 04:50 Est GFR (Non-Af Amer) TNP 05/07/17 04:50 BUN/Creatinine Ratio 31.7 05/07/17 04:50 Glucose 290 mg/dL (70-105) H 05/07/17 04:50 POC Glucose 268 MG/DL (70 - 105) H 05/07/17 06:16 Hemoglobin A1c % 8.0 % (4.0-6.0) H 04/16/17 18:20 Calcium 9.7 mg/dL (8.6-10.3) 05/07/17 04:50 Phosphorus 2.9 mg/dL (2.5-5.0) 05/07/17 04:50 Magnesium 2.3 mg/dL (1.9-2.7) 05/07/17 04:50 Total Bilirubin 0.5 mg/dL (0.3-1.0) 05/07/17 04:50 AST 21 U/L (13-39) 05/07/17 04:50 ALT 15 U/L (7-52) 05/07/17 04:50 Alkaline Phosphatase 61 U/L (34-104) 05/07/17 04:50 Ammonia 19 umol/L (16-53) 05/01/17 20:25 Total Protein 6.7 gm/dL (6.0-8.3) 05/07/17 04:50 Albumin 3.2 gm/dL (3.7-5.3) L 05/07/17 04:50 Globulin 3.5 gm/dL 05/07/17 04:50 Albumin/Globulin Ratio 0.9 (1.0-1.8) L 05/07/17 04:50 Prealbumin 12 mg/dL (9-32) 05/05/17 04:40 Triglycerides 213 mg/dL (<150) H 05/05/17 04:40 Cholesterol 140 mg/dL (<200) 05/05/17 04:40 LDL Cholesterol Direct 69 mg/dL (75-193) L 04/16/17 18:20 HDL Cholesterol 40 mg/dL (23-92) 04/16/17 18:20 Whole Bld Vitamin B1 113.7 nmol/L (66.5-200.0) 05/01/17 20:25 Free T4 1.04 ng/dL (0.82-1.77) 05/02/17 04:15 TSH 3.72 uIU/ml (0.34-5.60) 05/02/17 04:15 Urine Source [place] 05/02/17 04:30 Urine Color YELLOW 05/02/17 04:30 Urine Clarity HAZY (CLEAR) 05/02/17 04:30 Urine pH 5.5 (4.6 - 8.0) 05/02/17 04:30 Ur Specific [place] >= 1.030 (1.005-1.030) 05/02/17 04:30 Urine Protein 100 mg/dL (NEGATIVE) H 05/02/17 04:30 Urine Glucose (UA) NEGATIVE mg/dL (NEGATIVE) 05/02/17 04:30 Urine Ketones >=80 mg/dL (NEGATIVE) H 05/02/17 04:30 Urine Blood LARGE (NEGATIVE) H 05/02/17 04:30 Urine Nitrate NEGATIVE (NEGATIVE) 05/02/17 04:30 Urine Bilirubin SMALL (NEGATIVE) H 05/02/17 04:30 Urine Urobilinogen 0.2 E.U./dL (0.2 - 1.0) 05/02/17 04:30 Ur Leukocyte Esterase NEGATIVE (NEGATIVE) 05/02/17 04:30 Urine RBC 5-10 /hpf (0-5) H 05/02/17 04:30 Urine WBC 6-10 /hpf (0-5) H 05/02/17 04:30 Ur Epithelial Cells MODERATE /lpf (FEW) 05/02/17 04:30 Urine Bacteria 2+ /hpf (NONE SEEN) H 05/02/17 04:30 Urine Yeast MANY /hpf (NONE SEEN) H 04/18/17 19:20 Salicylates < 25.0 mg/L (30.0-100.0) L 04/16/17 18:20 Urine Opiates Screen NEGATIVE (NEGATIVE) 04/17/17 00:10 Urine Methadone Screen NEGATIVE (NEGATIVE) 04/17/17 00:10 Acetaminophen < 10.0 ug/mL (10.0-30.0) L 04/16/17 18:20 Ur Barbiturates Screen NEGATIVE (NEGATIVE) 04/17/17 00:10 Ur Tricyclics Screen NEGATIVE (NEGATIVE) 04/17/17 00:10 Ur Phencyclidine Scrn NEGATIVE (NEGATIVE) 04/17/17 00:10 Amphetamines Screen NEGATIVE (NEGATIVE) 04/17/17 00:10 U Methamphetamines Scrn NEGATIVE (NEGATIVE) 04/17/17 00:10 U Benzodiazepines Scrn NEGATIVE (NEGATIVE) 04/17/17 00:10 U Cocaine Metab Screen NEGATIVE (NEGATIVE) 04/17/17 00:10 U Cannabinoids Screen NEGATIVE (NEGATIVE) 04/17/17 00:10 Ethyl Alcohol < 10 mg/dL (0-10) 04/16/17 18:20 RPR NONREACTIVE (NONREACTIVE) 04/16/17 18:20 - Physical Exam Vitals and I&O: Vital Signs Temp 98.6 F 05/07/17 04:00 Pulse 89 05/07/17 09:59 Resp 22 05/07/17 07:33 BP 166/77 05/07/17 09:59 Pulse Ox 99 05/07/17 07:33 Intake & Output 05/06/17 05/07/17 05/07/17 18:59 06:59 18:59 Intake Total 1008 1246.500 Output Total 350 Balance 1008 1246.500 -350 Weight (lbs) 84.368 kg Intake: Intake, IV Amount 1008 1246.500 Levetiracetam 1,000 mg In 110 110 Sodium Chloride 0.9% 100 ml @ 400 mls/hr IV Q12H [facility] Rx#:[id number] Multivitamin Inj 10 ml In 848 590.667 Amino Acids 10% 250 ml In Dextrose 10% 500 ml In Intralipids 20% 200 ml @ 40 mls/hr IV .Q24H [facility] Rx#:[id number] Piperacillin Sodium/ 50 150 Tazobact 3.375 gm In Sodium Chloride 0.9% 50 ml @ 100 mls/hr IV Q6HR [facility] Rx#:[id number] Sodium Chloride 0.45% 1, 395.833 000 ml @ 50 mls/hr IV . Q20H [facility] Rx#:[id number] Output: Urine 350 Other: # Bowel Movements 0 Active Medications: Current Medications Acetaminophen (Tylenol) 650 mg PO Q6H PRN PRN Reason: HEADACHE/TEMP ABOVE 100F Stop: 06/23/17 09:20 Last Admin: 04/28/17 00:41 Dose: 650 mg Acetaminophen (Tylenol 650mg Supp) 650 mg RC Q4H PRN PRN Reason: fever >100.4 Stop: 07/01/17 20:50 Last Admin: 05/02/17 21:30 Dose: 650 mg Albuterol/Ipratropium (Duoneb Neb) 3 ml HHN Q4HRT [facility] Stop: 07/01/17 14:59 Last Admin: 05/07/17 07:33 Dose: 3 ml Cholecalciferol (Vitamin D3) 1,000 iu PO DAILY [facility] Stop: 06/17/17 08:59 Last Admin: 05/07/17 10:00 Dose: Not Given Clonidine HCl (Fgiopztx-Rgx-0) 1 patch TD Sa [facility] Stop: 07/02/17 12:14 Last Admin: 05/03/17 19:03 Dose: 1 patch Clopidogrel Bisulfate (Plavix) 75 mg PO DAILY [facility] Stop: 06/17/17 08:59 Last Admin: 05/07/17 10:00 Dose: Not Given Docusate Sodium (Colace) 100 mg PO BID PRN PRN Reason: Constipation Stop: 06/16/17 09:43 Last Admin: 04/25/17 08:59 Dose: 100 mg Enalaprilat (Vasotec) 2.25 mg IVP Q4HR PRN PRN Reason: sbp>160 Stop: 06/30/17 22:00 Last Admin: 05/07/17 01:00 Dose: 2.25 mg Glyburide (Diabeta) 5 mg PO BID [facility] Stop: 06/16/17 16:59 Last Admin: 05/07/17 09:59 Dose: Not Given Haloperidol Lactate (Haldol) 5 mg IM Q6HR PRN PRN Reason: Agitation Stop: 06/30/17 21:25 Last Admin: 05/05/17 09:42 Dose: 5 mg Magnesium Sulfate (Magnesium Sulfate Premix) 2 gm in 50 mls @ 25 mls/hr IV DAILY PRN PRN Reason: Magnesium level below 1.6 Stop: 06/23/17 09:20 Levetiracetam 1,000 mg/ Sodium (Chloride) 110 mls @ 400 mls/hr IV Q12H [facility] Stop: 06/30/17 12:29 Last Infusion: 05/07/17 06:49 Dose: Infused Piperacillin Sod/Tazobactam (Sod 3.375 gm/ Sodium Chloride) 50 mls @ 100 mls/ hr IV Q6HR [facility] Stop: 07/02/17 11:59 Last Infusion: 05/07/17 06:49 Dose: Infused Multivitamins/Minerals 10 ml/Amino Acids/Electrolytes/Dextrose/ Fat Emulsion Intravenous 960 mls @ 40 mls/hr IV .Q24H [facility] Stop: 07/04/17 16:59 Last Infusion: 05/07/17 06:50 Dose: 40 mls/hr Sodium Chloride (Nacl 0.45%) 1,000 mls @ 50 mls/hr IV .Q20H [facility] Stop: 07/05/17 22:44 Last Infusion: 05/07/17 06:50 Dose: 50 mls/hr Potassium Phosphate 15 mmole/ (Sodium Chloride) 255 mls @ 42 mls/hr IV ONCE ONE Stop: 05/07/17 16:04 Last Admin: 05/07/17 10:08 Dose: 42 mls/hr Insulin Aspart (Novolog Insulin Sliding Scale) 0 units SUBQ Q6HR [facility] PRN Reason: Protocol Stop: 07/03/17 19:44 Last Admin: 05/07/17 06:21 Dose: 6 units Lactobacillus Rhamnosus (Culturelle 15b) 1 each PO DAILY [facility] Stop: 07/02/17 08:59 Last Admin: 05/07/17 10:00 Dose: Not Given Lamotrigine (Lamictal) 100 mg PO BID [facility] PRN Reason: Protocol Stop: 06/16/17 16:59 Last Admin: 05/07/17 09:59 Dose: Not Given Lisinopril (Zestril) 20 mg PO BID [facility] Stop: 06/30/17 08:59 Last Admin: 05/07/17 09:59 Dose: Not Given Metoprolol Tartrate (Lopressor) 25 mg PO BID [facility] Stop: 06/27/17 09:14 Last Admin: 05/07/17 09:59 Dose: Not Given Miscellaneous (Probiotic Screen) 1 ea PRN PRN PRN Reason: PROTOCOL Stop: 07/01/17 17:02 Miscellaneous (Ppn Per Pharmacy) 1 ea PRN PRN PRN Reason: PROTOCOL Stop: 07/04/17 00:49 Olanzapine (Zyprexa Zydis) 5 mg PO BID [facility] PRN Reason: Protocol Stop: 06/30/17 10:44 Last Admin: 05/07/17 10:00 Dose: Not Given Potassium Chloride (Klor-Con) 40 meq PO DAILY PRN PRN Reason: k level below 3.5 Stop: 06/23/17 09:20 Last Admin: 04/26/17 08:37 Dose: 40 meq Simvastatin (Zocor) 10 mg PO HS [facility] PRN Reason: Protocol Stop: 06/16/17 20:59 Last Admin: 05/06/17 21:01 Dose: Not Given Venlafaxine HCl (Effexor Xr) 150 mg PO DAILY [facility] Stop: 06/17/17 08:59 Last Admin: 05/07/17 10:00 Dose: Not Given General: No acute distress HEENT: Atraumatic, PERRLA, EOMI Neck: Supple, no JVD, no Thyromegaly Cardiovascular: Regular rate, Normal S1, Normal S2 Lungs: Clear to auscultation Abdomen: Bowel sounds, Soft Extremities: Other (posterior cast wrapped in an paco bandage) Psych/Mental Status: Other (psychosis and agitated) Assessment/Plan - Assessment Assessment: R ankle fx, Status post ORIF Yeast UTI UTI with sepsis HTN-ooc DM-ooc Unsteady gait Psychosis-stable Status post fall - Plan Plan: Ortho has been consulted and Dr. Carrillo removed the cast. She's in a removable cast now. No pain. WBC elevated. On IV Zosyn. Status post course of Diflucan. ID consulted. On ppn. consider swallow eval tomorrow as she's waking up more. On iv prn bp meds. Nutritional Asmnt/Malnutr-PDOC - Dietary Evaluation Malnutrition Findings (Please click <Entered> for more info): Nutritional Asmnt/Malnutrition Start: 04/17/17 07: 44 Text: Status: Complete Freq: Document 04/21/17 09:29 [email or web address] (Rec: 04/21/17 09:34 [email or web address] [id number]) Nutritional Asmnt/Malnutrition Patient General Information Nutritional Screening Moderate Risk Diagnosis metabolic encephalopathy Pertinent Medical Hx/Surgical Hx impulse control disorder, anxiety, depression, DM, HTN, HLD, CAD Subjective Information Pt A&A x 1, confused, with sitter, moving to [facility]. PO intake 50-100%, usually eats 100%. Current Diet Order/ Nutrition Support mechanical soft, chopped Patient / S.O Not Indicated Pertinent Medications vit d, plavix, colace, glyburide Pertinent Labs 04/21 glucose: 129-148, hgba1c: 8.0, T Nutritional Hx/Data Height 1.57 m Height (Calculated Centimeters) 157.5 Current Weight (lbs) 90.718 kg Weight (Calculated Kilograms) 90.7 Weight (Calculated Grams) 80314.5 [place] Body Weight 110 % [place] Body Weight 181 Body Mass Index (BMI) 36.6 Weight Status Obese GI Symptoms GI Symptoms None Last BM 04/19 Difficult in: Chewing Skin Integrity/Comment: intact, bruises, no edema noted Current %PO Good (75-100%) Estimated Nutritional Goals BEE in Kcals: Adj wt of IBW Calories/Kcals/Kg 25-30 Kcals Calculated 7427-2217 kcals Protein: Adj wt of IBW Protein g/k-1.2 Protein Calculated 60-72 Fluid: ml 3751-5367 mL (1 ml/kcal) Nutritional Problem 1. Problem Problem altered nutrition related lab values Etiology DM, lack of CCHO diet Signs/Symptoms: gluocse: 129-148, hgba1c: 8.0 Malnutrition Alert Is there a minimum of two criteria No selected? Query Text:Check all the applicable criteria. A minimum of two criteria are recommended for diagnosis of either severe or non-severe malnutrition. Malnutrition Related to Morbid Obesity Malnutrition related to morbid obesity No Intervention/Recommendation Comments 1. Change diet to mechanical soft, chopped, CCHO 60 gm to manage DM Expected Outcomes/Goals Expected Outcomes/Goals PO intake>50%, labs: WNL monitor wt, labs, skin, PO intake
--- NOTE | 2017-05-07 11:26 | Infectious Disease Prog Note ---
Infectious Disease Subjective - Review of Systems Service Date: 05/07/17 Events since last encounter: No event. Subjective: Leukocytosis waxing and waning.. No fever. Infectious Disease Objective - Results Result Diagrams: 05/07/17 04:50 05/07/17 04:50 Recent Labs: Laboratory Last Values WBC 15.7 Th/cmm (4.8-10.8) H D 05/07/17 04:50 RBC 3.45 Mil/cmm (3.80-5.20) L 05/07/17 04:50 Hgb 11.5 gm/dL (12-16) L 05/07/17 04:50 Hct 34.2 % (41.0-60) L 05/07/17 04:50 MCV 99.0 fl (81-100) 05/07/17 04:50 MCH 33.2 pg (27.0-31.0) H 05/07/17 04:50 MCHC Differential 33.5 pg (28.0-36.0) 05/07/17 04:50 RDW 14.3 % (11.5-20.0) 05/07/17 04:50 Plt Count 411 Th/cmm (150-400) H 05/07/17 04:50 MPV 9.1 fl 05/07/17 04:50 Neutrophils % 78.4 % (40.0-80.0) 05/06/17 04:55 Band Neutrophils % 4 % (0-10) 05/07/17 04:50 Lymphocytes % 12.9 % (20.0-50.0) L 05/06/17 04:55 Monocytes % 5.7 % (2.0-10.0) 05/06/17 04:55 Eosinophils % 3.0 % (0.0-5.0) 05/06/17 04:55 Basophils % 0.0 % (0.0-2.0) 05/06/17 04:55 Neutrophils (Manual) 71 % (40-80) 05/07/17 04:50 Lymphocytes 19 % (20-50) L 05/07/17 04:50 Monocytes 4 % (2-10) 05/07/17 04:50 Eosinophils 2 % (0-5) 05/07/17 04:50 Platelet Estimate INCREASED PLATELETS (NORMAL) 05/05/17 04:40 ESR 59 mm/hr (0-30) H 05/02/17 04:15 Specimen Source Arterial 05/02/17 16:08 Sample Site RB 05/02/17 16:08 pH 7.29 (7.35-7.45) L 05/02/17 16:08 pCO2 39.0 mmHg (35.0-45.0) 05/02/17 16:08 pO2 85.0 mmHg (80.0-100.0) 05/02/17 16:08 HCO3 19.2 mEq/L (20.0-26.0) L 05/02/17 16:08 Base Excess -7.3 mEq/L (-3.0-3.0) L 05/02/17 16:08 O2 Saturation 95.0 % (92.0-100.0) 05/02/17 16:08 Jet Test NA 05/02/17 16:08 Vent Rate NA 05/02/17 16:08 Inspired O2 50 05/02/17 16:08 Tidal Volume NA 05/02/17 16:08 PEEP NA 05/02/17 16:08 Pressure (ins/psv/peep) NA 05/02/17 16:08 Critical Value E.GIBSON 05/02/17 16:08 Sodium 156 mEq/L (136-145) H 05/07/17 04:50 Potassium 3.2 mEq/L (3.5-5.1) L 05/07/17 04:50 Chloride 126 mEq/L (98-107) H 05/07/17 04:50 Carbon Dioxide 21.8 mEq/L (21.0-31.0) 05/07/17 04:50 Anion Gap 11.4 (7.0-16.0) 05/07/17 04:50 BUN 38 mg/dL (7-25) H 05/07/17 04:50 Creatinine 1.2 mg/dL (0.6-1.2) 05/07/17 04:50 Est GFR ( Amer) TNP 05/07/17 04:50 Est GFR (Non-Af Amer) TNP 05/07/17 04:50 BUN/Creatinine Ratio 31.7 05/07/17 04:50 Glucose 290 mg/dL (70-105) H 05/07/17 04:50 POC Glucose 268 MG/DL (70 - 105) H 05/07/17 06:16 Hemoglobin A1c % 8.0 % (4.0-6.0) H 04/16/17 18:20 Calcium 9.7 mg/dL (8.6-10.3) 05/07/17 04:50 Phosphorus 2.9 mg/dL (2.5-5.0) 05/07/17 04:50 Magnesium 2.3 mg/dL (1.9-2.7) 05/07/17 04:50 Total Bilirubin 0.5 mg/dL (0.3-1.0) 05/07/17 04:50 AST 21 U/L (13-39) 05/07/17 04:50 ALT 15 U/L (7-52) 05/07/17 04:50 Alkaline Phosphatase 61 U/L (34-104) 05/07/17 04:50 Ammonia 19 umol/L (16-53) 05/01/17 20:25 Total Protein 6.7 gm/dL (6.0-8.3) 05/07/17 04:50 Albumin 3.2 gm/dL (3.7-5.3) L 05/07/17 04:50 Globulin 3.5 gm/dL 05/07/17 04:50 Albumin/Globulin Ratio 0.9 (1.0-1.8) L 05/07/17 04:50 Prealbumin 12 mg/dL (9-32) 05/05/17 04:40 Triglycerides 213 mg/dL (<150) H 05/05/17 04:40 Cholesterol 140 mg/dL (<200) 05/05/17 04:40 LDL Cholesterol Direct 69 mg/dL (75-193) L 04/16/17 18:20 HDL Cholesterol 40 mg/dL (23-92) 04/16/17 18:20 Whole Bld Vitamin B1 113.7 nmol/L (66.5-200.0) 05/01/17 20:25 Free T4 1.04 ng/dL (0.82-1.77) 05/02/17 04:15 TSH 3.72 uIU/ml (0.34-5.60) 05/02/17 04:15 Urine Source [place] 05/02/17 04:30 Urine Color YELLOW 05/02/17 04:30 Urine Clarity HAZY (CLEAR) 05/02/17 04:30 Urine pH 5.5 (4.6 - 8.0) 05/02/17 04:30 Ur Specific [place] >= 1.030 (1.005-1.030) 05/02/17 04:30 Urine Protein 100 mg/dL (NEGATIVE) H 05/02/17 04:30 Urine Glucose (UA) NEGATIVE mg/dL (NEGATIVE) 05/02/17 04:30 Urine Ketones >=80 mg/dL (NEGATIVE) H 05/02/17 04:30 Urine Blood LARGE (NEGATIVE) H 05/02/17 04:30 Urine Nitrate NEGATIVE (NEGATIVE) 05/02/17 04:30 Urine Bilirubin SMALL (NEGATIVE) H 05/02/17 04:30 Urine Urobilinogen 0.2 E.U./dL (0.2 - 1.0) 05/02/17 04:30 Ur Leukocyte Esterase NEGATIVE (NEGATIVE) 05/02/17 04:30 Urine RBC 5-10 /hpf (0-5) H 05/02/17 04:30 Urine WBC 6-10 /hpf (0-5) H 05/02/17 04:30 Ur Epithelial Cells MODERATE /lpf (FEW) 05/02/17 04:30 Urine Bacteria 2+ /hpf (NONE SEEN) H 05/02/17 04:30 Urine Yeast MANY /hpf (NONE SEEN) H 04/18/17 19:20 Salicylates < 25.0 mg/L (30.0-100.0) L 04/16/17 18:20 Urine Opiates Screen NEGATIVE (NEGATIVE) 04/17/17 00:10 Urine Methadone Screen NEGATIVE (NEGATIVE) 04/17/17 00:10 Acetaminophen < 10.0 ug/mL (10.0-30.0) L 04/16/17 18:20 Ur Barbiturates Screen NEGATIVE (NEGATIVE) 04/17/17 00:10 Ur Tricyclics Screen NEGATIVE (NEGATIVE) 04/17/17 00:10 Ur Phencyclidine Scrn NEGATIVE (NEGATIVE) 04/17/17 00:10 Amphetamines Screen NEGATIVE (NEGATIVE) 04/17/17 00:10 U Methamphetamines Scrn NEGATIVE (NEGATIVE) 04/17/17 00:10 U Benzodiazepines Scrn NEGATIVE (NEGATIVE) 04/17/17 00:10 U Cocaine Metab Screen NEGATIVE (NEGATIVE) 04/17/17 00:10 U Cannabinoids Screen NEGATIVE (NEGATIVE) 04/17/17 00:10 Ethyl Alcohol < 10 mg/dL (0-10) 04/16/17 18:20 RPR NONREACTIVE (NONREACTIVE) 04/16/17 18:20 - Physical Exam Vitals and I&O: Vital Signs Temp 98.6 F 05/07/17 04:00 Pulse 89 05/07/17 09:59 Resp 22 05/07/17 07:33 BP 166/77 05/07/17 09:59 Pulse Ox 99 05/07/17 07:33 Intake & Output 05/06/17 05/07/17 05/07/17 18:59 06:59 18:59 Intake Total 1008 1246.500 Output Total 350 Balance 1008 1246.500 -350 Weight (lbs) 84.368 kg Intake: Intake, IV Amount 1008 1246.500 Levetiracetam 1,000 mg In 110 110 Sodium Chloride 0.9% 100 ml @ 400 mls/hr IV Q12H [facility] Rx#:[id number] Multivitamin Inj 10 ml In 848 590.667 Amino Acids 10% 250 ml In Dextrose 10% 500 ml In Intralipids 20% 200 ml @ 40 mls/hr IV .Q24H [facility] Rx#:[id number] Piperacillin Sodium/ 50 150 Tazobact 3.375 gm In Sodium Chloride 0.9% 50 ml @ 100 mls/hr IV Q6HR [facility] Rx#:[id number] Sodium Chloride 0.45% 1, 395.833 000 ml @ 50 mls/hr IV . Q20H [facility] Rx#:[id number] Output: Urine 350 Other: # Bowel Movements 0 Active Medications: Current Medications Acetaminophen (Tylenol) 650 mg PO Q6H PRN PRN Reason: HEADACHE/TEMP ABOVE 100F Stop: 06/23/17 09:20 Last Admin: 04/28/17 00:41 Dose: 650 mg Acetaminophen (Tylenol 650mg Supp) 650 mg RC Q4H PRN PRN Reason: fever >100.4 Stop: 07/01/17 20:50 Last Admin: 05/02/17 21:30 Dose: 650 mg Albuterol/Ipratropium (Duoneb Neb) 3 ml HHN Q4HRT [facility] Stop: 07/01/17 14:59 Last Admin: 05/07/17 07:33 Dose: 3 ml Cholecalciferol (Vitamin D3) 1,000 iu PO DAILY [facility] Stop: 06/17/17 08:59 Last Admin: 05/07/17 10:00 Dose: Not Given Clonidine HCl ([id number]-8) 1 patch TD Sa [facility] Stop: 07/02/17 12:14 Last Admin: 05/03/17 19:03 Dose: 1 patch Clopidogrel Bisulfate (Plavix) 75 mg PO DAILY [facility] Stop: 06/17/17 08:59 Last Admin: 05/07/17 10:00 Dose: Not Given Docusate Sodium (Colace) 100 mg PO BID PRN PRN Reason: Constipation Stop: 06/16/17 09:43 Last Admin: 04/25/17 08:59 Dose: 100 mg Enalaprilat (Vasotec) 2.25 mg IVP Q4HR PRN PRN Reason: [id number] Stop: 06/30/17 22:00 Last Admin: 05/07/17 01:00 Dose: 2.25 mg Glyburide (Diabeta) 5 mg PO BID [facility] Stop: 06/16/17 16:59 Last Admin: 05/07/17 09:59 Dose: Not Given Haloperidol Lactate (Haldol) 5 mg IM Q6HR PRN PRN Reason: Agitation Stop: 06/30/17 21:25 Last Admin: 05/05/17 09:42 Dose: 5 mg Magnesium Sulfate (Magnesium Sulfate Premix) 2 gm in 50 mls @ 25 mls/hr IV DAILY PRN PRN Reason: Magnesium level below 1.6 Stop: 06/23/17 09:20 Levetiracetam 1,000 mg/ Sodium (Chloride) 110 mls @ 400 mls/hr IV Q12H [facility] Stop: 06/30/17 12:29 Last Infusion: 05/07/17 06:49 Dose: Infused Piperacillin Sod/Tazobactam (Sod 3.375 gm/ Sodium Chloride) 50 mls @ 100 mls/ hr IV Q6HR [facility] Stop: 07/02/17 11:59 Last Infusion: 05/07/17 06:49 Dose: Infused Multivitamins/Minerals 10 ml/Amino Acids/Electrolytes/Dextrose/ Fat Emulsion Intravenous 960 mls @ 40 mls/hr IV .Q24H [facility] Stop: 07/04/17 16:59 Last Infusion: 05/07/17 06:50 Dose: 40 mls/hr Sodium Chloride (Nacl 0.45%) 1,000 mls @ 50 mls/hr IV .Q20H [facility] Stop: 07/05/17 22:44 Last Infusion: 05/07/17 06:50 Dose: 50 mls/hr Potassium Phosphate 15 mmole/ (Sodium Chloride) 255 mls @ 42 mls/hr IV ONCE ONE Stop: 05/07/17 16:04 Last Admin: 05/07/17 10:08 Dose: 42 mls/hr Insulin Aspart (Novolog Insulin Sliding Scale) 0 units SUBQ Q6HR [facility] PRN Reason: Protocol Stop: 07/03/17 19:44 Last Admin: 05/07/17 06:21 Dose: 6 units Lactobacillus Rhamnosus (Culturelle 15b) 1 each PO DAILY [facility] Stop: 07/02/17 08:59 Last Admin: 05/07/17 10:00 Dose: Not Given Lamotrigine (Lamictal) 100 mg PO BID [facility] PRN Reason: Protocol Stop: 06/16/17 16:59 Last Admin: 05/07/17 09:59 Dose: Not Given Lisinopril (Zestril) 20 mg PO BID [facility] Stop: 06/30/17 08:59 Last Admin: 05/07/17 09:59 Dose: Not Given Metoprolol Tartrate (Lopressor) 25 mg PO BID [facility] Stop: 06/27/17 09:14 Last Admin: 05/07/17 09:59 Dose: Not Given Miscellaneous (Probiotic Screen) 1 ea PRN PRN PRN Reason: PROTOCOL Stop: 07/01/17 17:02 Miscellaneous (Ppn Per Pharmacy) 1 ea PRN PRN PRN Reason: PROTOCOL Stop: 07/04/17 00:49 Olanzapine (Zyprexa Zydis) 5 mg PO BID [facility] PRN Reason: Protocol Stop: 06/30/17 10:44 Last Admin: 05/07/17 10:00 Dose: Not Given Potassium Chloride (Klor-Con) 40 meq PO DAILY PRN PRN Reason: k level below 3.5 Stop: 06/23/17 09:20 Last Admin: 04/26/17 08:37 Dose: 40 meq Simvastatin (Zocor) 10 mg PO HS [facility] PRN Reason: Protocol Stop: 06/16/17 20:59 Last Admin: 05/06/17 21:01 Dose: Not Given Venlafaxine HCl (Effexor Xr) 150 mg PO DAILY [facility] Stop: 06/17/17 08:59 Last Admin: 05/07/17 10:00 Dose: Not Given General: no acute distress, well developed, well nourished HEENT: atraumatic, normocephalic, PERRLA, EOMI, moist mucous membrane Neck: supple, no thyromegaly Cardiovascular: S1S2, regular Lungs: clear to percussion, crackles Abdomen: soft, no tender, no distended, no rebound Extremities: no cyanosis, no clubbing, no edema Neurological: awake, alert, other (dtill confused.) Infectious Disease Assmt/Plan - Assessment Assessment: Impression: 1. Leukocytosis, likely reactive or aspiration pneumonia. persistent. 2. Aspiration pneumonia. 3. Siezure disorder. - Plan Plan: Continue the same plan. Antibiotics Zosyn. CT A/P/C check CBC in am. Check Procalcitonin Nutritional Asmnt/Malnutr-PDOC - Dietary Evaluation Malnutrition Findings (Please click <Entered> for more info): Nutritional Asmnt/Malnutrition Start: 04/17/17 07: 44 Text: Status: Complete Freq: Document 04/21/17 09:29 [email or web address] (Rec: 04/21/17 09:34 [email or web address] [id number]) Nutritional Asmnt/Malnutrition Patient General Information Nutritional Screening Moderate Risk Diagnosis metabolic encephalopathy Pertinent Medical Hx/Surgical Hx impulse control disorder, anxiety, depression, DM, HTN, HLD, CAD Subjective Information Pt A&A x 1, confused, [facility] PO intake 50-100%, usually eats 100%. Current Diet Order/ Nutrition Support mechanical soft, chopped Patient / S.O Not Indicated Pertinent Medications vit d, plavix, colace, glyburide Pertinent Labs 04/21 glucose: 129-148, hgba1c: 8.0, T Nutritional Hx/Data Height 1.57 m Height (Calculated Centimeters) 157.5 Current Weight (lbs) 90.718 kg Weight (Calculated Kilograms) 90.7 Weight (Calculated Grams) 39154.5 [place] Body Weight 110 % [place] Body Weight 181 Body Mass Index (BMI) 36.6 Weight Status Obese GI Symptoms GI Symptoms None Last BM 04/19 Difficult in: Chewing Skin Integrity/Comment: intact, bruises, no edema noted Current %PO Good (75-100%) Estimated Nutritional Goals BEE in Kcals: Adj wt of IBW Calories/Kcals/Kg 25-30 Kcals Calculated 6234-4465 kcals Protein: Adj wt of IBW Protein g/k-1.2 Protein Calculated 60-72 Fluid: ml 1747-3176 mL (1 ml/kcal) Nutritional Problem 1. Problem Problem altered nutrition related lab values Etiology DM, lack of CCHO diet Signs/Symptoms: gluocse: 129-148, hgba1c: 8.0 Malnutrition Alert Is there a minimum of two criteria No selected? Query Text:Check all the applicable criteria. A minimum of two criteria are recommended for diagnosis of either severe or non-severe malnutrition. Malnutrition Related to Morbid Obesity Malnutrition related to morbid obesity No Intervention/Recommendation Comments 1. Change diet to mechanical soft, chopped, CCHO 60 gm to manage DM Expected Outcomes/Goals Expected Outcomes/Goals PO intake>50%, labs: WNL monitor wt, labs, skin, PO intake
--- NOTE | 2017-05-07 14:12 | Diagnostic Imaging Report ---
Right upper extremity DVT study HISTORY: Midline PICC, rule out DVT COMPARISON: None Technique: Longitudinal and transverse sonographic images of the right upper extremity veins were obtained with doppler analysis. FINDINGS: There is nonvisualization of the right brachial and right basilic vein due to overlying dressing material and patient's right PICC line. The remaining veins of the right upper are patent demonstrating compressibility and augmentation with no evidence of thrombus formation. IMPRESSION: Nonvisualization of right brachial and basilic veins due to patient's right upper extremity PICC line. Otherwise no evidence of DVT within the right upper extremity venous system.
[2017-05-07] MEDS ORDERED: [UNRECOGNIZED DRUG - OTHER] IV SCH (17:00)
[2017-05-07] MEDS ORDERED: AMINO ACIDS IV SCH (17:00)
[2017-05-07] MEDS ORDERED: DEXTROSE 20% IV SCH (17:00)
[2017-05-07] MEDS ORDERED: MULTIVITAMIN IV SCH (17:00)
[2017-05-08] MEDS: Sodium Chloride 0.45% 1,000 ML IV SCH (00:10)
[2017-05-08] MEDS: INSULIN ASPART SLIDING SCALE 100 UNITS/ML UNIT SUBQ SCH ×4 (00:19→19:34)
[2017-05-08] MEDS: Albuterol/Ipratropium Neb 3 ML AERS HHN SCH ×6 (03:04→23:09)
[2017-05-08 06:56] LABS: % BASOPHILS 1.1 % (0.0-2.0); % EOSINOPHILS 6.4 % (0.0-5.0); % LYMPHOCYTES 11.6 % (20.0-50.0); % MONOCYTES 3.7 % (2.0-10.0); % NEUTROPHILS 77.2 % (40.0-80.0); BASOPHILE ABSOLUTE 0.2 Th/cumm (0-0.2); EOSINOPHILE ABSOLUTE 0.9 Th/cmm (0.1-0.4); HEMATOCRIT 31.7 % (41.0-60); HEMOGLOBIN 10.7 gm/dL (12-16); LYMPHOCYTE ABSOLUTE 1.7 Th/cmm (1.5-3.0); MEAN CELL VOLUME 96.6 fl (81-100); MEAN CORPUSCULAR HEMOGLOBIN 32.7 pg (27.0-31.0); MEAN CORPUSCULAR HGB CONC 33.8 pg (28.0-36.0); MONOCYTE ABSOLUTE 0.5 Th/cmm (0.3-1.0); NEUTROPHILE ABSOLUTE 11.4 Th/cmm (1.8-8.0); PLATELET COUNT 338 Th/cmm (150-400); RED BLOOD COUNT 3.28 Mil/cmm (3.80-5.20); RED CELL DISTRIBUTION WIDTH 14.7 % (11.5-20.0)
[2017-05-08 07:04] LABS: WHITE BLOOD COUNT 14.7 Th/cmm (4.8-10.8)
[2017-05-08 07:13] LABS: ALB/GLOB RATIO 0.9 (1.0-1.8); ALKALINE PHOSPHATASE 59 U/L (34-104); ANION GAP 7.9 (7.0-16.0); BILIRUBIN,TOTAL 0.4 mg/dL (0.3-1.0); BUN - UREA NITROGEN 35 mg/dL (7-25); CALCIUM SERUM 9.4 mg/dL (8.6-10.3); CARBON DIOXIDE 24.4 mEq/L (21.0-31.0); CHLORIDE 127 mEq/L (98-107); CREATININE - SERUM 1.1 mg/dL (0.6-1.2); GLUCOSE 240 mg/dL (70-105); MAGNESIUM 2.1 mg/dL (1.9-2.7); PHOSPHOROUS 3.1 mg/dL (2.5-5.0); POTASSIUM SERUM 3.3 mEq/L (3.5-5.1); SGOT 26 U/L (13-39); SGPT/ALT 17 U/L (7-52); SODIUM SERUM 156 mEq/L (136-145); TOTAL PROTEIN,SERUM 6.2 gm/dL (6.0-8.3)
--- NOTE | 2017-05-08 08:46 | General Progress Note ---
Subjective - Review of Systems Service Date: 05/08/17 Subjective: Pt seen and eval. NAD. In bed. Weak, but awake. Has been on ppn. In tele now. No pain. Appears calm. No cough or congestion. No agitation this am. BP and sugars have been fluctuating. Objective - Results Result Diagrams: 05/08/17 06:00 05/08/17 06:00 Recent Labs: Laboratory Last Values WBC 14.7 Th/cmm (4.8-10.8) H 05/08/17 06:00 RBC 3.28 Mil/cmm (3.80-5.20) L 05/08/17 06:00 Hgb 10.7 gm/dL (12-16) L 05/08/17 06:00 Hct 31.7 % (41.0-60) L 05/08/17 06:00 MCV 96.6 fl (81-100) 05/08/17 06:00 MCH 32.7 pg (27.0-31.0) H 05/08/17 06:00 MCHC Differential 33.8 pg (28.0-36.0) 05/08/17 06:00 RDW 14.7 % (11.5-20.0) 05/08/17 06:00 Plt Count 338 Th/cmm (150-400) 05/08/17 06:00 MPV 9.0 fl 05/08/17 06:00 Neutrophils % 77.2 % (40.0-80.0) 05/08/17 06:00 Band Neutrophils % 4 % (0-10) 05/07/17 04:50 Lymphocytes % 11.6 % (20.0-50.0) L 05/08/17 06:00 Monocytes % 3.7 % (2.0-10.0) 05/08/17 06:00 Eosinophils % 6.4 % (0.0-5.0) H 05/08/17 06:00 Basophils % 1.1 % (0.0-2.0) 05/08/17 06:00 Neutrophils (Manual) 71 % (40-80) 05/07/17 04:50 Lymphocytes 19 % (20-50) L 05/07/17 04:50 Monocytes 4 % (2-10) 05/07/17 04:50 Eosinophils 2 % (0-5) 05/07/17 04:50 Platelet Estimate INCREASED PLATELETS (NORMAL) 05/05/17 04:40 ESR 59 mm/hr (0-30) H 05/02/17 04:15 Specimen Source Arterial 05/02/17 16:08 Sample Site RB 05/02/17 16:08 pH 7.29 (7.35-7.45) L 05/02/17 16:08 pCO2 39.0 mmHg (35.0-45.0) 05/02/17 16:08 pO2 85.0 mmHg (80.0-100.0) 05/02/17 16:08 HCO3 19.2 mEq/L (20.0-26.0) L 05/02/17 16:08 Base Excess -7.3 mEq/L (-3.0-3.0) L 05/02/17 16:08 O2 Saturation 95.0 % (92.0-100.0) 05/02/17 16:08 Jet Test NA 05/02/17 16:08 Vent Rate NA 05/02/17 16:08 Inspired O2 50 05/02/17 16:08 Tidal Volume NA 05/02/17 16:08 PEEP NA 05/02/17 16:08 Pressure (ins/psv/peep) NA 05/02/17 16:08 Critical Value E.GIBSON 05/02/17 16:08 Sodium 156 mEq/L (136-145) H 05/08/17 06:00 Potassium 3.3 mEq/L (3.5-5.1) L 05/08/17 06:00 Chloride 127 mEq/L (98-107) H 05/08/17 06:00 Carbon Dioxide 24.4 mEq/L (21.0-31.0) 05/08/17 06:00 Anion Gap 7.9 (7.0-16.0) 05/08/17 06:00 BUN 35 mg/dL (7-25) H 05/08/17 06:00 Creatinine 1.1 mg/dL (0.6-1.2) 05/08/17 06:00 Est GFR ( Amer) TNP 05/08/17 06:00 Est GFR (Non-Af Amer) TNP 05/08/17 06:00 BUN/Creatinine Ratio 31.8 05/08/17 06:00 Glucose 240 mg/dL (70-105) H 05/08/17 06:00 POC Glucose 214 MG/DL (70 - 105) H 05/08/17 05:22 Hemoglobin A1c % 8.0 % (4.0-6.0) H 04/16/17 18:20 Calcium 9.4 mg/dL (8.6-10.3) 05/08/17 06:00 Phosphorus 3.1 mg/dL (2.5-5.0) 05/08/17 06:00 Magnesium 2.1 mg/dL (1.9-2.7) 05/08/17 06:00 Total Bilirubin 0.4 mg/dL (0.3-1.0) 05/08/17 06:00 AST 26 U/L (13-39) 05/08/17 06:00 ALT 17 U/L (7-52) 05/08/17 06:00 Alkaline Phosphatase 59 U/L (34-104) 05/08/17 06:00 Ammonia 19 umol/L (16-53) 05/01/17 20:25 Total Protein 6.2 gm/dL (6.0-8.3) 05/08/17 06:00 Albumin 3.0 gm/dL (3.7-5.3) L 05/08/17 06:00 Globulin 3.2 gm/dL 05/08/17 06:00 Albumin/Globulin Ratio 0.9 (1.0-1.8) L 05/08/17 06:00 Prealbumin 12 mg/dL (9-32) 05/05/17 04:40 Triglycerides 213 mg/dL (<150) H 05/05/17 04:40 Cholesterol 140 mg/dL (<200) 05/05/17 04:40 LDL Cholesterol Direct 69 mg/dL (75-193) L 04/16/17 18:20 HDL Cholesterol 40 mg/dL (23-92) 04/16/17 18:20 Whole Bld Vitamin B1 113.7 nmol/L (66.5-200.0) 05/01/17 20:25 Free T4 1.04 ng/dL (0.82-1.77) 05/02/17 04:15 TSH 3.72 uIU/ml (0.34-5.60) 05/02/17 04:15 Urine Source [place] 05/02/17 04:30 Urine Color YELLOW 05/02/17 04:30 Urine Clarity HAZY (CLEAR) 05/02/17 04:30 Urine pH 5.5 (4.6 - 8.0) 05/02/17 04:30 Ur Specific [place] >= 1.030 (1.005-1.030) 05/02/17 04:30 Urine Protein 100 mg/dL (NEGATIVE) H 05/02/17 04:30 Urine Glucose (UA) NEGATIVE mg/dL (NEGATIVE) 05/02/17 04:30 Urine Ketones >=80 mg/dL (NEGATIVE) H 05/02/17 04:30 Urine Blood LARGE (NEGATIVE) H 05/02/17 04:30 Urine Nitrate NEGATIVE (NEGATIVE) 05/02/17 04:30 Urine Bilirubin SMALL (NEGATIVE) H 05/02/17 04:30 Urine Urobilinogen 0.2 E.U./dL (0.2 - 1.0) 05/02/17 04:30 Ur Leukocyte Esterase NEGATIVE (NEGATIVE) 05/02/17 04:30 Urine RBC 5-10 /hpf (0-5) H 05/02/17 04:30 Urine WBC 6-10 /hpf (0-5) H 05/02/17 04:30 Ur Epithelial Cells MODERATE /lpf (FEW) 05/02/17 04:30 Urine Bacteria 2+ /hpf (NONE SEEN) H 05/02/17 04:30 Urine Yeast MANY /hpf (NONE SEEN) H 04/18/17 19:20 Salicylates < 25.0 mg/L (30.0-100.0) L 04/16/17 18:20 Urine Opiates Screen NEGATIVE (NEGATIVE) 04/17/17 00:10 Urine Methadone Screen NEGATIVE (NEGATIVE) 04/17/17 00:10 Acetaminophen < 10.0 ug/mL (10.0-30.0) L 04/16/17 18:20 Ur Barbiturates Screen NEGATIVE (NEGATIVE) 04/17/17 00:10 Ur Tricyclics Screen NEGATIVE (NEGATIVE) 04/17/17 00:10 Ur Phencyclidine Scrn NEGATIVE (NEGATIVE) 04/17/17 00:10 Amphetamines Screen NEGATIVE (NEGATIVE) 04/17/17 00:10 U Methamphetamines Scrn NEGATIVE (NEGATIVE) 04/17/17 00:10 U Benzodiazepines Scrn NEGATIVE (NEGATIVE) 04/17/17 00:10 U Cocaine Metab Screen NEGATIVE (NEGATIVE) 04/17/17 00:10 U Cannabinoids Screen NEGATIVE (NEGATIVE) 04/17/17 00:10 Ethyl Alcohol < 10 mg/dL (0-10) 04/16/17 18:20 RPR NONREACTIVE (NONREACTIVE) 04/16/17 18:20 - Physical Exam Vitals and I&O: Vital Signs Temp 98.2 F 05/08/17 04:00 Pulse 82 05/08/17 07:23 Resp 22 05/08/17 07:23 BP 150/80 05/08/17 04:00 Pulse Ox 96 05/08/17 07:23 Intake & Output 05/07/17 05/08/17 05/08/17 18:59 06:59 18:59 Intake Total 550 864.167 Output Total 770 400 Balance -220 464.167 Weight (lbs) 82.463 kg 83.915 kg Intake: Intake, IV Amount 864.167 Levetiracetam 1,000 mg In 110 Sodium Chloride 0.9% 100 ml @ 400 mls/hr IV Q12H [facility] Rx#:[id number] Piperacillin Sodium/ 150 Tazobact 3.375 gm In Sodium Chloride 0.9% 50 ml @ 100 mls/hr IV Q6HR [facility] Rx#:[id number] Sodium Chloride 0.45% 1, 604.167 000 ml @ 50 mls/hr IV . Q20H [facility] Rx#:[id number] Oral 0 TPN/PPN 550 Output: Urine 770 400 Other: # Bowel Movements 1 0 Stool Characteristics Soft Brown Active Medications: Current Medications Acetaminophen (Tylenol) 650 mg PO Q6H PRN PRN Reason: HEADACHE/TEMP ABOVE 100F Stop: 06/23/17 09:20 Last Admin: 04/28/17 00:41 Dose: 650 mg Acetaminophen (Tylenol 650mg Supp) 650 mg RC Q4H PRN PRN Reason: fever >100.4 Stop: 07/01/17 20:50 Last Admin: 05/02/17 21:30 Dose: 650 mg Albuterol/Ipratropium (Duoneb Neb) 3 ml HHN Q4HRT [facility] Stop: 07/01/17 14:59 Last Admin: 05/08/17 07:22 Dose: 3 ml Cholecalciferol (Vitamin D3) 1,000 iu PO DAILY [facility] Stop: 06/17/17 08:59 Last Admin: 05/07/17 10:00 Dose: Not Given Clonidine HCl (Ikhkdxcr-Flc-5) 1 patch TD Sa [facility] Stop: 07/02/17 12:14 Last Admin: 05/03/17 19:03 Dose: 1 patch Clopidogrel Bisulfate (Plavix) 75 mg PO DAILY [facility] Stop: 06/17/17 08:59 Last Admin: 05/07/17 10:00 Dose: Not Given Docusate Sodium (Colace) 100 mg PO BID PRN PRN Reason: Constipation Stop: 06/16/17 09:43 Last Admin: 04/25/17 08:59 Dose: 100 mg Enalaprilat (Vasotec) 2.25 mg IVP Q4HR PRN PRN Reason: [id number]>160 Stop: 06/30/17 22:00 Last Admin: 05/07/17 01:00 Dose: 2.25 mg Glyburide (Diabeta) 5 mg PO BID [facility] Stop: 06/16/17 16:59 Last Admin: 05/07/17 17:21 Dose: Not Given Haloperidol Lactate (Haldol) 5 mg IM Q6HR PRN PRN Reason: Agitation Stop: 06/30/17 21:25 Last Admin: 05/05/17 09:42 Dose: 5 mg Magnesium Sulfate (Magnesium Sulfate Premix) 2 gm in 50 mls @ 25 mls/hr IV DAILY PRN PRN Reason: Magnesium level below 1.6 Stop: 06/23/17 09:20 Levetiracetam 1,000 mg/ Sodium (Chloride) 110 mls @ 400 mls/hr IV Q12H [facility] Stop: 06/30/17 12:29 Last Admin: 05/08/17 00:11 Dose: 400 mls/hr Piperacillin Sod/Tazobactam (Sod 3.375 gm/ Sodium Chloride) 50 mls @ 100 mls/ hr IV Q6HR [facility] Stop: 07/02/17 11:59 Last Admin: 05/08/17 06:20 Dose: 100 mls/hr Sodium Chloride (Nacl 0.45%) 1,000 mls @ 50 mls/hr IV .Q20H [facility] Stop: 07/05/17 22:44 Last Admin: 05/08/17 00:10 Dose: 50 mls/hr Multivitamins/Minerals 10 ml/Amino Acids/Electrolytes/Dextrose/ Fat Emulsion Intravenous 1,200 mls @ 50 mls/hr IV .Q24H [facility] Stop: 07/06/17 16:59 Last Admin: 05/07/17 17:10 Dose: 50 mls/hr Insulin Aspart (Novolog Insulin Sliding Scale) 0 units SUBQ Q6HR [facility] PRN Reason: Protocol Stop: 07/03/17 19:44 Last Admin: 05/08/17 06:20 Dose: 4 units Lactobacillus Rhamnosus (Culturelle 15b) 1 each PO DAILY [facility] Stop: 07/02/17 08:59 Last Admin: 05/07/17 10:00 Dose: Not Given Lamotrigine (Lamictal) 100 mg PO BID [facility] PRN Reason: Protocol Stop: 06/16/17 16:59 Last Admin: 05/07/17 17:21 Dose: Not Given Lisinopril (Zestril) 20 mg PO BID [facility] Stop: 06/30/17 08:59 Last Admin: 05/07/17 17:21 Dose: Not Given Metoprolol Tartrate (Lopressor) 25 mg PO BID [facility] Stop: 06/27/17 09:14 Last Admin: 05/07/17 17:30 Dose: Not Given Miscellaneous (Probiotic Screen) 1 [facility] PRN PRN PRN Reason: PROTOCOL Stop: 07/01/17 17:02 Miscellaneous (Ppn Per Pharmacy) 1 [facility] PRN PRN PRN Reason: PROTOCOL Stop: 07/04/17 00:49 Olanzapine (Zyprexa Zydis) 5 mg PO BID [facility] PRN Reason: Protocol Stop: 06/30/17 10:44 Last Admin: 05/07/17 17:20 Dose: Not Given Potassium Chloride (Klor-Con) 40 meq PO DAILY PRN PRN Reason: k level below 3.5 Stop: 06/23/17 09:20 Last Admin: 04/26/17 08:37 Dose: 40 meq Simvastatin (Zocor) 10 mg PO HS [facility] PRN Reason: Protocol Stop: 06/16/17 20:59 Last Admin: 05/07/17 20:37 Dose: Not Given Venlafaxine HCl (Effexor Xr) 150 mg PO DAILY [facility] Stop: 06/17/17 08:59 Last Admin: 05/07/17 10:00 Dose: Not Given General: Cooperative, No acute distress HEENT: Atraumatic, PERRLA, EOMI Neck: Supple, no JVD, no Thyromegaly Cardiovascular: Regular rate, Normal S1, Normal S2 Lungs: Clear to auscultation Abdomen: Bowel sounds, Soft Extremities: Other (posterior cast wrapped in an paco bandage) Psych/Mental Status: Other (psychosis and agitated) Assessment/Plan - Assessment Assessment: [facility] Sz DO R ankle fx, Status post ORIF Yeast UTI UTI with sepsis HTN-ooc DM-ooc Unsteady gait Psychosis-stable Status post fall - Plan Plan: Dr. Carrillo removed the cast. She's in a removable cast. Now has soft, removable cast. No pain. WBC elevated. On IV Zosyn. Status post course of Diflucan. ID following. On ppn. Swallow eval today. On iv prn bp meds. Added levemir due to dm-ooc. Nutritional Asmnt/Malnutr-PDOC - Dietary Evaluation Malnutrition Findings (Please click <Entered> for more info): Nutritional Asmnt/Malnutrition Start: 04/17/17 07: 44 Text: Status: Complete Freq: Document 04/21/17 09:29 [email or web address] (Rec: 04/21/17 09:34 [email or web address] [id number]) Nutritional Asmnt/Malnutrition Patient General Information Nutritional Screening Moderate Risk Diagnosis metabolic encephalopathy Pertinent Medical Hx/Surgical Hx impulse control disorder, anxiety, depression, DM, HTN, HLD, CAD Subjective Information Pt A&A x 1, confused, with sitter, moving to [facility]. PO intake 50-100%, usually eats 100%. Current Diet Order/ Nutrition Support mechanical soft, chopped Patient / S.O Not Indicated Pertinent Medications vit d, plavix, colace, glyburide Pertinent Labs 04/21 glucose: 129-148, hgba1c: 8.0, T Nutritional Hx/Data Height 1.57 m Height (Calculated Centimeters) 157.5 Current Weight (lbs) 90.718 kg Weight (Calculated Kilograms) 90.7 Weight (Calculated Grams) 98361.5 Burns Body Weight 110 % Burns Body Weight 181 Body Mass Index (BMI) 36.6 Weight Status Obese GI Symptoms GI Symptoms None Last BM 04/19 Difficult in: Chewing Skin Integrity/Comment: intact, bruises, no edema noted Current %PO Good (75-100%) Estimated Nutritional Goals BEE in Kcals: Adj wt of IBW Calories/Kcals/Kg 25-30 Kcals Calculated 8753-6635 kcals Protein: Adj wt of IBW Protein g/k-1.2 Protein Calculated 60-72 Fluid: ml 6093-6207 mL (1 ml/kcal) Nutritional Problem 1. Problem Problem altered nutrition related lab values Etiology DM, lack of CCHO diet Signs/Symptoms: gluocse: 129-148, hgba1c: 8.0 Malnutrition Alert Is there a minimum of two criteria No selected? Query Text:Check all the applicable criteria. A minimum of two criteria are recommended for diagnosis of either severe or non-severe malnutrition. Malnutrition Related to Morbid Obesity Malnutrition related to morbid obesity No Intervention/Recommendation Comments 1. Change diet to mechanical soft, chopped, CCHO 60 gm to manage DM Expected Outcomes/Goals Expected Outcomes/Goals PO intake>50%, labs: WNL monitor wt, labs, skin, PO intake
--- NOTE | 2017-05-08 08:47 | Diagnostic Imaging Report ---
CT Chest without IV contrast HISTORY: Persistent leukocytosis COMPARISON: Chest x-ray on 05/06/2017. Technique: Axial images were obtained from the base of the neck to the upper abdomen without IV contrast. Reconstructions were made. Total DLP 302, CTD I 10.1 Findings: Evaluation of mediastinum is limited due to lack of IV contrast. Few nonenlarged mediastinal lymph nodes are noted. Mild atherosclerotic vascular disease is noted. Cardiomegaly is noted. Small pericardial effusion is noted. Evaluation of the lung lange demonstrate scattered groundglass opacities and hypoventilatory changes of the lungs. Linear densities are also seen throughout the lung. Minimal bibasilar passive atelectatic and consolidative changes are noted with trace bilateral effusions. The upper abdomen demonstrates no acute abnormalities. Degenerative changes of the spine are noted. IMPRESSION: Scattered mild groundglass infiltrates of the lungs hypoventilatory and atelectatic changes. Please correlate with clinical findings. Trace bilateral effusions and bibasilar passive atelectatic/consolidative changes. Cardiomegaly with small pericardial effusion. Mild atherosclerosis.
--- NOTE | 2017-05-08 08:51 | Diagnostic Imaging Report ---
CT abdomen and pelvis without intravenous contrast Indication: Persistent leukocytosis Comparison: Chest CT the same day, Technique: Axial images were obtained from the lung bases to the bilateral proximal femurs without IV contrast. Coronal reconstructions were made. total DLP: 1411, [id number] FINDINGS: Exam is limited due to motion. Evaluation of solid organs is also limited due to lack of IV contrast. No evidence of focal hepatic or splenic lesions. Assessment of pancreas is limited. Pancreatic gland atrophy is noted. No focal adrenal lesions. Mild nonspecific bilateral perinephric inflammatory changes are noted. No evidence of hydronephrosis. There appear to be vascular calcifications along the right inferior renal region. Pina catheter pockets of gas are seen within collapsed bladder. Nonspecific fluid-filled loops of bowel are noted without evidence of small bowel obstruction. The Appendix not visualized. No evidence free fluid or air or free fluid. Moderate atherosclerosis is noted. Degenerative changes of the spine are noted. IMPRESSION: Limited exam due to motion. Nonspecific fluid-filled loops of bowel without evidence of obstruction. Pina catheter within nondistended urinary bladder containing pockets of gas. Moderate atherosclerosis.
--- NOTE | 2017-05-08 09:11 | Diagnostic Imaging Report ---
CHEST X-RAY: AP view INDICATION: Shortness of breath COMPARISON: 05/06/2017 FINDINGS: Mild congestive changes are again noted with overall slight improvement. No focal consolidation or effusions. Cardiomegaly is noted. IMPRESSION: Mild congestive changes with overall slight improvement. No focal consolidation identified. Cardiomegaly.
[2017-05-08] MEDS: Lactobacillus Rhamnosus GG 15 Billion CFU CAP.SPRINK PO SCH (12:02)
[2017-05-08] MEDS: OLANZapine 5 mg Oral Disintegrating Tab PO SCH ×2 (12:02→19:33)
[2017-05-08] MEDS ORDERED: [UNRECOGNIZED DRUG - OTHER] IV SCH (17:00)
[2017-05-08] MEDS ORDERED: AMINO ACIDS IV SCH (17:00)
[2017-05-08] MEDS ORDERED: DEXTROSE IV SCH (17:00)
[2017-05-08] MEDS ORDERED: MULTIVITAMIN IV SCH (17:00)
[2017-05-08] MEDS: KCL 20mEq/100mL Premix 20 MEQ/100 ML PIGGYBACK IV SCH ×2 (18:20→22:04)
[2017-05-08] MEDS: Haloperidol Lactate 5 mg/mL 1mL Vial IM PRN (19:28)
[2017-05-08] MEDS: Insulin Detemir 100 units/mL 10mL Vial SUBQ SCH (22:14)
[2017-05-09] MEDS: INSULIN ASPART SLIDING SCALE 100 UNITS/ML UNIT SUBQ SCH ×4 (00:20→17:45)
[2017-05-09] MEDS: Haloperidol Lactate 5 mg/mL 1mL Vial IM PRN ×2 (02:19→09:10)
[2017-05-09] MEDS: Albuterol/Ipratropium Neb 3 ML AERS HHN SCH ×6 (03:43→23:02)
[2017-05-09] MEDS: Lactobacillus Rhamnosus GG 15 Billion CFU CAP.SPRINK PO SCH (09:31)
[2017-05-09] MEDS: OLANZapine 5 mg Oral Disintegrating Tab PO SCH (09:31)
--- NOTE | 2017-05-09 09:32 | General Progress Note ---
Subjective - Review of Systems Service Date: 05/09/17 Subjective: Pt seen and eval. NAD. In bed. Weak, but awake. Has been on ppn. In tele now. No pain. Appears calm. No cough or congestion. No agitation this am. BP and sugars have been fluctuating. Objective - Results Result Diagrams: 05/08/17 06:00 05/08/17 06:00 Recent Labs: Laboratory Last Values WBC 14.7 Th/cmm (4.8-10.8) H 05/08/17 06:00 RBC 3.28 Mil/cmm (3.80-5.20) L 05/08/17 06:00 Hgb 10.7 gm/dL (12-16) L 05/08/17 06:00 Hct 31.7 % (41.0-60) L 05/08/17 06:00 MCV 96.6 fl (81-100) 05/08/17 06:00 MCH 32.7 pg (27.0-31.0) H 05/08/17 06:00 MCHC Differential 33.8 pg (28.0-36.0) 05/08/17 06:00 RDW 14.7 % (11.5-20.0) 05/08/17 06:00 Plt Count 338 Th/cmm (150-400) 05/08/17 06:00 MPV 9.0 fl 05/08/17 06:00 Neutrophils % 77.2 % (40.0-80.0) 05/08/17 06:00 Band Neutrophils % 4 % (0-10) 05/07/17 04:50 Lymphocytes % 11.6 % (20.0-50.0) L 05/08/17 06:00 Monocytes % 3.7 % (2.0-10.0) 05/08/17 06:00 Eosinophils % 6.4 % (0.0-5.0) H 05/08/17 06:00 Basophils % 1.1 % (0.0-2.0) 05/08/17 06:00 Neutrophils (Manual) 71 % (40-80) 05/07/17 04:50 Lymphocytes 19 % (20-50) L 05/07/17 04:50 Monocytes 4 % (2-10) 05/07/17 04:50 Eosinophils 2 % (0-5) 05/07/17 04:50 Platelet Estimate INCREASED PLATELETS (NORMAL) 05/05/17 04:40 ESR 59 mm/hr (0-30) H 05/02/17 04:15 Specimen Source Arterial 05/02/17 16:08 Sample Site RB 05/02/17 16:08 pH 7.29 (7.35-7.45) L 05/02/17 16:08 pCO2 39.0 mmHg (35.0-45.0) 05/02/17 16:08 pO2 85.0 mmHg (80.0-100.0) 05/02/17 16:08 HCO3 19.2 mEq/L (20.0-26.0) L 05/02/17 16:08 Base Excess -7.3 mEq/L (-3.0-3.0) L 05/02/17 16:08 O2 Saturation 95.0 % (92.0-100.0) 05/02/17 16:08 Jet Test NA 05/02/17 16:08 Vent Rate NA 05/02/17 16:08 Inspired O2 50 05/02/17 16:08 Tidal Volume NA 05/02/17 16:08 PEEP NA 05/02/17 16:08 Pressure (ins/psv/peep) NA 05/02/17 16:08 Critical Value E.GIBSON 05/02/17 16:08 Sodium 156 mEq/L (136-145) H 05/08/17 06:00 Potassium 3.3 mEq/L (3.5-5.1) L 05/08/17 06:00 Chloride 127 mEq/L (98-107) H 05/08/17 06:00 Carbon Dioxide 24.4 mEq/L (21.0-31.0) 05/08/17 06:00 Anion Gap 7.9 (7.0-16.0) 05/08/17 06:00 BUN 35 mg/dL (7-25) H 05/08/17 06:00 Creatinine 1.1 mg/dL (0.6-1.2) 05/08/17 06:00 Est GFR ( Amer) TNP 05/08/17 06:00 Est GFR (Non-Af Amer) TNP 05/08/17 06:00 BUN/Creatinine Ratio 31.8 05/08/17 06:00 Glucose 240 mg/dL (70-105) H 05/08/17 06:00 POC Glucose 207 MG/DL (70 - 105) H 05/09/17 05:09 Hemoglobin A1c % 8.0 % (4.0-6.0) H 04/16/17 18:20 Calcium 9.4 mg/dL (8.6-10.3) 05/08/17 06:00 Phosphorus 3.1 mg/dL (2.5-5.0) 05/08/17 06:00 Magnesium 2.1 mg/dL (1.9-2.7) 05/08/17 06:00 Total Bilirubin 0.4 mg/dL (0.3-1.0) 05/08/17 06:00 AST 26 U/L (13-39) 05/08/17 06:00 ALT 17 U/L (7-52) 05/08/17 06:00 Alkaline Phosphatase 59 U/L (34-104) 05/08/17 06:00 Ammonia 19 umol/L (16-53) 05/01/17 20:25 Total Protein 6.2 gm/dL (6.0-8.3) 05/08/17 06:00 Albumin 3.0 gm/dL (3.7-5.3) L 05/08/17 06:00 Globulin 3.2 gm/dL 05/08/17 06:00 Albumin/Globulin Ratio 0.9 (1.0-1.8) L 05/08/17 06:00 Prealbumin 12 mg/dL (9-32) 05/05/17 04:40 Triglycerides 213 mg/dL (<150) H 05/05/17 04:40 Cholesterol 140 mg/dL (<200) 05/05/17 04:40 LDL Cholesterol Direct 69 mg/dL (75-193) L 04/16/17 18:20 HDL Cholesterol 40 mg/dL (23-92) 04/16/17 18:20 Whole Bld Vitamin B1 113.7 nmol/L (66.5-200.0) 05/01/17 20:25 Free T4 1.04 ng/dL (0.82-1.77) 05/02/17 04:15 TSH 3.72 uIU/ml (0.34-5.60) 05/02/17 04:15 Urine Source [place] 05/02/17 04:30 Urine Color YELLOW 05/02/17 04:30 Urine Clarity HAZY (CLEAR) 05/02/17 04:30 Urine pH 5.5 (4.6 - 8.0) 05/02/17 04:30 Ur Specific [place] >= 1.030 (1.005-1.030) 05/02/17 04:30 Urine Protein 100 mg/dL (NEGATIVE) H 05/02/17 04:30 Urine Glucose (UA) NEGATIVE mg/dL (NEGATIVE) 05/02/17 04:30 Urine Ketones >=80 mg/dL (NEGATIVE) H 05/02/17 04:30 Urine Blood LARGE (NEGATIVE) H 05/02/17 04:30 Urine Nitrate NEGATIVE (NEGATIVE) 05/02/17 04:30 Urine Bilirubin SMALL (NEGATIVE) H 05/02/17 04:30 Urine Urobilinogen 0.2 E.U./dL (0.2 - 1.0) 05/02/17 04:30 Ur Leukocyte Esterase NEGATIVE (NEGATIVE) 05/02/17 04:30 Urine RBC 5-10 /hpf (0-5) H 05/02/17 04:30 Urine WBC 6-10 /hpf (0-5) H 05/02/17 04:30 Ur Epithelial Cells MODERATE /lpf (FEW) 05/02/17 04:30 Urine Bacteria 2+ /hpf (NONE SEEN) H 05/02/17 04:30 Urine Yeast MANY /hpf (NONE SEEN) H 04/18/17 19:20 Salicylates < 25.0 mg/L (30.0-100.0) L 04/16/17 18:20 Urine Opiates Screen NEGATIVE (NEGATIVE) 04/17/17 00:10 Urine Methadone Screen NEGATIVE (NEGATIVE) 04/17/17 00:10 Acetaminophen < 10.0 ug/mL (10.0-30.0) L 04/16/17 18:20 Ur Barbiturates Screen NEGATIVE (NEGATIVE) 04/17/17 00:10 Ur Tricyclics Screen NEGATIVE (NEGATIVE) 04/17/17 00:10 Ur Phencyclidine Scrn NEGATIVE (NEGATIVE) 04/17/17 00:10 Amphetamines Screen NEGATIVE (NEGATIVE) 04/17/17 00:10 U Methamphetamines Scrn NEGATIVE (NEGATIVE) 04/17/17 00:10 U Benzodiazepines Scrn NEGATIVE (NEGATIVE) 04/17/17 00:10 U Cocaine Metab Screen NEGATIVE (NEGATIVE) 04/17/17 00:10 U Cannabinoids Screen NEGATIVE (NEGATIVE) 04/17/17 00:10 Ethyl Alcohol < 10 mg/dL (0-10) 04/16/17 18:20 RPR NONREACTIVE (NONREACTIVE) 04/16/17 18:20 - Physical Exam Vitals and I&O: Vital Signs Temp 97.3 F 05/09/17 04:00 Pulse 80 05/09/17 09:21 Resp 20 05/09/17 08:00 BP 158/76 05/09/17 09:21 Pulse Ox 99 05/09/17 08:00 Intake & Output 05/08/17 05/09/17 05/09/17 18:59 06:59 18:59 Intake Total 50 1020 Output Total 700 Balance 50 320 Weight (lbs) 85.275 kg Intake: Intake, IV Amount 50 420 KCL 20mEq/100mL Premix 20 100 meq In 100 ml @ 50 mls/ hr IV Q2H [facility] Rx#: [id number] Levetiracetam 1,000 mg In 220 Sodium Chloride 0.9% 100 ml @ 400 mls/hr IV Q12H [facility] Rx#:[id number] Piperacillin Sodium/ 50 100 Tazobact 3.375 gm In Sodium Chloride 0.9% 50 ml @ 100 mls/hr IV Q6HR [facility] Rx#:[id number] Oral 0 TPN/PPN 600 Output: Urine 700 Other: # Voids 900 # Bowel Movements 0 Active Medications: Current Medications Acetaminophen (Tylenol) 650 mg PO Q6H PRN PRN Reason: HEADACHE/TEMP ABOVE 100F Stop: 06/23/17 09:20 Last Admin: 04/28/17 00:41 Dose: 650 mg Acetaminophen (Tylenol 650mg Supp) 650 mg RC Q4H PRN PRN Reason: fever >100.4 Stop: 07/01/17 20:50 Last Admin: 05/02/17 21:30 Dose: 650 mg Albuterol/Ipratropium (Duoneb Neb) 3 ml HHN Q4HRT [facility] Stop: 07/01/17 14:59 Last Admin: 05/09/17 07:57 Dose: 3 ml Cholecalciferol (Vitamin D3) 1,000 iu PO DAILY [facility] Stop: 06/17/17 08:59 Last Admin: 05/08/17 12:01 Dose: Not Given Clonidine HCl (Pfnkywdy-Kfy-0) 1 patch TD Sa [facility] Stop: 07/02/17 12:14 Last Admin: 05/03/17 19:03 Dose: 1 patch Clopidogrel Bisulfate (Plavix) 75 mg PO DAILY [facility] Stop: 06/17/17 08:59 Last Admin: 05/08/17 12:01 Dose: Not Given Docusate Sodium (Colace) 100 mg PO BID PRN PRN Reason: Constipation Stop: 06/16/17 09:43 Last Admin: 04/25/17 08:59 Dose: 100 mg Enalaprilat (Vasotec) 2.25 mg IVP Q4HR PRN PRN Reason: [id number] Stop: 06/30/17 22:00 Last Admin: 05/09/17 09:21 Dose: 2.25 mg Glyburide (Diabeta) 5 mg PO BID [facility] Stop: 06/16/17 16:59 Last Admin: 05/08/17 19:31 Dose: Not Given Magnesium Sulfate (Magnesium Sulfate Premix) 2 gm in 50 mls @ 25 mls/hr IV DAILY PRN PRN Reason: Magnesium level below 1.6 Stop: 06/23/17 09:20 Levetiracetam 1,000 mg/ Sodium (Chloride) 110 mls @ 400 mls/hr IV Q12H [facility] Stop: 06/30/17 12:29 Last Infusion: 05/09/17 03:00 Dose: Infused Piperacillin Sod/Tazobactam (Sod 3.375 gm/ Sodium Chloride) 50 mls @ 100 mls/ hr IV Q6HR [facility] Stop: 07/02/17 11:59 Last Admin: 05/09/17 05:10 Dose: 100 mls/hr Sodium Chloride (Nacl 0.45%) 1,000 mls @ 50 mls/hr IV .Q20H [facility] Stop: 07/05/17 22:44 Last Admin: 05/08/17 00:10 Dose: 50 mls/hr Multivitamins/Minerals 10 ml/Amino Acids/Electrolytes/Dextrose/ Fat Emulsion Intravenous 1,440 mls @ 60 mls/hr IV .Q24H [facility] Stop: 07/07/17 16:59 Last Admin: 05/08/17 22:05 Dose: 60 mls/hr Insulin Aspart (Novolog Insulin Sliding Scale) 0 units SUBQ Q6HR [facility] PRN Reason: Protocol Stop: 07/03/17 19:44 Last Admin: 05/09/17 06:42 Dose: 4 units Insulin Detemir (Levemir Insulin) 10 units SUBQ HS [facility] PRN Reason: Protocol Stop: 07/07/17 20:59 Last Admin: 05/08/17 22:14 Dose: 10 units Lactobacillus Rhamnosus (Culturelle 15b) 1 each PO DAILY [facility] Stop: 07/02/17 08:59 Last Admin: 05/08/17 12:02 Dose: Not Given Lamotrigine (Lamictal) 100 mg PO BID [facility] PRN Reason: Protocol Stop: 06/16/17 16:59 Last Admin: 05/08/17 19:31 Dose: Not Given Lisinopril (Zestril) 20 mg PO BID [facility] Stop: 06/30/17 08:59 Last Admin: 05/08/17 19:30 Dose: Not Given Metoprolol Tartrate (Lopressor) 25 mg PO BID [facility] Stop: 06/27/17 09:14 Last Admin: 05/08/17 19:32 Dose: Not Given Miscellaneous (Probiotic Screen) 1 ea PRN PRN PRN Reason: PROTOCOL Stop: 07/01/17 17:02 Miscellaneous (Ppn Per Pharmacy) 1 ea PRN PRN PRN Reason: PROTOCOL Stop: 07/04/17 00:49 Olanzapine (Zyprexa Zydis) 5 mg PO HS [facility] PRN Reason: Protocol Stop: 07/08/17 20:59 Potassium Chloride (Klor-Con) 40 meq PO DAILY PRN PRN Reason: k level below 3.5 Stop: 06/23/17 09:20 Last Admin: 04/26/17 08:37 Dose: 40 meq Simvastatin (Zocor) 10 mg PO HS [facility] PRN Reason: Protocol Stop: 06/16/17 20:59 Last Admin: 05/08/17 22:06 Dose: Not Given Venlafaxine HCl (Effexor Xr) 150 mg PO DAILY [facility] Stop: 06/17/17 08:59 Last Admin: 05/08/17 12:02 Dose: Not Given General: Cooperative, No acute distress HEENT: Atraumatic, PERRLA, EOMI Neck: Supple, no JVD, no Thyromegaly Cardiovascular: Regular rate, Normal S1, Normal S2 Lungs: Clear to auscultation Abdomen: Bowel sounds, Soft Extremities: Other (posterior cast wrapped in an paco bandage) Psych/Mental Status: Other (psychosis and agitated) Assessment/Plan - Assessment Assessment: ME Sz DO R ankle fx, Status post ORIF Yeast UTI UTI with sepsis HTN-ooc DM-ooc Unsteady gait Psychosis-stable Status post fall - Plan Plan: Dr. Carrillo removed the cast. She's in a removable cast. Now has soft, removable cast. No pain. WBC elevated. On IV Zosyn. Status post course of Diflucan. ID following. On ppn. On iv prn bp meds. Added levemir due to dm-ooc. DC haldol and decreased zyprexa to qhs. Nutritional Asmnt/Malnutr-PDOC - Dietary Evaluation Malnutrition Findings (Please click <Entered> for more info): Nutritional Asmnt/Malnutrition Start: 04/17/17 07: 44 Text: Status: Complete Freq: Document 04/21/17 09:29 [email or web address] (Rec: 04/21/17 09:34 [email or web address] [id number]) Nutritional Asmnt/Malnutrition Patient General Information Nutritional Screening Moderate Risk Diagnosis metabolic encephalopathy Pertinent Medical Hx/Surgical Hx impulse control disorder, anxiety, depression, DM, HTN, HLD, CAD Subjective Information Pt A&A x 1, confused, with sitter, moving to [facility]. PO intake 50-100%, usually eats 100%. Current Diet Order/ Nutrition Support mechanical soft, chopped Patient / S.O Not Indicated Pertinent Medications vit d, plavix, colace, glyburide Pertinent Labs 04/21 glucose: 129-148, hgba1c: 8.0, T Nutritional Hx/Data Height 1.57 m Height (Calculated Centimeters) 157.5 Current Weight (lbs) 90.718 kg Weight (Calculated Kilograms) 90.7 Weight (Calculated Grams) 91807.5 [place] Body Weight 110 % [place] Body Weight 181 Body Mass Index (BMI) 36.6 Weight Status Obese GI Symptoms GI Symptoms None Last BM 04/19 Difficult in: Chewing Skin Integrity/Comment: intact, bruises, no edema noted Current %PO Good (75-100%) Estimated Nutritional Goals BEE in Kcals: Adj wt of IBW Calories/Kcals/Kg 25-30 Kcals Calculated 1837-7921 kcals Protein: Adj wt of IBW Protein g/k-1.2 Protein Calculated 60-72 Fluid: ml 0638-9998 mL (1 ml/kcal) Nutritional Problem 1. Problem Problem altered nutrition related lab values Etiology DM, lack of CCHO diet Signs/Symptoms: gluocse: 129-148, hgba1c: 8.0 Malnutrition Alert Is there a minimum of two criteria No selected? Query Text:Check all the applicable criteria. A minimum of two criteria are recommended for diagnosis of either severe or non-severe malnutrition. Malnutrition Related to Morbid Obesity Malnutrition related to morbid obesity No Intervention/Recommendation Comments 1. Change diet to mechanical soft, chopped, CCHO 60 gm to manage DM Expected Outcomes/Goals Expected Outcomes/Goals PO intake>50%, labs: WNL monitor wt, labs, skin, PO intake
[2017-05-09 09:46] LABS: % BASOPHILS 0.5 % (0.0-2.0); % EOSINOPHILS 7.2 % (0.0-5.0); % MONOCYTES 3.5 % (2.0-10.0); % NEUTROPHILS 73.8 % (40.0-80.0); BASOPHILE ABSOLUTE 0.1 Th/cumm (0-0.2); EOSINOPHILE ABSOLUTE 0.8 Th/cmm (0.1-0.4); HEMATOCRIT 34.4 % (41.0-60); HEMOGLOBIN 11.4 gm/dL (12-16); LYMPHOCYTE ABSOLUTE 1.7 Th/cmm (1.5-3.0); MEAN CELL VOLUME 97.1 fl (81-100); MEAN CORPUSCULAR HEMOGLOBIN 32.2 pg (27.0-31.0); MEAN CORPUSCULAR HGB CONC 33.1 pg (28.0-36.0); MEAN PLATELET VOLUME 9.4 fl; MONOCYTE ABSOLUTE 0.4 Th/cmm (0.3-1.0); PLATELET COUNT 298 Th/cmm (150-400); RED BLOOD COUNT 3.54 Mil/cmm (3.80-5.20); RED CELL DISTRIBUTION WIDTH 13.8 % (11.5-20.0)
[2017-05-09 09:55] LABS: ALB/GLOB RATIO 0.9 (1.0-1.8); ALKALINE PHOSPHATASE 57 U/L (34-104); ANION GAP 8.1 (7.0-16.0); BILIRUBIN,TOTAL 0.5 mg/dL (0.3-1.0); BUN - UREA NITROGEN 31 mg/dL (7-25); CALCIUM SERUM 9.7 mg/dL (8.6-10.3); CARBON DIOXIDE 24.6 mEq/L (21.0-31.0); CHLORIDE 123 mEq/L (98-107); GLUCOSE 239 mg/dL (70-105); MAGNESIUM 2.3 mg/dL (1.9-2.7); PHOSPHOROUS 2.1 mg/dL (2.5-5.0); POTASSIUM SERUM 3.7 mEq/L (3.5-5.1); SGOT 34 U/L (13-39); SGPT/ALT 20 U/L (7-52); SODIUM SERUM 152 mEq/L (136-145); TOTAL PROTEIN,SERUM 6.3 gm/dL (6.0-8.3)
[2017-05-09] MEDS ORDERED: D5-0.9%NS 1,000 ML IV SCH (11:30)
--- NOTE | 2017-05-09 19:15 | Progress Notes ---
DATE: SUBJECTIVE: Chart reviewed and the patient interviewed. Also discussed the patient's condition with the staff and reviewed records and labs. The patient is still confused and is still agitated. The patient also still has episodes of yelling and screaming. She also is unable to follow directions. The patient is restless and tries to get off bed. Otherwise, the patient is compliant with taking her medications with no side effects of medications. ASSESSMENT: The patient is still confused and is still psychotic. TREATMENT PLAN: Continue to monitor behavior and condition and continue adjusting psychotropic medications and to follow up closely. JOB# [id number]
[2017-05-09] MEDS ORDERED: OLANZapine 5 mg Oral Disintegrating Tab PO SCH (21:00)
[2017-05-09] MEDS: Insulin Detemir 100 units/mL 10mL Vial SUBQ SCH (21:03)
[2017-05-10] MEDS: INSULIN ASPART SLIDING SCALE 100 UNITS/ML UNIT SUBQ SCH ×3 (00:33→12:16)
[2017-05-10] MEDS: Haloperidol Lactate 5 mg/mL 1mL Vial IM PRN ×2 (00:39→06:41)
[2017-05-10] MEDS ORDERED: Levetiracetam 500 mg/5mL 5mL Vial IV ONE (00:45)
[2017-05-10] MEDS: Albuterol/Ipratropium Neb 3 ML AERS HHN SCH ×3 (02:11→11:21)
[2017-05-10 06:35] LABS: % EOSINOPHILS 8.5 % (0.0-5.0); % LYMPHOCYTES 19.1 % (20.0-50.0); % MONOCYTES 6.9 % (2.0-10.0); % NEUTROPHILS 65.5 % (40.0-80.0); EOSINOPHILE ABSOLUTE 0.9 Th/cmm (0.1-0.4); HEMATOCRIT 33.8 % (41.0-60); HEMOGLOBIN 11.2 gm/dL (12-16); LYMPHOCYTE ABSOLUTE 1.9 Th/cmm (1.5-3.0); MEAN CORPUSCULAR HEMOGLOBIN 32.2 pg (27.0-31.0); MEAN CORPUSCULAR HGB CONC 33.2 pg (28.0-36.0); MEAN PLATELET VOLUME 9.3 fl; MONOCYTE ABSOLUTE 0.7 Th/cmm (0.3-1.0); NEUTROPHILE ABSOLUTE 6.5 Th/cmm (1.8-8.0); PLATELET COUNT 297 Th/cmm (150-400); RED BLOOD COUNT 3.48 Mil/cmm (3.80-5.20); RED CELL DISTRIBUTION WIDTH 14.4 % (11.5-20.0)
[2017-05-10 06:53] LABS: ALB/GLOB RATIO 0.9 (1.0-1.8); ALKALINE PHOSPHATASE 54 U/L (34-104); ANION GAP 12.4 (7.0-16.0); BILIRUBIN,TOTAL 0.5 mg/dL (0.3-1.0); BUN - UREA NITROGEN 30 mg/dL (7-25); CALCIUM SERUM 9.4 mg/dL (8.6-10.3); CARBON DIOXIDE 22.5 mEq/L (21.0-31.0); CHLORIDE 117 mEq/L (98-107); CREATININE - SERUM 1.1 mg/dL (0.6-1.2); GLUCOSE 184 mg/dL (70-105); PHOSPHOROUS 2.9 mg/dL (2.5-5.0); POTASSIUM SERUM 3.9 mEq/L (3.5-5.1); SGOT 32 U/L (13-39); SGPT/ALT 19 U/L (7-52); SODIUM SERUM 148 mEq/L (136-145); TOTAL PROTEIN,SERUM 6.3 gm/dL (6.0-8.3)
--- NOTE | 2017-05-10 08:52 | General Progress Note ---
Subjective - Review of Systems Service Date: 05/10/17 Subjective: Pt seen and eval. NAD. In bed. Weak, but awake. Has been on ppn. In tele now. No pain. Appears calm. No cough or congestion. No agitation this am. BP and sugars have been fluctuating. Objective - Results Result Diagrams: 05/10/17 06:24 05/10/17 06:24 Recent Labs: Laboratory Last Values WBC 10.0 Th/cmm (4.8-10.8) 05/10/17 06:24 RBC 3.48 Mil/cmm (3.80-5.20) L 05/10/17 06:24 Hgb 11.2 gm/dL (12-16) L 05/10/17 06:24 Hct 33.8 % (41.0-60) L 05/10/17 06:24 MCV 97.0 fl (81-100) 05/10/17 06:24 MCH 32.2 pg (27.0-31.0) H 05/10/17 06:24 MCHC Differential 33.2 pg (28.0-36.0) 05/10/17 06:24 RDW 14.4 % (11.5-20.0) 05/10/17 06:24 Plt Count 297 Th/cmm (150-400) 05/10/17 06:24 MPV 9.3 fl 05/10/17 06:24 Neutrophils % 65.5 % (40.0-80.0) 05/10/17 06:24 Band Neutrophils % 4 % (0-10) 05/07/17 04:50 Lymphocytes % 19.1 % (20.0-50.0) L 05/10/17 06:24 Monocytes % 6.9 % (2.0-10.0) 05/10/17 06:24 Eosinophils % 8.5 % (0.0-5.0) H 05/10/17 06:24 Basophils % 0.0 % (0.0-2.0) 05/10/17 06:24 Neutrophils (Manual) 71 % (40-80) 05/07/17 04:50 Lymphocytes 19 % (20-50) L 05/07/17 04:50 Monocytes 4 % (2-10) 05/07/17 04:50 Eosinophils 2 % (0-5) 05/07/17 04:50 Platelet Estimate INCREASED PLATELETS (NORMAL) 05/05/17 04:40 ESR 59 mm/hr (0-30) H 05/02/17 04:15 Specimen Source Arterial 05/02/17 16:08 Sample Site RB 05/02/17 16:08 pH 7.29 (7.35-7.45) L 05/02/17 16:08 pCO2 39.0 mmHg (35.0-45.0) 05/02/17 16:08 pO2 85.0 mmHg (80.0-100.0) 05/02/17 16:08 HCO3 19.2 mEq/L (20.0-26.0) L 05/02/17 16:08 Base Excess -7.3 mEq/L (-3.0-3.0) L 05/02/17 16:08 O2 Saturation 95.0 % (92.0-100.0) 05/02/17 16:08 Jet Test NA 05/02/17 16:08 Vent Rate NA 05/02/17 16:08 Inspired O2 50 05/02/17 16:08 Tidal Volume NA 05/02/17 16:08 PEEP NA 05/02/17 16:08 Pressure (ins/psv/peep) NA 05/02/17 16:08 Critical Value E.GIBSON 05/02/17 16:08 Sodium 148 mEq/L (136-145) H 05/10/17 06:24 Potassium 3.9 mEq/L (3.5-5.1) 05/10/17 06:24 Chloride 117 mEq/L (98-107) H 05/10/17 06:24 Carbon Dioxide 22.5 mEq/L (21.0-31.0) 05/10/17 06:24 Anion Gap 12.4 (7.0-16.0) 05/10/17 06:24 BUN 30 mg/dL (7-25) H 05/10/17 06:24 Creatinine 1.1 mg/dL (0.6-1.2) 05/10/17 06:24 Est GFR ( Amer) TNP 05/10/17 06:24 Est GFR (Non-Af Amer) TNP 05/10/17 06:24 BUN/Creatinine Ratio 27.3 05/10/17 06:24 Glucose 184 mg/dL (70-105) H 05/10/17 06:24 POC Glucose 177 MG/DL (70 - 105) H 05/10/17 05:43 Hemoglobin A1c % 8.0 % (4.0-6.0) H 04/16/17 18:20 Calcium 9.4 mg/dL (8.6-10.3) 05/10/17 06:24 Phosphorus 2.9 mg/dL (2.5-5.0) 05/10/17 06:24 Magnesium 2.3 mg/dL (1.9-2.7) 05/09/17 08:40 Total Bilirubin 0.5 mg/dL (0.3-1.0) 05/10/17 06:24 AST 32 U/L (13-39) 05/10/17 06:24 ALT 19 U/L (7-52) 05/10/17 06:24 Alkaline Phosphatase 54 U/L (34-104) 05/10/17 06:24 Ammonia 19 umol/L (16-53) 05/01/17 20:25 Total Protein 6.3 gm/dL (6.0-8.3) 05/10/17 06:24 Albumin 3.0 gm/dL (3.7-5.3) L 05/10/17 06:24 Globulin 3.3 gm/dL 05/10/17 06:24 Albumin/Globulin Ratio 0.9 (1.0-1.8) L 05/10/17 06:24 Prealbumin 12 mg/dL (9-32) 05/05/17 04:40 Triglycerides 213 mg/dL (<150) H 05/05/17 04:40 Cholesterol 140 mg/dL (<200) 05/05/17 04:40 LDL Cholesterol Direct 69 mg/dL (75-193) L 04/16/17 18:20 HDL Cholesterol 40 mg/dL (23-92) 04/16/17 18:20 Whole Bld Vitamin B1 113.7 nmol/L (66.5-200.0) 05/01/17 20:25 Free T4 1.04 ng/dL (0.82-1.77) 05/02/17 04:15 TSH 3.72 uIU/ml (0.34-5.60) 05/02/17 04:15 Urine Source [place] 05/02/17 04:30 Urine Color YELLOW 05/02/17 04:30 Urine Clarity HAZY (CLEAR) 05/02/17 04:30 Urine pH 5.5 (4.6 - 8.0) 05/02/17 04:30 Ur Specific [place] >= 1.030 (1.005-1.030) 05/02/17 04:30 Urine Protein 100 mg/dL (NEGATIVE) H 05/02/17 04:30 Urine Glucose (UA) NEGATIVE mg/dL (NEGATIVE) 05/02/17 04:30 Urine Ketones >=80 mg/dL (NEGATIVE) H 05/02/17 04:30 Urine Blood LARGE (NEGATIVE) H 05/02/17 04:30 Urine Nitrate NEGATIVE (NEGATIVE) 05/02/17 04:30 Urine Bilirubin SMALL (NEGATIVE) H 05/02/17 04:30 Urine Urobilinogen 0.2 E.U./dL (0.2 - 1.0) 05/02/17 04:30 Ur Leukocyte Esterase NEGATIVE (NEGATIVE) 05/02/17 04:30 Urine RBC 5-10 /hpf (0-5) H 05/02/17 04:30 Urine WBC 6-10 /hpf (0-5) H 05/02/17 04:30 Ur Epithelial Cells MODERATE /lpf (FEW) 05/02/17 04:30 Urine Bacteria 2+ /hpf (NONE SEEN) H 05/02/17 04:30 Urine Yeast MANY /hpf (NONE SEEN) H 04/18/17 19:20 Salicylates < 25.0 mg/L (30.0-100.0) L 04/16/17 18:20 Urine Opiates Screen NEGATIVE (NEGATIVE) 04/17/17 00:10 Urine Methadone Screen NEGATIVE (NEGATIVE) 04/17/17 00:10 Acetaminophen < 10.0 ug/mL (10.0-30.0) L 04/16/17 18:20 Ur Barbiturates Screen NEGATIVE (NEGATIVE) 04/17/17 00:10 Ur Tricyclics Screen NEGATIVE (NEGATIVE) 04/17/17 00:10 Ur Phencyclidine Scrn NEGATIVE (NEGATIVE) 04/17/17 00:10 Amphetamines Screen NEGATIVE (NEGATIVE) 04/17/17 00:10 U Methamphetamines Scrn NEGATIVE (NEGATIVE) 04/17/17 00:10 U Benzodiazepines Scrn NEGATIVE (NEGATIVE) 04/17/17 00:10 U Cocaine Metab Screen NEGATIVE (NEGATIVE) 04/17/17 00:10 U Cannabinoids Screen NEGATIVE (NEGATIVE) 04/17/17 00:10 Ethyl Alcohol < 10 mg/dL (0-10) 04/16/17 18:20 RPR NONREACTIVE (NONREACTIVE) 04/16/17 18:20 - Physical Exam Vitals and I&O: Vital Signs Temp 97.8 F 05/10/17 04:00 Pulse 90 05/10/17 04:00 Resp 18 05/10/17 04:00 BP 138/92 05/10/17 04:00 Pulse Ox 98 05/10/17 04:00 Intake & Output 05/09/17 05/10/17 05/10/17 18:59 06:59 18:59 Intake Total 210 210 Output Total 950 Balance -740 210 Weight (lbs) 85.899 kg Intake: Intake, IV Amount 210 210 Levetiracetam 1,000 mg In 110 110 Sodium Chloride 0.9% 100 ml @ 400 mls/hr IV Q12H [facility] Rx#:[id number] Piperacillin Sodium/ 100 100 Tazobact 3.375 gm In Sodium Chloride 0.9% 50 ml @ 100 mls/hr IV Q6HR [facility] Rx#:[id number] Oral 0 Output: Urine 950 Other: # Bowel Movements 0 Active Medications: Current Medications Acetaminophen (Tylenol) 650 mg PO Q6H PRN PRN Reason: HEADACHE/TEMP ABOVE 100F Stop: 06/23/17 09:20 Last Admin: 04/28/17 00:41 Dose: 650 mg Acetaminophen (Tylenol 650mg Supp) 650 mg RC Q4H PRN PRN Reason: fever >100.4 Stop: 07/01/17 20:50 Last Admin: 05/02/17 21:30 Dose: 650 mg Albuterol/Ipratropium (Duoneb Neb) 3 ml HHN Q4HRT [facility] Stop: 07/01/17 14:59 Last Admin: 05/10/17 07:30 Dose: 3 ml Cholecalciferol (Vitamin D3) 1,000 iu PO DAILY [facility] Stop: 06/17/17 08:59 Last Admin: 05/09/17 09:30 Dose: Not Given Clonidine HCl (Nshdugum-Gco-9) 1 patch TD Sa [facility] Stop: 07/02/17 12:14 Last Admin: 05/03/17 19:03 Dose: 1 patch Clopidogrel Bisulfate (Plavix) 75 mg PO DAILY [facility] Stop: 06/17/17 08:59 Last Admin: 05/09/17 09:30 Dose: Not Given Docusate Sodium (Colace) 100 mg PO BID PRN PRN Reason: Constipation Stop: 06/16/17 09:43 Last Admin: 04/25/17 08:59 Dose: 100 mg Enalaprilat (Vasotec) 2.25 mg IVP Q4HR PRN PRN Reason: [id number]>160 Stop: 06/30/17 22:00 Last Admin: 05/09/17 09:21 Dose: 2.25 mg Glyburide (Diabeta) 5 mg PO BID [facility] Stop: 06/16/17 16:59 Last Admin: 05/09/17 17:48 Dose: Not Given Haloperidol Lactate (Haldol) 5 mg IM Q6HR PRN PRN Reason: Agitation Stop: 07/08/17 12:02 Last Admin: 05/10/17 06:41 Dose: 5 mg Magnesium Sulfate (Magnesium Sulfate Premix) 2 gm in 50 mls @ 25 mls/hr IV DAILY PRN PRN Reason: Magnesium level below 1.6 Stop: 06/23/17 09:20 Levetiracetam 1,000 mg/ Sodium (Chloride) 110 mls @ 400 mls/hr IV Q12H [facility] Stop: 06/30/17 12:29 Last Infusion: 05/10/17 01:03 Dose: Infused Piperacillin Sod/Tazobactam (Sod 3.375 gm/ Sodium Chloride) 50 mls @ 100 mls/ hr IV Q6HR [facility] Stop: 07/02/17 11:59 Last Infusion: 05/10/17 05:59 Dose: Infused Dextrose/Sodium Chloride (D5-0.9%Ns) 1,000 mls @ 50 mls/hr IV .Q20H [facility] Stop: 07/08/17 11:29 Last Admin: 05/09/17 11:30 Dose: 50 mls/hr Insulin Aspart (Novolog Insulin Sliding Scale) 0 units SUBQ Q6HR [facility] PRN Reason: Protocol Stop: 07/03/17 19:44 Last Admin: 05/10/17 05:59 Dose: 2 units Insulin Detemir (Levemir Insulin) 10 units SUBQ HS [facility] PRN Reason: Protocol Stop: 07/07/17 20:59 Last Admin: 05/09/17 21:03 Dose: Not Given Lactobacillus Rhamnosus (Culturelle 15b) 1 each PO DAILY [facility] Stop: 07/02/17 08:59 Last Admin: 05/09/17 09:31 Dose: Not Given Lamotrigine (Lamictal) 100 mg PO BID [facility] PRN Reason: Protocol Stop: 06/16/17 16:59 Last Admin: 05/09/17 17:49 Dose: Not Given Lisinopril (Zestril) 20 mg PO BID [facility] Stop: 06/30/17 08:59 Last Admin: 05/09/17 17:49 Dose: Not Given Metoprolol Tartrate (Lopressor) 25 mg PO BID [facility] Stop: 06/27/17 09:14 Last Admin: 05/09/17 17:49 Dose: Not Given Miscellaneous (Probiotic Screen) 1 ea PRN PRN PRN Reason: PROTOCOL Stop: 07/01/17 17:02 Miscellaneous (Ppn Per Pharmacy) 1 ea PRN PRN PRN Reason: PROTOCOL Stop: 07/04/17 00:49 Olanzapine (Zyprexa Zydis) 5 mg PO HS [facility] PRN Reason: Protocol Stop: 07/08/17 20:59 Last Admin: 05/09/17 21:02 Dose: Not Given Potassium Chloride (Klor-Con) 40 meq PO DAILY PRN PRN Reason: k level below 3.5 Stop: 06/23/17 09:20 Last Admin: 04/26/17 08:37 Dose: 40 meq Simvastatin (Zocor) 10 mg PO HS [facility] PRN Reason: Protocol Stop: 06/16/17 20:59 Last Admin: 05/09/17 21:04 Dose: Not Given Venlafaxine HCl (Effexor Xr) 150 mg PO DAILY [facility] Stop: 06/17/17 08:59 Last Admin: 05/09/17 09:31 Dose: Not Given General: Cooperative, No acute distress HEENT: Atraumatic, PERRLA, EOMI Neck: Supple, no JVD, no Thyromegaly Cardiovascular: Regular rate, Normal S1, Normal S2 Lungs: Clear to auscultation Abdomen: Bowel sounds, Soft Extremities: Other (posterior cast wrapped in an paco bandage) Psych/Mental Status: Other (psychosis and agitated) Assessment/Plan - Assessment Assessment: ME Sz DO R ankle fx, Status post ORIF Yeast UTI UTI with sepsis HTN-ooc DM-ooc Unsteady gait Psychosis-stable Status post fall Hypernatremia - Plan Plan: Dr. Carrillo removed the cast. She's in a removable cast. Now has soft, removable cast. No pain. WBC elevated. On IV Zosyn. Status post course of Diflucan. ID following. On ppn. On iv prn bp meds. Added levemir due to dm-ooc. DC haldol and decreased zyprexa to qhs. Changed IV to half NS due to hypernatremia Nutritional Asmnt/Malnutr-PDOC - Dietary Evaluation Malnutrition Findings (Please click <Entered> for more info): Nutritional Asmnt/Malnutrition Start: 04/17/17 07: 44 Text: Status: Complete Freq: Document 04/21/17 09:29 [email or web address] (Rec: 04/21/17 09:34 [email or web address] [id number]) Nutritional Asmnt/Malnutrition Patient General Information Nutritional Screening Moderate Risk Diagnosis metabolic encephalopathy Pertinent Medical Hx/Surgical Hx impulse control disorder, anxiety, depression, DM, HTN, HLD, CAD Subjective Information Pt A&A x 1, confused, with sitter, moving to geropsych. PO intake 50-100%, usually eats 100%. Current Diet Order/ Nutrition Support mechanical soft, chopped Patient / S.O Not Indicated Pertinent Medications vit d, plavix, colace, glyburide Pertinent Labs 04/21 glucose: 129-148, hgba1c: 8.0, T Nutritional Hx/Data Height 1.57 m Height (Calculated Centimeters) 157.5 Current Weight (lbs) 90.718 kg Weight (Calculated Kilograms) 90.7 Weight (Calculated Grams) 15141.5 [place] Body Weight 110 % [place] Body Weight 181 Body Mass Index (BMI) 36.6 Weight Status Obese GI Symptoms GI Symptoms None Last BM 04/19 Difficult in: Chewing Skin Integrity/Comment: intact, bruises, no edema noted Current %PO Good (75-100%) Estimated Nutritional Goals BEE in Kcals: Adj wt of IBW Calories/Kcals/Kg 25-30 Kcals Calculated 3536-1562 kcals Protein: Adj wt of IBW Protein g/k-1.2 Protein Calculated 60-72 Fluid: ml 9179-3622 mL (1 ml/kcal) Nutritional Problem 1. Problem Problem altered nutrition related lab values Etiology DM, lack of CCHO diet Signs/Symptoms: gluocse: 129-148, hgba1c: 8.0 Malnutrition Alert Is there a minimum of two criteria No selected? Query Text:Check all the applicable criteria. A minimum of two criteria are recommended for diagnosis of either severe or non-severe malnutrition. Malnutrition Related to Morbid Obesity Malnutrition related to morbid obesity No Intervention/Recommendation Comments 1. Change diet to mechanical soft, chopped, CCHO 60 gm to manage DM Expected Outcomes/Goals Expected Outcomes/Goals PO intake>50%, labs: WNL monitor wt, labs, skin, PO intake
[2017-05-10] MEDS ORDERED: Sodium Chloride 0.45% 1,000 ML IV SCH (09:00)
[2017-05-10] MEDS: Lactobacillus Rhamnosus GG 15 Billion CFU CAP.SPRINK PO SCH (10:09)
--- NOTE | 2017-05-10 11:19 | Infectious Disease Prog Note ---
Infectious Disease Subjective - Review of Systems Service Date: 05/10/17 Subjective: Leukocytosis waxing and waning.. No fever. Infectious Disease Objective - Results Result Diagrams: 05/10/17 06:24 05/10/17 06:24 Recent Labs: Laboratory Last Values WBC 10.0 Th/cmm (4.8-10.8) 05/10/17 06:24 RBC 3.48 Mil/cmm (3.80-5.20) L 05/10/17 06:24 Hgb 11.2 gm/dL (12-16) L 05/10/17 06:24 Hct 33.8 % (41.0-60) L 05/10/17 06:24 MCV 97.0 fl (81-100) 05/10/17 06:24 MCH 32.2 pg (27.0-31.0) H 05/10/17 06:24 MCHC Differential 33.2 pg (28.0-36.0) 05/10/17 06:24 RDW 14.4 % (11.5-20.0) 05/10/17 06:24 Plt Count 297 Th/cmm (150-400) 05/10/17 06:24 MPV 9.3 fl 05/10/17 06:24 Neutrophils % 65.5 % (40.0-80.0) 05/10/17 06:24 Band Neutrophils % 4 % (0-10) 05/07/17 04:50 Lymphocytes % 19.1 % (20.0-50.0) L 05/10/17 06:24 Monocytes % 6.9 % (2.0-10.0) 05/10/17 06:24 Eosinophils % 8.5 % (0.0-5.0) H 05/10/17 06:24 Basophils % 0.0 % (0.0-2.0) 05/10/17 06:24 Neutrophils (Manual) 71 % (40-80) 05/07/17 04:50 Lymphocytes 19 % (20-50) L 05/07/17 04:50 Monocytes 4 % (2-10) 05/07/17 04:50 Eosinophils 2 % (0-5) 05/07/17 04:50 Platelet Estimate INCREASED PLATELETS (NORMAL) 05/05/17 04:40 ESR 59 mm/hr (0-30) H 05/02/17 04:15 Specimen Source Arterial 05/02/17 16:08 Sample Site RB 05/02/17 16:08 pH 7.29 (7.35-7.45) L 05/02/17 16:08 pCO2 39.0 mmHg (35.0-45.0) 05/02/17 16:08 pO2 85.0 mmHg (80.0-100.0) 05/02/17 16:08 HCO3 19.2 mEq/L (20.0-26.0) L 05/02/17 16:08 Base Excess -7.3 mEq/L (-3.0-3.0) L 05/02/17 16:08 O2 Saturation 95.0 % (92.0-100.0) 05/02/17 16:08 Jet Test NA 05/02/17 16:08 Vent Rate NA 05/02/17 16:08 Inspired O2 50 05/02/17 16:08 Tidal Volume NA 05/02/17 16:08 PEEP NA 05/02/17 16:08 Pressure (ins/psv/peep) NA 05/02/17 16:08 Critical Value E.GIBSON 05/02/17 16:08 Sodium 148 mEq/L (136-145) H 05/10/17 06:24 Potassium 3.9 mEq/L (3.5-5.1) 05/10/17 06:24 Chloride 117 mEq/L (98-107) H 05/10/17 06:24 Carbon Dioxide 22.5 mEq/L (21.0-31.0) 05/10/17 06:24 Anion Gap 12.4 (7.0-16.0) 05/10/17 06:24 BUN 30 mg/dL (7-25) H 05/10/17 06:24 Creatinine 1.1 mg/dL (0.6-1.2) 05/10/17 06:24 Est GFR ( Amer) TNP 05/10/17 06:24 Est GFR (Non-Af Amer) TNP 05/10/17 06:24 BUN/Creatinine Ratio 27.3 05/10/17 06:24 Glucose 184 mg/dL (70-105) H 05/10/17 06:24 POC Glucose 177 MG/DL (70 - 105) H 05/10/17 05:43 Hemoglobin A1c % 8.0 % (4.0-6.0) H 04/16/17 18:20 Calcium 9.4 mg/dL (8.6-10.3) 05/10/17 06:24 Phosphorus 2.9 mg/dL (2.5-5.0) 05/10/17 06:24 Magnesium 2.3 mg/dL (1.9-2.7) 05/09/17 08:40 Total Bilirubin 0.5 mg/dL (0.3-1.0) 05/10/17 06:24 AST 32 U/L (13-39) 05/10/17 06:24 ALT 19 U/L (7-52) 05/10/17 06:24 Alkaline Phosphatase 54 U/L (34-104) 05/10/17 06:24 Ammonia 19 umol/L (16-53) 05/01/17 20:25 Total Protein 6.3 gm/dL (6.0-8.3) 05/10/17 06:24 Albumin 3.0 gm/dL (3.7-5.3) L 05/10/17 06:24 Globulin 3.3 gm/dL 05/10/17 06:24 Albumin/Globulin Ratio 0.9 (1.0-1.8) L 05/10/17 06:24 Prealbumin 12 mg/dL (9-32) 05/05/17 04:40 Triglycerides 213 mg/dL (<150) H 05/05/17 04:40 Cholesterol 140 mg/dL (<200) 05/05/17 04:40 LDL Cholesterol Direct 69 mg/dL (75-193) L 04/16/17 18:20 HDL Cholesterol 40 mg/dL (23-92) 04/16/17 18:20 Whole Bld Vitamin B1 113.7 nmol/L (66.5-200.0) 05/01/17 20:25 Free T4 1.04 ng/dL (0.82-1.77) 05/02/17 04:15 TSH 3.72 uIU/ml (0.34-5.60) 05/02/17 04:15 Urine Source [place] 05/02/17 04:30 Urine Color YELLOW 05/02/17 04:30 Urine Clarity HAZY (CLEAR) 05/02/17 04:30 Urine pH 5.5 (4.6 - 8.0) 05/02/17 04:30 Ur Specific [place] >= 1.030 (1.005-1.030) 05/02/17 04:30 Urine Protein 100 mg/dL (NEGATIVE) H 05/02/17 04:30 Urine Glucose (UA) NEGATIVE mg/dL (NEGATIVE) 05/02/17 04:30 Urine Ketones >=80 mg/dL (NEGATIVE) H 05/02/17 04:30 Urine Blood LARGE (NEGATIVE) H 05/02/17 04:30 Urine Nitrate NEGATIVE (NEGATIVE) 05/02/17 04:30 Urine Bilirubin SMALL (NEGATIVE) H 05/02/17 04:30 Urine Urobilinogen 0.2 E.U./dL (0.2 - 1.0) 05/02/17 04:30 Ur Leukocyte Esterase NEGATIVE (NEGATIVE) 05/02/17 04:30 Urine RBC 5-10 /hpf (0-5) H 05/02/17 04:30 Urine WBC 6-10 /hpf (0-5) H 05/02/17 04:30 Ur Epithelial Cells MODERATE /lpf (FEW) 05/02/17 04:30 Urine Bacteria 2+ /hpf (NONE SEEN) H 05/02/17 04:30 Urine Yeast MANY /hpf (NONE SEEN) H 04/18/17 19:20 Salicylates < 25.0 mg/L (30.0-100.0) L 04/16/17 18:20 Urine Opiates Screen NEGATIVE (NEGATIVE) 04/17/17 00:10 Urine Methadone Screen NEGATIVE (NEGATIVE) 04/17/17 00:10 Acetaminophen < 10.0 ug/mL (10.0-30.0) L 04/16/17 18:20 Ur Barbiturates Screen NEGATIVE (NEGATIVE) 04/17/17 00:10 Ur Tricyclics Screen NEGATIVE (NEGATIVE) 04/17/17 00:10 Ur Phencyclidine Scrn NEGATIVE (NEGATIVE) 04/17/17 00:10 Amphetamines Screen NEGATIVE (NEGATIVE) 04/17/17 00:10 U Methamphetamines Scrn NEGATIVE (NEGATIVE) 04/17/17 00:10 U Benzodiazepines Scrn NEGATIVE (NEGATIVE) 04/17/17 00:10 U Cocaine Metab Screen NEGATIVE (NEGATIVE) 04/17/17 00:10 U Cannabinoids Screen NEGATIVE (NEGATIVE) 04/17/17 00:10 Ethyl Alcohol < 10 mg/dL (0-10) 04/16/17 18:20 RPR NONREACTIVE (NONREACTIVE) 04/16/17 18:20 - Physical Exam Vitals and I&O: Vital Signs Temp 97.8 F 05/10/17 04:00 Pulse 74 05/10/17 07:32 Resp 20 05/10/17 07:32 BP 138/92 05/10/17 04:00 Pulse Ox 98 05/10/17 07:32 Intake & Output 05/09/17 05/10/17 05/10/17 18:59 06:59 18:59 Intake Total 210 210 Output Total 950 Balance -740 210 Weight (lbs) 85.899 kg Intake: Intake, IV Amount 210 210 Levetiracetam 1,000 mg In 110 110 Sodium Chloride 0.9% 100 ml @ 400 mls/hr IV Q12H [facility] Rx#:[id number] Piperacillin Sodium/ 100 100 Tazobact 3.375 gm In Sodium Chloride 0.9% 50 ml @ 100 mls/hr IV Q6HR [facility] Rx#:[id number] Oral 0 Output: Urine 950 Other: # Bowel Movements 0 Active Medications: Current Medications Acetaminophen (Tylenol) 650 mg PO Q6H PRN PRN Reason: HEADACHE/TEMP ABOVE 100F Stop: 06/23/17 09:20 Last Admin: 04/28/17 00:41 Dose: 650 mg Acetaminophen (Tylenol 650mg Supp) 650 mg RC Q4H PRN PRN Reason: fever >100.4 Stop: 07/01/17 20:50 Last Admin: 05/02/17 21:30 Dose: 650 mg Albuterol/Ipratropium (Duoneb Neb) 3 ml HHN Q4HRT [facility] Stop: 07/01/17 14:59 Last Admin: 05/10/17 07:30 Dose: 3 ml Cholecalciferol (Vitamin D3) 1,000 iu PO DAILY [facility] Stop: 06/17/17 08:59 Last Admin: 05/10/17 10:09 Dose: Not Given Clonidine HCl (Oktadlzn-Gkr-0) 1 patch TD Sa [facility] Stop: 07/02/17 12:14 Last Admin: 05/03/17 19:03 Dose: 1 patch Clopidogrel Bisulfate (Plavix) 75 mg PO DAILY [facility] Stop: 06/17/17 08:59 Last Admin: 05/10/17 10:09 Dose: Not Given Docusate Sodium (Colace) 100 mg PO BID PRN PRN Reason: Constipation Stop: 06/16/17 09:43 Last Admin: 04/25/17 08:59 Dose: 100 mg Enalaprilat (Vasotec) 2.25 mg IVP Q4HR PRN PRN Reason: sbp>160 Stop: 06/30/17 22:00 Last Admin: 05/09/17 09:21 Dose: 2.25 mg Glyburide (Diabeta) 5 mg PO BID [facility] Stop: 06/16/17 16:59 Last Admin: 05/10/17 10:09 Dose: Not Given Haloperidol Lactate (Haldol) 5 mg IM Q6HR PRN PRN Reason: Agitation Stop: 07/08/17 12:02 Last Admin: 05/10/17 06:41 Dose: 5 mg Magnesium Sulfate (Magnesium Sulfate Premix) 2 gm in 50 mls @ 25 mls/hr IV DAILY PRN PRN Reason: Magnesium level below 1.6 Stop: 06/23/17 09:20 Levetiracetam 1,000 mg/ Sodium (Chloride) 110 mls @ 400 mls/hr IV Q12H [facility] Stop: 06/30/17 12:29 Last Infusion: 05/10/17 01:03 Dose: Infused Piperacillin Sod/Tazobactam (Sod 3.375 gm/ Sodium Chloride) 50 mls @ 100 mls/ hr IV Q6HR [facility] Stop: 07/02/17 11:59 Last Infusion: 05/10/17 05:59 Dose: Infused Sodium Chloride (Nacl 0.45%) 1,000 mls @ 75 mls/hr IV .[id number] [facility] Stop: 07/09/17 08:59 Last Admin: 05/10/17 11:06 Dose: 75 mls/hr Insulin Aspart (Novolog Insulin Sliding Scale) 0 units SUBQ Q6HR [facility] PRN Reason: Protocol Stop: 07/03/17 19:44 Last Admin: 05/10/17 05:59 Dose: 2 units Insulin Detemir (Levemir Insulin) 10 units SUBQ HS [facility] PRN Reason: Protocol Stop: 07/07/17 20:59 Last Admin: 05/09/17 21:03 Dose: Not Given Lactobacillus Rhamnosus (Culturelle 15b) 1 each PO DAILY [facility] Stop: 07/02/17 08:59 Last Admin: 05/10/17 10:09 Dose: Not Given Lamotrigine (Lamictal) 100 mg PO BID [facility] PRN Reason: Protocol Stop: 06/16/17 16:59 Last Admin: 05/10/17 10:10 Dose: Not Given Lisinopril (Zestril) 20 mg PO BID [facility] Stop: 06/30/17 08:59 Last Admin: 05/10/17 10:10 Dose: Not Given Metoprolol Tartrate (Lopressor) 25 mg PO BID [facility] Stop: 06/27/17 09:14 Last Admin: 05/10/17 10:10 Dose: Not Given Miscellaneous (Probiotic Screen) 1 ea MC PRN PRN PRN Reason: PROTOCOL Stop: 07/01/17 17:02 Olanzapine (Zyprexa Zydis) 5 mg PO HS [facility] PRN Reason: Protocol Stop: 07/08/17 20:59 Last Admin: 05/09/17 21:02 Dose: Not Given Potassium Chloride (Klor-Con) 40 meq PO DAILY PRN PRN Reason: k level below 3.5 Stop: 06/23/17 09:20 Last Admin: 04/26/17 08:37 Dose: 40 meq Simvastatin (Zocor) 10 mg PO HS [facility] PRN Reason: Protocol Stop: 06/16/17 20:59 Last Admin: 05/09/17 21:04 Dose: Not Given Venlafaxine HCl (Effexor Xr) 150 mg PO DAILY [facility] Stop: 06/17/17 08:59 Last Admin: 05/10/17 10:11 Dose: Not Given General: no acute distress, well developed, well nourished HEENT: atraumatic, normocephalic, PERRLA Neck: supple, no thyromegaly Cardiovascular: S1S2, regular Lungs: clear to auscultation bilaterally, clear to percussion Abdomen: soft, no tender, no distended, no mass Extremities: no cyanosis, no clubbing, no edema Neurological: awake, alert Skin: intact Infectious Disease Assmt/Plan - Assessment Assessment: Impression: 1. Leukocytosis, likely reactive or aspiration pneumonia. Improved. 2. Aspiration pneumonia. 3. Siezure disorder. - Plan Plan: Continue the same plan. Antibiotics Zosyn. may initiate dc plan from ID point of view. Nutritional Asmnt/Malnutr-PDOC - Dietary Evaluation Malnutrition Findings (Please click <Entered> for more info): Nutritional Asmnt/Malnutrition Start: 04/17/17 07: 44 Text: Status: Complete Freq: Document 04/21/17 09:29 [email or web address] (Rec: 04/21/17 09:34 [email or web address] [id number]) Nutritional Asmnt/Malnutrition Patient General Information Nutritional Screening Moderate Risk Diagnosis metabolic encephalopathy Pertinent Medical Hx/Surgical Hx impulse control disorder, anxiety, depression, DM, HTN, HLD, CAD Subjective Information Pt A&A x 1, confused, with sitter, moving to [facility]. PO intake 50-100%, usually eats 100%. Current Diet Order/ Nutrition Support mechanical soft, chopped Patient / S.O Not Indicated Pertinent Medications vit d, plavix, colace, glyburide Pertinent Labs 04/21 glucose: 129-148, hgba1c: 8.0, T Nutritional Hx/Data Height 1.57 m Height (Calculated Centimeters) 157.5 Current Weight (lbs) 90.718 kg Weight (Calculated Kilograms) 90.7 Weight (Calculated Grams) 47419.5 [place] Body Weight 110 % [place] Body Weight 181 Body Mass Index (BMI) 36.6 Weight Status Obese GI Symptoms GI Symptoms None Last BM 04/19 Difficult in: Chewing Skin Integrity/Comment: intact, bruises, no edema noted Current %PO Good (75-100%) Estimated Nutritional Goals BEE in Kcals: Adj wt of IBW Calories/Kcals/Kg 25-30 Kcals Calculated 7893-2329 kcals Protein: Adj wt of IBW Protein g/k-1.2 Protein Calculated 60-72 Fluid: ml 0277-7472 mL (1 ml/kcal) Nutritional Problem 1. Problem Problem altered nutrition related lab values Etiology DM, lack of CCHO diet Signs/Symptoms: gluocse: 129-148, hgba1c: 8.0 Malnutrition Alert Is there a minimum of two criteria No selected? Query Text:Check all the applicable criteria. A minimum of two criteria are recommended for diagnosis of either severe or non-severe malnutrition. Malnutrition Related to Morbid Obesity Malnutrition related to morbid obesity No Intervention/Recommendation Comments 1. Change diet to mechanical soft, chopped, CCHO 60 gm to manage DM Expected Outcomes/Goals Expected Outcomes/Goals PO intake>50%, labs: WNL monitor wt, labs, skin, PO intake
[2017-05-10] MEDS: cloNIDine 0.2 mg/24 hr Tdm TD SCH (13:36)
--- NOTE | 2017-05-11 11:21 | Discharge Summary ---
DATE OF DISCHARGE: 05/10/2017 DATE OF ADMISSION: 04/16/2017 DATE OF PATIENT'S FAMILY SIGNING HER OUT AMA: 05/10/2017. CAUSE OF ADMISSION: The patient is a 76-year-old female who was brought to the ER by her [id number] after the patient was found to be more lethargic and confused, approximately 3 weeks ago, she was admitted to [facility] after suffering a right lower extremity fracture. Since then, her [id number] has been more altered and not acting like herself. The patient has significant psychiatric history and takes multiple psychiatric medications. She was found to be encephalopathic when she was admitted. ADMITTING DIAGNOSES: 1. Metabolic encephalopathy. 2. Right lower extremity/right ankle fracture. 3. Anxiety. 4. Depression. 5. Impulse control disorder. 6. Diabetes. 7. Hypertension. DISCHARGE DIAGNOSES: 1. Metabolic encephalopathy. 2. Seizure disorder. 3. Right ankle fracture, status post open reduction and internal fixation and removal of the cast. 4. Urinary tract infection. 5. Urinary tract infection with sepsis. 6. Hypertension, out of control. 7. Diabetes mellitus, out of control. 8. Unsteady gait. 9. Psychosis. 10. Status post fall. 11. Hypernatremia. SUMMARY OF HOSPITAL COURSE: Dr. Carrillo was consulted for Orthopedic Surgery. He removed the cast and put her in a removable cast. The patient was found to have a seizure and became more encephalopathic at one point, so she was transferred to the ICU. Neurology saw the patient as well. She was started on Keppra for the last week or so, she continued to improve. She is more awake and more alert. However, she did need restraints and sitters at time. Psychiatrists were following the patient as well. She was placed on psychiatric medications. She also required Haldol, Levemir was added because of diabetes out of control. I discontinued the Haldol at one point, but it was only given as needed once after that. Zyprexa was decreased to bedtime and she was becoming more awake and more alert. The family is very involved in the care. IV fluids were changed to half NS because of the hypernatremia. The patient's family decided to sign out AMA because they were trying to get her transfer to higher level of care. We have been trying very hard with the insurance. There were no beds at [facility]. Also, the case management had been trying to get her [facility] facility, but there was lack of cooperation from the insurance company apparently. Physical exam and labs as charted. PROGNOSIS: Fair. ACTIVITY: She is mostly bed bound because of her recent fracture. DISPOSITION: The patient's [id number] and rest of the family signed her out AMA on 05/10/2017. JOB# [id number]
== END 2017-05-10 16:05 | disposition left against medical advice (07) | DRG 871 ==
LOC: ER 17:30 → MSI 20:30 → ICU 05-01 16:25 → MSI 05-08 00:45 → TELE 05-08 20:06
PROVIDERS: ADMIT Family Medicine; ATTEND Family Medicine
PROC: 2W0 Placement, Anatomical Regions, Change (ICD-10-PCS; principal; 2017-04-16)
PROC: 5A09357 Assistance with Respiratory Ventilation, Less than 24 Consecutive Hours, Continuous Positive Airway Pressure (ICD-10-PCS; 2017-05-03)
PROC: 5A09357 Assistance with Respiratory Ventilation, Less than 24 Consecutive Hours, Continuous Positive Airway Pressure (ICD-10-PCS; 2017-05-04)
DX: A41.9 Sepsis, unspecified organism (principal); G93.41 Metabolic encephalopathy; J96.91 Respiratory failure, unspecified with hypoxia; J69.0 Pneumonitis due to inhalation of food and vomit; E87.0 Hyperosmolality and hypernatremia; D64.9 Anemia, unspecified; B37.9 Candidiasis, unspecified; N39.0 Urinary tract infection, site not specified; F25.0 Schizoaffective disorder, bipolar type; E11.9 Type 2 diabetes mellitus without complications; F03.90 Unspecified dementia, unspecified severity, without behavioral disturbance, psychotic disturbance, mood disturbance, and anxiety; Z53.21 Procedure and treatment not carried out due to patient leaving prior to being seen by health care provider; F63.9 Impulse disorder, unspecified; I10 Essential (primary) hypertension; I25.10 Atherosclerotic heart disease of native coronary artery without angina pectoris; Z66 Do not resuscitate; E78.5 Hyperlipidemia, unspecified; F31.9 Bipolar disorder, unspecified; F41.1 Generalized anxiety disorder; R26.81 Unsteadiness on feet; F29 Unspecified psychosis not due to a substance or known physiological condition; H35.81 Retinal edema; G40.409 Other generalized epilepsy and epileptic syndromes, not intractable, without status epilepticus; Z74.01 Bed confinement status; Z83.3 Family history of diabetes mellitus; Z82.49 Family history of ischemic heart disease and other diseases of the circulatory system; Z87.81 Personal history of (healed) traumatic fracture; S82.891D Other fracture of right lower leg, subsequent encounter for closed fracture with routine healing; W18.39XD Other fall on same level, subsequent encounter; W18.30XA Fall on same level, unspecified, initial encounter; Y93.89 Activity, other specified; Y92.89 Other specified places as the place of occurrence of the external cause; Y99.8 Other external cause status
CPT/HCPCS: 36415-UA; 36600-90; 70450-TC; 71045-TC; 71250-TC; 73590-TC-RT; 73620-TC-RT; 80048-TC; 80053-TC; 80061-TC; 80307; 80320-TC; 80329-TC; 81001-TC; 82140-TC; 82465-TC; 82803-TC; 82948-90; 83036-90; 83735-TC; 84100-TC; 84134-90; 84145-90; 84425-90; 84439-90; 84443-TC; 84478-TC; 85007-TC; 85025-TC; 85027-TC; 85652-TC; 86592-TC; 87086-90; 90779; 90799; 93005; 93971-TC-RT; 94640; 94660; 94760; 97530; J0360; J0696; J1630; J1815; J1940; J1953; J2001; J2060; J2270; J2543; J3480; J7030; J7040; J7042; X3401; X3904; X6598; Z7610